=== PATIENT | male | born 1960 | race Caucasian/White ===

== ENCOUNTER 2017-01-20 10:27 | Inpatient (IN) | payer OTHER ==
[2017-01-20] VITALS (11 sets, daily range): BP systolic 133–184; BP diastolic 81–115; PULSE 76–106; RESP 16–20; TEMP 97.8–98.8; O2SAT 95–98
[~2017-01-20] VITALS: Ht 185.4 cm; Wt 108.8 kg
[~2017-01-20 10:27] MED LIST: LISI-363 PO; PROT40TA PO; ZOFR4TAB3 PO
--- NOTE | 2017-01-20 10:44 | PD ---
HPI Chief Complaint: Abnormal Results Time Seen by Provider: 10:34 Travel History International Travel<30 days: No Contact w/Intl Traveler<30days: No Traveled to known affect area: No History of Present Illness HPI Diagnoses a 56-year-old male with history of hypertension, who [facility] and be evaluated for a low sodium. He states they told him his sodium PFSH Past Medical History Anxiety: Yes Depression: No Heart Rhythm Problems: No Cancer: No Cardiovascular Problems: Yes High Cholesterol: No Chemotherapy: No Chest Pain: No Congestive Heart Failure: No Diminished Hearing: No Genitourinary: Yes Hiatal Hernia: Yes Hypertension: Yes Implanted Vascular Access Dvce: No Musculoskeletal: No Neurologic: No Psychiatric: No Reproductive: No Respiratory: No Radiation Therapy: No Past Surgical History Abdominal Surgery: Yes (HERNIA REPAIR) Tonsillectomy: Yes Other Surgery: Yes (LUMP FOR LEFT ARM REMOVED) Social History Alcohol Use: Yes (2-3 A DAY) Tobacco Use: Yes (2 PPD) Substance Use: No Allergies-Medications (Allergen,Severity, Reaction): Coded Allergies: No Known Allergies (Unverified Adverse Reaction, Unknown, 01/20/17) Reported Meds & Prescriptions Reported Meds & Active Scripts Active Reported Meloxicam 15 Mg Tab 15 Mg PO DAILY Pantoprazole (Pantoprazole Sodium) 40 Mg Tab 40 Mg PO DAILY Potassium Chloride ER (Potassium Chloride) 8 Meq Tab 8 Meq PO BID Furosemide 20 Mg Tab 20 Mg PO DAILY Lisinopril 20 Mg Tab 20 Mg PO DAILY Review of Systems Except as stated in HPI: all other systems reviewed are Neg General / Constitutional: No: Fever HENT: No: Headaches, Lightheadedness, Neck Pain Cardiovascular: No: Chest Pain or Discomfort, Palpitations Respiratory: No: Cough, Shortness of Breath Gastrointestinal: No: Nausea, Vomiting, Abdominal Pain Genitourinary: No: Frequency, Dysuria Musculoskeletal: No: Weakness, Pain Neurologic: No: Weakness, Dizziness, Headache Physical Exam Narrative GENERAL: Well-nourished, well-developed patient. SKIN: Focused skin assessment warm/dry. HEAD: Normocephalic/atraumatic. EYES: No scleral icterus. No injection or drainage. NECK: Supple, trachea midline. No JVD or lymphadenopathy. CARDIOVASCULAR: Regular rate and rhythm without murmurs, gallops, or rubs. RESPIRATORY: Breath sounds equal bilaterally. No accessory muscle use. GASTROINTESTINAL: Abdomen soft, non-tender, nondistended. MUSCULOSKELETAL: No cyanosis, or edema. NEUROLOGICAL: Awake and alert. Cranial nerves II through XII intact. Motor grossly within normal limits. Five out of 5 muscle strength in all muscle groups. Normal speech. Data Data Last Documented VS Vital Signs Date Time Temp Pulse Resp B/P (MAP) Pulse Ox O2 Delivery O2 Flow Rate FiO2 01/20/17 11:38 86 18 159/97 (117) 96 Room Air Orders Orders Complete Blood Count With Diff (01/20/17 10:35) Comprehensive Metabolic Panel (01/20/17 10:35) Iv Access Insert/Monitor (01/20/17 10:35) Ecg Monitoring (01/20/17 10:35) Oximetry (01/20/17 10:35) Lisinopril (Prinivil) (01/20/17 10:45) Sodium Chlor 0.9% 1000 Ml Inj (Ns 1000 M (01/20/17 11:30) Admit To Inpatient (01/20/17 ) Vital Signs (Adult) ANISH.Q4H (01/20/17 11:42) Activity Oob With Assistance (01/20/17 11:42) Booster Operator / Telemetry ANISH.Q8H (01/20/17 11:42) Intake + Output 06,14,22 (01/20/17 11:42) Diet Heart Healthy (01/20/17 Lunch) Sodium Chloride 0.9% Flush (Ns Flush) (01/20/17 11:45) Sodium Chloride 0.9% Flush (Ns Flush) (01/20/17 21:00) Inpatient Certification (01/20/17 ) Labs Laboratory Tests Test 01/20/17 10:46 White Blood Count 9.4 TH/MM3 Red Blood Count 4.85 MIL/MM3 Hemoglobin 16.0 GM/DL Hematocrit 46.1 % Mean Corpuscular Volume 95.0 FL Mean Corpuscular Hemoglobin 33.0 PG Mean Corpuscular Hemoglobin Concent 34.7 % Red Cell Distribution Width 17.3 % Platelet Count 258 TH/MM3 Mean Platelet Volume 7.3 FL CBC Comment AUTO DIFF Differential Total Cells Counted 100 Neutrophils % (Manual) 71 % Band Neutrophils % 4 % Lymphocytes % 19 % Monocytes % 5 % Eosinophils % 1 % Neutrophils # (Manual) 7.1 TH/MM3 Differential Comment FINAL DIFF MANUAL Platelet Estimate NORMAL Platelet Morphology Comment NORMAL Red Cell Morphology Comment NORMAL Blood Urea Nitrogen 7 MG/DL Creatinine 0.70 MG/DL Random Glucose 101 MG/DL Total Protein 7.5 GM/DL Albumin 3.3 GM/DL Calcium Level 8.2 MG/DL Alkaline Phosphatase 123 U/L Aspartate Amino Transf (AST/SGOT) 63 U/L Alanine Aminotransferase (ALT/SGPT) 63 U/L Total Bilirubin 0.6 MG/DL Sodium Level 118 MEQ/L Potassium Level 4.3 MEQ/L Chloride Level 89 MEQ/L Carbon Dioxide Level 21.2 MEQ/L Anion Gap 8 MEQ/L Estimat Glomerular Filtration Rate 117 ML/MIN [facility] Medical Decision Making Medical Screen Exam Complete: Yes Emergency Medical Condition: Yes Differential Diagnosis Podiatry male versus lab error versus metabolic derangement Narrative Course 56-year-old male sent from the [facility] for abnormal labs. The patient was told he had a sodium of 118. Patient has no symptoms at this time. The patient does report that he was taking potassium and Lasix however has not taken in over last 2 days. He states he missed his lisinopril this morning. His blood pressure showed a systolic of 189 and a diastolic of 113. He's been given his lisinopril times one dose here in the emergency department. Sodium comes back at 118. He's been started on normal saline at 125 cc per hour. He'll be admitted to the admitting service. There is a call out to the resident's admitting service. Diagnosis Primary Impression: Hyponatremia Additional Impressions: Hypertension History of alcohol use Admitting Information Admitting Physician Requests: Admit Justin Steven MD Jan 20, 2017 10:44
[2017-01-20] MEDS ORDERED: LISINOPRIL 20 MG TAB PO ONE ×2 (10:45)
[2017-01-20] MEDS ORDERED: FURO20TA PO ×2 (10:45)
[2017-01-20] MEDS ORDERED: POTA8TAB PO ×2 (10:45)
[2017-01-20] MEDS ORDERED: MELO-1 PO ×2 (10:45)
[2017-01-20] MEDS ORDERED: PANT40TA3 PO ×2 (10:45)
[2017-01-20] MEDS ORDERED: LISI-515 PO ×2 (10:45)
[2017-01-20 11:10] LABS: HEMATOCRIT 46.1 % (39.0-51.0); MEAN CORPUSCULAR HGB CONC 34.7 % (32.0-36.0); MEAN PLATELET VOLUME 7.3 FL (7.0-11.0); PLATELET COUNT 258 TH/MM3 (150-450); RED BLOOD COUNT 4.85 MIL/MM3 (4.50-5.90); RED CELL DISTRIBUTION WIDTH 17.3 % (11.6-17.2); WHITE BLOOD COUNT 9.4 TH/MM3 (4.0-11.0)
[2017-01-20 11:23] LABS: ALBUMIN 3.3 GM/DL (3.4-5.0); ALKALINE PHOSPHATASE 123 U/L (45-117); ALT (GPT) 63 U/L (12-78); AST (GOT) 63 U/L (15-37); BICARBONATE 21.2 MEQ/L (21.0-32.0); BLOOD UREA NITROGEN 7 MG/DL (7-18); CALCIUM 8.2 MG/DL (8.5-10.1); CHLORIDE 89 MEQ/L (98-107); GLOMERULAR FILTRATION RATE 117 ML/MIN (>89); GLUCOSE,RANDOM 101 MG/DL (74-106); TOTAL BILIRUBIN ADULT 0.6 MG/DL (0.2-1.0); TOTAL PROTEIN 7.5 GM/DL (6.4-8.2)
[2017-01-20 11:27] LABS: BANDS 4 % (0-6); LYMPHOCYTES 19 % (9-44); MONOCYTES 5 % (0-8); NEUTROPHIL # MANUAL DIFF 7.1 TH/MM3 (1.8-7.7); POLYS (SEG NEUTROPHILS) 71 % (16-70); SODIUM (NA) 118 MEQ/L (136-145)
[2017-01-20] MEDS: SODIUM CHLOR 0.9% 1000 ML INJ 1,000 ML IV SCH ×4 (11:34→19:30)
[2017-01-20] MEDS ORDERED: SODIUM CHLORIDE 0.9% FLUSH 10 ML FLUSH IV FLUSH PRN ×2 (11:45)
--- NOTE | 2017-01-20 12:09 | HHI.HP ---
[facility] Service Family Medicine Primary Care Physician [facility] Admission Diagnosis Diagnoses: International Travel<30 Days: No Contact w/Intl Traveler<30days: No Known Affected Area: No History of Present Illness Mr. Jaimes is a 56yoWM with a PMH of HTN and chronic pain presenting with abnormal labs. Had labs done this morning and received several messages to go to the ER from his doctor at the [facility]. Has been feeling fine. No recent infections or illnesses. No sick contacts. Cough has been a little bit worse over the past couple of weeks. Productive of clear sputum. Worse at night. No fever/chills. No hx of seizures. No psychotropic meds. Last had labs 3 months ago that were good. (Stefani Dill MD R1) Review of Systems Constitutional: COMPLAINS OF: Weight gain (40 lbs in a yr), DENIES: Fever, Chills Eyes: DENIES: Blurred vision, Double Vision Ears, nose, mouth, throat: DENIES: Tinnitus, Hearing loss, Throat pain, Odynophagia Respiratory: COMPLAINS OF: Cough, Sputum production, Shortness of breath Cardiovascular: COMPLAINS OF: PND, Lower Extremity Edema, Orthopnea, DENIES: Chest pain Gastrointestinal: DENIES: Abdominal pain, Constipation, Diarrhea Musculoskeletal: COMPLAINS OF: Joint pain, Back pain, DENIES: Joint Swelling Hematologic/lymphatic: DENIES: Lymphadenopathy Neurologic: COMPLAINS OF: Paresthesias, DENIES: Localized weakness, Seizures Psychiatric: DENIES: Anxiety, Depression (Stefani Dill MD R1) Past Family Social History Past Medical History Chronic back pain- degenerative changes- being treated by pain management HTN COPD?- on inhalers Past Surgical History Hernia repair 2012 Tonsillectomy Reported Medications Spiriva qD Symbicort inhaler Reported Meds & Active Scripts Active Reported Meloxicam 15 Mg Tab 15 Mg PO DAILY Pantoprazole (Pantoprazole Sodium) 40 Mg Tab 40 Mg PO DAILY Potassium Chloride ER (Potassium Chloride) 8 Meq Tab 8 Meq PO BID Furosemide 20 Mg Tab 20 Mg PO DAILY Lisinopril 20 Mg Tab 20 Mg PO DAILY (Stefani Dill MD R1) Allergies: Coded Allergies: No Known Allergies (Unverified Adverse Reaction, Unknown, 01/20/17) Family History Mother- CAD- Open heart surg in hers 50s Father- CAD Children- healthy Siblings- healthy Social History , lives alone with dog Retired from [employer] for 25 yrs [employer] Tobacco- 2 ppds for 40yrs, willing to quit Alcohol- 6 pack of beer a day, for 35 yrs, no withdrawals sx, no seizures Illicit drugs- none (Stefani Dill MD R1) Physical Exam Vital Signs Vital Signs Date Time Temp Pulse Resp B/P (MAP) Pulse Ox O2 Delivery O2 Flow Rate FiO2 01/20/17 11:38 86 18 159/97 (117) 96 Room Air 01/20/17 10:47 101 18 174/115 (134) 96 Room Air 01/20/17 10:29 97 16 184/98 (126) 95 Physical Exam GENERAL: This is a well-nourished, well-developed obese male patient sitting in bed, in no apparent distress. SKIN: No rashes, ecchymoses or lesions. Cool and dry. HEAD: Atraumatic. Normocephalic EYES: Pupils equal round and reactive. Extraocular motions intact. No scleral icterus. No injection or drainage. ENT: Nose without bleeding, purulent drainage or septal hematoma. Throat without erythema, tonsillar hypertrophy or exudate. Uvula midline. Airway patent. NECK: Trachea midline. No JVD or lymphadenopathy. Supple, nontender, no meningeal signs. CARDIOVASCULAR: Regular rate and rhythm without murmurs, gallops, or rubs. RESPIRATORY: Clear to auscultation. Breath sounds equal bilaterally. No rales, or rhonchi. Decreased breath sounds bilaterally GASTROINTESTINAL: Abdomen soft obese , non-tender, nondistended. No hepato- splenomegaly, or palpable masses. No guarding. MUSCULOSKELETAL: Extremities without clubbing, cyanosis. 1+pitting edema to mid calf. No joint tenderness, effusion, or edema noted. No calf tenderness. NEUROLOGICAL: Awake and alert. Motor and sensory grossly within normal limits. Normal speech. Laboratory Laboratory Tests Test 01/20/17 10:46 White Blood Count 9.4 Red Blood Count 4.85 Hemoglobin 16.0 Hematocrit 46.1 Mean Corpuscular Volume 95.0 Mean Corpuscular Hemoglobin 33.0 Mean Corpuscular Hemoglobin Concent 34.7 Red Cell Distribution Width 17.3 Platelet Count 258 Mean Platelet Volume 7.3 CBC Comment AUTO DIFF Differential Total Cells Counted 100 Neutrophils % (Manual) 71 Band Neutrophils % 4 Lymphocytes % 19 Monocytes % 5 Eosinophils % 1 Neutrophils # (Manual) 7.1 Differential Comment FINAL DIFF MANUAL Platelet Estimate NORMAL Platelet Morphology Comment NORMAL Red Cell Morphology Comment NORMAL Blood Urea Nitrogen 7 Creatinine 0.70 Random Glucose 101 Total Protein 7.5 Albumin 3.3 Calcium Level 8.2 Alkaline Phosphatase 123 Aspartate Amino Transf (AST/SGOT) 63 Alanine Aminotransferase (ALT/SGPT) 63 Total Bilirubin 0.6 Sodium Level 118 Potassium Level 4.3 Chloride Level 89 Carbon Dioxide Level 21.2 Anion Gap 8 Estimat Glomerular Filtration Rate 117 (Stefani Dill MD R1) Result Diagram: 01/20/17 1046 01/20/17 1046 Imaging Last Impressions Chest X-Ray 01/20/17 1220 Signed Impressions: Service Date/Time: January 12:39 - CONCLUSION: Mild platelike atelectasis right lung base. Otherwise, the lungs are clear and stable compared to the prior study. Keegan Youngblood MD (Stefani Dill MD R1) Caprini VTE Risk Assessment Caprini VTE Risk Assessment: Mod/High Risk (score >= 2) Caprini Risk Assessment Model Point Value = 1 Point Value = 2 Point Value = 3 Point Value = 5 Age 41-60 Minor surgery BMI > 25 kg/m2 Swollen legs Varicose veins or History of unexplained or recurrent spontaneous Oral contraceptives or hormone replacement Sepsis (< 1 month) Serious lung disease, including pneumonia (< 1 month) Abnormal pulmonary function Acute myocardial infarction Congestive heart failure (< 1 month) History of inflammatory bowel disease Medical patient at bed rest Age 61-74 Arthroscopic surgery Major open surgery (> 45 min) Laparoscopic surgery (> 45 min) Malignancy Confined to bed (> 72 hours) Immobilizing plaster cast Central venous access Age >= 75 History of VTE Family history of VTE Factor V Leiden Prothrombin [id number] Lupus anticoagulant Anticardiolipin antibodies Elevated serum homocysteine Heparin-induced thrombocytopenia Other congenital or acquired thrombophilia Stroke (< 1 month) Elective arthroplasty Hip, pelvis, or leg fracture Acute spinal cord injury (< 1 month) Prophylaxis Regimen Total Risk Factor Score Risk Level Prophylaxis Regimen 0-1 Low Early ambulation 2 Moderate Order ONE of the following: *Sequential Compression Device (SCD) *Heparin 5000 units SQ BID 3-4 Higher Order ONE of the following medications: *Heparin 5000 units SQ TID *Enoxaparin/Lovenox 40 mg SQ daily (WT < 150 kg, CrCl > 30 mL/min) *Enoxaparin/Lovenox 30 mg SQ daily (WT < 150 kg, CrCl > 10-29 mL/min) *Enoxaparin/Lovenox 30 mg SQ BID (WT < 150 kg, CrCl > 30 mL/min) AND/OR *Sequential Compression Device (SCD) 5 or more Highest Order ONE of the following medications: *Heparin 5000 units SQ TID (Preferred with Epidurals) *Enoxaparin/Lovenox 40 mg SQ daily (WT < 150 kg, CrCl > 30 mL/min) *Enoxaparin/Lovenox 30 mg SQ daily (WT < 150 kg, CrCl > 10-29 mL/min) *Enoxaparin/Lovenox 30 mg SQ BID (WT < 150 kg, CrCl > 30 mL/min) AND *Sequential Compression Device (SCD) (Stefani Dill MD R1) Assessment and Plan Assessment and Plan Mr. Jaimes is a 56yoWM with a PMH of HTN presenting with asymptomatic hyponatremia to 118. He is being admitted to inpatient. Code Status Full Code Discussed Condition With Dr. Luz Elena Sandoval and Dr. Simran Mariscal (Stefani Dill MD R1) Attending Attestation Patient seen and examined. Case reviewed and discussed with the resident team. Agree with plan of care as discussed with me and documented in the resident note. (Simran Mariscal MD) Problem List: (1) Hyponatremia ICD Codes: E87.1 - Hypo-osmolality and hyponatremia Status: Acute Plan: Patient with severe hyponatremia down to 118. Asymptomatic. No weakness. No hx of seizures. On Lasix at home which may have contributed to his losing sodium. * Repeat sodium at 1300 * Check urine sodium (169) and urine osmolality (666)- may indicate SIADH * CXR- showed no pulmonary lesion * Started on IVF NS @ 125mls/hr * Will place on fluid restriction at 1500ml * Hold Lasix and potassium (2) Hypertension ICD Codes: I10 - Hypertension Status: Chronic Plan: Pt hypertensive upon admission to the ED. States that he did not take his home dose of Lisinopril * Given 1 dose of Lisinopril in ED * Continue at home Lisinopril 20mg po qD * Hold Lasix (3) History of alcohol use ICD Codes: Z87.898 - Personal history of other specified conditions Status: Chronic Plan: Pt admits to long history of alcohol use. 6 pack of beer a day. * CIWA protocol, escalate as needed (4) Tobacco abuse ICD Codes: Z72.0 - Tobacco abuse Status: Chronic Plan: 80 pack year history, pt interested in quitting * Nicotine patch * Advise about [place] Quitline for more information (5) FEN Status: Acute Plan: Fluids: Fluid restriction to 1500, IVF NS@125ml/hr Electrolytes: hyponatremia noted, monitor and replete as needed Nutrition: heart-healthy diet DVT Prophylaxis: Early ambulation. Lovenox 40mg subQ q24hr GI Prophylaxis: Protonix (Stefani Dill MD R1) Physician Certification 2 Midnight Certification Type: Admission for Inpatient Services Order for Inpatient Services The services are ordered in accordance with Medicare regulations or non- Medicare payer requirements, as applicable. In the case of services not specified as inpatient-only, they are appropriately provided as inpatient services in accordance with the 2-midnight benchmark. Estimated LOS (days): 2 days is the estimated time the patient will need to remain in the hospital, assuming treatment plan goals are met and no additional complications. Post-Hospital Plan: Home (Stefani Dill MD R1) Stefani Dill MD R1 Jan 20, 2017 12:09 Simran Mariscal MD Jan 21, 2017 14:16
[2017-01-20] MEDS ORDERED: cloNIDine HCL 0.1 MG TAB PO PRN ×2 (12:30)
[2017-01-20] MEDS ORDERED: ONDANSETRON HCL 4 MG/2 ML VIAL IVP PRN ×2 (12:30)
[2017-01-20] MEDS ORDERED: LORazepam 1 MG TAB PO PRN ×2 (12:30)
[2017-01-20] MEDS ORDERED: BISACODYL 10 MG SUPP RECTAL PRN ×2 (12:30)
[2017-01-20] MEDS ORDERED: MAGNESIUM HYDROXIDE SUSP 30 ML CUP PO PRN ×2 (12:30)
[2017-01-20] MEDS ORDERED: SENNOSIDES 8.6 MG TAB PO PRN ×2 (12:30)
[2017-01-20] MEDS ORDERED: FLUMAZENIL 0.5 MG/5 ML VIAL IV PUSH PRN ×2 (12:30)
[2017-01-20] MEDS ORDERED: LACTULOSE SYRUP 20 GM/30 ML CUP PO PRN ×2 (12:30)
[2017-01-20] MEDS ORDERED: LORazepam 2 MG TAB PO PRN ×2 (12:30)
[2017-01-20] MEDS ORDERED: ACETAMINOPHEN 325 MG TAB PO PRN ×2 (12:30)
[2017-01-20] MEDS ORDERED: LORazepam 2 MG/ML VIAL IV PUSH PRN ×8 (12:30)
[2017-01-20] MEDS ORDERED: NALOXONE HCL 0.4 MG/ML AMP IV PUSH PRN ×2 (12:30)
--- NOTE | 2017-01-20 12:32 | HHI.FPPN ---
Subjective Remarks Pt. seen, examined and discussed with Drs. Dill and Joey Sandoval. This is a 56 yo male [employer] who had bloodwork at the [facility] this a.m. and was called at home thereafter to report to the ED because of critical low sodium at 118. He is totally assymptomatic with the exception of his chronic low back pain. He takes lasix, potassium and lisinopril (held this a.m. ). [facility] also [facility] for his [facility]. Has been prescribed PT. Has had hernia and tonsillectomy surgeries. Smokes 80 pack year history, and drinks a six-pack of beer daily for 35 years. No history of seizures or withdrawal symptoms. No illicits. Lives with dog, roommate and a boarder. . Two children L&W, two brothers L&W. Mom with history of heart surgery, dad with stents and thyroidectomy. See H&P for this admission for additional historical details, including ROS for this admission. Objective Vitals Vital Signs Date Time Temp Pulse Resp B/P (MAP) Pulse Ox O2 Delivery O2 Flow Rate FiO2 01/20/17 11:38 86 18 159/97 (117) 96 Room Air 01/20/17 10:47 101 18 174/115 (134) 96 Room Air 01/20/17 10:29 97 16 184/98 (126) 95 Result Diagram: 01/20/17 1046 01/20/17 1046 Objective Remarks O. CONSTITUTIONAL/GEN: normally nourished, in NAD. EYES: conjunctiva normal, right upuil smaller than left, both are reactive, EOMI. ENT: Mouth and pharynx normal. Many missing teeth upper jaw. NECK: thyroid midline, carotids symmetrical. LUNGS: Decreased breath sounds, no wheezing, rales, rhonchi. CARDIOVASCULAR: RR without murmur or gallop. 1+ edema to mid-calf. GI/ABD: soft without masses, without organomegaly. Protuberant. : no CVA tenderness NEURO: No focal deficits. SKIN: color normal, no rashes noted. HEME/LYMPH: no bruising, petechia or significant adenopathy MUSC: back is normal in appearance. Extremities are normal in appearance. PSYCH/MENTAL STATUS: Alert and oriented x 3. A/P Assessment and Plan 56 yo male with significant hyponatremia at 118. Will admit, monitor sodium. Discharge Planning Case management. Attending Attestation Patient seen and examined. Case reviewed and discussed with the resident team. Agree with plan of care as discussed with me and documented in the resident note. Simran Mariscal MD Jan 20, 2017 12:32
[2017-01-20 13:06] LABS: BILIRUBIN, URINE NEG (NEG); BLOOD, URINE NEG (NEG); GLUCOSE,URINE 150 mg/dL (NEG); KETONE, URINE NEG (NEG); MUCUS URINE FEW /lpf (OCC); NITRITE,URINE NEG (NEG); URINE COLOR YELLOW (YELLW/STRAW); URINE LEUKOCYTE ESTERASE NEG (NEG)
--- NOTE | 2017-01-20 13:27 | RADRPT ---
EXAM DATE/TIME: 01/20/2017 12:39 [facility] COMPARISON: CHEST SINGLE AP, July 05, 2013, 11:04. INDICATIONS : Short of breath with chest pressure, low sodium. MEDICAL HISTORY : Chronic obstructive pulmonary disease. SURGICAL HISTORY : None. ENCOUNTER: Initial ACUITY: 1 day PAIN SCORE: 0/10 LOCATION: Chest FINDINGS: A single view of the chest demonstrates the lungs to be symmetrically aerated without evidence of mas s, infiltrate or effusion. Mild platelike atelectasis in the right lung base. The cardiomediastinal c ontours are unremarkable. Osseous structures are intact. Otherwise, no other significant changes com pared to the prior study. CONCLUSION: Mild platelike atelectasis right lung base. Otherwise, the lungs are clear and stable compared to the prior study. Keegan Youngblood MD on January 20, 2017 at 13:25 Board Certified Radiologist. This report was verified electronically.
[2017-01-20] MEDS: ENOXAPARIN SODIUM 40 MG/0.4 ML SYRINGE SQ SCH ×2 (16:29)
[2017-01-20] MEDS: THIAMINE HCL 100 MG TAB PO SCH ×2 (16:29)
[2017-01-20] MEDS: NICOTINE 21 MG/24 HR PATCH T-DERMAL SCH ×2 (16:29)
[2017-01-20] MEDS: FOLIC ACID 1 MG TAB PO SCH ×2 (16:29)
[2017-01-20] MEDS: MULTIVITAMIN TAB PO SCH ×2 (16:29)
[2017-01-20 19:50] LABS: SODIUM,RANDOM URINE 169 MEQ/L
[2017-01-20 19:52] LABS: OSMOLALITY,URINE 666 MOSM/KG (300-1300)
[2017-01-20] MEDS: REMOVE OLD PATCH T-DERMAL SCH ×2 (21:00)
[2017-01-20] MEDS: SODIUM CHLORIDE 0.9% FLUSH 10 ML FLUSH IV FLUSH SCH ×2 (21:32)
[2017-01-20] MEDS: DOCUSATE SODIUM 50 MG/SENNA 8.6 MG TAB PO SCH ×2 (21:34)
[2017-01-20 22:17] LABS: BICARBONATE 21.4 MEQ/L (21.0-32.0); CREATININE 0.8 MG/DL (0.60-1.30)
[2017-01-20] MEDS: POTASSIUM CHLORIDE 8 MEQ CONTROLLED RELEASE TAB PO SCH ×2 (22:23)
[2017-01-20] MEDS ORDERED: SODIUM CHLORIDE 1 GRAM TAB PO ONE ×2 (23:45)
[2017-01-20] MEDS ORDERED: FUROSEMIDE 20 MG/2 ML VIAL IV PUSH ONE ×2 (23:45)
[2017-01-20] MEDS ORDERED: POTASSIUM CHLORIDE 10 MEQ CONTROLLED RELEASE TAB PO ONE ×2 (23:45)
[2017-01-21] VITALS (9 sets, daily range): BP systolic 139–163; BP diastolic 83–105; PULSE 74–92; RESP 18; TEMP 97.3–98.2; O2SAT 97–99
[2017-01-21] MEDS ORDERED: SYMB80AE INH ×2 (00:12)
[2017-01-21] MEDS ORDERED: SPIRCAP INH ×2 (00:12)
[2017-01-21 04:04] LABS: BICARBONATE 24.4 MEQ/L (21.0-32.0); CALCIUM 7.9 MG/DL (8.5-10.1); CREATININE 0.7 MG/DL (0.60-1.30)
[2017-01-21 08:18] LABS: AUTOMATED NEUTROPHIL # 4.3 TH/MM3 (1.8-7.7); BASOPHIL # 0.1 TH/MM3 (0-0.2); BASOPHIL % 0.9 % (0.0-2.0); EOSINOPHIL # 0.1 TH/MM3 (0-0.4); EOSINOPHIL % 2.2 % (0.0-4.0); HEMATOCRIT 42.3 % (39.0-51.0); LYMPH % 21.5 % (9.0-44.0); LYMPHOCYTE # 1.4 TH/MM3 (1.0-4.8); MEAN CELL VOLUME 95.9 FL (80.0-100.0); MEAN CORPUSCULAR HEMOGLOBIN 34.1 PG (27.0-34.0); MEAN CORPUSCULAR HGB CONC 35.5 % (32.0-36.0); MEAN PLATELET VOLUME 7.5 FL (7.0-11.0); MONO % 10.2 % (0.0-8.0); MONOCYTE # 0.7 TH/MM3 (0-0.9); NEUT % 65.2 % (16.0-70.0); PLATELET COUNT 226 TH/MM3 (150-450); RED BLOOD COUNT 4.41 MIL/MM3 (4.50-5.90); RED CELL DISTRIBUTION WIDTH 17.2 % (11.6-17.2); WHITE BLOOD COUNT 6.7 TH/MM3 (4.0-11.0)
[2017-01-21 08:42] LABS: ALT (GPT) 53 U/L (12-78); AST (GOT) 51 U/L (15-37); BICARBONATE 22.5 MEQ/L (21.0-32.0); BLOOD UREA NITROGEN 6 MG/DL (7-18); CALCIUM 8.1 MG/DL (8.5-10.1); CHLORIDE 86 MEQ/L (98-107); CREATININE 0.68 MG/DL (0.60-1.30); GLOMERULAR FILTRATION RATE 121 ML/MIN (>89); GLUCOSE,RANDOM 102 MG/DL (74-106)
[2017-01-21 08:44] LABS: SODIUM (NA) 117 MEQ/L (136-145)
[2017-01-21] MEDS: THIAMINE HCL 100 MG TAB PO SCH ×2 (08:45)
[2017-01-21] MEDS: PANTOPRAZOLE SOD 40 MG DELAYED RELEASE TAB PO SCH ×2 (08:45)
[2017-01-21] MEDS: FOLIC ACID 1 MG TAB PO SCH ×2 (08:45)
[2017-01-21] MEDS: MULTIVITAMIN TAB PO SCH ×2 (08:45)
[2017-01-21] MEDS: DOCUSATE SODIUM 50 MG/SENNA 8.6 MG TAB PO SCH ×4 (08:45→21:00)
[2017-01-21] MEDS: LISINOPRIL 20 MG TAB PO SCH ×2 (08:45)
[2017-01-21] MEDS: POTASSIUM CHLORIDE 8 MEQ CONTROLLED RELEASE TAB PO SCH ×4 (08:45→23:32)
[2017-01-21] MEDS: NICOTINE 21 MG/24 HR PATCH T-DERMAL SCH ×2 (08:46)
[2017-01-21 08:50] LABS: ALKALINE PHOSPHATASE 104 U/L (45-117); TOTAL BILIRUBIN ADULT 0.6 MG/DL (0.2-1.0); TOTAL PROTEIN 6.9 GM/DL (6.4-8.2)
[2017-01-21] MEDS: SODIUM CHLORIDE 0.9% FLUSH 10 ML FLUSH IV FLUSH SCH ×4 (08:54→21:00)
--- NOTE | 2017-01-21 09:22 | EKG ---
Date Performed: 01/20/2017 Time Performed: 12:36:09 PTAGE: 56 years EKG: Sinus rhythm NORMAL ECG Compared to prior tracing no significant change PREVIOUS TRACING : 04/25/2013 11.39 DOCTOR: Prudencio Seay Interpretating Date/Time 01/21/2017 09:19:33
[2017-01-21] MEDS ORDERED: SODIUM CHLORIDE 1 GRAM TAB PO ONE ×2 (11:00)
[2017-01-21] MEDS: SODIUM CHLOR 0.9% 1000 ML INJ 1,000 ML IV SCH ×2 (12:51)
[2017-01-21] MEDS ORDERED: BACL10TA PO ×2 (13:40)
[2017-01-21] MEDS ORDERED: METH500T3 PO ×2 (13:40)
[2017-01-21] MEDS ORDERED: GABA300C5 PO ×2 (13:40)
[2017-01-21] MEDS: ENOXAPARIN SODIUM 40 MG/0.4 ML SYRINGE SQ SCH ×2 (14:00)
--- NOTE | 2017-01-21 14:11 | HHI.FPPN ---
Subjective Remarks Patient is feeling well. Says that he builds fluid in his lungs when he lays flat. Denies confusion, denies headaches, denies seizures. He does have a persistent cough that is not much worse than his baseline. He also admits to drinking 4-6 beers a day for the past several years, however does not feel like he is going through any withdrawals. He admits to drinking a cup of coffee this morning but not much else besides this. He is requesting to go home today. (Gregorio Blackwell MD, R3) Objective Vitals Vital Signs Date Time Temp Pulse Resp B/P (MAP) Pulse Ox O2 Delivery O2 Flow Rate FiO2 01/21/17 12:03 98.0 87 18 140/87 (104) 97 01/21/17 08:03 97.7 74 18 154/98 (116) 97 01/21/17 08:00 90 01/21/17 08:00 Room Air 01/21/17 04:37 97.3 86 18 163/105 (124) 97 01/21/17 04:00 Room Air 01/21/17 00:00 Room Air 01/20/17 23:40 98.6 76 18 167/95 (119) 95 01/20/17 20:45 98.8 95 20 133/96 (108) 96 01/20/17 20:00 Room Air 01/20/17 20:00 106 01/20/17 18:02 85 01/20/17 16:23 98.0 85 19 162/87 (112) 98 01/20/17 15:59 87 01/20/17 14:49 I/O 01/20/17 01/20/17 01/20/17 01/21/17 01/21/17 01/21/17 07:00 15:00 23:00 07:00 15:00 23:00 Intake Total 720 ml Output Total 1875 ml Balance -1155 ml Intake Oral 720 ml Output Urine Total 1875 ml # Voids 2 # Bowel Movements 1 (Gergorio Blackwell MD, R3) Result Diagram: 01/21/17 0702 01/21/17 0702 Imaging Last 72 hours Impressions Chest X-Ray 01/20/17 1220 Signed Impressions: Service Date/Time: January 12:39 - CONCLUSION: Mild platelike atelectasis right lung base. Otherwise, the lungs are clear and stable compared to the prior study. Keegan Youngblood MD Objective Remarks O. CONSTITUTIONAL/GEN: normally nourished, in NAD. EYES: conjunctiva normal, right upuil smaller than left, both are reactive, EOMI. ENT: Mouth and pharynx normal. Many missing teeth upper jaw. NECK: thyroid midline, carotids symmetrical. LUNGS: Faint crackles at the bases. CARDIOVASCULAR: RR without murmur or gallop. 1+ edema to mid-calf. GI/ABD: soft without masses, without organomegaly. Protuberant. : no CVA tenderness NEURO: No focal deficits. SKIN: color normal, no rashes noted. HEME/LYMPH: no bruising, petechia or significant adenopathy MUSC: back is normal in appearance. Extremities are normal in appearance. PSYCH/MENTAL STATUS: Alert and oriented x 3. (Gregorio Blackwell MD, R3) A/P Assessment and Plan Mr. Jaimes is a 56yoWM with a PMH of HTN presenting with asymptomatic hyponatremia to 118. He is being admitted to inpatient. Discharge Planning Case management. (Gregorio Blackwell MD, R3) Attending Attestation Patient seen and examined. Case reviewed and discussed with the resident team. Agree with plan of care as discussed with me and documented in the resident note. (Simran Mariscal MD) Problem List: (1) Hyponatremia ICD Codes: E87.1 - Hypo-osmolality and hyponatremia Status: Acute Plan: Patient with severe hyponatremia down to 118. Asymptomatic. No weakness. No hx of seizures. On Lasix at home which may have contributed to his losing sodium. * Repeat sodium at 1300 * Check urine sodium (169) and urine osmolality (666)- may indicate SIADH, possibly from underlying * CXR- showed no pulmonary lesion * Hold IVF * Will place on fluid restriction at 800 ml and give Sodium Chloride 1 g tablets BID. * Hold Lasix and potassium * Advised to stop drinking EtOH (2) Hypertension ICD Codes: I10 - Hypertension Status: Chronic Plan: Pt hypertensive upon admission to the ED. States that he did not take his home dose of Lisinopril * Given 1 dose of Lisinopril in ED * Continue at home Lisinopril 20mg po qD * Hold Lasix (3) History of alcohol use ICD Codes: Z87.898 - Personal history of other specified conditions Status: Chronic Plan: Pt admits to long history of alcohol use. 6 pack of beer a day. * CIWA protocol, escalate as needed (4) Tobacco abuse ICD Codes: Z72.0 - Tobacco abuse Status: Chronic Plan: 80 pack year history, pt interested in quitting * Nicotine patch * Advise about [place] Quitline for more information (5) FEN Status: Acute Plan: Fluids: Fluid restriction to 800, IVF NS@125ml/hr Electrolytes: hyponatremia noted, monitor and replete as needed Nutrition: heart-healthy diet DVT Prophylaxis: Early ambulation. Lovenox 40mg subQ q24hr GI Prophylaxis: Protonix SDW Dr. Simran Mariscal and Dr. Stefani Dill. (Gregorio Blackwell MD, R3) Gregorio Blackwell MD, R3 Jan 21, 2017 14:11 Simran Mariscal MD Jan 21, 2017 14:46
[2017-01-21] MEDS: SODIUM CHLORIDE 1 GRAM TAB PO SCH ×4 (15:09→23:31)
[2017-01-21] MEDS: RESP: ALBUTEROL 2.5 MG/IPRATROPIUM 0.5 MG NEB (SCH) NEB ×4 (16:48→21:08)
[2017-01-21 18:35] LABS: BICARBONATE 23.5 MEQ/L (21.0-32.0); CALCIUM 7.8 MG/DL (8.5-10.1); CREATININE 0.74 MG/DL (0.60-1.30)
[2017-01-21] MEDS: REMOVE OLD PATCH T-DERMAL SCH ×2 (21:00)
[2017-01-22] MEDS: RESP: ALBUTEROL 2.5 MG/IPRATROPIUM 0.5 MG NEB (SCH) NEB ×8 (00:30→11:08)
[2017-01-22 00:32] VITALS: O2SAT 98
[2017-01-22 04:13] VITALS: BP 160/90; PULSE 90; RESP 18; TEMP 97.2; O2SAT 97
[2017-01-22] MEDS: SODIUM CHLOR 0.9% 1000 ML INJ 1,000 ML IV SCH ×4 (05:12→06:31)
[2017-01-22 07:56] LABS: AUTOMATED NEUTROPHIL # 5.4 TH/MM3 (1.8-7.7); BASOPHIL # 0.1 TH/MM3 (0-0.2); BASOPHIL % 1.2 % (0.0-2.0); EOSINOPHIL # 0.1 TH/MM3 (0-0.4); EOSINOPHIL % 1.4 % (0.0-4.0); HEMATOCRIT 43.2 % (39.0-51.0); HEMOGLOBIN 14.8 GM/DL (13.0-17.0); LYMPHOCYTE # 1.4 TH/MM3 (1.0-4.8); MEAN CELL VOLUME 97.9 FL (80.0-100.0); MEAN CORPUSCULAR HEMOGLOBIN 33.6 PG (27.0-34.0); MEAN CORPUSCULAR HGB CONC 34.3 % (32.0-36.0); MEAN PLATELET VOLUME 7.6 FL (7.0-11.0); MONO % 7.8 % (0.0-8.0); MONOCYTE # 0.6 TH/MM3 (0-0.9); NEUT % 71.6 % (16.0-70.0); PLATELET COUNT 221 TH/MM3 (150-450); RED BLOOD COUNT 4.41 MIL/MM3 (4.50-5.90); RED CELL DISTRIBUTION WIDTH 17.2 % (11.6-17.2); WHITE BLOOD COUNT 7.6 TH/MM3 (4.0-11.0)
[2017-01-22 08:00] VITALS: BP 151/94; PULSE 84; RESP 18; TEMP 97.7; O2SAT 96
[2017-01-22 08:05] VITALS: PULSE 76
[2017-01-22 08:26] LABS: ALBUMIN 2.9 GM/DL (3.4-5.0); ALKALINE PHOSPHATASE 99 U/L (45-117); ALT (GPT) 58 U/L (12-78); AST (GOT) 56 U/L (15-37); BICARBONATE 22.7 MEQ/L (21.0-32.0); BLOOD UREA NITROGEN 8 MG/DL (7-18); CALCIUM 8.1 MG/DL (8.5-10.1); CHLORIDE 93 MEQ/L (98-107); CREATININE 0.61 MG/DL (0.60-1.30); GLOMERULAR FILTRATION RATE 137 ML/MIN (>89); GLUCOSE,RANDOM 95 MG/DL (74-106); TOTAL BILIRUBIN ADULT 0.4 MG/DL (0.2-1.0); TOTAL PROTEIN 6.8 GM/DL (6.4-8.2)
[2017-01-22 08:33] LABS: SODIUM (NA) 123 MEQ/L (136-145)
[2017-01-22] MEDS: SODIUM CHLORIDE 0.9% FLUSH 10 ML FLUSH IV FLUSH SCH ×2 (09:00)
[2017-01-22] MEDS: DOCUSATE SODIUM 50 MG/SENNA 8.6 MG TAB PO SCH ×2 (09:00)
[2017-01-22] MEDS: PANTOPRAZOLE SOD 40 MG DELAYED RELEASE TAB PO SCH ×2 (09:48)
[2017-01-22] MEDS: LISINOPRIL 20 MG TAB PO SCH ×2 (09:48)
[2017-01-22] MEDS: NICOTINE 21 MG/24 HR PATCH T-DERMAL SCH ×2 (09:48)
[2017-01-22] MEDS: THIAMINE HCL 100 MG TAB PO SCH ×2 (09:48)
[2017-01-22] MEDS: FOLIC ACID 1 MG TAB PO SCH ×2 (09:48)
[2017-01-22] MEDS: MULTIVITAMIN TAB PO SCH ×2 (09:48)
[2017-01-22] MEDS: SODIUM CHLORIDE 1 GRAM TAB PO SCH ×2 (09:49)
[2017-01-22] MEDS: POTASSIUM CHLORIDE 8 MEQ CONTROLLED RELEASE TAB PO SCH ×2 (09:49)
--- NOTE | 2017-01-22 10:42 | HHI.FPPN ---
Subjective Remarks Patient was seen and examined this morning. No overnight events reported. He feels well, and has "always" felt well. Sodium levels slowing improving. Eating well, fluid restricted but getting 100cc/hr NS. (Luz Elena Sandoval MD R2) Objective Vitals Vital Signs Date Time Temp Pulse Resp B/P (MAP) Pulse Ox O2 Delivery O2 Flow Rate FiO2 01/22/17 08:00 97.7 84 18 151/94 (113) 96 01/22/17 04:13 97.2 90 18 160/90 (113) 97 01/22/17 00:32 98 01/21/17 23:40 98.2 77 18 162/99 (120) 98 01/21/17 21:17 97.7 84 18 146/83 (104) 99 01/21/17 21:09 97 21 01/21/17 20:40 92 01/21/17 19:20 Room Air 01/21/17 16:03 97.7 86 18 139/93 (108) 97 01/21/17 12:03 98.0 87 18 140/87 (104) 97 I/O 01/21/17 01/21/17 01/21/17 01/22/17 01/22/17 01/22/17 07:00 15:00 23:00 07:00 15:00 23:00 Intake Total 720 ml 520 ml 1480 ml Output Total 1875 ml 1500 ml 700 ml Balance -1155 ml -980 ml 780 ml Intake Oral 720 ml 520 ml 480 ml IV Total 1000 ml Output Urine Total 1875 ml 1500 ml 700 ml # Voids 1 1 # Bowel Movements 1 1 1 (Luz Elena Sandoval MD R2) Result Diagram: 01/22/1762701/22/17627 Objective Remarks GENERAL: This is a well-nourished, well-developed obese male patient walking about the room. SKIN: No rashes, ecchymoses or lesions. Cool and dry. HEAD: Atraumatic. Normocephalic. EYES: Pupils equal round and reactive. Extraocular motions intact. No scleral icterus. No injection or drainage. ENT: Nose without bleeding, purulent drainage or septal hematoma. Throat without erythema, tonsillar hypertrophy or exudate. Uvula midline. Airway patent. NECK: Trachea midline. No JVD or lymphadenopathy. Supple, nontender, no meningeal signs. CARDIOVASCULAR: Regular rate and rhythm without murmurs, gallops, or rubs. RESPIRATORY: Clear to auscultation. Breath sounds equal bilaterally. No rales, or rhonchi. GASTROINTESTINAL: Abdomen soft obese , non-tender, nondistended. No hepato- splenomegaly, or palpable masses. No guarding. MUSCULOSKELETAL: Extremities without clubbing, cyanosis. No edema. No joint tenderness, effusion, or edema noted. No calf tenderness. NEUROLOGICAL: Awake and alert. Motor and sensory grossly within normal limits. Normal speech. Medications and IVs Inpatient Medications Acetaminophen (Tylenol) 650 mg Q4H PRN PO TEMP > 100.4; Start 01/20/17 at 12:30 Albuterol/ Ipratropium (Duoneb Neb) 1 ampule Q4HR NEB NEB Last administered on 01/22/17 07:53; Start 01/21/17 at 16:00 Bisacodyl (Dulcolax Supp) 10 mg DAILY PRN RECTAL SEVERE CONSITIPATION; Start 01/20/17 at 12:30 Clonidine (Catapres) 0.1 mg Q6H PRN PO SBP> OR = 180, DBP> OR = 100 Last administered on 01/21/17 04:52; Start 01/20/17 at 12:30 Enoxaparin Sodium (Lovenox Inj) 40 mg Q24H SQ Last administered on 01/20/17 16 :29; Start 01/20/17 at 14:00 Flumazenil (Romazicon Inj) 0.2 mg Q1M PRN IV PUSH SEE LABEL COMMENTS; Start at 12:30 Folic Acid (Folate) 1 mg DAILY PO Last administered on 01/22/17 09:48; Start 01/20/17 at 13:15 Furosemide (Lasix Inj) 20 mg ONCE ONCE IV PUSH Last administered on 01/20/17 23:58; Start 01/20/17 at 23:45; Stop 01/20/17 at 23:46; Status DC Lactulose (Lactulose Liq) 30 ml DAILY PRN PO SEVERE CONSITIPATION; Start at 12:30 Lisinopril (Prinivil) 20 mg DAILY PO Last administered on 01/22/17 09:48; Start 01/21/17 at 09:00 Lorazepam (Ativan Inj) 2 mg Q15M PRN IV PUSH CIWA > 20; Start 01/20/17 at 12:30 Lorazepam (Ativan) 2 mg Q2H PRN PO CIWA 11-14; Start 01/20/17 at 12:30 Magnesium Hydroxide (Milk Of Magnesia Liq) 30 ml Q12H PRN PO Mild constipation ; Start 01/20/17 at 12:30 Miscellaneous Information 1 HS T-DERMAL Last administered on 01/21/17 21:00; Start 01/20/17 at 21:00 Multivitamins (Theragran) 1 tab DAILY PO Last administered on 01/22/17 09:48; Start 01/20/17 at 13:15 Naloxone HCl (Narcan Inj) 0.4 mg UNSCH PRN IV PUSH SEE LABEL COMMENTS; Start 01/20/17 at 12:30 Nicotine (Habitrol 21 Mg Patch.24 Hr) 1 patch DAILY T-DERMAL Last administered on 01/22/17 09:48; Start 01/20/17 at 14:00 Ondansetron HCl (Zofran Inj) 4 mg Q6H PRN IVP NAUSEA OR VOMITING; Start at 12:30 Pantoprazole Sodium (Protonix) 40 mg DAILY PO Last administered on 01/22/17 09 :48; Start 01/21/17 at 09:00 Potassium Chloride (KCl) 30 meq ONCE ONCE PO Last administered on 01/20/17 23 :58; Start 01/20/17 at 23:45; Stop 01/20/17 at 23:46; Status DC Senna/Docusate Sodium (Pauline-Colace) 1 tab BID PO Last administered on 21:34; Start 01/20/17 at 21:00 Sennosides (Senokot) 17.2 mg Q12H PRN PO Moderate constipation; Start 01/20/17 at 12:30 Sodium Chloride (NS Flush) 2 ml BID IV FLUSH Last administered on 01/21/17 21: 00; Start 01/20/17 at 21:00 Sodium Chloride (Sodium Chloride) 1 gm BID PO Last administered on 01/22/17 09 :49; Start 01/21/17 at 15:00 Thiamine HCl (Vitamin B1) 100 mg DAILY PO Last administered on 01/22/17t 09:48 ; Start 01/20/17 at 13:15 (Luz Elena Sandoval MD R2) Urinary Catheter: No (Luz Elena Sandoval MD R2) Vascular Central Line Catheter: No (Luz Elena Sandoval MD R2) A/P Assessment and Plan Mr. Jaimes is a 56yoWM with a PMH of HTN presenting with asymptomatic hyponatremia to 118. He is being admitted for management. Discharge Planning Discharge home today 01/22/17. Patient will follow up with his PCP on Tuesday and have labwork on 01/23 or 01/24 to follow up sodium levels. (Luz Elena Sandoval MD R2) Attending Attestation Patient seen and examined. Case reviewed and discussed with the resident team. Agree with plan of care as discussed with me and documented in the resident note. (Simran Mariscal MD) Problem List: (1) Hyponatremia ICD Codes: E87.1 - Hypo-osmolality and hyponatremia Status: Acute Plan: Patient with severe hyponatremia down to 118. Asymptomatic. No weakness. No hx of seizures. On Lasix at home which may have contributed to his losing sodium. Trending up to 123 on 01/22 (~48hr). He wants to go home and will continue following BMP as outpatient. Will place on fluid restriction at 1500 ml/day at home, give Sodium Chloride 1 g tablets BID. He was counseled on symptoms of hyponatremia and told to return to hospital if any occur. [facility] * Repeat sodium at 1300 * Urine sodium (169) and urine osmolality (666)- may indicate SIADH, possibly from underlying * CXR- showed no pulmonary lesion * Hold Lasix and potassium * Advised to stop drinking EtOH (2) Hypertension ICD Codes: I10 - Hypertension Status: Chronic Plan: Pt hypertensive upon admission to the ED. States that he did not take his home dose of Lisinopril * Given 1 dose of Lisinopril in ED * Continue at home Lisinopril 20mg po qD * Hold Lasix (3) History of alcohol use ICD Codes: Z87.898 - Personal history of other specified conditions Status: Chronic Plan: Pt admits to long history of alcohol use. 6 pack of beer a day. * CIWA protocol initiated but not requiring Ativan (4) Tobacco abuse ICD Codes: Z72.0 - Tobacco abuse Status: Chronic Plan: 80 pack year history, pt interested in quitting * Nicotine patch * Advise about [place] Quitline for more information (5) FEN Status: Acute Plan: Fluids: Fluid restriction to 800cc/day, IVF NS@100ml/hr Electrolytes: hyponatremia noted on admission, resolved Nutrition: heart-healthy diet DVT Prophylaxis: Early ambulation. Lovenox 40mg subQ q24hr GI Prophylaxis: Protonix SDW Dr. Simran Mariscal (Luz Elena Sandoval MD R2) Luz Elena Sandoval MD R2 Jan 22, 2017 10:42 Simran Mariscal MD Jan 22, 2017 12:26
--- NOTE | 2017-01-22 10:43 | HHI.DCPOC ---
Discharge Care Plan Diagnosis: (1) Hyponatremia Goals to Promote Your Health * To prevent worsening of your condition and complications * To maintain your health at the optimal level Directions to Meet Your Goals Take your medications as prescribed Follow your dietary instruction Follow activity as directed Keep your appointments as scheduled Take your immunizations and boosters as scheduled If your symptoms worsen call your PCP, if no PCP go to Urgent Care Center or Emergency Room Smoking is Dangerous to Your Health. Avoid second hand smoke Call the 24-hour hour crisis hotline for domestic abuse at Luz Elena Sandoval MD R2 Jan 22, 2017 10:43
--- NOTE | 2017-01-22 10:43 | HHI.DCPOC ---
Discharge Care Plan Diagnosis: (1) Hyponatremia Goals to Promote Your Health * To prevent worsening of your condition and complications * To maintain your health at the optimal level Directions to Meet Your Goals Take your medications as prescribed Follow your dietary instruction Follow activity as directed Keep your appointments as scheduled Take your immunizations and boosters as scheduled If your symptoms worsen call your PCP, if no PCP go to Urgent Care Center or Emergency Room Smoking is Dangerous to Your Health. Avoid second hand smoke Call the 24-hour hour crisis hotline for domestic abuse at Luz Elena Sandoval MD R2 Jan 22, 2017 10:43
--- NOTE | 2017-01-22 10:43 | HHI.DCPOC ---
Discharge Care Plan Diagnosis: (1) Hyponatremia Goals to Promote Your Health * To prevent worsening of your condition and complications * To maintain your health at the optimal level Directions to Meet Your Goals Take your medications as prescribed Follow your dietary instruction Follow activity as directed Keep your appointments as scheduled Take your immunizations and boosters as scheduled If your symptoms worsen call your PCP, if no PCP go to Urgent Care Center or Emergency Room Smoking is Dangerous to Your Health. Avoid second hand smoke Call the 24-hour hour crisis hotline for domestic abuse at Luz Elena Sandoval MD R2 Jan 22, 2017 10:43
[2017-01-22] MEDS ORDERED: SODI1TAB PO ×2 (10:51)
[2017-01-22] MEDS: ENOXAPARIN SODIUM 40 MG/0.4 ML SYRINGE SQ SCH ×2 (12:38)
--- NOTE | 2017-01-23 11:38 | HHI.DS ---
Discharge Summary Admission Date Jan 20, 2017 at 12:01 Discharge Date: Jan 22, 2017 Admitting Diagnosis (1) Hyponatremia Plan: Patient with severe hyponatremia down to 118. Asymptomatic. No weakness. No hx of seizures. On Lasix at home which may have contributed to his losing sodium. Trending up to 123 on 01/22 (~48hr). He wants to go home and will continue following BMP as outpatient. Will place on fluid restriction at 1500 ml/day at home, give Sodium Chloride 1 g tablets BID. He was counseled on symptoms of hyponatremia and told to return to hospital if any occur. [facility] will otherwise [facility] * Repeat sodium at 1300 * Urine sodium (169) and urine osmolality (666)- may indicate SIADH, possibly from underlying * CXR- showed no pulmonary lesion * Hold Lasix and potassium * Advised to stop drinking EtOH ICD Codes: E87.1 - Hypo-osmolality and hyponatremia Status: Acute (2) Hypertension Plan: Pt hypertensive upon admission to the ED. States that he did not take his home dose of Lisinopril * Given 1 dose of Lisinopril in ED * Continue at home Lisinopril 20mg po qD * Hold Lasix ICD Codes: I10 - Hypertension Status: Chronic (3) History of alcohol use Plan: Pt admits to long history of alcohol use. 6 pack of beer a day. * CIWA protocol initiated but not requiring Ativan ICD Codes: Z87.898 - Personal history of other specified conditions Status: Chronic (4) Tobacco abuse Plan: 80 pack year history, pt interested in quitting * Nicotine patch * Advise about [place] Quitline for more information ICD Codes: Z72.0 - Tobacco abuse Status: Chronic (5) FEN Plan: Fluids: Fluid restriction to 800cc/day, IVF NS@100ml/hr Electrolytes: hyponatremia noted on admission, resolved Nutrition: heart-healthy diet DVT Prophylaxis: Early ambulation. Lovenox 40mg subQ q24hr GI Prophylaxis: Protonix SDW Dr. Simran Mariscal Status: Acute Brief History Mr. Jaimes is a 56yoWM with a PMH of HTN and chronic pain presenting with abnormal labs. Had labs done this morning and received several messages to go to the ER from [facility] doctor [facility] the [facility]. Has been feeling fine. No recent infections or illnesses. No sick contacts. Cough has been a little bit worse over the past couple of weeks. Productive of clear sputum. Worse at night. No fever/chills. No hx of seizures. No psychotropic meds. Last had labs 3 months ago that were good. CBC/BMP: 01/22/17 0628 01/22/17 0628 Significant Findings Laboratory Tests Test 01/20/17 12:30 01/20/17 18:43 01/20/17 20:00 01/20/17 22:00 Urine Glucose (UA) 150 mg/dL (NEG) Urine Mucus FEW /lpf (OCC) Random Glucose 115 MG/DL (74-106) Calcium Level 8.0 MG/DL (8.5-10.1) Sodium Level 118 MEQ/L (136-145) Chloride Level 88 MEQ/L (98-107) Test 01/20/17 22:45 01/21/17 03:20 01/21/17 07:02 01/21/17 17:49 Sodium Level 118 MEQ/L (136-145) 119 MEQ/L (136-145) 117 MEQ/L (136-145) 122 MEQ/L (136-145) Blood Urea Nitrogen 6 MG/DL (7-18) 6 MG/DL (7-18) Calcium Level 7.9 MG/DL (8.5-10.1) 8.1 MG/DL (8.5-10.1) 7.8 MG/DL (8.5-10.1) Chloride Level 88 MEQ/L (98-107) 86 MEQ/L (98-107) 91 MEQ/L (98-107) Red Blood Count 4.41 MIL/MM3 (4.50-5.90) Mean Corpuscular Hemoglobin 34.1 PG (27.0-34.0) Monocytes (%) (Auto) 10.2 % (0.0-8.0) Albumin 3.0 GM/DL (3.4-5.0) Aspartate Amino Transf (AST/SGOT) 51 U/L (15-37) Random Glucose 111 MG/DL (74-106) Test 01/22/17 06:28 Red Blood Count 4.41 MIL/MM3 (4.50-5.90) Neutrophils (%) (Auto) 71.6 % (16.0-70.0) Albumin 2.9 GM/DL (3.4-5.0) Calcium Level 8.1 MG/DL (8.5-10.1) Aspartate Amino Transf (AST/SGOT) 56 U/L (15-37) Sodium Level 123 MEQ/L (136-145) Chloride Level 93 MEQ/L (98-107) Imaging Last Impressions Chest X-Ray 01/20/17 1220 Signed Impressions: Service Date/Time: January 12:39 - CONCLUSION: Mild platelike atelectasis right lung base. Otherwise, the lungs are clear and stable compared to the prior study. Keegan Youngblood MD PE at Discharge GENERAL: This is a well-nourished, well-developed obese male patient walking about the room. SKIN: No rashes, ecchymoses or lesions. Cool and dry. HEAD: Atraumatic. Normocephalic. EYES: Pupils equal round and reactive. Extraocular motions intact. No scleral icterus. No injection or drainage. ENT: Nose without bleeding, purulent drainage or septal hematoma. Throat without erythema, tonsillar hypertrophy or exudate. Uvula midline. Airway patent. NECK: Trachea midline. No JVD or lymphadenopathy. Supple, nontender, no meningeal signs. CARDIOVASCULAR: Regular rate and rhythm without murmurs, gallops, or rubs. RESPIRATORY: Clear to auscultation. Breath sounds equal bilaterally. No rales, or rhonchi. GASTROINTESTINAL: Abdomen soft obese , non-tender, nondistended. No hepato- splenomegaly, or palpable masses. No guarding. MUSCULOSKELETAL: Extremities without clubbing, cyanosis. No edema. No joint tenderness, effusion, or edema noted. No calf tenderness. NEUROLOGICAL: Awake and alert. Motor and sensory grossly within normal limits. Normal speech. Hospital Course Mr. Jaimes is a 56yoWM with a PMH of HTN presenting with asymptomatic hyponatremia to 118. He is admitted for management of likely chronic hyponatremia, suspected related to SIADH versus beer potomania. He remained asymptomatic throughout the hospital stay. Management of his hyponatremia is noted above. Patient was eager to go home on date of discharge 01/22/17. Patient will follow up with his PCP on Tuesday and have labwork on 01/23 or 01/24 to follow up sodium levels. Patient was discharged in stable condition with recommendations to avoid alcohol and to continue fluid restriction and salt tabs at home. He expressed understanding and agreement with plan of care. Pt Condition on Discharge: Stable Discharge Disposition: Discharge Home Discharge Instructions DIET: Follow Instructions for: Heart Healthy Diet Additional Diet Instructions: Fluid restriction to 1.5 liters (which is about 50 oz) daily Activities you can perform: Regular-No Restrictions Follow up Referrals: PCP Follow-up - 2-3 Days New Orders: BASIC METABOLIC PROF - 01/23/17 New Medications: Sodium Chloride (Sodium Chloride) 1 Gram Tab 1 GM PO BID, #30 TAB Continued Medications: Baclofen (Baclofen) 10 Mg Tab 10 MG PO BID for Muscle Spasm, TAB 0 Refills Budesonide-Formoterol Inh (Symbicort Inh) 80-4.5 Mcg/Act Aero 2 PUFF INH Q12HR for Asthma Management, #1 INHALER 0 Refills Furosemide (Furosemide) 20 Mg Tab 20 MG PO DAILY, #30 TAB 0 Refills Gabapentin (Gabapentin) 300 Mg Cap 300 MG PO TID, #90 CAP 0 Refills Methocarbamol (Methocarbamol) 500 Mg Tab 500 MG PO TID for Muscle Spasm, #90 TAB 0 Refills Pantoprazole (Pantoprazole) 40 Mg Tab 40 MG PO DAILY for Reflux, #30 TAB 0 Refills Tiotropium Inh (Spiriva Handihaler) 18 Mcg Cap 18 MCG INH DAILY for COPD, #30 CAP 0 Refills 1 capsule = 18 mcg Discontinued Medications: Lisinopril (Lisinopril) 20 Mg Tab 20 MG PO DAILY, #30 TAB 0 Refills Meloxicam (Meloxicam) 15 Mg Tab 15 MG PO DAILY for Arthritis Pain, #30 TAB 0 Refills Potassium Chloride ER (Potassium Chloride ER) 8 Meq Tab 8 MEQ PO BID for Electrolyte Replacement, #60 TAB 0 Refills Luz Elena Sandoval MD R2 Jan 23, 2017 11:38
== END 2017-01-22 12:49 | disposition home or self-care (01) | DRG 641 ==
LOC: NEPC 10:27 → NEDA 12:01 → N04A 14:30
PROVIDERS: ADMIT Family Medicine; ATTEND Family Medicine
DX: E87.1 Hypo-osmolality and hyponatremia (principal); I10 Essential (primary) hypertension; J98.11 Atelectasis; J44.9 Chronic obstructive pulmonary disease, unspecified; F17.210 Nicotine dependence, cigarettes, uncomplicated; F41.9 Anxiety disorder, unspecified
CPT/HCPCS: 71010; 80048; 80053; 80307; 81001; 82088; 82533; 83880; 83935; 84295; 84300; 84443; 85007; 85025; 85027; 93005; 94150; 94640; 94664; 94667; J1650; J1940; J7030

== ENCOUNTER 2017-02-08 15:50 | Emergency (ER) | payer OTHER ==
[2017-02-08] VITALS (7 sets, daily range): BP systolic 163–217; BP diastolic 91–110; PULSE 75–80; RESP 16–20; TEMP 99.3; O2SAT 97–98
[~2017-02-08] VITALS: Ht 182.9 cm; Wt 110.0 kg
[~2017-02-08 15:50] MED LIST changes: +BACL10TA PO; +FURO20TA PO; +GABA300C5 PO; -LISI-363 PO; +METH500T3 PO; +PANT40TA3 PO; -PROT40TA PO; +SODI1TAB PO; +SPIRCAP INH; +SYMB80AE INH; -ZOFR4TAB3 PO
[2017-02-08] MEDS ORDERED: IOHEXOL 350 MG/ML 10 ML VIAL (for RAD DIAG) IVCONTRAST ONE ×2 (15:51→19:50)
[2017-02-08] MEDS ORDERED: OMEP20TA93 PO (16:10)
[2017-02-08] MEDS ORDERED: LISI40TA PO (16:10)
[2017-02-08] MEDS ORDERED: SODIUM CHLOR 0.9% 1000 ML INJ 1,000 ML IV ONE (16:38)
[2017-02-08] MEDS ORDERED: KETOROLAC TROMETHAMINE 30 MG/ML (IVP) VIAL IV PUSH ONE (16:45)
[2017-02-08] MEDS ORDERED: ONDANSETRON HCL 4 MG/2 ML VIAL IV PUSH ONE (16:45)
[2017-02-08] MEDS ORDERED: SODIUM CHLORIDE 0.9% FLUSH 10 ML FLUSH IVF PRN (16:45)
--- NOTE | 2017-02-08 16:55 | PD ---
HPI Chief Complaint: GI Complaint Time Seen by Provider: 16:28 Travel History International Travel<30 days: No Contact w/Intl Traveler<30days: No Traveled to known affect area: No History of Present Illness HPI 56 year old male with PMH of HTN, chronic back pain, hyponatremia presents to the emergency department via EMS for evaluation of nausea/vomiting since Tuesday with inability to take his sodium chloride tablets. Patient is concerned he may be hyponatremic again. Patient states his sodium at last recheck 1-2 weeks ago was 126. Patient reports generalized weakness from vomiting. He reports numerous episodes of vomiting. He states he has been sleeping in his bathtub. He states he has had history of vomiting in the past with similar symptoms. He denies any fevers or chills. He does state that he has a migraine headache. He denies any chest pain or shortness of breath. No abdominal pain. No diarrhea or constipation. Severity is moderate. No exacerbating or alleviating factors. PFSH Past Medical History Arthritis: Yes Anxiety: Yes Depression: No Heart Rhythm Problems: No Cancer: No Cardiovascular Problems: Yes High Cholesterol: No Chemotherapy: No Chest Pain: No Congestive Heart Failure: No Diminished Hearing: No GERD: Yes Genitourinary: Yes Hiatal Hernia: Yes Hypertension: Yes Implanted Vascular Access Dvce: No Musculoskeletal: No Neurologic: No Psychiatric: No Reproductive: No Respiratory: Yes Radiation Therapy: No Past Surgical History Abdominal Surgery: Yes (HERNIA REPAIR) Tonsillectomy: Yes Other Surgery: Yes (LUMP FOR LEFT ARM REMOVED) Social History Alcohol Use: Yes (2-3 A DAY) Tobacco Use: Yes (2 PPD) Substance Use: No Allergies-Medications (Allergen,Severity, Reaction): Coded Allergies: No Known Allergies (Unverified Adverse Reaction, Unknown, 02/08/17) Reported Meds & Prescriptions Reported Meds & Active Scripts Active Sodium Chloride 1 Gram Tab 1 Gm PO BID Reported Meloxicam 7.5 Mg Tab 7.5 Mg PO DAILY Lisinopril 40 Mg Tab 40 Mg PO DAILY Omeprazole 20 Mg Tab 20 Mg PO DAILY Gabapentin 300 Mg Cap 300 Mg PO TID Methocarbamol 500 Mg Tab 500 Mg PO TID Spiriva Handihaler (Tiotropium Inh) 18 Mcg Cap 18 Mcg INH DAILY 1 capsule = 18 mcg Symbicort Inh (Budesonide/Formoterol Fumarate) 80-4.5 Mcg/Act Aero 2 Puff INH Q12HR Review of Systems Except as stated in HPI: all other systems reviewed are Neg Physical Exam Narrative GENERAL: Well-nourished, well-developed male patient, afebrile SKIN: Focused skin assessment warm/dry. HEAD: Normocephalic. Atraumatic. EYES: No scleral icterus. No injection or drainage. NECK: Supple, trachea midline. No JVD or lymphadenopathy. CARDIOVASCULAR: Regular rate and rhythm without murmurs, gallops, or rubs. RESPIRATORY: Breath sounds equal bilaterally. No accessory muscle use. Lungs sounds are clear to auscultation. GASTROINTESTINAL: Abdomen soft, non-tender, nondistended. MUSCULOSKELETAL: No cyanosis, or edema. BACK: Nontender without obvious deformity. No CVA tenderness. Data Data Last Documented VS Vital Signs Date Time Temp Pulse Resp B/P (MAP) Pulse Ox O2 Delivery O2 Flow Rate FiO2 02/08/17 21:22 75 16 187/110 (135) 98 Room Air 02/08/17 16:07 99.3 Orders Orders Complete Blood Count With Diff (02/08/17 16:38) Comprehensive Metabolic Panel (02/08/17 16:38) Urinalysis - C+S If Indicated (02/08/17 16:38) Lipase (02/08/17 16:38) Iv Access Insert/Monitor (02/08/17 16:38) Ecg Monitoring (02/08/17 16:38) Oximetry (02/08/17 16:38) Ondansetron Inj (Zofran Inj) (02/08/17 16:45) Sodium Chlor 0.9% 1000 Ml Inj (Ns 1000 M (02/08/17 16:38) Sodium Chloride 0.9% Flush (Ns Flush) (02/08/17 16:45) Ketorolac Inj (Toradol Inj) (02/08/17 16:45) Ct Abd/Pel W Iv Contrast(Rout) (02/08/17 ) Hydralazine Inj (Apresoline Inj) (02/08/17 20:45) Labs Laboratory Tests Test 02/08/17 17:05 02/08/17 17:45 White Blood Count 9.9 TH/MM3 Red Blood Count 4.85 MIL/MM3 Hemoglobin 16.5 GM/DL Hematocrit 47.6 % Mean Corpuscular Volume 98.1 FL Mean Corpuscular Hemoglobin 33.9 PG Mean Corpuscular Hemoglobin Concent 34.6 % Red Cell Distribution Width 17.3 % Platelet Count 179 TH/MM3 Mean Platelet Volume 9.3 FL Neutrophils (%) (Auto) 77.0 % Lymphocytes (%) (Auto) 11.4 % Monocytes (%) (Auto) 11.2 % Eosinophils (%) (Auto) 0.0 % Basophils (%) (Auto) 0.4 % Neutrophils # (Auto) 7.6 TH/MM3 Lymphocytes # (Auto) 1.1 TH/MM3 Monocytes # (Auto) 1.1 TH/MM3 Eosinophils # (Auto) 0.0 TH/MM3 Basophils # (Auto) 0.0 TH/MM3 CBC Comment DIFF FINAL Differential Comment Blood Urea Nitrogen 24 MG/DL Creatinine 0.76 MG/DL Random Glucose 94 MG/DL Total Protein 7.6 GM/DL Albumin 2.9 GM/DL Calcium Level 8.0 MG/DL Alkaline Phosphatase 168 U/L Aspartate Amino Transf (AST/SGOT) 159 U/L Alanine Aminotransferase (ALT/SGPT) 131 U/L Total Bilirubin 0.6 MG/DL Sodium Level 139 MEQ/L Potassium Level 3.5 MEQ/L Chloride Level 108 MEQ/L Carbon Dioxide Level 22.2 MEQ/L Anion Gap 9 MEQ/L Estimat Glomerular Filtration Rate 106 ML/MIN Lipase 670 U/L Urine Color YELLOW Urine Turbidity CLEAR Urine pH 6.0 Urine Specific [place] 1.036 Urine Protein 30 mg/dL Urine Glucose (UA) 150 mg/dL Urine Ketones TRACE mg/dL Urine Occult Blood NEG Urine Nitrite NEG Urine Bilirubin SMALL Urine Urobilinogen 4.0 MG/DL Urine Leukocyte Esterase NEG Urine RBC 5 /hpf Urine WBC 2 /hpf Urine Squamous Epithelial Cells <1 /hpf Urine Mucus MANY /lpf Microscopic Urinalysis Comment CULT NOT INDICATED MDM Medical Decision Making Medical Screen Exam Complete: Yes Emergency Medical Condition: Yes Medical Record Reviewed: Yes Interpretation(s) CT abdomen/pelvis - CONCLUSION: 1. Low density 2.6 cm mass near the right inguinal canal is of uncertain significance. This could represent a focal fluid collection or, if the patient has had prior inguinal hernia surgery, a plug. Differential Diagnosis Electrolyte abnormality versus dehydration versus gastroenteritis Narrative Course 56-year-old male presents to the emergency department for evaluation of vomiting since Tuesday with history of hyponatremia. CBC, CMP, UA, lipase are ordered and pending. Patient is given Zofran 4 mg IV, Toradol 30 mg IV, normal saline 1 L IV bolus. CBC shows no acute abnormality. CMP shows elevated liver enzymes with AST 159, ALT 131, alkaline phosphatase 168. Lipase is 670. UA is negative for infection. Patient does report being heavy alcohol drinker, although he is cutting down. I discussed the case with my attending physician, Dr. Almeida, who recommends CT abdomen/pelvis, if normal, can follow up outpatient. CT of the abdomen/pelvis shows Low density 2.6 cm mass near the right inguinal canal is of uncertain significance. This could represent a focal fluid collection or, if the patient has had prior inguinal hernia surgery, a plug. Upon my reexamination, patient states he is feeling much better. He has had no vomiting since being here. I instructed follow his primary care physician for evaluation of elevated liver enzymes. He does state he has inguinal hernia surgery approximately 2 years ago. He has no tenderness or abnormality to this area upon exam. Patient will be discharged prescription for Zofran. He verbalizes agreement and understanding. The patient was discharged in stable condition with instructions, including return instructions and follow up instructions. Diagnosis Primary Impression: Nausea and vomiting Qualified Codes: R11.2 - Nausea with vomiting, unspecified Referrals: Primary Care Physician call for appointment Patient Instructions: Acute Nausea and Vomiting (ED), General Instructions Additional Instructions: Take Zofran as instructed as needed for nausea/vomiting. Follow-up with your primary care physician. Return to the emergency department for any acute worsening of symptoms. Med/Other Pt SpecificInfo: Prescription(s) given Scripts Ondansetron Odt (Ondansetron Odt) 4 Mg Tab 4 MG SL Q6HR Y for Nausea/Vomiting, #16 TAB 0 Refills Prov: Mulu Callaway 02/08/17 Disposition: 01 DISCHARGE HOME Condition: Stable Mulu Callaway Feb 08, 2017 16:55
[2017-02-08] MEDS ORDERED: MELO7.5T27 PO (17:30)
[2017-02-08 18:07] LABS: AUTOMATED NEUTROPHIL # 7.6 TH/MM3 (1.8-7.7); BASOPHIL % 0.4 % (0.0-2.0); HEMATOCRIT 47.6 % (39.0-51.0); HEMO FLAGS DIFF FINAL; LYMPH % 11.4 % (9.0-44.0); LYMPHOCYTE # 1.1 TH/MM3 (1.0-4.8); MEAN CELL VOLUME 98.1 FL (80.0-100.0); MEAN CORPUSCULAR HEMOGLOBIN 33.9 PG (27.0-34.0); MEAN CORPUSCULAR HGB CONC 34.6 % (32.0-36.0); MONO % 11.2 % (0.0-8.0); PLATELET COUNT 179 TH/MM3 (150-450); RED BLOOD COUNT 4.85 MIL/MM3 (4.50-5.90); RED CELL DISTRIBUTION WIDTH 17.3 % (11.6-17.2); WHITE BLOOD COUNT 9.9 TH/MM3 (4.0-11.0)
[2017-02-08 18:08] LABS: BLOOD, URINE NEG (NEG); COMMENT (UR) CULT NOT INDICATED; CULTURE IF INDICATED CULT NOT INDICATED; GLUCOSE,URINE 150 mg/dL (NEG); KETONE, URINE TRACE mg/dL (NEG); MUCUS URINE MANY /lpf (OCC); NITRITE,URINE NEG (NEG); SQUAMOUS EPITHELIAL CELL URINE <1 /hpf (0-5); URINE COLOR YELLOW (YELLW/STRAW)
[2017-02-08 18:33] LABS: ALT (GPT) 131 U/L (12-78); ANION GAP 9 MEQ/L (5-15); AST (GOT) 159 U/L (15-37); BICARBONATE 22.2 MEQ/L (21.0-32.0); BLOOD UREA NITROGEN 24 MG/DL (7-18); CHLORIDE 108 MEQ/L (98-107); GLOMERULAR FILTRATION RATE 106 ML/MIN (>89); POTASSIUM 3.5 MEQ/L (3.5-5.1); SODIUM (NA) 139 MEQ/L (136-145)
[2017-02-08 18:35] LABS: ALKALINE PHOSPHATASE 168 U/L (45-117); TOTAL BILIRUBIN ADULT 0.6 MG/DL (0.2-1.0)
[2017-02-08] MEDS ORDERED: hydrALAZINE HCL 20 MG/ML VIAL IV PUSH ONE (20:45)
--- NOTE | 2017-02-08 21:01 | RADRPT ---
EXAM DATE/TIME: 02/08/2017 19:50 [facility] COMPARISON: No previous studies available for comparison. INDICATIONS : Nausea and vomiting for 3 days. IV CONTRAST: 50.cc Omnipaque 350 (iohexol) IV ORAL CONTRAST: No oral contrast ingested. RADIATION DOSE: 15.01 CTDIvol (mGy) MEDICAL HISTORY : Cardiovascular disease. Hypertension. Hernia, hiatal. SURGICAL HISTORY : None. ENCOUNTER: Initial ACUITY: 3 days PAIN SCALE: 0/10 LOCATION: Abdomen. TECHNIQUE: Volumetric scanning of the abdomen and pelvis was performed. Using automated exposure control and ad justment of the mA and/or kV according to patient size, radiation dose was kept as low as reasonably achievable to obtain optimal diagnostic quality images. DICOM format image data is available electro nically for review and comparison. FINDINGS: LOWER LUNGS: The visualized lower lungs are clear. LIVER: Homogeneous density without lesion. There is no dilation of the biliary tree. Contracted gallbladde r. No calcified gallstones. SPLEEN: Normal size without lesion. PANCREAS: Within normal limits. KIDNEYS: Normal in size and shape. There is no mass, stone or hydronephrosis. ADRENAL GLANDS: Within normal limits. VASCULAR: There is no aortic aneurysm. BOWEL/MESENTERY: The stomach, small bowel, and colon demonstrate no acute abnormality. There is no free intraperitone al air or fluid. ABDOMINAL WALL: No dilated loops of small or large bowel. A few scattered diverticula in the sigmoid and left colon. No evidence of free fluid. RETROPERITONEUM: There is no lymphadenopathy. BLADDER: No wall thickening or mass. REPRODUCTIVE: Within normal limits. INGUINAL: There is a mildly irregular margin 2.6 cm low-density mass near the right inguinal region with mean C T density of -3 Hounsfield units. This is of uncertain significance. No induration of the adjacent fat. MUSCULOSKELETAL: Within normal limits for patient age. CONCLUSION: 1. Low density 2.6 cm mass near the right inguinal canal is of uncertain significance. This could re present a focal fluid collection or, if the patient has had prior inguinal hernia surgery, a plug. Ryan Booth MD on February 08, 2017 at 20:49 Board Certified Radiologist. This report was verified electronically.
[2017-02-08] MEDS ORDERED: ONDA4TAB7 SL (21:33)
== END 2017-02-08 21:52 | disposition home or self-care (01) ==
LOC: NEPE 15:50
DX: R11.2 Nausea with vomiting, unspecified (principal); R53.1 Weakness; R51 Headache; I10 Essential (primary) hypertension; F17.200 Nicotine dependence, unspecified, uncomplicated; Z87.39 Personal history of other diseases of the musculoskeletal system and connective tissue; Z86.39 Personal history of other endocrine, nutritional and metabolic disease; Z86.59 Personal history of other mental and behavioral disorders; Z86.79 Personal history of other diseases of the circulatory system; Z87.19 Personal history of other diseases of the digestive system; Z87.448 Personal history of other diseases of urinary system; R74.8 Abnormal levels of other serum enzymes
CPT/HCPCS: 74177; 80053; 81001; 83690; 85025; 96361; 96374; 96375; 99285; J0360; J1885; J2405; J7030; Q9967

== ENCOUNTER 2017-02-25 07:21 | Inpatient (IN) | payer OTHER ==
[2017-02-25] VITALS (8 sets, daily range): BP systolic 148–174; BP diastolic 90–100; PULSE 80–98; RESP 18–20; TEMP 96.3–97.7; O2SAT 93–96
[~2017-02-25] VITALS: Ht 185.4 cm; Wt 120.2 kg
[~2017-02-25 07:21] MED LIST changes: -BACL10TA PO; -FURO20TA PO; +LISI40TA PO; +MELO7.5T27 PO; +OMEP20TA93 PO; +ONDA4TAB7 SL; -PANT40TA3 PO
--- NOTE | 2017-02-25 07:58 | PD ---
HPI Chief Complaint: Edema Time Seen by Provider: 07:35 Travel History International Travel<30 days: No Contact w/Intl Traveler<30days: No Traveled to known affect area: No History of Present Illness HPI 56 old male presents emergency department multiple complaints. He states starting the beginning in January he presented to the emergency department with low sodium after he had low sodium on routine labs. He was drinking alcohol daily at the time. He was on Lasix at home which may have contributed as well as daily alcohol use. They held his Lasix and put him on sodium tablets. He had some nausea vomiting diarrhea for which he was in the ED and the sodium had improved. He is now back with some constipation and blood in the stool, ankle edema, as well as abdominal pain, more right sided. He states he has not been drinking alcohol. He saw his [place] doctor who is planning on seeing him again for 6 months. History Past Medical History Narrative Medical COPD Hypertension History daily alcohol use Tobacco use Social History Alcohol Use: Yes (2-3 A DAY) Tobacco Use: Yes (2 cigarettes) Allergies-Medications (Allergen,Severity, Reaction): Coded Allergies: No Known Allergies (Unverified Adverse Reaction, Unknown, 02/08/17) Reported Meds & Prescriptions Reported Meds & Active Scripts Active Ondansetron Odt 4 Mg Tab 4 Mg SL Q6HR PRN Sodium Chloride 1 Gram Tab 1 Gm PO BID Reported Meloxicam 7.5 Mg Tab 7.5 Mg PO DAILY Lisinopril 40 Mg Tab 40 Mg PO DAILY Omeprazole 20 Mg Tab 20 Mg PO DAILY Gabapentin 300 Mg Cap 300 Mg PO TID Methocarbamol 500 Mg Tab 500 Mg PO TID Spiriva Handihaler (Tiotropium Inh) 18 Mcg Cap 18 Mcg INH DAILY 1 capsule = 18 mcg Symbicort Inh (Budesonide/Formoterol Fumarate) 80-4.5 Mcg/Act Aero 2 Puff INH Q12HR Review of Systems Except as stated in HPI: all other systems reviewed are Neg Physical Exam Narrative GENERAL: 56-year-old man, no acute distress. SKIN: Focused skin assessment warm/dry. HEAD: Atraumatic. Normocephalic. EYES: Pupils equal and round. Get sclera, possibly minimally icteric. ENT: No nasal bleeding or discharge. Mucous membranes pink and moist. NECK: Trachea midline. No JVD. CARDIOVASCULAR: Regular rate and rhythm. No murmur appreciated. RESPIRATORY: No accessory muscle use. Clear to auscultation. Breath sounds equal bilaterally. GASTROINTESTINAL: Abdomen is protuberant but not obviously distended. There is right sided tenderness to palpation with some voluntary guarding. No obvious ascites. MUSCULOSKELETAL: No obvious deformities. Pitting edema both lower extremities in the ankles and the distal legs. NEUROLOGICAL: Awake and alert. No obvious cranial nerve deficits. Motor grossly within normal limits. Normal speech. PSYCHIATRIC: Appropriate mood and affect; insight and judgment normal. Data Data Last Documented VS Vital Signs Date Time Temp Pulse Resp B/P (MAP) Pulse Ox O2 Delivery O2 Flow Rate FiO2 02/25/17 07:59 20 99 Room Air 02/25/17 07:22 97.7 96 159/96 (117) Orders Orders Complete Blood Count With Diff (02/25/17 07:48) Comprehensive Metabolic Panel (02/25/17 07:48) Prothrombin Time / Inr (Pt) (02/25/17 07:48) Act Partial Throm Time (Ptt) (02/25/17 07:48) B-Type Natriuretic Peptide (02/25/17 07:48) Iv Access Insert/Monitor (02/25/17 07:48) Us Abdomen Gallbladder (02/25/17 ) Chest, Single Ap (02/25/17 ) Admit Order (Ed Use Only) (02/25/17 ) Labs Laboratory Tests Test 02/25/17 07:55 White Blood Count 13.1 TH/MM3 Red Blood Count 4.32 MIL/MM3 Hemoglobin 14.3 GM/DL Hematocrit 41.2 % Mean Corpuscular Volume 95.5 FL Mean Corpuscular Hemoglobin 33.1 PG Mean Corpuscular Hemoglobin Concent 34.7 % Red Cell Distribution Width 17.4 % Platelet Count 80 TH/MM3 Mean Platelet Volume 10.8 FL Neutrophils (%) (Auto) 82.2 % Lymphocytes (%) (Auto) 11.8 % Monocytes (%) (Auto) 5.3 % Eosinophils (%) (Auto) 0.3 % Basophils (%) (Auto) 0.4 % Neutrophils # (Auto) 10.7 TH/MM3 Lymphocytes # (Auto) 1.5 TH/MM3 Monocytes # (Auto) 0.7 TH/MM3 Eosinophils # (Auto) 0.0 TH/MM3 Basophils # (Auto) 0.1 TH/MM3 CBC Comment AUTO DIFF Differential Total Cells Counted 100 Neutrophils % (Manual) 81 % Band Neutrophils % 12 % Lymphocytes % 2 % Monocytes % 5 % Neutrophils # (Manual) 12.2 TH/MM3 Nucleated Red Blood Cells 2 /100 WBC Differential Comment FINAL DIFF MANUAL Platelet Estimate LOW Platelet Morphology Comment NORMAL Red Cell Morphology Comment NORMAL Prothrombin Time 14.7 SEC Prothromb Time International Ratio 1.5 RATIO Activated Partial Thromboplast Time 32.0 SEC Blood Urea Nitrogen 19 MG/DL Creatinine 0.64 MG/DL Random Glucose 107 MG/DL Total Protein 6.3 GM/DL Albumin 2.0 GM/DL Calcium Level 8.0 MG/DL Alkaline Phosphatase 367 U/L Aspartate Amino Transf (AST/SGOT) 217 U/L Alanine Aminotransferase (ALT/SGPT) 149 U/L Total Bilirubin 6.6 MG/DL Sodium Level 139 MEQ/L Potassium Level 4.5 MEQ/L Chloride Level 108 MEQ/L Carbon Dioxide Level 23.4 MEQ/L Anion Gap 8 MEQ/L Estimat Glomerular Filtration Rate 130 ML/MIN [facility] Medical Decision Making Medical Screen Exam Complete: Yes Emergency Medical Condition: Yes Interpretation(s) LABS: CBC remarkable for mild leukocytosis, a little bit of bandemia CMP remarkable for elevated liver enzymes, elevated total bili, elevated alkaline phosphatase, low protein, elevated BUN Coags remarkable for INR 1.5 Gallbladder ultrasound shows hepatomegaly with diffusely heterogenous extra texture, had a fecal flow and main portal vein and trace ascites consistent with portal hypertension, gallbladder is contracted wall thickening. Wall thickening commonly seen in liver disease. [place] for reports positive sonographic Lee sign. Differential Diagnosis Edema, liver disease, lymphedema, hypoproteinemia, heart failure, other Narrative Course Medical decision making INITIAL: 56-year-old man presents to the emergency department complaining of right sided abdominal pain, some constipation, red blood intermixed with the stool suggestive of very distal bleeding, likely hemorrhoidal, as well as lower extremity edema. Recently taken off his Lasix because of hyponatremia associated with daily alcohol use. We'll check labs, we'll check a right upper quadrant ultrasound, likely reinitiate his diuretic, continue to encourage alcohol avoidance. Diagnosis Primary Impression: Abdominal pain Admitting Information Admitting Physician Requests: Admit Roel Sauer MD Feb 25, 2017 07:58
[2017-02-25 08:07] LABS: AUTOMATED NEUTROPHIL # 10.7 TH/MM3 (1.8-7.7); BASOPHIL # 0.1 TH/MM3 (0-0.2); BASOPHIL % 0.4 % (0.0-2.0); EOSINOPHIL % 0.3 % (0.0-4.0); HEMATOCRIT 41.2 % (39.0-51.0); LYMPH % 11.8 % (9.0-44.0); LYMPHOCYTE # 1.5 TH/MM3 (1.0-4.8); MEAN CELL VOLUME 95.5 FL (80.0-100.0); MEAN CORPUSCULAR HEMOGLOBIN 33.1 PG (27.0-34.0); MEAN CORPUSCULAR HGB CONC 34.7 % (32.0-36.0); MONO % 5.3 % (0.0-8.0); NEUT % 82.2 % (16.0-70.0); PLATELET COUNT 80 TH/MM3 (150-450); RED BLOOD COUNT 4.32 MIL/MM3 (4.50-5.90); RED CELL DISTRIBUTION WIDTH 17.4 % (11.6-17.2); WHITE BLOOD COUNT 13.1 TH/MM3 (4.0-11.0)
[2017-02-25 08:14] LABS: INTERNATIONAL NORMALIZED RATIO 1.5 RATIO; PROTHROMBIN TIME - PATIENT 14.7 SEC (9.8-11.6)
[2017-02-25 08:23] LABS: ALT (GPT) 149 U/L (12-78)
[2017-02-25 08:26] LABS: ALKALINE PHOSPHATASE 367 U/L (45-117); TOTAL BILIRUBIN ADULT 6.6 MG/DL (0.2-1.0)
[2017-02-25 08:27] LABS: ANION GAP 8 MEQ/L (5-15); BICARBONATE 23.4 MEQ/L (21.0-32.0); BLOOD UREA NITROGEN 19 MG/DL (7-18); CHLORIDE 108 MEQ/L (98-107); GLOMERULAR FILTRATION RATE 130 ML/MIN (>89); SODIUM (NA) 139 MEQ/L (136-145)
[2017-02-25 08:28] LABS: AST (GOT) 217 U/L (15-37); POTASSIUM 4.5 MEQ/L (3.5-5.1)
[2017-02-25 09:02] LABS: HEMO FLAGS AUTO DIFF
[2017-02-25 09:05] LABS: BANDS 12 % (0-6); CORRECTED NUCLEATED RBC 2 /100 WBC (0-0); NEUTROPHIL # MANUAL DIFF 12.2 TH/MM3 (1.8-7.7); POLYS (SEG NEUTROPHILS) 81 % (16-70); WBC DIFF SAMPLE 100
[2017-02-25 09:06] LABS: PLATELET ESTIMATE SMEAR LOW (NORMAL); PLATELET MORPHOLOGY NORMAL (NORMAL); SCAN/DIFF FINAL DIFF MANUAL
--- NOTE | 2017-02-25 09:18 | RADRPT ---
EXAM DATE/TIME: 02/25/2017 08:06 [facility] COMPARISON: No previous studies available for comparison. INDICATIONS : Right upper quadrant pain. MEDICAL HISTORY : Cardiovascular disease. Hypertension. Hernia, hiatal. SURGICAL HISTORY : Tonsillectomy. Hiatal hernia repair. ENCOUNTER: Subsequent ACUITY: 1 month PAIN SCORE: 7/10 LOCATION: Right upper quadrant MEASUREMENTS: LIVER: 22.8 cm length COMMON DUCT: 3 mm RIGHT KIDNEY: 14.8 x 7.0 x 6.4 cm FINDINGS: LIVER: Liver is enlarged and demonstrates diffusely heterogeneous increased echogenicity. No significant int rahepatic ductal dilatation. There is hepatofugal flow in the main portal vein. Trace ascites. COMMON DUCT: Normal in caliber. GALLBLADDER: Gallbladder is contracted with mild gallbladder wall thickening. No definite gallstones or particle c ystic fluid. [employer] reports a positive sonographic Lee sign. PANCREAS: Largely obscured but otherwise unremarkable. RIGHT KIDNEY: No evidence of hydronephrosis, stone, or mass. CONCLUSION: 1. Hepatomegaly with diffusely heterogeneous echotexture. There is hepatofugal flow in the main micheal l vein with trace ascites consistent with portal hypertension. 2. Gallbladder is contracted with gallbladder wall thickening. Gallbladder wall thickening is commonl y seen in patients with liver disease. [employer] reports a positive sonographic Lee's sign. Cons ider HIDA scan for evaluation of cystic duct patency if there is significant continued clinical montse rn regarding cholecystitis. Edouard Villatoro MD on February 25, 2017 at 9:13 Board Certified Radiologist. This report was verified electronically.
[2017-02-25] MEDS ORDERED: LORazepam 2 MG TAB PO PRN (09:45)
[2017-02-25] MEDS ORDERED: SODIUM CHLORIDE 0.9% FLUSH 10 ML FLUSH IV FLUSH PRN (09:45)
[2017-02-25] MEDS ORDERED: FLUMAZENIL 0.5 MG/5 ML VIAL IV PUSH PRN (09:45)
[2017-02-25] MEDS ORDERED: LORazepam 2 MG/ML VIAL IV PUSH PRN ×3 (09:45)
[2017-02-25] MEDS ORDERED: LORazepam 1 MG TAB PO PRN (09:45)
--- NOTE | 2017-02-25 09:51 | HHI.HP ---
[facility] Service Family Medicine Primary Care Physician [facility] Admission Diagnosis liver disease, rule out cholecystitis Diagnoses: International Travel<30 Days: No Contact w/Intl Traveler<30days: No Known Affected Area: No History of Present Illness Mr. Jaimes is a 56 y/o M with a history of COPD, hypertension, and alcohol/ tobacco abuse presenting to the ED with multiple complaints. Patient states that he has been feeling constipated over the last 3 days taking multiple stool softeners and laxatives. He has had bowel movements which are very hard in nature that started to have "red blood streaks." He has continued to have bloody stools over the last 48 hours and reports that a couple of the bowel movements have been completely liquid in nature with blood in them, completely filling the toilet bowl. Patient does state he has hemorrhoids which are treated with a topical cream. He denies any history of colonoscopy. He also complains of 3 days of ankle swelling that has made it difficult for him to walk. At his previous hospitalization he was taken off Lasix due to hyponatremia , but did not have a new onset edema until 3 days ago. Patient states he has not been diagnosed with CHF and [facility] He complains of right upper quadrant pain radiating to his right shoulder and to his periumbilical area. He states that the pain is worse when lying on his right side and alleviated by sitting up with a heating pad. He states that he is never had this pain before and rates it a 10/10 in nature. He currently has no other complaints. He states that his last meal was around 2000 last night with his last fluid intake at around 0700 which was water. Regarding his alcohol history, the patient states he has not had a alcoholic beverage since being discharged from the hospital in early January. He denies any withdrawal symptoms since that admission. He continues to smoke roughly 1-1/2 packs per day , but does state he would like to quit. (Marco Antonio Navarro MD R2) Review of Systems Constitutional: COMPLAINS OF: Dizziness, DENIES: Fever Eyes: COMPLAINS OF: Blurred vision, DENIES: Double Vision Ears, nose, mouth, throat: DENIES: Running Nose Respiratory: DENIES: Cough, Shortness of breath Cardiovascular: DENIES: Chest pain, Syncope Gastrointestinal: COMPLAINS OF: Abdominal pain, Black stools, Bloody stools, Diarrhea, Nausea, DENIES: Vomiting Genitourinary: DENIES: Hematuria, Dysuria Musculoskeletal: COMPLAINS OF: Joint pain, Back pain Integumentary: DENIES: Rash Hematologic/lymphatic: DENIES: Lymphadenopathy Neurologic: COMPLAINS OF: Headache Psychiatric: DENIES: Mood changes (Marco Antonio Navarro MD R2) Past Family Social History Past Medical History Chronic back pain- degenerative changes- being treated by pain management HTN COPD GERD Past Surgical History Hernia repair x2 Tonsillectomy (Marco Antonio Navarro MD R2) Allergies: Coded Allergies: No Known Allergies (Unverified Allergy, Unknown, 02/25/17) Family History Mother- CAD- Open heart surg in hers 50s Father- CAD - x2 stents, thyroidectomy, Parkinson Children- healthy Siblings- healthy Social History , lives alone with dog Retired from [employer] for 25 yrs [employer] Tobacco- 2 ppds for 40yrs, down to 1.5 ppd currently Alcohol- 3-6 pack of beer a day, for 35 yrs, no withdrawals sx, no seizures Illicit drugs - none (Marco Antonio Navarro MD R2) Physical Exam Vital Signs Vital Signs Date Time Temp Pulse Resp B/P (MAP) Pulse Ox O2 Delivery O2 Flow Rate FiO2 02/25/17 07:59 20 99 Room Air 02/25/17 07:22 97.7 96 20 159/96 (117) 96 Room Air Physical Exam GENERAL: Disheveled male laying in bed in no acute distress. SKIN: Warm and diaphoretic. No rash or trauma. HEENT: Atraumatic, normocephalic with EOMI. PERRLA. No scleral icterus. Oropharynx clear without erythema or exudate. MMM. No rhinorrhea. No LAD, JVD, or thyroid abnormality appreciated. CARDIOVASCULAR: Regular rate and rhythm without murmurs, gallops, or rubs. 2+ pulses in all 4 extremities. RESPIRATORY: Clear to auscultation bilaterally. No CRW. No increased work of breathing. GASTROINTESTINAL: Abdomen protuberant with positive bowel sounds in all 4 quadrants. Patient with exquisite tenderness to the right upper quadrant. Mild tenderness in other 3 abdominal quadrants. Positive Lee sign. Endorses rebound tenderness. No tenderness at McBurney's point. MUSCULOSKELETAL: Bilateral lower extremity edema with greater edema on his left lower extremity. Edema on right lower extremity up to mid palafox including his ankle. Edema on the left lower extremity up to the knee. Edema is 2+ and pitting. Ambulating well. NEUROLOGICAL: Afocal. AAO 3. No tremor at baseline. Normal speech and judgment. Laboratory Laboratory Tests Test 02/25/17 07:55 White Blood Count 13.1 Red Blood Count 4.32 Hemoglobin 14.3 Hematocrit 41.2 Mean Corpuscular Volume 95.5 Mean Corpuscular Hemoglobin 33.1 Mean Corpuscular Hemoglobin Concent 34.7 Red Cell Distribution Width 17.4 Platelet Count 80 Mean Platelet Volume 10.8 Neutrophils (%) (Auto) 82.2 Lymphocytes (%) (Auto) 11.8 Monocytes (%) (Auto) 5.3 Eosinophils (%) (Auto) 0.3 Basophils (%) (Auto) 0.4 Neutrophils # (Auto) 10.7 Lymphocytes # (Auto) 1.5 Monocytes # (Auto) 0.7 Eosinophils # (Auto) 0.0 Basophils # (Auto) 0.1 CBC Comment AUTO DIFF Differential Total Cells Counted 100 Neutrophils % (Manual) 81 Band Neutrophils % 12 Lymphocytes % 2 Monocytes % 5 Neutrophils # (Manual) 12.2 Nucleated Red Blood Cells 2 Differential Comment FINAL DIFF MANUAL Platelet Estimate LOW Platelet Morphology Comment NORMAL Red Cell Morphology Comment NORMAL Prothrombin Time 14.7 Prothromb Time International Ratio 1.5 Activated Partial Thromboplast Time 32.0 Blood Urea Nitrogen 19 Creatinine 0.64 Random Glucose 107 Total Protein 6.3 Albumin 2.0 Calcium Level 8.0 Alkaline Phosphatase 367 Aspartate Amino Transf (AST/SGOT) 217 Alanine Aminotransferase (ALT/SGPT) 149 Total Bilirubin 6.6 Sodium Level 139 Potassium Level 4.5 Chloride Level 108 Carbon Dioxide Level 23.4 Anion Gap 8 Estimat Glomerular Filtration Rate 130 (Marco Antonio Navarro MD R2) Result Diagram: 02/25/17 0755 02/25/17 0755 Imaging Last 72 hours Impressions Gall Bladder Ultrasound 02/25/17 0000 Signed Impressions: Service Date/Time: Saturday, February 25, 2017 08:06 - CONCLUSION: 1. Hepatomegaly with diffusely heterogeneous echotexture. There is hepatofugal flow in the main portal vein with trace ascites consistent with portal hypertension. 2. Gallbladder is contracted with gallbladder wall thickening. Gallbladder wall thickening is commonly seen in patients with liver disease. [employer] reports a positive sonographic Lee's sign. Consider HIDA scan for evaluation of cystic duct patency if there is significant continued clinical concern regarding cholecystitis. Edouard Villatoro MD (Marco Antonio Navarro MD R2) Caprini VTE Risk Assessment Caprini VTE Risk Assessment: Mod/High Risk (score >= 2) Caprini Risk Assessment Model Point Value = 1 Point Value = 2 Point Value = 3 Point Value = 5 Age 41-60 Minor surgery BMI > 25 kg/m2 Swollen legs Varicose veins or History of unexplained or recurrent spontaneous Oral contraceptives or hormone replacement Sepsis (< 1 month) Serious lung disease, including pneumonia (< 1 month) Abnormal pulmonary function Acute myocardial infarction Congestive heart failure (< 1 month) History of inflammatory bowel disease Medical patient at bed rest Age 61-74 Arthroscopic surgery Major open surgery (> 45 min) Laparoscopic surgery (> 45 min) Malignancy Confined to bed (> 72 hours) Immobilizing plaster cast Central venous access Age >= 75 History of VTE Family history of VTE Factor V Leiden Prothrombin [id number] Lupus anticoagulant Anticardiolipin antibodies Elevated serum homocysteine Heparin-induced thrombocytopenia Other congenital or acquired thrombophilia Stroke (< 1 month) Elective arthroplasty Hip, pelvis, or leg fracture Acute spinal cord injury (< 1 month) Prophylaxis Regimen Total Risk Factor Score Risk Level Prophylaxis Regimen 0-1 Low Early ambulation 2 Moderate Order ONE of the following: *Sequential Compression Device (SCD) *Heparin 5000 units SQ BID 3-4 Higher Order ONE of the following medications: *Heparin 5000 units SQ TID *Enoxaparin/Lovenox 40 mg SQ daily (WT < 150 kg, CrCl > 30 mL/min) *Enoxaparin/Lovenox 30 mg SQ daily (WT < 150 kg, CrCl > 10-29 mL/min) *Enoxaparin/Lovenox 30 mg SQ BID (WT < 150 kg, CrCl > 30 mL/min) AND/OR *Sequential Compression Device (SCD) 5 or more Highest Order ONE of the following medications: *Heparin 5000 units SQ TID (Preferred with Epidurals) *Enoxaparin/Lovenox 40 mg SQ daily (WT < 150 kg, CrCl > 30 mL/min) *Enoxaparin/Lovenox 30 mg SQ daily (WT < 150 kg, CrCl > 10-29 mL/min) *Enoxaparin/Lovenox 30 mg SQ BID (WT < 150 kg, CrCl > 30 mL/min) AND *Sequential Compression Device (SCD) (Marco Antonio Navarro MD R2) Assessment and Plan Assessment and Plan Mr. Jaimes is a 56 y/o F presenting to the ED with blood per rectum, RUQ pain concerning for cholecystitis, and transaminitis who will be admitted for medical care. Code Status Full Code Discussed Condition With Dr. Osborne, ER Physician Dr. Purnima Mcneill (Marco Antonio Navarro MD R2) Attending Attestation Patient seen and examined. Case reviewed and discussed with the resident team. Agree with plan of care as discussed with me and documented in the resident note. concern for such high lipase. he is hemodynamically stable however. it is unusual to be hungry and thirsty and he does not seem as sick as would be expected (Veda Felton MD) Problem List: (1) Lower GI bleed ICD Codes: K92.2 - Gastrointestinal hemorrhage, unspecified Status: Acute Plan: Patient with 3 days of constipation, hard stools with bloody streaks, and other liquid based bloody stools. Patient without prior colonoscopy. Negative Family history. No prior episodes. Hemorrhoids likely related to increased portal hypertension due to suspected alcoholic liver disease. Images/Studies/Orders: -CBC: H/H 14/41, repeat at 1900 -CMP: Chloride 108, otherwise electrolytes WNL -FOBT positive per ED staff with external hemorrhoids on exam -Coags: T4 10 0.7, INR 1.5, PTT 32 -Type and screen -Consult GI, appreciate recommendations Medications: -NS at 100 ml/hr -Protonix 40 mg IV daily (2) RUQ abdominal pain ICD Codes: R10.11 - Right upper quadrant pain Status: Acute Plan: Patient with new onset right upper quadrant abdominal pain with positive Lee sign concerning for possible cholecystitis. Patient also with LFT elevation and history consistent with possible alcoholic liver disease. Patient currently meets severe sepsis criteria with tachycardia and leukocytosis. Suspected source is likely related to his biliary system concerning for cholangitis with a lactic acid of 2 and platelets of 80. Imaging/shoulder/studies: -Gallbladder ultrasound: Hepatomegaly with diffusely heterogeneous echotexture. There is hepatofugal flow in the main portal vein with trace ascites consistent with portal hypertension. Gallbladder is contracted with gallbladder wall thickening. [employer] reports a positive sonographic Lee sign. Consider HIDA scan. -Lower abdominal ultrasound: Pending -CBC: WBC 13.1 with 82.2% neutrophils -CMP: Calcium 8, bilirubin 6.6, AST 217, ALT 149, alkaline phosphatase 367 -Lipase: Pending -Lactic acid: Pending -Hepatitis panel: Pending -Troponin: Pending Medications: -Please see above -Medical team to consider adding antibiotic coverage pending lower abdominal ultrasound. Plan to cover for SBP after paracentesis with ceftriaxone if indicated. Also consider covering for cholecystitis with cefazolin if indicated pending further workup. -Oxycodone and morphine as needed for pain (3) Transaminitis ICD Codes: R74.0 - Nonspecific elevation of levels of transaminase and lactic acid dehydrogenase [LDH] Status: Acute Plan: Patient with right upper quadrant pain with increasing liver function tests. -Please see as above (4) Lower extremity edema ICD Codes: R60.0 - Localized edema Status: Acute Plan: Patient with new-onset lower extremities edema without clinical signs of DVT. Patient endorses no history of CHF and reports a "[facility]" [facility]. -Chest x-ray: No acute cardiopulmonary disease -BNP: Pending (5) Tobacco abuse ICD Codes: Z72.0 - Tobacco use Status: Chronic Plan: Patient with current 1.5 packs per day smoking history -Nicotine patch to be changed nightly (6) Alcohol abuse ICD Codes: F10.10 - Alcohol abuse, uncomplicated Status: Chronic Plan: Patient with history of alcohol abuse using up to 6 beers per day. Patient states he has not had an alcoholic beverage since being discharged on prior hospitalization, 01/22/17. No prior history of alcohol withdrawal or DTs. -CIWA protocol in place (7) GERD (gastroesophageal reflux disease) ICD Codes: K21.9 - Gastro-esophageal reflux disease without esophagitis Status: Chronic Plan: Patient with history of GERD -Protonix as above (8) HTN (hypertension) ICD Codes: I10 - Essential (primary) hypertension Status: Chronic Plan: Patient with a central hypertension -Continue with lisinopril 40 mg daily -Clonidine 0.1 mg every 6 hours when necessary for BP greater than 180/110 (9) Chronic lower back pain ICD Codes: M54.5 - Low back pain; G89.29 - Other chronic pain Status: Chronic Plan: Patient with chronic lower back pain -Continue home meloxicam and gabapentin -Hold methocarbamol (10) COPD (chronic obstructive pulmonary disease) ICD Codes: J44.9 - Chronic obstructive pulmonary disease, unspecified Status: Chronic Plan: Patient with COPD without current exacerbation symptoms -Continue Spiriva and Symbicort inhalers -DuoNeb every 6 hours when necessary for shortness of breath (11) Nutrition, metabolism, and development symptoms ICD Codes: R63.8 - Other symptoms and signs concerning food and fluid intake Status: Acute Plan: Fluids: Diet: Nothing by mouth for possible surgical procedure Electrolytes: Chloride 108, continue to monitor Reflexes: DuoNeb when necessary for shortness of breath, clonidine when necessary for BP greater than 180/110, Zofran when necessary for nausea or vomiting, hydroxyzine when necessary for insomnia, constipation protocol in place (12) Surgical contraindication to deep vein thrombosis (DVT) prophylaxis ICD Codes: Z53.09 - Procedure and treatment not carried out because of other contraindication Status: Acute Plan: -Pharmacological DVT prophylaxis held due to possible surgical intervention -SCDs (Marco Antonio Navarro MD R2) Problem Qualifiers (1) GERD (gastroesophageal reflux disease): Qualified Codes: K21.9 - Gastro-esophageal reflux disease without esophagitis (2) HTN (hypertension): Qualified Codes: I10 - Essential (primary) hypertension (3) Chronic lower back pain: Qualified Codes: M54.5 - Low back pain; G89.29 - Other chronic pain (4) COPD (chronic obstructive pulmonary disease): Qualified Codes: J44.9 - Chronic obstructive pulmonary disease, unspecified Marco Antonio Navarro MD R2 Feb 25, 2017 09:51 Veda Felton MD Feb 26, 2017 17:11
--- NOTE | 2017-02-25 10:53 | RADRPT ---
EXAM DATE/TIME: 02/25/2017 10:30 [facility] COMPARISON: CHEST SINGLE AP, January 20, 2017, 12:39. INDICATIONS : Shortness of breath, swelling lower legs. MEDICAL HISTORY : Cardiovascular disease. Hypertension. Hernia, hiatal. SURGICAL HISTORY : Tonsillectomy. Hiatal hernia repair. ENCOUNTER: Initial ACUITY: 3 days PAIN SCORE: 0/10 LOCATION: Bilateral chest FINDINGS: Portable AP view of the chest demonstrates a normal-sized cardiac silhouette. No effusion, consolidat ion, or pneumothorax is visualized. The bones and soft tissues demonstrate no acute abnormality. Ther e is mild atelectasis at the lung bases. EKG lines overlie the patient. CONCLUSION: No acute cardiopulmonary abnormality is identified. Jf Guerrero MD on February 25, 2017 at 10:50 Board Certified Radiologist. This report was verified electronically.
[2017-02-25] MEDS ORDERED: NALOXONE HCL 0.4 MG/ML AMP IV PUSH PRN (11:30)
[2017-02-25] MEDS ORDERED: SENNOSIDES 8.6 MG TAB PO PRN (11:30)
[2017-02-25] MEDS ORDERED: BISACODYL 10 MG SUPP RECTAL PRN (11:30)
[2017-02-25] MEDS ORDERED: LACTULOSE SYRUP 20 GM/30 ML CUP PO PRN (11:30)
[2017-02-25] MEDS ORDERED: MAGNESIUM HYDROXIDE SUSP 30 ML CUP PO PRN (11:30)
[2017-02-25] MEDS ORDERED: IBUPROFEN 400 MG TAB PO PRN (11:30)
[2017-02-25] MEDS ORDERED: ONDANSETRON HCL 4 MG/2 ML VIAL IVP PRN (11:30)
[2017-02-25] MEDS ORDERED: MORPHINE SULFATE 4 MG/ML INJ IV PUSH PRN ×2 (11:30)
[2017-02-25] MEDS ORDERED: DOCUSATE SODIUM 50 MG/SENNA 8.6 MG TAB PO SCH (12:00)
[2017-02-25] MEDS: SODIUM CHLOR 0.9% 1000 ML INJ 1,000 ML IV SCH ×3 (12:20→21:02)
[2017-02-25] MEDS: NICOTINE 14 MG/24 HR PATCH T-DERMAL SCH (12:21)
[2017-02-25] MEDS: SODIUM CHLORIDE 0.9% FLUSH 10 ML FLUSH IV FLUSH SCH ×2 (12:21→21:00)
[2017-02-25] MEDS: GABAPENTIN 300 MG CAP PO SCH ×2 (12:21→18:27)
--- NOTE | 2017-02-25 12:28 | RADRPT ---
EXAM DATE/TIME: 02/25/2017 12:03 [facility] COMPARISON: No previous studies available for comparison. INDICATIONS : Ascites. MEDICAL HISTORY : Hypertension. Hernia, hiatal. Arthritis. GERD. Melena. Tobacco use. Back pain. Anxiety. SURGICAL HISTORY : Tonsillectomy. Hernia repair. Left arm lump removal. ENCOUNTER: Initial ACUITY: 1 day PAIN SCORE: 2/10 LOCATION: Abdomen. AREA EVALUATED: Abdominal quadrants. FINDINGS: Imaging of the abdomen and pelvis was performed to evaluate for ascites for possible paracentesis. No abdominal ascites. CONCLUSION: No ascites seen. Nils Iglesias MD on February 25, 2017 at 12:26 Board Certified Radiologist. This report was verified electronically.
[2017-02-25] MEDS ORDERED: cloNIDine HCL 0.1 MG TAB PO PRN (12:30)
[2017-02-25] MEDS ORDERED: RESP: ALBUTEROL 2.5 MG/IPRATROPIUM 0.5 MG NEB (PRN) NEB (12:30)
--- NOTE | 2017-02-25 13:14 | PD.CONS ---
HPI History of Present Illness This is a 56 year old M who presented to the emergency department today with multiple complaints including abdominal pain, constipation, and leg swelling. Pt is a poor historian and difficult to obtain information from. He reports right sided abdominal pain since approx the beginning january, worse with palpation, can not sleep on his right side at night due to pain. Reports mid epigastric pain, TTP with mild acid reflux. Also complaining of no BM since last , however, pt is reporting he has been noticing red streaks of blood in his stool and red stool intermittent for the past week suggesting he has been having BMs. Has been taking laxatives, suppositories, and stool softeners to help him have a BM. Denies diarrhea at this time but reports was having diarrhea in the beginning of January when he was admitted to the hospital for hyponatremia. Pt reports approximately ten pound weight loss over the past month. Denies ever having EGD or colonoscopy. His PCP is the [facility]. Pt reports quitting drinking after his admission in the beginning january, prior to that he was drinking approx 4-5 beers a day and occasionally liquor. Currently smokes half a pack a day. Denies taking blood thinners. Family history significant for colon cancer, paternal grandfather. Pt denies any new medications, taking OTC herbals or supplements, use of Tylenol, illicit drug use , or frequent NSAID use. (Briseyda Davis) PFSH Past Medical History HTN COPD ETOH abuse Tobacco use Past Surgical History Tonsillectomy Hernia repair x 2 (Briseyda Davis) Coded Allergies: No Known Allergies (Unverified Allergy, Unknown, 02/25/17) Family History Father- cardiac stents and thyroidectomy Mother- cardiac disease- pt is unsure of specifics Paternal grandfather- colon cancer Social History ETOH- quit in the beginning january, previously drinking 4-5 beers a day with occasional liquor Smoker- current, half a pack a day Denies illicit drug use (Briseyda Davis) Review of Systems Constitutional: COMPLAINS OF: Weight loss Cardiovascular: COMPLAINS OF: Lower Extremity Edema Gastrointestinal: COMPLAINS OF: Abdominal pain, Bloody stools, Constipation, Swelling of Abdomen, DENIES: Black stools, Diarrhea, Nausea, Vomiting (Briseyda Davis) GI Exam Vitals I&O Vital Signs Date Time Temp Pulse Resp B/P (MAP) Pulse Ox O2 Delivery O2 Flow Rate FiO2 02/25/17 11:00 96.3 80 18 165/100 (121) 94 02/25/17 10:51 80 16 148/90 (109) 96 02/25/17 07:59 20 99 Room Air 02/25/17 07:22 97.7 96 20 159/96 (117) 96 Room Air Imaging Last Impressions Gall Bladder Ultrasound 02/25/17 0000 Signed Impressions: Service Date/Time: Saturday, February 25, 2017 08:06 - CONCLUSION: 1. Hepatomegaly with diffusely heterogeneous echotexture. There is hepatofugal flow in the main portal vein with trace ascites consistent with portal hypertension. 2. Gallbladder is contracted with gallbladder wall thickening. Gallbladder wall thickening is commonly seen in patients with liver disease. Apron Cleaner reports a positive sonographic Lee's sign. Consider HIDA scan for evaluation of cystic duct patency if there is significant continued clinical concern regarding cholecystitis. Edouard Villatoro MD Chest X-Ray 02/25/17 0000 Signed Impressions: Service Date/Time: Saturday, February 25, 2017 10:30 - CONCLUSION: No acute cardiopulmonary abnormality is identified. Jf Guerrero MD Abdomen Ultrasound 02/25/17 0000 Signed Impressions: Service Date/Time: Saturday, February 25, 2017 12:03 - CONCLUSION: No ascites seen. Nils Iglesias MD Laboratory Test 02/25/17 07:55 02/25/17 12:31 White Blood Count 13.1 TH/MM3 Red Blood Count 4.32 MIL/MM3 Hemoglobin 14.3 GM/DL Hematocrit 41.2 % Mean Corpuscular Volume 95.5 FL Mean Corpuscular Hemoglobin 33.1 PG Mean Corpuscular Hemoglobin Concent 34.7 % Red Cell Distribution Width 17.4 % Platelet Count 80 TH/MM3 Mean Platelet Volume 10.8 FL Neutrophils (%) (Auto) 82.2 % Lymphocytes (%) (Auto) 11.8 % Monocytes (%) (Auto) 5.3 % Eosinophils (%) (Auto) 0.3 % Basophils (%) (Auto) 0.4 % Neutrophils # (Auto) 10.7 TH/MM3 Lymphocytes # (Auto) 1.5 TH/MM3 Monocytes # (Auto) 0.7 TH/MM3 Eosinophils # (Auto) 0.0 TH/MM3 Basophils # (Auto) 0.1 TH/MM3 CBC Comment AUTO DIFF Differential Total Cells Counted 100 Neutrophils % (Manual) 81 % Band Neutrophils % 12 % Lymphocytes % 2 % Monocytes % 5 % Neutrophils # (Manual) 12.2 TH/MM3 Nucleated Red Blood Cells 2 /100 WBC Differential Comment FINAL DIFF MANUAL Platelet Estimate LOW Platelet Morphology Comment NORMAL Red Cell Morphology Comment NORMAL Prothrombin Time 14.7 SEC Prothromb Time International Ratio 1.5 RATIO Activated Partial Thromboplast Time 32.0 SEC Blood Urea Nitrogen 19 MG/DL Creatinine 0.64 MG/DL Random Glucose 107 MG/DL Total Protein 6.3 GM/DL Albumin 2.0 GM/DL Calcium Level 8.0 MG/DL Alkaline Phosphatase 367 U/L Aspartate Amino Transf (AST/SGOT) 217 U/L Alanine Aminotransferase (ALT/SGPT) 149 U/L Total Bilirubin 6.6 MG/DL Sodium Level 139 MEQ/L Potassium Level 4.5 MEQ/L Chloride Level 108 MEQ/L Carbon Dioxide Level 23.4 MEQ/L Anion Gap 8 MEQ/L Estimat Glomerular Filtration Rate 130 ML/MIN Physical Examination HEENT: Normocephalic; atraumatic; (+) jaundice. CHEST: CTA CARDIAC: RRR ABDOMEN: Firm, distended, epigastric area TTP, RUQ TTP; bowel sounds active x 4. EXTREMITIES: Pitting lower extremity edema SKIN: (+) jaundice. TELECOMMUNICATIONS SUPPORT: No focal deficits; alert and oriented times three. (Briseyda Davis) Assessment and Plan Plan Assessment Elevated LFTs- Most likely secondary to ETOH- AST-217 ALT-149 Alk phos-367 T bili 6.6 PT-14.7 Albumin 2.0- Gallbladder US (02/25/17) --> Hepatomegaly with diffusely heterogeneous echotexture. There is hepatofugal flow in the main portal vein with trace ascites consistent with portal hypertension. Gallbladder is contracted with gallbladder wall thickening. Gallbladder wall thickening is commonly seen in patients with liver disease. Apron Cleaner reports a positive sonographic Lee's sign. Consider HIDA scan for evaluation of cystic duct patency if there is significant continued clinical concern regarding cholecystitis. Abdominal US has been done but result is pending. GS has been consulted. DF-14. Will order liver FORREST to rule out other causes of elevated LFTs. Elevated lipase- Possibly secondary to ETOH abuse. Will order MRCP to rule out obstruction Constipation- History as per HPI. Will change Lactulose from PRN to BID. Add MiraLAX. BRB in stool- Reports constipation since last , has been taking multiple stool softeners, enemas, and suppositories. Reports noticing red blood streaks in stool, intermittent. Denies taking blood thinners. No history of GIB. H/H stable 14.3/41.2. Denies ever having EGD or colonoscopy. Family history significant for colon cancer, paternal grandfather. Will plan for EGD/ colonoscopy on Tuesday. PPI. Monitor H/H. BLE edema with albumin 2.0- Will add albumin q 12 hrs. Plan - Start Albumin - Liver work up - MRCP - PPI - Miralax - Lactulose BID - Colon/EGD on Tuesday - Obtain consents - GoLYTELY prep on Tuesday - Clear liquids Tuesday - NPO after MN Tuesday night - Monitor H/H - Transfuse as needed - Notify GI of active bleeding - Supportive care - Further recommendations based on results of above Pt has been seen and examined by myself and Dr. Read and this note is written on his behalf (Briseyda Davis) Physician Comments Seen and examined with OPERATIONS MGR, liver forrest initiated. Egd/colonoscopy next week. (Jacques Read MD) Briseyda Davis Feb 25, 2017 13:14 Jacques Read MD Feb 25, 2017 17:13
[2017-02-25] MEDS ORDERED: PEG (High)/E-LYTE SOLN 4000 ML BTL PO ONE (13:15)
[2017-02-25] MEDS ORDERED: NITROGLYCERIN 0.4 MG SL 25 TABS/BTL SL PRN (13:30)
[2017-02-25] MEDS ORDERED: ASPIRIN 325 MG TAB PO SCH (13:30)
[2017-02-25 14:08] LABS: BACTERIA, URINE RARE /hpf; BLOOD, URINE NEG (NEG); COMMENT (UR) CULT NOT INDICATED; CULTURE IF INDICATED CULT NOT INDICATED; GLUCOSE,URINE 1000 mg/dL (NEG); KETONE, URINE TRACE mg/dL (NEG); MUCUS URINE MANY /lpf (OCC); NITRITE,URINE NEG (NEG); PH, URINE 6.5 (5.0-8.5); SQUAMOUS EPITHELIAL CELL URINE <1 /hpf (0-5); URINE COLOR ORANGE (YELLW/STRAW)
--- NOTE | 2017-02-25 14:48 | PD.CONS ---
cc: Will Horne MD [facility] Service General Surgery Consult Requested By Dr. Navarro Reason for Consult RUQ tenderness; gallbladder wall thickening Primary Care Physician [facility] History of Present Illness This is a 56 year old male with a past medical history of hypertension, COPD, GERD and chronic back pain. He had had several hospitalizations over the past 6 weeks for nausea, hyponatremia and fluid overload. He had been started on Lasix and sodium chloride tablets. He reports to the ED today with right upper quadrant pain and bright red blood per rectum this morning. He has generalized abdomen pain. He does not report any dietary intolerance but does report that he has had a decreased appetite for the past several weeks. An ultrasound of the gallbladder was complete which shows portal hypertension and gallbladder wall thickening. The patient has elevated liver enzymes including a total bilirubin of 6.6. A Gastroenterology consultation has been requested for evaluation of lower GI bleed and elevated liver enzymes. A General Surgery consultation has been requested for evaluation of right upper quadrant pain and gallbladder wall thickening on ultrasound. Review of Systems Constitutional: COMPLAINS OF: Change in appetite, DENIES: Chills Endocrine: DENIES: Polydipsia, Polyuria, Polyphagia Eyes: DENIES: Diplopia Ears, nose, mouth, throat: DENIES: Hearing loss Respiratory: DENIES: Apneas Cardiovascular: DENIES: Chest pain Gastrointestinal: COMPLAINS OF: Abdominal pain, Bloody stools, Nausea, DENIES: Vomiting Genitourinary: DENIES: Urgency Musculoskeletal: DENIES: Joint pain Integumentary: DENIES: Abnormal pigmentation Hematologic/lymphatic: DENIES: Bruising Immunologic/allergic: DENIES: Eczema Neurologic: DENIES: Abnormal gait, Headache Psychiatric: DENIES: Confusion, Mood changes Past Family Social History Past Medical History Hypertension COPD GERD Chronic back pain Past Surgical History Umbilical hernia Open right inguinal hernia repair with mesh Tonsillectomy (as a child) Reported Medications Spiriva Lisinopril Gabapentin Sodium chloride Symbicort Omeprazole Methocarbamol Allergies: Coded Allergies: No Known Allergies (Unverified Allergy, Unknown, 02/25/17) Active Ordered Medications Current Medications Medications (Trade) Dose Ordered Sig/Jailyn Route Start Time Stop Time Status Last Admin Sodium Chloride 1,000 ml @ 150 mls/hr Q6H40M IV 02/25/17 10:00 02/25/17 12:20 (NS Flush) 2 ml UNSCH PRN IV FLUSH 02/25/17 09:45 (NS Flush) 2 ml BID IV FLUSH 02/25/17 10:00 02/25/17 12:21 (Romazicon Inj) 0.2 mg Q1M PRN IV PUSH 02/25/17 09:45 (Ativan) 1 mg Q4H PRN PO 02/25/17 09:45 (Ativan Inj) 1 mg Q4H PRN IV PUSH 02/25/17 09:45 (Ativan) 2 mg Q2H PRN PO 02/25/17 09:45 (Ativan Inj) 2 mg Q2H PRN IV PUSH 02/25/17 09:45 (Ativan Inj) 2 mg Q1H PRN IV PUSH 02/25/17 09:45 (Ativan Inj) 2 mg Q15M PRN IV PUSH 02/25/17 09:45 (Symbicort 80-4.5 Mcg Inh) 2 puff Q12HR INH 02/25/17 21:00 (Neurontin) 300 mg TID PO 02/25/17 13:00 Future hold 02/25/17 12:21 (Mobic) 7.5 mg DAILY PO 02/26/17 09:00 (Sodium Chloride) 1 gm BID PO 02/25/17 21:00 (Spiriva Inh) 18 mcg DAILY INH 02/26/17 09:00 (Prinivil) 40 mg DAILY PO 02/26/17 09:00 (Habitrol 14 Mg Patch.24 Hr) 1 patch DAILY T-DERMAL 02/25/17 12:00 02/25/17 12:21 Miscellaneous Information 1 HS T-DERMAL 02/25/17 21:00 (Zofran Inj) 4 mg Q6H PRN IVP 02/25/17 11:30 (Roxicodone) 10 mg Q4H PRN PO 02/25/17 11:30 02/25/17 12:22 (Morphine Inj) 1 mg Q3H PRN IV PUSH 02/25/17 11:30 (Morphine Inj) 2 mg Q3H PRN IV PUSH 02/25/17 11:30 (Morphine Inj) 4 mg Q3H PRN IV PUSH 02/25/17 11:30 (Roxicodone) 5 mg Q4H PRN PO 02/25/17 11:30 (Narcan Inj) 0.4 mg UNSCH PRN IV PUSH 02/25/17 11:30 (Pauline-Colace) 1 tab BID PO 02/25/17 12:00 Future Hold 02/25/17 12:21 (Milk Of Magnesia Liq) 30 ml Q12H PRN PO 02/25/17 11:30 (Senokot) 17.2 mg Q12H PRN PO 02/25/17 11:30 (Dulcolax Supp) 10 mg DAILY PRN RECTAL 02/25/17 11:30 (Motrin) 400 mg Q6H PRN PO 02/25/17 11:30 (Duoneb Neb) 1 ampule Q6HR NEB PRN NEB 02/25/17 12:30 (Catapres) 0.1 mg Q6H PRN PO 02/25/17 12:30 (Vistaril) 50 mg HS PRN PO 02/25/17 12:30 (Lactulose Liq) 30 ml BID PO 02/25/17 13:30 (Miralax) 17 gm DAILY PO 02/26/17 09:00 (Protonix Inj) 40 mg DAILY IV PUSH 02/25/17 13:15 Albumin Human 100 ml @ 60 mls/hr Q12H IV 02/25/17 14:00 (Aspirin) 325 mg NOW PO 02/25/17 13:30 02/26/17 13:29 (Nitrostat Sl) 0.4 mg Q5M PRN SL 02/25/17 13:30 (Colyte Liq) 4,000 ml ONCE ONCE PO 02/27/17 16:00 02/27/17 16:01 Piperacillin Sod/ Tazobactam Sod 50 ml @ 100 mls/hr Q6H IV 02/25/17 15:00 Family History Paternal grandfather with colon cancer Mother with cardiac history Social History Positive tobacco use----1.5 packs per day Positive EtOH use--- 3-4 beers daily during the week; also with several mixed drinks on the weekends Denies illicit drug use Lives at home alone. Denies hepatitis exposure Physical Exam Vital Signs Vital Signs Date Time Temp Pulse Resp B/P (MAP) Pulse Ox O2 Delivery O2 Flow Rate FiO2 02/25/17 11:00 96.3 80 18 165/100 (121) 94 02/25/17 10:51 80 16 148/90 (109) 96 02/25/17 07:59 20 99 Room Air 02/25/17 07:22 97.7 96 20 159/96 (117) 96 Room Air Physical Exam GENERAL: 56 year old male resting in bed in no acute distress. SKIN: Warm and dry. HEAD: Atraumatic. Normocephalic. EYES: Pupils equal and round. Jaundice sclera. No injection or drainage. ENT: No nasal bleeding or discharge. Mucous membranes pink and moist. NECK: Trachea midline. CARDIOVASCULAR: Regular rate and rhythm. RESPIRATORY: No accessory muscle use. Clear to auscultation. Breath sounds equal bilaterally. GASTROINTESTINAL: Abdomen obese; distended; RUQ pain with light palpation. Small well healed incision superior to umbilicus. No obvious hernias noted. MUSCULOSKELETAL: Bilateral upper extremities without edema; bilateral lower extremities with +1 pitting edema. NEUROLOGICAL: Awake and alert. No obvious cranial nerve deficits. Motor grossly within normal limits. Five out of 5 muscle strength in the arms and legs. Normal speech. PSYCHIATRIC: Appropriate mood and affect; insight and judgment normal. Laboratory Laboratory Tests Test 02/25/17 07:55 02/25/17 12:31 02/25/17 13:50 White Blood Count 13.1 Red Blood Count 4.32 Hemoglobin 14.3 Hematocrit 41.2 Mean Corpuscular Volume 95.5 Mean Corpuscular Hemoglobin 33.1 Mean Corpuscular Hemoglobin Concent 34.7 Red Cell Distribution Width 17.4 Platelet Count 80 Mean Platelet Volume 10.8 Neutrophils (%) (Auto) 82.2 Lymphocytes (%) (Auto) 11.8 Monocytes (%) (Auto) 5.3 Eosinophils (%) (Auto) 0.3 Basophils (%) (Auto) 0.4 Neutrophils # (Auto) 10.7 Lymphocytes # (Auto) 1.5 Monocytes # (Auto) 0.7 Eosinophils # (Auto) 0.0 Basophils # (Auto) 0.1 CBC Comment AUTO DIFF Differential Total Cells Counted 100 Neutrophils % (Manual) 81 Band Neutrophils % 12 Lymphocytes % 2 Monocytes % 5 Neutrophils # (Manual) 12.2 Nucleated Red Blood Cells 2 Differential Comment FINAL DIFF MANUAL Platelet Estimate LOW Platelet Morphology Comment NORMAL Red Cell Morphology Comment NORMAL Prothrombin Time 14.7 Prothromb Time International Ratio 1.5 Activated Partial Thromboplast Time 32.0 Blood Urea Nitrogen 19 Creatinine 0.64 Random Glucose 107 Total Protein 6.3 Albumin 2.0 Calcium Level 8.0 Alkaline Phosphatase 367 Aspartate Amino Transf (AST/SGOT) 217 Alanine Aminotransferase (ALT/SGPT) 149 Total Bilirubin 6.6 Sodium Level 139 Potassium Level 4.5 Chloride Level 108 Carbon Dioxide Level 23.4 Anion Gap 8 Estimat Glomerular Filtration Rate 130 Lactic Acid Level 2.0 Troponin I 0.07 Lipase 1488 Urine Color ORANGE Urine Turbidity CLEAR Urine pH 6.5 Urine Specific [place] 1.033 Urine Protein 30 Urine Glucose (UA) 1000 Urine Ketones TRACE Urine Occult Blood NEG Urine Nitrite NEG Urine Bilirubin MOD Urine Urobilinogen 4.0 Urine Leukocyte Esterase NEG Urine RBC 1 Urine WBC 6 Urine Squamous Epithelial Cells <1 Urine Bacteria RARE Urine Mucus MANY Microscopic Urinalysis Comment CULT NOT INDICATED Result Diagram: 02/25/17 0755 02/25/17 0755 Imaging Last 48 hours Impressions Gall Bladder Ultrasound 02/25/17 0000 Signed Impressions: Service Date/Time: Saturday, February 25, 2017 08:06 - CONCLUSION: 1. Hepatomegaly with diffusely heterogeneous echotexture. There is hepatofugal flow in the main portal vein with trace ascites consistent with portal hypertension. 2. Gallbladder is contracted with gallbladder wall thickening. Gallbladder wall thickening is commonly seen in patients with liver disease. Shaper And Presser reports a positive sonographic Lee's sign. Consider HIDA scan for evaluation of cystic duct patency if there is significant continued clinical concern regarding cholecystitis. Edouard Villatoro MD Chest X-Ray 02/25/17 Signed Impressions: Service Date/Time: Saturday, February 25, 2017 10:30 - CONCLUSION: No acute cardiopulmonary abnormality is identified. Jf Guerrero MD Abdomen Ultrasound 02/25/17 Signed Impressions: Service Date/Time: Saturday, February 25, 2017 12:03 - CONCLUSION: No ascites seen. Nils Iglesias MD Assessment and Plan Assessment and Plan 56 year old male with RUQ abdominal pain; elevated liver enzymes; lower GI bleed -Recommend consultation with GI for evaluation of elevated liver enzymes and LGIB -Diet as tolerated -Reviewed labs--- likely ETOH related -Pain control -CT abd/pelvis today -Ammonia level -Due to the complexity of this patient and his liver dysfunction will defer management to Medicine and GI at this time -Not a surgical candidate at this time -We will see the patient as needed over the weekend and check back Tuesday -Thank you for this consult Attending Note - Dr. Horne Abdomen soft, mildly tender epigastrium The exam, history, and the medical decision-making described in the above note were completed with the assistance of the mid-level provider. I reviewed and agree with the findings presented. I attest that I had a [id number] encounter with the patient on the same day, and personally performed and documented my assessment and findings in the medical record. Discussed Condition With Dr. Ozzie GaldamezTavo Jaimes Nina Kuo Feb 25, 2017 14:48 Will Horne MD Feb 28, 2017 09:12
[2017-02-25] MEDS: ALBUMIN 25% INJ 100 ML IV SCH (15:10)
[2017-02-25] MEDS: PANTOPRAZOLE SODIUM 40 MG VIAL IV PUSH SCH (15:10)
[2017-02-25] MEDS: LACTULOSE SYRUP 20 GM/30 ML CUP PO SCH ×2 (15:10→21:00)
[2017-02-25] MEDS: PIPERACIL-TAZO 3.375 GM PREMIX 50 ML IV SCH ×2 (15:11→21:00)
[2017-02-25] MEDS ORDERED: DIATRIZOATE MEGLUM/DIATRIZOATE SOD 9 ML CUP PO ONE (15:15)
--- NOTE | 2017-02-25 17:52 | MB ---
cc: DELFINO CARRERO M.D. DATE OF CONSULTATION: 02/25/2017. REASON FOR CONSULTATION: Gallbladder problem. HISTORY OF PRESENT ILLNESS: The patient is a 56-year-old male with history of multiple medical problems including COPD, hypertension and alcohol and tobacco abuse who presented to the emergency department with multiple complaints. He reports having bloody stools 48 hours prior to admission and epigastric pain. The patient underwent imaging which demonstrated a slightly thickened gallbladder wall and a "positive sonographic Lee sign". The patient had elevated liver function tests with a bilirubin of 6.6, AST 217, ALT 149 and alkaline phosphatase of 367. The patient's PT is 14.7, INR is 1.5. Platelets are 80,000. The patient has liver with findings consistent with portal hypertension. PAST MEDICAL HISTORY: Please see my nurse practitioner's past medical history. PHYSICAL EXAMINATION: GENERAL: Physical exam reveals a male in no acute distress. VITAL SIGNS: Blood pressure 165/100, pulse 80, respirations 18, temperature 96.3, 94% saturation on room air. HEAD, EYES, EARS, NOSE, THROAT: Sclerae are slightly icteric. The patient has poor dentition. CHEST: His chest is clear to auscultation. CARDIAC: Cardiac exam reveals regular rate and rhythm without murmurs. ABDOMEN: Abdomen is soft, protuberant and tender in the epigastrium extending over to the right upper quadrant. The pain also extended down the abdomen to the umbilicus. EXTREMITIES: Pulses are present. The patient has a pedal edema bilaterally. NEUROLOGICAL EXAMINATION: Exam is nonfocal. LABORATORY STUDIES: Laboratory values demonstrate: WBCs of 13.1 with platelets of 80,000. Lipase is 1488. Liver function tests are as indicated above. Hepatitis A, B and C are all negative from today. ASSESSMENT Alcoholic pancreatitis with hypertension, COPD and lower GI bleeding. PLAN: The patient is scheduled to have a colonoscopy on Tuesday and will undergo bowel prep over the weekend. Agree with clear liquid diet or a limited diet and bowel rest. Will have the patient undergo repeat amylase and lipase in the morning. He likely needs to have continued evaluation for the liver function. I would not recommend a HIDA scan at this point with his elevated liver function tests as it will likely be inconclusive or falsely positive. The patient does not need any surgical intervention over the weekend; we will check again on the Tuesday after colonoscopy has been performed to check his performance status. He will likely not require any surgical intervention. His management would be optimally via the medical group. Thank you for this interesting consult. MD CHRISTINA Jose/JCShravan /3:22 PM /5:43 PM THELMA
[2017-02-25] MEDS ORDERED: IOHEXOL 350 MG/ML 10 ML VIAL (for RAD DIAG) IVCONTRAST ONE (19:55)
[2017-02-25] MEDS: REMOVE OLD PATCH T-DERMAL SCH (21:00)
[2017-02-25] MEDS: BUDESONIDE-FORMOTEROL 80/4.5 MCG INHALER INH SCH (21:00)
[2017-02-25] MEDS: SODIUM CHLORIDE 1 GRAM TAB PO SCH (21:00)
[2017-02-25 21:51] LABS: TRANSFERRIN IRON PROFILE 118 MG/DL (200-360)
[2017-02-25 21:54] LABS: FERRITIN 1098 NG/ML (26-388)
[2017-02-25 23:13] LABS: HEMATOCRIT 37.2 % (39.0-51.0)
[2017-02-25 23:17] LABS: REVIEW FLAG FINAL
--- NOTE | 2017-02-25 23:22 | RADRPT ---
EXAM DATE/TIME: 02/25/2017 19:53 [facility] COMPARISON: CT ABDOMEN & PELVIS W CONTRAST, February 08, 2017, 19:50. INDICATIONS : Patient complains of abdominal and constipation. IV CONTRAST: 97 cc Omnipaque 350 (iohexol) IV ORAL CONTRAST: Prescribed oral contrast ingested. RADIATION DOSE: 16.49 CTDIvol (mGy) MEDICAL HISTORY : Cardiovascular disease. Hypertension. Congestive heart failure. SURGICAL HISTORY : hernia repair ENCOUNTER: Initial ACUITY: 3 days PAIN SCALE: 5/10 LOCATION: Right lower quadrant TECHNIQUE: Volumetric scanning of the abdomen and pelvis was performed. Using automated exposure control and ad justment of the mA and/or kV according to patient size, radiation dose was kept as low as reasonably achievable to obtain optimal diagnostic quality images. DICOM format image data is available electro nically for review and comparison. FINDINGS: LOWER LUNGS: Scattered atelectasis is noted within the lung bases. LIVER: The liver is enlarged. Homogeneous density without lesion. There is no dilation of the biliary tree. No calcified gallstones. Some ascites is noted along the edge of the liver and surrounding the gall bladder which is collapsed. SPLEEN: Normal size without lesion. PANCREAS: Within normal limits. KIDNEYS: Normal in size and shape. There is no mass, stone or hydronephrosis. There is a 15 mm renal cyst. ADRENAL GLANDS: Within normal limits. VASCULAR: There is no aortic aneurysm. BOWEL/MESENTERY: Uncomplicated colonic diverticulosis is noted. ABDOMINAL WALL: Within normal limits. RETROPERITONEUM: There is no lymphadenopathy. BLADDER: No wall thickening or mass. REPRODUCTIVE: Within normal limits. INGUINAL: There is no lymphadenopathy or hernia. MUSCULOSKELETAL: Within normal limits for patient age. CONCLUSION: 1. Hepatomegaly. 2. Minimal ascites. 3. Scattered uncomplicated colonic diverticulosis. 4. Stable 15 mm right renal cyst. Casey Lopez MD on February 25, 2017 at 23:15 Board Certified Radiologist. This report was verified electronically.
[2017-02-25 23:40] LABS: CREATINE KINASE 359 U/L (39-308); HDL CHOLESTEROL 15.2 MG/DL (40.0-60.0)
[2017-02-25 23:52] LABS: CKMB 2.5 NG/ML (0.5-3.6)
[2017-02-26] VITALS (8 sets, daily range): BP systolic 156–171; BP diastolic 86–94; PULSE 74–100; RESP 18–20; TEMP 95.8–97.9; O2SAT 93–97
[2017-02-26 00:07] LABS: LDH SERUM 953 U/L (87-241); LDL CHOLESTEROL 107 MG/DL (0-99)
[2017-02-26 00:08] LABS: ALCOHOL LESS THAN 3 MG/DL (0-5); AMYLASE 305 U/L (25-115)
[2017-02-26] MEDS: PIPERACIL-TAZO 3.375 GM PREMIX 50 ML IV SCH ×4 (01:44→22:08)
[2017-02-26] MEDS: ALBUMIN 25% INJ 100 ML IV SCH ×2 (01:44→14:47)
[2017-02-26 03:32] LABS: AUTOMATED NEUTROPHIL # 8.9 TH/MM3 (1.8-7.7); BASOPHIL % 0.4 % (0.0-2.0); EOSINOPHIL % 0.1 % (0.0-4.0); HEMATOCRIT 35.9 % (39.0-51.0); LYMPH % 11.5 % (9.0-44.0); LYMPHOCYTE # 1.3 TH/MM3 (1.0-4.8); MEAN CELL VOLUME 95.5 FL (80.0-100.0); MEAN CORPUSCULAR HEMOGLOBIN 33.6 PG (27.0-34.0); MEAN CORPUSCULAR HGB CONC 35.2 % (32.0-36.0); MONO % 6.8 % (0.0-8.0); NEUT % 81.2 % (16.0-70.0); PLATELET COUNT 63 TH/MM3 (150-450); RED BLOOD COUNT 3.76 MIL/MM3 (4.50-5.90); RED CELL DISTRIBUTION WIDTH 17.2 % (11.6-17.2)
[2017-02-26 03:49] LABS: HEMO FLAGS AUTO DIFF
[2017-02-26 03:53] LABS: ALKALINE PHOSPHATASE 292 U/L (45-117); ALT (GPT) 118 U/L (12-78); ANION GAP 8 MEQ/L (5-15); AST (GOT) 175 U/L (15-37); BLOOD UREA NITROGEN 17 MG/DL (7-18); CHLORIDE 109 MEQ/L (98-107); GLOMERULAR FILTRATION RATE 158 ML/MIN (>89); SODIUM (NA) 143 MEQ/L (136-145); TOTAL BILIRUBIN ADULT 6.5 MG/DL (0.2-1.0)
[2017-02-26 03:54] LABS: POTASSIUM 3.2 MEQ/L (3.5-5.1)
[2017-02-26 04:05] LABS: CKMB 2.3 NG/ML (0.5-3.6)
[2017-02-26 04:32] LABS: BANDS 4 % (0-6); CORRECTED NUCLEATED RBC 2 /100 WBC (0-0); METAMYELOCYTES 2 % (0-1); NEUTROPHIL # MANUAL DIFF 10.2 TH/MM3 (1.8-7.7); POLYS (SEG NEUTROPHILS) 87 % (16-70); WBC DIFF SAMPLE 100
[2017-02-26 04:33] LABS: SCAN/DIFF FINAL DIFF MANUAL
[2017-02-26 04:34] LABS: PLATELET ESTIMATE SMEAR LOW (NORMAL); PLATELET MORPHOLOGY NORMAL (NORMAL)
[2017-02-26] MEDS: SODIUM CHLOR 0.9% 1000 ML INJ 1,000 ML IV SCH ×2 (05:51→14:48)
[2017-02-26] MEDS: NICOTINE 14 MG/24 HR PATCH T-DERMAL SCH (08:52)
[2017-02-26] MEDS: TIOTROPIUM BROMIDE 18 MCG INH INH SCH (08:52)
[2017-02-26] MEDS: BUDESONIDE-FORMOTEROL 80/4.5 MCG INHALER INH SCH ×2 (08:52→21:00)
[2017-02-26] MEDS: GABAPENTIN 300 MG CAP PO SCH ×3 (08:53→18:05)
[2017-02-26] MEDS: SODIUM CHLORIDE 1 GRAM TAB PO SCH ×2 (08:53→21:00)
[2017-02-26] MEDS: MELOXICAM 7.5 MG TAB PO SCH (08:53)
[2017-02-26] MEDS: LISINOPRIL 20 MG TAB PO SCH (08:54)
[2017-02-26] MEDS: LACTULOSE SYRUP 20 GM/30 ML CUP PO SCH ×2 (08:54→21:00)
[2017-02-26] MEDS: SODIUM CHLORIDE 0.9% FLUSH 10 ML FLUSH IV FLUSH SCH ×2 (08:54→22:08)
[2017-02-26] MEDS: PANTOPRAZOLE SODIUM 40 MG VIAL IV PUSH SCH (08:54)
[2017-02-26] MEDS ORDERED: PANTOPRAZOLE SOD 20 MG DELAYED RELEASE TAB PO SCH ×2 (09:00)
[2017-02-26] MEDS ORDERED: POLYETHYLENE GLYCOL 17 GM PKG PO SCH (09:00)
[2017-02-26 09:15] LABS: HEMATOCRIT 38.8 % (39.0-51.0)
[2017-02-26 09:17] LABS: REVIEW FLAG FINAL
--- NOTE | 2017-02-26 11:38 | RADRPT ---
EXAM DATE/TIME: 02/26/2017 10:40 [facility] COMPARISON: CT ABDOMEN & PELVIS W CONTRAST, February 25, 2017, 19:53. INDICATIONS : Abdominal pain. MEDICAL HISTORY : None. SURGICAL HISTORY : Hernia repair x 2. ENCOUNTER: Initial ACUITY: 1 day PAIN SCORE: 0/10 LOCATION: upper quadrant TECHNIQUE: Multiplanar, multisequence magnetic resonance imaging of the abdomen was performed. High-resolution 3D dataset was utilized to reconstruct maximum-intensity projection (MIP) images. FINDINGS: INTRAHEPATIC BILE DUCTS: Within normal limits. No significant anatomical variant is present. EXTRAHEPATIC BILE DUCTS: The common bile duct measures No stone or filling defect is identified. GALLBLADDER: Gallbladder is contracted with mild gallbladder wall thickening similar to prior ultrasound exam. No stone. LIVER: Cirrhotic in appearance with numerous focal T2 signal abnormalities most predominantly in the left lo be liver. There is a dominant focal lesion in segment 4 which measures up to 2.8 cm. There is trace p erihepatic ascites. PANCREAS: The main pancreatic duct is normal in size. There is no significant anatomical variant. Signal inte nsity is within normal limits. No mass is visualized on this non-contrast exam. OTHER: The remaining visualized structures demonstrate no acute abnormality on this non-contrast exam. CONCLUSION: 1. No ductal dilatation or evidence for choledocholithiasis or focal biliary ductal abnormality. 2. Cirrhotic liver with numerous focal lesions predominately in the left lobe of the liver with a dom inant segment 4 lesion measuring up to 2.8 cm. Recommend formal liver mass MRI examination for better evaluation. 3. Trace ascites. Edouard Villatoro MD on February 26, 2017 at 11:27 Board Certified Radiologist. This report was verified electronically.
--- NOTE | 2017-02-26 13:20 | EKG ---
Date Performed: 02/25/2017 Time Performed: 21:10:02 PTAGE: 56 years EKG: Sinus rhythm NORMAL ECG PREVIOUS TRACING : 01/20/2017 12.36 Compared to prior tracing no significant change DOCTOR: Woo Pavon Interpretating Date/Time 02/26/2017 13:18:58
[2017-02-26] MEDS ORDERED: GADODIAMIDE PF 287 MG/ML 20 ML VIAL (for RAD MRI) IVCONTRAST ONE (14:07)
--- NOTE | 2017-02-26 14:10 | HHI.GIFU ---
Subjective Remarks Pt OOB to chair. Having BRBPR with bm x 2 episodes today. (Suzie Ramos) Objective Vitals I&O Vital Signs Date Time Temp Pulse Resp B/P (MAP) Pulse Ox O2 Delivery O2 Flow Rate FiO2 02/26/17 12:00 95.8 85 20 157/94 (115) 93 02/26/17 08:00 95.9 79 20 171/86 (114) 95 02/26/17 03:19 96.7 82 18 156/88 (110) 94 02/25/17 23:05 96.7 91 18 156/93 (114) 94 02/25/17 23:03 84 02/25/17 20:19 96.7 89 18 174/97 (122) 93 02/25/17 17:50 94 02/25/17 16:00 96.8 98 18 154/99 (117) 94 I/O 02/25/17 02/25/17 02/25/17 02/26/17 02/26/17 02/26/17 07:00 15:00 23:00 07:00 15:00 23:00 Intake Total 240 ml 770 ml 200 ml Output Total 300 ml Balance -60 ml 770 ml 200 ml Intake Oral 240 ml 720 ml 0 ml IV Total 50 ml 200 ml Output Urine Total 300 ml # Voids 2 3 # Bowel Movements 1 0 1 Laboratory Laboratory Tests Test 02/25/17 22:47 02/26/17 03:06 02/26/17 08:54 02/26/17 12:25 Hemoglobin 13.1 12.6 13.5 Hematocrit 37.2 35.9 38.8 Ammonia 88 Lactate Dehydrogenase 953 Total Creatine Kinase 359 362 Creatine Kinase MB 2.5 2.3 Creatine Kinase MB % 0.7 0.6 Troponin I 0.06 0.06 0.06 Triglycerides Level 125 Cholesterol Level 147 LDL Cholesterol 107 HDL Cholesterol 15.2 Cholesterol/HDL Ratio 9.67 Amylase Level 305 Ethyl Alcohol Level LESS THAN 3 White Blood Count 11.0 Red Blood Count 3.76 Mean Corpuscular Volume 95.5 Mean Corpuscular Hemoglobin 33.6 Mean Corpuscular Hemoglobin Concent 35.2 Red Cell Distribution Width 17.2 Platelet Count 63 Mean Platelet Volume 9.4 Neutrophils (%) (Auto) 81.2 Lymphocytes (%) (Auto) 11.5 Monocytes (%) (Auto) 6.8 Eosinophils (%) (Auto) 0.1 Basophils (%) (Auto) 0.4 Neutrophils # (Auto) 8.9 Lymphocytes # (Auto) 1.3 Monocytes # (Auto) 0.7 Eosinophils # (Auto) 0.0 Basophils # (Auto) 0.0 CBC Comment AUTO DIFF Differential Total Cells Counted 100 Neutrophils % (Manual) 87 Band Neutrophils % 4 Lymphocytes % 3 Monocytes % 4 Neutrophils # (Manual) 10.2 Metamyelocytes 2 Nucleated Red Blood Cells 2 Differential Comment FINAL DIFF MANUAL Platelet Estimate LOW Platelet Morphology Comment NORMAL Red Cell Morphology Comment NORMAL Blood Urea Nitrogen 17 Creatinine 0.54 Random Glucose 101 Total Protein 5.7 Albumin 2.3 Calcium Level 7.9 Alkaline Phosphatase 292 Aspartate Amino Transf (AST/SGOT) 175 Alanine Aminotransferase (ALT/SGPT) 118 Total Bilirubin 6.5 Sodium Level 143 Potassium Level 3.2 Chloride Level 109 Carbon Dioxide Level 26.0 Anion Gap 8 Estimat Glomerular Filtration Rate 158 Tumor Marker Alpha Fetoprotein 2.8 Carcinoembryonic Antigen 5781.4 Date/Time Source Procedure Growth Status 02/25/17 22:55 Blood Peripheral Aerobic Blood Culture - Preliminary NO GROWTH IN 1 DAY Resulted 02/25/17 22:55 Blood Peripheral Anaerobic Blood Culture - Preliminary NO GROWTH IN 1 DAY Resulted Imaging Last Impressions Cholangiopancreatography MRI 02/26/17 0000 Signed Impressions: Service Date/Time: Sunday, February 26, 2017 10:40 - CONCLUSION: 1. No ductal dilatation or evidence for choledocholithiasis or focal biliary ductal abnormality. 2. Cirrhotic liver with numerous focal lesions predominately in the left lobe of the liver with a dominant segment 4 lesion measuring up to 2.8 cm. Recommend formal liver mass MRI examination for better evaluation. 3. Trace ascites. Edouard Villatoro MD Gall Bladder Ultrasound 02/25/17 0000 Signed Impressions: Service Date/Time: Saturday, February 25, 2017 08:06 - CONCLUSION: 1. Hepatomegaly with diffusely heterogeneous echotexture. There is hepatofugal flow in the main portal vein with trace ascites consistent with portal hypertension. 2. Gallbladder is contracted with gallbladder wall thickening. Gallbladder wall thickening is commonly seen in patients with liver disease. Fryer Operator reports a positive sonographic Lee's sign. Consider HIDA scan for evaluation of cystic duct patency if there is significant continued clinical concern regarding cholecystitis. Edouard Villatoro MD Chest X-Ray 02/25/17 0000 Signed Impressions: Service Date/Time: Saturday, February 25, 2017 10:30 - CONCLUSION: No acute cardiopulmonary abnormality is identified. Jf Guerrero MD Abdomen/Pelvis CT 02/25/17 0000 Signed Impressions: Service Date/Time: Saturday, February 25, 2017 19:53 - CONCLUSION: 1. Hepatomegaly. 2. Minimal ascites. 3. Scattered uncomplicated colonic diverticulosis. 4. Stable 15 mm right renal cyst. Casey Lopez MD Abdomen Ultrasound 02/25/17 0000 Signed Impressions: Service Date/Time: Saturday, February 25, 2017 12:03 - CONCLUSION: No ascites seen. Nils Iglesias MD Physical Exam HEENT: PERRL; normocephalic; atraumatic; +mild icterus CHEST: CTA CARDIAC: RRR ABDOMEN: semifirm, distended, RUQ TTP; no hepatosplenomegaly; bowel sounds are present in all four quadrants. EXTREMITIES: No clubbing, cyanosis, + BLE edema. SKIN: Normal; no rash; + jaundice. VENEER SAMPLE MAKER: No focal deficits; alert and oriented times three. (Suzie Ramos [facility]) Assessment and Plan Plan Assessment Elevated LFTs- ?ETOH, cirrhosis, ?malignancy. elevated CEA, and MRCP shows liver lesions, cirrhosis, no evidence choledocholithiasis. DF-14. US showed signs cholecystitis, per GS no surgical intervention currently. AFP WNL. [id number] pending MRI liver pending Elevated lipase- MRCP as above Constipation- History as per HPI. Will change Lactulose from PRN to BID. + miralax and now having loose stool with some incontinence BRB in stool- Reports constipation since last , has been taking multiple stool softeners, enemas, and suppositories. Reports noticing red blood streaks in stool, intermittent. Denies taking blood thinners. No history of GIB. H/H stable Denies ever having EGD or colonoscopy. Family history significant for colon cancer, paternal grandfather. EGD/ colonoscopy on Tuesday. PPI. BLE edema with albumin 2.0 Plan - await rest of Liver work up - await MRI liver - PPI - d/c Miralax - Lactulose BID - Colon/EGD on Tuesday - Obtain consents - GoLYTELY prep on Tuesday - Clear liquids Tuesday - NPO after MN Tuesday night - Monitor H/H - Transfuse as needed - Notify GI of active bleeding - Supportive care - Further recommendations based on results of above Pt has been seen and examined by myself and Dr. Moser and this note is written on his behalf (Suzie Ramos) Plan Patient was seen and examined, agree with above-noted, we will wait for liver MRI to evaluate the possible masses, patient also will get: EGD for anemia (Asuncion Moser MD) Suzie Ramos Feb 26, 2017 14:10 Asuncion Moser MD Feb 26, 2017 17:15
--- NOTE | 2017-02-26 14:33 | RADRPT ---
EXAM DATE/TIME: 02/26/2017 13:52 [facility] COMPARISON: MRCP W/O CONTRAST, February 26, 2017, 10:40. CT ABDOMEN & PELVIS W CONTRAST, February 25, 2017, 19:5 3. INDICATIONS : Mass. CONTRAST: 20 cc Omniscan (gadodiamide) IV MEDICAL HISTORY : Cirrhosis. SURGICAL HISTORY : Hernia repair. ENCOUNTER: Initial ACUITY: 1 day PAIN SCORE: 0/10 LOCATION: Abdomen. TECHNIQUE: Multiplanar, multisequence magnetic resonance imaging of the abdomen was performed without and with i ntravenous contrast. FINDINGS: LIVER: The liver is diffusely enlarged measuring 26.4 cm in length. On the postcontrast images there is a ve ry coarse nodular pattern throughout the entire liver. The pattern suggests hepatocellular disease wi th regenerating nodules. There is a small amount of ascites adjacent to the liver. The portal system is patent. The gallbladder is contracted. BILIARY: There is no intra- or extra-hepatic biliary ductal dilatation. Gallbladder contains no stones. SPLEEN: Within normal limits. PANCREAS: Within normal limits. ADRENALS: Within normal limits. KIDNEYS: Normal size and signal intensity. There is no hydronephrosis or mass. OTHER: Aorta is nonaneurysmal. There is no lymphadenopathy. CONCLUSION: 1. There is hepatomegaly with liver measuring 26.4 cm in length. 2. There is a very coarse reticular nodular pattern throughout the entire liver on the postcontrast i mages characteristic of hepatocellular disease such as cirrhosis. The coarse pattern suggesting regen erating nodules related to cirrhosis. If clinically indicated, recommend liver biopsy for correlation . 3. The rest of the MRI of the upper abdomen is unremarkable. Keegan Youngblood MD on February 26, 2017 at 14:24 Board Certified Radiologist. This report was verified electronically.
--- NOTE | 2017-02-26 17:10 | HHI.HP ---
[facility] Service Family Medicine Primary Care Physician [place] Admission Diagnosis liver disease, rule out cholecystitis Diagnoses: (1) Lower GI bleed Diagnosis: Principal (2) RUQ abdominal pain Diagnosis: Principal (3) Transaminitis Diagnosis: Principal (4) Lower extremity edema Diagnosis: Principal (5) Tobacco abuse Diagnosis: Principal (6) Alcohol abuse Diagnosis: Principal (7) GERD (gastroesophageal reflux disease) Diagnosis: Principal (8) HTN (hypertension) Diagnosis: Principal (9) Chronic lower back pain Diagnosis: Principal (10) COPD (chronic obstructive pulmonary disease) Diagnosis: Principal (11) Nutrition, metabolism, and development symptoms Diagnosis: Principal (12) Surgical contraindication to deep vein thrombosis (DVT) prophylaxis Diagnosis: Principal International Travel<30 Days: No Contact w/Intl Traveler<30days: No Known Affected Area: No History of Present Illness Mr. Jaimes is a 56 y/o M with a history of COPD, hypertension, and alcohol/ tobacco abuse presenting to the ED with multiple complaints. Patient states that he has been feeling constipated over the last 3 days taking multiple stool softeners and laxatives. He has had bowel movements which are very hard in nature that started to have "red blood streaks." He has continued to have bloody stools over the last 48 hours and reports that a couple of the bowel movements have been completely liquid in nature with blood in them, completely filling the toilet bowl. Patient does state he has hemorrhoids which are treated with a topical cream. He denies any history of colonoscopy. He also complains of 3 days of ankle swelling that has made it difficult for him to walk. At his previous hospitalization he was taken off Lasix due to hyponatremia , but did not have a new onset edema until 3 days ago. Patient states he has not been diagnosed with CHF and [facility] He complains of right upper quadrant pain radiating to his right shoulder and to his periumbilical area. He states that the pain is worse when lying on his right side and alleviated by sitting up with a heating pad. He states that he is never had this pain before and rates it a 10/10 in nature. He currently has no other complaints. Regarding his alcohol history, the patient states he has not had a alcoholic beverage since being discharged from the hospital in early January. He denies any withdrawal symptoms since that admission. He continues to smoke roughly 1-1/2 packs per day, but does state he would like to quit. He was up walking in the room this am and was getting ready to go to his MRCP. He complained of multiple bouts of blood in his stools both bright red and "darker". He was not symptomatically orthostatic today. His lipase was very elevated but he was hungry and thirsty. His MRCP was concerning for multiple liver findings. He is expected to have scoping on Tuesday so hopefully the cause of the bleeding will be found. Review of Systems Other Constitutional: COMPLAINS OF: Dizziness, DENIES: Fever Eyes: COMPLAINS OF: Blurred vision, DENIES: Double Vision Ears, nose, mouth, throat: DENIES: Running Nose Respiratory: DENIES: Cough, Shortness of breath Cardiovascular: DENIES: Chest pain, Syncope Gastrointestinal: COMPLAINS OF: Abdominal pain, Black stools, Bloody stools, Diarrhea, Nausea, DENIES: Vomiting Genitourinary: DENIES: Hematuria, Dysuria Musculoskeletal: COMPLAINS OF: Joint pain, Back pain Integumentary: DENIES: Rash Hematologic/lymphatic: DENIES: Lymphadenopathy Neurologic: COMPLAINS OF: Headache Psychiatric: DENIES: Mood changes Past Family Social History Past Medical History Chronic back pain- degenerative changes- being treated by pain management HTN COPD GERD Past Surgical History Hernia repair x2 Tonsillectomy Allergies: Coded Allergies: No Known Allergies (Unverified Allergy, Unknown, 02/25/17) Family History Mother- CAD- Open heart surg in hers 50s Father- CAD - x2 stents, thyroidectomy, Parkinson Children- healthy Siblings- healthy Social History , lives alone with dog Retired from [employer] for 25 yrs [employer] Tobacco- 2 ppds for 40yrs, down to 1.5 ppd currently Alcohol- 3-6 pack of beer a day, for 35 yrs, no withdrawals sx, no seizures Illicit drugs - none Physical Exam Vital Signs Vital Signs Date Time Temp Pulse Resp B/P (MAP) Pulse Ox O2 Delivery O2 Flow Rate FiO2 02/26/17 16:00 96.6 83 18 158/92 (114) 94 02/26/17 15:37 93 21 02/26/17 12:00 95.8 85 20 157/94 (115) 93 02/26/17 08:00 95.9 79 20 171/86 (114) 95 02/26/17 03:19 96.7 82 18 156/88 (110) 94 02/25/17 23:05 96.7 91 18 156/93 (114) 94 02/25/17 23:03 84 02/25/17 20:19 96.7 89 18 174/97 (122) 93 02/25/17 17:50 94 Physical Exam GENERAL: Disheveled male walking in room before getting on his stretcher in no acute distress. SKIN: Warm and diaphoretic. No rash or trauma. HEENT: Atraumatic, normocephalic with EOMI. PERRLA. No scleral icterus. Oropharynx clear without erythema or exudate. MMM. No rhinorrhea. No LAD, JVD, or thyroid abnormality appreciated. CARDIOVASCULAR: Regular rate and rhythm without murmurs, gallops, or rubs. 2+ pulses in all 4 extremities. RESPIRATORY: Clear to auscultation bilaterally. No CRW. No increased work of breathing. GASTROINTESTINAL: Abdomen protuberant with positive bowel sounds in all 4 quadrants. Patient with exquisite tenderness to the right upper quadrant. Mild tenderness in other 3 abdominal quadrants. Positive Lee sign. Endorses rebound tenderness. No tenderness at McBurney's point. MUSCULOSKELETAL: Bilateral lower extremity edema with greater edema on his left lower extremity. Edema on right lower extremity up to mid palafox including his ankle. Edema on the left lower extremity up to the knee. Edema is 2+ and pitting. Ambulating well. NEUROLOGICAL: Afocal. AAO 3. No tremor at baseline. Normal speech and judgment. Laboratory Laboratory Tests Test 02/25/17 22:47 02/26/17 03:06 02/26/17 08:54 02/26/17 12:25 Hemoglobin 13.1 12.6 13.5 Hematocrit 37.2 35.9 38.8 Ammonia 88 Lactate Dehydrogenase 953 Total Creatine Kinase 359 362 Creatine Kinase MB 2.5 2.3 Creatine Kinase MB % 0.7 0.6 Troponin I 0.06 0.06 0.06 Triglycerides Level 125 Cholesterol Level 147 LDL Cholesterol 107 HDL Cholesterol 15.2 Cholesterol/HDL Ratio 9.67 Amylase Level 305 Ethyl Alcohol Level LESS THAN 3 White Blood Count 11.0 Red Blood Count 3.76 Mean Corpuscular Volume 95.5 Mean Corpuscular Hemoglobin 33.6 Mean Corpuscular Hemoglobin Concent 35.2 Red Cell Distribution Width 17.2 Platelet Count 63 Mean Platelet Volume 9.4 Neutrophils (%) (Auto) 81.2 Lymphocytes (%) (Auto) 11.5 Monocytes (%) (Auto) 6.8 Eosinophils (%) (Auto) 0.1 Basophils (%) (Auto) 0.4 Neutrophils # (Auto) 8.9 Lymphocytes # (Auto) 1.3 Monocytes # (Auto) 0.7 Eosinophils # (Auto) 0.0 Basophils # (Auto) 0.0 CBC Comment AUTO DIFF Differential Total Cells Counted 100 Neutrophils % (Manual) 87 Band Neutrophils % 4 Lymphocytes % 3 Monocytes % 4 Neutrophils # (Manual) 10.2 Metamyelocytes 2 Nucleated Red Blood Cells 2 Differential Comment FINAL DIFF MANUAL Platelet Estimate LOW Platelet Morphology Comment NORMAL Red Cell Morphology Comment NORMAL Blood Urea Nitrogen 17 Creatinine 0.54 Random Glucose 101 Total Protein 5.7 Albumin 2.3 Calcium Level 7.9 Alkaline Phosphatase 292 Aspartate Amino Transf (AST/SGOT) 175 Alanine Aminotransferase (ALT/SGPT) 118 Total Bilirubin 6.5 Sodium Level 143 Potassium Level 3.2 Chloride Level 109 Carbon Dioxide Level 26.0 Anion Gap 8 Estimat Glomerular Filtration Rate 158 Tumor Marker Alpha Fetoprotein 2.8 Carcinoembryonic Antigen 5781.4 CA 125 Antigen 42.9 Prostate Specific Antigen 0.55 Date/Time Source Procedure Growth Status 02/25/17 22:55 Blood Peripheral Aerobic Blood Culture - Preliminary NO GROWTH IN 1 DAY Resulted 02/25/17 22:55 Blood Peripheral Anaerobic Blood Culture - Preliminary NO GROWTH IN 1 DAY Resulted Result Diagram: 02/26/17 0854 02/26/17 0306 Imaging Last 72 hours Impressions Gall Bladder Ultrasound 02/25/17 0000 Signed Impressions: Service Date/Time: Saturday, February 25, 2017 08:06 - CONCLUSION: 1. Hepatomegaly with diffusely heterogeneous echotexture. There is hepatofugal flow in the main portal vein with trace ascites consistent with portal hypertension. 2. Gallbladder is contracted with gallbladder wall thickening. Gallbladder wall thickening is commonly seen in patients with liver disease. [employer] Supervisor reports a positive sonographic Lee's sign. Consider HIDA scan for evaluation of cystic duct patency if there is significant continued clinical concern regarding cholecystitis. MD Stephen Cook VTE Risk Assessment Stephen VTE Risk Assessment: Mod/High Risk (score >= 2) Caprini Risk Assessment Model Point Value = 1 Point Value = 2 Point Value = 3 Point Value = 5 Age 41-60 Minor surgery BMI > 25 kg/m2 Swollen legs Varicose veins or History of unexplained or recurrent spontaneous Oral contraceptives or hormone replacement Sepsis (< 1 month) Serious lung disease, including pneumonia (< 1 month) Abnormal pulmonary function Acute myocardial infarction Congestive heart failure (< 1 month) History of inflammatory bowel disease Medical patient at bed rest Age 61-74 Arthroscopic surgery Major open surgery (> 45 min) Laparoscopic surgery (> 45 min) Malignancy Confined to bed (> 72 hours) Immobilizing plaster cast Central venous access Age >= 75 History of VTE Family history of VTE Factor V Leiden Prothrombin [id number] Lupus anticoagulant Anticardiolipin antibodies Elevated serum homocysteine Heparin-induced thrombocytopenia Other congenital or acquired thrombophilia Stroke (< 1 month) Elective arthroplasty Hip, pelvis, or leg fracture Acute spinal cord injury (< 1 month) Prophylaxis Regimen Total Risk Factor Score Risk Level Prophylaxis Regimen 0-1 Low Early ambulation 2 Moderate Order ONE of the following: *Sequential Compression Device (SCD) *Heparin 5000 units SQ BID 3-4 Higher Order ONE of the following medications: *Heparin 5000 units SQ TID *Enoxaparin/Lovenox 40 mg SQ daily (WT < 150 kg, CrCl > 30 mL/min) *Enoxaparin/Lovenox 30 mg SQ daily (WT < 150 kg, CrCl > 10-29 mL/min) *Enoxaparin/Lovenox 30 mg SQ BID (WT < 150 kg, CrCl > 30 mL/min) AND/OR *Sequential Compression Device (SCD) 5 or more Highest Order ONE of the following medications: *Heparin 5000 units SQ TID (Preferred with Epidurals) *Enoxaparin/Lovenox 40 mg SQ daily (WT < 150 kg, CrCl > 30 mL/min) *Enoxaparin/Lovenox 30 mg SQ daily (WT < 150 kg, CrCl > 10-29 mL/min) *Enoxaparin/Lovenox 30 mg SQ BID (WT < 150 kg, CrCl > 30 mL/min) AND *Sequential Compression Device (SCD) Assessment and Plan Assessment and Plan Mr. Jaimes is a 56 y/o F presenting to the ED with blood per rectum, RUQ pain concerning for cholecystitis, and transaminitis who will be admitted for medical care. Problem List: (1) Lower GI bleed ICD Codes: K92.2 - Gastrointestinal hemorrhage, unspecified Status: Acute Plan: Patient with 3 days of constipation, hard stools with bloody streaks, and other liquid based bloody stools. Patient without prior colonoscopy. Negative Family history. No prior episodes. Hemorrhoids likely related to increased portal hypertension due to suspected alcoholic liver disease. He could have a colon lesion or other reasons for the bleeding as well Images/Studies/Orders: -CBC: H/H 14/41, repeat at 1900 -CMP: Chloride 108, otherwise electrolytes WNL -FOBT positive per ED staff with external hemorrhoids on exam -Coags: T4 10 0.7, INR 1.5, PTT 32 -Type and screen -Consult GI, appreciate recommendations Medications: -NS at 100 ml/hr -Protonix 40 mg IV daily (2) RUQ abdominal pain ICD Codes: R10.11 - Right upper quadrant pain Status: Acute Plan: Patient with new onset right upper quadrant abdominal pain with positive Lee sign concerning for possible cholecystitis. Patient also with LFT elevation and history consistent with possible alcoholic liver disease. Patient currently meets severe sepsis criteria with tachycardia and leukocytosis. Suspected source is likely related to his biliary system concerning for cholangitis with a lactic acid of 2 and platelets of 80. Imaging/shoulder/studies: -Gallbladder ultrasound: Hepatomegaly with diffusely heterogeneous echotexture. There is hepatofugal flow in the main portal vein with trace ascites consistent with portal hypertension. Gallbladder is contracted with gallbladder wall thickening. [employer] Supervisor reports a positive sonographic Lee sign. Consider HIDA scan. -Lower abdominal ultrasound: Pending -CBC: WBC 13.1 with 82.2% neutrophils -CMP: Calcium 8, bilirubin 6.6, AST 217, ALT 149, alkaline phosphatase 367 -Lipase: Pending -Lactic acid: Pending -Hepatitis panel: Pending -Troponin: Pending Medications: -Please see above -Medical team to consider adding antibiotic coverage pending lower abdominal ultrasound. Plan to cover for SBP after paracentesis with ceftriaxone if indicated but he has little ascites. Also consider covering for cholecystitis with cefazolin if indicated pending further workup. -Oxycodone and morphine as needed for pain consulted surgery and this is not needed now (3) Transaminitis ICD Codes: R74.0 - Nonspecific elevation of levels of transaminase and lactic acid dehydrogenase [LDH] Status: Acute Plan: Patient with right upper quadrant pain with increasing liver function tests. concern for stone with pancreatitis but there was no stone seen fortunately -Please see as above (4) Lower extremity edema ICD Codes: R60.0 - Localized edema Status: Acute Plan: Patient with new-onset lower extremities edema without clinical signs of DVT. Patient endorses no history of CHF and reports a "[facility]" [facility]. -Chest x-ray: No acute cardiopulmonary disease -BNP: Pending (5) Tobacco abuse ICD Codes: Z72.0 - Tobacco use Status: Chronic Plan: Patient with current 1.5 packs per day smoking history -Nicotine patch to be changed nightly (6) Alcohol abuse ICD Codes: F10.10 - Alcohol abuse, uncomplicated Status: Chronic Plan: Patient with history of alcohol abuse using up to 6 beers per day. Patient states he has not had an alcoholic beverage since being discharged on prior hospitalization, 01/22/17. No prior history of alcohol withdrawal or DTs. -[facility] protocol in place (7) GERD (gastroesophageal reflux disease) ICD Codes: K21.9 - Gastro-esophageal reflux disease without esophagitis Status: Chronic Plan: Patient with history of GERD -Protonix as above (8) HTN (hypertension) ICD Codes: I10 - Essential (primary) hypertension Status: Chronic Plan: Patient with a central hypertension -Continue with lisinopril 40 mg daily -Clonidine 0.1 mg every 6 hours when necessary for BP greater than 180/110 (9) Chronic lower back pain ICD Codes: M54.5 - Low back pain; G89.29 - Other chronic pain Status: Chronic Plan: Patient with chronic lower back pain -Continue home meloxicam and gabapentin -Hold methocarbamol (10) COPD (chronic obstructive pulmonary disease) ICD Codes: J44.9 - Chronic obstructive pulmonary disease, unspecified Status: Chronic Plan: Patient with COPD without current exacerbation symptoms -Continue Spiriva and Symbicort inhalers -DuoNeb every 6 hours when necessary for shortness of breath (11) Nutrition, metabolism, and development symptoms ICD Codes: R63.8 - Other symptoms and signs concerning food and fluid intake Status: Acute Plan: Fluids: Diet: Nothing by mouth for possible surgical procedure Electrolytes: Chloride 108, continue to monitor Reflexes: DuoNeb when necessary for shortness of breath, clonidine when necessary for BP greater than 180/110, Zofran when necessary for nausea or vomiting, hydroxyzine when necessary for insomnia, constipation protocol in place (12) Surgical contraindication to deep vein thrombosis (DVT) prophylaxis ICD Codes: Z53.09 - Procedure and treatment not carried out because of other contraindication Status: Acute Plan: -Pharmacological DVT prophylaxis held due to possible surgical intervention plus he has active bleed -SCDs Problem Qualifiers (1) GERD (gastroesophageal reflux disease): Qualified Codes: K21.9 - Gastro-esophageal reflux disease without esophagitis (2) HTN (hypertension): Qualified Codes: I10 - Essential (primary) hypertension (3) Chronic lower back pain: Qualified Codes: M54.5 - Low back pain; G89.29 - Other chronic pain (4) COPD (chronic obstructive pulmonary disease): Qualified Codes: J44.9 - Chronic obstructive pulmonary disease, unspecified Veda Felton MD Feb 26, 2017 17:10
[2017-02-26] MEDS: REMOVE OLD PATCH T-DERMAL SCH (21:00)
[2017-02-27] VITALS (7 sets, daily range): BP systolic 152–175; BP diastolic 86–97; PULSE 73–92; RESP 18–20; TEMP 96.4–98; O2SAT 91–96
[2017-02-27] MEDS: ALBUMIN 25% INJ 100 ML IV SCH ×2 (01:19→13:30)
[2017-02-27] MEDS: SODIUM CHLOR 0.9% 1000 ML INJ 1,000 ML IV SCH ×5 (01:25→22:45)
[2017-02-27] MEDS: PIPERACIL-TAZO 3.375 GM PREMIX 50 ML IV SCH ×4 (02:40→22:45)
[2017-02-27 05:07] LABS: AUTOMATED NEUTROPHIL # 7.9 TH/MM3 (1.8-7.7); BASOPHIL # 0.1 TH/MM3 (0-0.2); BASOPHIL % 0.6 % (0.0-2.0); EOSINOPHIL % 0.3 % (0.0-4.0); HEMATOCRIT 34.2 % (39.0-51.0); LYMPHOCYTE # 1.1 TH/MM3 (1.0-4.8); MEAN CELL VOLUME 95.1 FL (80.0-100.0); MEAN CORPUSCULAR HEMOGLOBIN 34.1 PG (27.0-34.0); MEAN CORPUSCULAR HGB CONC 35.8 % (32.0-36.0); MONO % 6.8 % (0.0-8.0); NEUT % 81.3 % (16.0-70.0); PLATELET COUNT 55 TH/MM3 (150-450); RED CELL DISTRIBUTION WIDTH 17.8 % (11.6-17.2); WHITE BLOOD COUNT 9.7 TH/MM3 (4.0-11.0)
[2017-02-27 05:20] LABS: HEMO FLAGS AUTO DIFF
[2017-02-27 05:45] LABS: ALKALINE PHOSPHATASE 265 U/L (45-117); ALT (GPT) 115 U/L (12-78); ANION GAP 10 MEQ/L (5-15); AST (GOT) 165 U/L (15-37); BICARBONATE 23.4 MEQ/L (21.0-32.0); BLOOD UREA NITROGEN 15 MG/DL (7-18); CHLORIDE 110 MEQ/L (98-107); GLOMERULAR FILTRATION RATE 135 ML/MIN (>89); SODIUM (NA) 143 MEQ/L (136-145); TOTAL BILIRUBIN ADULT 6.5 MG/DL (0.2-1.0)
[2017-02-27 05:48] LABS: POTASSIUM 2.5 MEQ/L (3.5-5.1)
[2017-02-27] MEDS ORDERED: POTASSIUM CHLORIDE 20 MEQ CONTROLLED RELEASE TAB PO ONE (06:00)
[2017-02-27 07:16] LABS: PLATELET ESTIMATE SMEAR LOW (NORMAL); PLATELET MORPHOLOGY NORMAL (NORMAL); SCAN/DIFF AUTO DIFF CONFIRMED
[2017-02-27] MEDS: TIOTROPIUM BROMIDE 18 MCG INH INH SCH (09:00)
[2017-02-27] MEDS: BUDESONIDE-FORMOTEROL 80/4.5 MCG INHALER INH SCH ×2 (09:00→21:00)
[2017-02-27] MEDS: SODIUM CHLORIDE 0.9% FLUSH 10 ML FLUSH IV FLUSH SCH ×2 (09:00→22:48)
[2017-02-27] MEDS: LACTULOSE SYRUP 20 GM/30 ML CUP PO SCH ×2 (10:01→22:48)
[2017-02-27] MEDS: SODIUM CHLORIDE 1 GRAM TAB PO SCH ×2 (10:01→21:00)
[2017-02-27] MEDS: LISINOPRIL 20 MG TAB PO SCH (10:01)
[2017-02-27] MEDS: MELOXICAM 7.5 MG TAB PO SCH (10:01)
[2017-02-27] MEDS: GABAPENTIN 300 MG CAP PO SCH ×3 (10:01→16:57)
[2017-02-27] MEDS: PANTOPRAZOLE SODIUM 40 MG VIAL IV PUSH SCH (10:02)
[2017-02-27] MEDS: NICOTINE 14 MG/24 HR PATCH T-DERMAL SCH (10:03)
--- NOTE | 2017-02-27 11:21 | HHI.FPPN ---
Subjective Remarks Patient seen and examined this morning. No acute events overnight per nursing staff. Patient states he continues to have bright red blood per rectum with each bowel movement. He denies any blurred vision, dizziness, headaches, or chest pain. We briefly discussed his imaging and laboratory reports this far. We discussed the possibility of liver/colon cancers as well as cirrhosis and the possible need of biopsy. All questions were answered and he verbalized understanding. He currently has no other complaints and denies any fevers, chills, shortness of breath, chest pain, abdominal pain, or calf tenderness. (Marco Antonio Navarro MD R2) Objective Vitals Vital Signs Date Time Temp Pulse Resp B/P (MAP) Pulse Ox O2 Delivery O2 Flow Rate FiO2 02/27/17 10:10 Room Air 02/27/17 08:00 96.4 73 18 160/91 (114) 91 02/27/17 04:00 98.0 77 20 152/86 (108) 93 02/27/17 04:00 77 02/27/17 00:00 98.0 92 18 156/94 (114) 96 02/26/17 23:00 100 02/26/17 21:51 95 02/26/17 20:00 97.9 94 18 158/92 (114) 97 02/26/17 19:43 Room Air 02/26/17 16:00 96.6 83 18 158/92 (114) 94 02/26/17 15:37 93 21 02/26/17 12:00 95.8 85 20 157/94 (115) 93 I/O 02/26/17 02/26/17 02/26/17 02/27/17 02/27/17 02/27/17 07:00 15:00 23:00 07:00 15:00 23:00 Intake Total 200 ml 480 ml 1033 ml Output Total 2050 ml Balance 200 ml 480 ml -1017 ml Intake Oral 0 ml 480 ml IV Total 200 ml 1033 ml Output Urine Total 2050 ml # Voids 3 1 2 # Bowel Movements 1 1 0 (Marco Antonio Navarro MD R2) Result Diagram: 02/27/17 0450 02/27/17 0450 Objective Remarks GENERAL: Disheveled male laying in bed in no acute distress. SKIN: Warm and diaphoretic. No rash or trauma. HEENT: Atraumatic, normocephalic with EOMI. MMM. No rhinorrhea. No LAD or JVD appreciated. CARDIOVASCULAR: Regular rate and rhythm without murmurs, gallops, or rubs. 2+ pulses in all 4 extremities. RESPIRATORY: Clear to auscultation bilaterally. No CRW. No increased work of breathing. GASTROINTESTINAL: Abdomen protuberant with positive bowel sounds in all 4 quadrants. Patient with continued right upper quadrant tenderness and mild tenderness in the upper left quadrant. No masses appreciated. MUSCULOSKELETAL: Bilateral lower extremity edema with greater edema on his left lower extremity. Edema on right lower extremity up to mid palafox including his ankle. Edema on the left lower extremity up to the knee. Edema is 2+ and pitting. Mildly improved from prior exams. Ambulating well. NEUROLOGICAL: Afocal. AAO 3. No tremor at baseline. Normal speech and judgment. (Marco Antonio Navarro MD R2) A/P Assessment and Plan Mr. Jaimes is a 56 y/o F presenting to the ED with blood per rectum, RUQ pain concerning for cholecystitis, and transaminitis who will be admitted for medical care. (Marco Antonio Navarro MD R2) Attending Attestation Patient seen and examined. Case reviewed and discussed with the resident team. Agree with plan of care as discussed with me and documented in the resident note. concern about cancer. possibly colon. will likely need liver biopsy if unable to find other source (Veda Felton MD) Problem List: (1) Lower GI bleed ICD Codes: K92.2 - Gastrointestinal hemorrhage, unspecified Status: Acute Plan: Patient with 3 days of constipation, hard stools with bloody streaks, and other liquid based bloody stools. Patient without prior colonoscopy. Negative Family history. No prior episodes. Hemorrhoids likely related to increased portal hypertension due to suspected alcoholic liver disease. He could have a colon lesion or other reasons for the bleeding as well Images/Studies/Orders: -FOBT positive per ED staff with external hemorrhoids on exam -Coags: T4 10 0.7, INR 1.5, PTT 32 -Type and screen -Consult GI, appreciate recommendations -EGD/colonoscopy planned for 02/27, orders placed per GI Medications: -NS at 100 ml/hr -Protonix 40 mg IV daily -Lactulose twice a day (2) RUQ abdominal pain ICD Codes: R10.11 - Right upper quadrant pain Status: Acute Plan: Patient with new onset right upper quadrant abdominal pain with positive Lee sign concerning for possible cholecystitis. Patient also with LFT elevation and history consistent with possible alcoholic liver disease. Patient currently meets severe sepsis criteria with tachycardia and leukocytosis. Suspected source is likely related to his biliary system concerning for cholangitis with a lactic acid of 2 and platelets of 80. Imaging/shoulder/studies: -Gallbladder ultrasound: Hepatomegaly with diffusely heterogeneous echotexture. There is hepatofugal flow in the main portal vein with trace ascites consistent with portal hypertension. Gallbladder is contracted with gallbladder wall thickening. Armament Mechanic reports a positive sonographic Lee sign. Consider HIDA scan. -Lower abdominal ultrasound: No ascites appreciated -Abdominal CT: Hepatomegaly, minimal ascites, uncomplicated colonic diverticulosis, stable 15 mm right renal cyst -Abdominal MRI: Hepatomegaly with liver measuring 26.4 cm in length. Very coarse reticular nodular pattern throughout the entire liver on the postcontrast images characteristic of hepatocellular disease such as cirrhosis. Coarse pattern suggesting regenerating nodules related to cirrhosis. If clinically indicated recommend liver biopsy for correlation. Rest of the MRI of the abdominal MRI is unremarkable. -MRCP: No ductal dilatation or evidence of choledocholithiasis or focal biliary ductal abnormality. Cirrhotic liver with numerous focal lesions predominantly in the left lobe of the liver with a dominant segment. 4 lesions measuring up to 2.8 cm. Recommended formal liver mass MRI evaluation. Trace ascites. -Lipase: 1488 -Lactic acid: 2 -Hepatitis panel: Negative -Troponin: Stable as 0.06 -AFP 2.8 -CEA 5781.4 -CA-19-9 587.5 -CA-125 42.9 -PSA 0.5 -Alpha 1 antitrypsin: Pending -Ceruloplasmin: Pending -GI consulted, pressure recommendations -Gen. surgery consulted, to reevaluate patient on 02/28, no surgical indication at this time Medications: -Please see above -Zosyn Q6H (02/25- ) -Oxycodone and morphine as needed for pain (3) Transaminitis ICD Codes: R74.0 - Nonspecific elevation of levels of transaminase and lactic acid dehydrogenase [LDH] Status: Acute Plan: Patient with right upper quadrant pain with increasing liver function tests. -Please see as above (4) Lower extremity edema ICD Codes: R60.0 - Localized edema Status: Resolved Plan: Patient with new-onset lower extremities edema without clinical signs of DVT. Patient endorses no history of CHF and reports a "[facility]" [facility] -Chest x-ray: No acute cardiopulmonary disease (5) Tobacco abuse ICD Codes: Z72.0 - Tobacco use Status: Chronic Plan: Patient with current 1.5 packs per day smoking history -Nicotine patch to be changed nightly (6) Alcohol abuse ICD Codes: F10.10 - Alcohol abuse, uncomplicated Status: Chronic Plan: Patient with history of alcohol abuse using up to 6 beers per day. Patient states he has not had an alcoholic beverage since being discharged on prior hospitalization, 01/22/17. No prior history of alcohol withdrawal or DTs. -CIWA protocol in place (7) GERD (gastroesophageal reflux disease) ICD Codes: K21.9 - Gastro-esophageal reflux disease without esophagitis Status: Chronic Plan: Patient with history of GERD -Protonix as above -Please see plan as above (8) HTN (hypertension) ICD Codes: I10 - Essential (primary) hypertension Status: Chronic Plan: Patient with a central hypertension -Continue with lisinopril 40 mg daily -Clonidine 0.1 mg every 6 hours when necessary for BP greater than 180/110 (9) Chronic lower back pain ICD Codes: M54.5 - Low back pain; G89.29 - Other chronic pain Status: Chronic Plan: Patient with chronic lower back pain -Continue home meloxicam and gabapentin -Hold methocarbamol (10) COPD (chronic obstructive pulmonary disease) ICD Codes: J44.9 - Chronic obstructive pulmonary disease, unspecified Status: Chronic Plan: Patient with COPD without current exacerbation symptoms -Continue Spiriva and Symbicort inhalers -DuoNeb every 6 hours when necessary for shortness of breath (11) Nutrition, metabolism, and development symptoms ICD Codes: R63.8 - Other symptoms and signs concerning food and fluid intake Status: Acute Plan: Fluids: Diet: Nothing by mouth for possible surgical procedure Electrolytes: Hypokalemia, repeat at 1900, continue to monitor Reflexes: DuoNeb when necessary for shortness of breath, clonidine when necessary for BP greater than 180/110, Zofran when necessary for nausea or vomiting, hydroxyzine when necessary for insomnia, constipation protocol in place (12) Surgical contraindication to deep vein thrombosis (DVT) prophylaxis ICD Codes: Z53.09 - Procedure and treatment not carried out because of other contraindication Status: Acute Plan: -Pharmacological DVT prophylaxis held due to possible surgical intervention plus he has active bleed -SCDs (Marco Antonio Navarro MD R2) Problem Qualifiers (1) GERD (gastroesophageal reflux disease): Qualified Codes: K21.9 - Gastro-esophageal reflux disease without esophagitis (2) HTN (hypertension): Qualified Codes: I10 - Essential (primary) hypertension (3) Chronic lower back pain: Qualified Codes: M54.5 - Low back pain; G89.29 - Other chronic pain (4) COPD (chronic obstructive pulmonary disease): Qualified Codes: J44.9 - Chronic obstructive pulmonary disease, unspecified Marco Antonio Navarro MD R2 Feb 27, 2017 11:21 Veda Felton MD Mar 02, 2017 11:35
[2017-02-27] MEDS ORDERED: POTASSIUM CHLORIDE 10 MEQ CONTROLLED RELEASE TAB PO ONE ×3 (12:00→22:15)
--- NOTE | 2017-02-27 14:09 | HHI.GIFU ---
Subjective Remarks Patient in no apparent distress. Continues to have rectal bleeding with BM. (Marcia Chaudhari) Objective Vitals I&O Vital Signs Date Time Temp Pulse Resp B/P (MAP) Pulse Ox O2 Delivery O2 Flow Rate FiO2 02/27/17 12:00 96.7 85 18 159/91 (113) 93 02/27/17 10:10 Room Air 02/27/17 08:00 96.4 73 18 160/91 (114) 91 02/27/17 04:00 98.0 77 20 152/86 (108) 93 02/27/17 04:00 77 02/27/17 00:00 98.0 92 18 156/94 (114) 96 02/26/17 23:00 100 02/26/17 21:51 95 02/26/17 20:00 97.9 94 18 158/92 (114) 97 02/26/17 19:43 Room Air 02/26/17 16:00 96.6 83 18 158/92 (114) 94 02/26/17 15:37 93 21 I/O 02/26/17 02/26/17 02/26/17 02/27/17 02/27/17 02/27/17 07:00 15:00 23:00 07:00 15:00 23:00 Intake Total 200 ml 480 ml 1033 ml Output Total 2050 ml Balance 200 ml 480 ml -1017 ml Intake Oral 0 ml 480 ml IV Total 200 ml 1033 ml Output Urine Total 2050 ml # Voids 3 1 2 # Bowel Movements 1 1 0 Laboratory Laboratory Tests Test 02/27/17 04:50 White Blood Count 9.7 Red Blood Count 3.60 Hemoglobin 12.3 Hematocrit 34.2 Mean Corpuscular Volume 95.1 Mean Corpuscular Hemoglobin 34.1 Mean Corpuscular Hemoglobin Concent 35.8 Red Cell Distribution Width 17.8 Platelet Count 55 Mean Platelet Volume 9.6 Neutrophils (%) (Auto) 81.3 Lymphocytes (%) (Auto) 11.0 Monocytes (%) (Auto) 6.8 Eosinophils (%) (Auto) 0.3 Basophils (%) (Auto) 0.6 Neutrophils # (Auto) 7.9 Lymphocytes # (Auto) 1.1 Monocytes # (Auto) 0.7 Eosinophils # (Auto) 0.0 Basophils # (Auto) 0.1 CBC Comment AUTO DIFF Differential Comment AUTO DIFF CONFIRMED Platelet Estimate LOW Platelet Morphology Comment NORMAL Blood Urea Nitrogen 15 Creatinine 0.62 Random Glucose 150 Total Protein 5.6 Albumin 2.4 Calcium Level 7.9 Alkaline Phosphatase 265 Aspartate Amino Transf (AST/SGOT) 165 Alanine Aminotransferase (ALT/SGPT) 115 Total Bilirubin 6.5 Sodium Level 143 Potassium Level 2.5 Chloride Level 110 Carbon Dioxide Level 23.4 Anion Gap 10 Estimat Glomerular Filtration Rate 135 Magnesium Level 2.0 CA 19-9 Antigen 587.5 Date/Time Source Procedure Growth Status 02/25/17 22:55 Blood Peripheral Aerobic Blood Culture - Preliminary NO GROWTH IN 2 DAYS Resulted 02/25/17 22:55 Blood Peripheral Anaerobic Blood Culture - Preliminary NO GROWTH IN 2 DAYS Resulted Imaging Last Impressions Cholangiopancreatography MRI 02/26/17 0000 Signed Impressions: Service Date/Time: Sunday, February 26, 2017 10:40 - CONCLUSION: 1. No ductal dilatation or evidence for choledocholithiasis or focal biliary ductal abnormality. 2. Cirrhotic liver with numerous focal lesions predominately in the left lobe of the liver with a dominant segment 4 lesion measuring up to 2.8 cm. Recommend formal liver mass MRI examination for better evaluation. 3. Trace ascites. Edouard Villatoro MD Abdomen MRI 02/26/17 0000 Signed Impressions: Service Date/Time: Sunday, February 26, 2017 13:52 - CONCLUSION: 1. There is hepatomegaly with liver measuring 26.4 cm in length. 2. There is a very coarse reticular nodular pattern throughout the entire liver on the postcontrast images characteristic of hepatocellular disease such as cirrhosis. The coarse pattern suggesting regenerating nodules related to cirrhosis. If clinically indicated, recommend liver biopsy for correlation. 3. The rest of the MRI of the upper abdomen is unremarkable. Keegan Youngblood MD Gall Bladder Ultrasound 02/25/17 0000 Signed Impressions: Service Date/Time: Saturday, February 25, 2017 08:06 - CONCLUSION: 1. Hepatomegaly with diffusely heterogeneous echotexture. There is hepatofugal flow in the main portal vein with trace ascites consistent with portal hypertension. 2. Gallbladder is contracted with gallbladder wall thickening. Gallbladder wall thickening is commonly seen in patients with liver disease. [employer]igee Developer reports a positive sonographic Lee's sign. Consider HIDA scan for evaluation of cystic duct patency if there is significant continued clinical concern regarding cholecystitis. Edouard Villatoro MD Chest X-Ray 02/25/17 0000 Signed Impressions: Service Date/Time: Saturday, February 25, 2017 10:30 - CONCLUSION: No acute cardiopulmonary abnormality is identified. Jf Guerrero MD Abdomen/Pelvis CT 02/25/17 0000 Signed Impressions: Service Date/Time: Saturday, February 25, 2017 19:53 - CONCLUSION: 1. Hepatomegaly. 2. Minimal ascites. 3. Scattered uncomplicated colonic diverticulosis. 4. Stable 15 mm right renal cyst. Casey Lopez MD Abdomen Ultrasound 02/25/17 0000 Signed Impressions: Service Date/Time: Saturday, February 25, 2017 12:03 - CONCLUSION: No ascites seen. Nils Iglesias MD Physical Exam HEENT: Normocephalic; atraumatic; +mild icterus CHEST: CTA CARDIAC: RRR ABDOMEN: Distended. Mild diffuse TTP, with increased TTP at RUQ; no hepatosplenomegaly; bowel sounds are present in all four quadrants. EXTREMITIES: No clubbing, cyanosis, + BLE edema. SKIN: Normal; no rash; + jaundice. BAGGAGE CHECKER: No focal deficits; alert and oriented times three. (Marcia Chaudhari) Assessment and Plan Plan ASSESSMENT: - Elevated LFTs, patient with history of alcohol abuse (6 beers a day), denies any alcohol use since hospital discharge on 01/22/17. DF-14. Hepatitis panel negative. AFP 2.8, CEA 5781.4, CA-19-9 587.5, CA-125 42.9. Alpha 1 antitrypsin and Ceruloplasmin pending. JOCELYNE, AMA, ASMA pending. Abdomen/Pelvis CT (02/25/17)--1. Hepatomegaly. 2. Minimal ascites. 3. Scattered uncomplicated colonic diverticulosis. 4. Stable 15 mm right renal cyst. MRCP (02/26/17)--1. No ductal dilatation or evidence for choledocholithiasis or focal biliary ductal abnormality. 2. Cirrhotic liver with numerous focal lesions predominately in the left lobe of the liver with a dominant segment 4 lesion measuring up to 2.8 cm. Recommend formal liver mass MRI examination for better evaluation. 3. Trace ascites. Abdomen MRI (02/26/17)--1. There is hepatomegaly with liver measuring 26.4 cm in length. 2. There is a very coarse reticular nodular pattern throughout the entire liver on the postcontrast images characteristic of hepatocellular disease such as cirrhosis. The coarse pattern suggesting regenerating nodules related to cirrhosis. If clinically indicated, recommend liver biopsy for correlation. 3. The rest of the MRI of the upper abdomen is unremarkable. - RUQ abdominal pain, GB US (02/25/17)-- 1. Hepatomegaly with diffusely heterogeneous echotexture. There is hepatofugal flow in the main portal vein with trace ascites consistent with portal hypertension. 2. Gallbladder is contracted with gallbladder wall thickening. Gallbladder wall thickening is commonly seen in patients with liver disease. [employer]igee Developer reports a positive sonographic Lee's sign. Consider HIDA scan for evaluation of cystic duct patency if there is significant continued clinical concern regarding cholecystitis. Per GS no surgical indication at this time. Lipase 1488. MRCP as above - Lower GIB- Reports constipation since last , has been taking multiple stool softeners, enemas, and suppositories. Reports noticing red blood streaks in stool, intermittent. Denies taking blood thinners. No history of GIB. H/H stable Denies ever having EGD or colonoscopy. Family history significant for colon cancer, paternal grandfather. EGD/colonoscopy on Tuesday. PPI. PLAN: - Colonoscopy/EGD on Tuesday - Clear liquid diet today - NPO after MN tonight - Bowel prep today - Await Alpha 1 antitrypsin and Ceruloplasmin results - Await JOCELYNE, AMA, ASMA results - Continue PPI - Lactulose BID - Monitor H/H - Transfuse as needed - Notify GI of active bleeding - Supportive care - Further recommendations based on results of above Patient seen and examined by Dr. Moser and myself and this note is written on his behalf. (Marcia Chaudhari) Plan Patient was seen and examined, agree with above-noted, still elevated liver function test, liver workup in progress, also severe elevation of tumor markers including CEA and CA 19-9 also CA 125, this is consistent with malignancy, we will try to repeat colonoscopy tomorrow with clear prep I already placed NG tube for the patient to be prepped, we may need to do biopsy of the liver if the colonoscopy negative with such high numbers to rule out metastases (Asuncion Moser MD) Marcia Chaudhari Feb 27, 2017 14:09 Asuncion Moser MD Feb 27, 2017 14:31
[2017-02-27] MEDS ORDERED: PEG (High)/E-LYTE SOLN 4000 ML BTL PO ONE (16:00)
[2017-02-27 19:48] LABS: POTASSIUM 3.1 MEQ/L (3.5-5.1)
[2017-02-27] MEDS ORDERED: METOPROLOL TARTRATE 25 MG TAB PO PRN (20:00)
[2017-02-27] MEDS ORDERED: POVIDONE IODINE 5% (ANTISEPSIS KIT) 4 APPLICATIONS EACH NARE PRN (20:00)
[2017-02-27] MEDS ORDERED: CHLORHEXIDINE GLUCONATE 2 % 1 PACK (2 CLOTHS) TOPICAL PRN (20:00)
[2017-02-27] MEDS ORDERED: SODIUM CHLORID 0.9% 500 ML IV PRN (20:00)
[2017-02-27] MEDS ORDERED: LACTATED RINGER'S 1000 ML IV PRN (20:00)
[2017-02-28] VITALS (9 sets, daily range): BP systolic 156–179; BP diastolic 97–101; PULSE 79–107; RESP 18–20; TEMP 96–96.7; O2SAT 91–94
[2017-02-28] MEDS: ALBUMIN 25% INJ 100 ML IV SCH ×2 (02:52→14:00)
[2017-02-28] MEDS: PIPERACIL-TAZO 3.375 GM PREMIX 50 ML IV SCH ×4 (02:53→20:32)
[2017-02-28] MEDS: SODIUM CHLOR 0.9% 1000 ML INJ 1,000 ML IV SCH ×4 (05:50→20:35)
[2017-02-28 06:46] LABS: HEMATOCRIT 35.7 % (39.0-51.0); MEAN CELL VOLUME 94.7 FL (80.0-100.0); MEAN CORPUSCULAR HEMOGLOBIN 33.4 PG (27.0-34.0); MEAN CORPUSCULAR HGB CONC 35.3 % (32.0-36.0); PLATELET COUNT 57 TH/MM3 (150-450); RED BLOOD COUNT 3.77 MIL/MM3 (4.50-5.90); RED CELL DISTRIBUTION WIDTH 17.8 % (11.6-17.2)
[2017-02-28 06:49] LABS: REVIEW FLAG FINAL
[2017-02-28 07:20] LABS: BICARBONATE 27.8 MEQ/L (21.0-32.0)
[2017-02-28] MEDS: LISINOPRIL 20 MG TAB PO SCH (08:33)
[2017-02-28] MEDS: GABAPENTIN 300 MG CAP PO SCH ×3 (08:33→17:15)
[2017-02-28] MEDS: SODIUM CHLORIDE 1 GRAM TAB PO SCH ×2 (08:33→20:33)
[2017-02-28] MEDS: MELOXICAM 7.5 MG TAB PO SCH (08:34)
[2017-02-28] MEDS: NICOTINE 14 MG/24 HR PATCH T-DERMAL SCH (08:34)
[2017-02-28] MEDS: BUDESONIDE-FORMOTEROL 80/4.5 MCG INHALER INH SCH ×2 (08:36→20:33)
[2017-02-28] MEDS: PANTOPRAZOLE SODIUM 40 MG VIAL IV PUSH SCH (08:36)
[2017-02-28] MEDS: LACTULOSE SYRUP 20 GM/30 ML CUP PO SCH ×2 (08:36→20:35)
[2017-02-28] MEDS: SODIUM CHLORIDE 0.9% FLUSH 10 ML FLUSH IV FLUSH SCH ×2 (08:36→20:34)
[2017-02-28] MEDS: TIOTROPIUM BROMIDE 18 MCG INH INH SCH (08:36)
--- NOTE | 2017-02-28 09:14 | HHI.FPPN ---
Subjective Remarks Patient was seen and evaluated this morning. He slept well. His last food intake was at 9 PM. He completed the bowel prep by 11 PM. Patient continues to complain of epigastric and right upper as well as lower quadrant abdominal pain. He also continues with bloody bowel movements. Patient will have EGD and colonoscopy this morning. Patient denies chest pain, heart palpitations, shortness of breath, nausea/vomiting, diarrhea and constipation. All questions were answered. (Patrizia Mcneill MD R1) Objective Vitals Vital Signs Date Time Temp Pulse Resp B/P (MAP) Pulse Ox O2 Delivery O2 Flow Rate FiO2 02/28/17 06:41 81 02/28/17 03:00 96.7 82 18 156/97 (116) 93 02/27/17 23:53 18 02/27/17 23:10 96.7 87 18 175/97 (123) 93 02/27/17 20:52 96.7 89 18 174/96 (122) 96 02/27/17 16:00 96.5 85 18 159/91 (113) 93 02/27/17 12:00 96.7 85 18 159/91 (113) 93 02/27/17 10:10 Room Air I/O 02/27/17 02/27/17 02/27/17 02/28/17 02/28/17 02/28/17 07:00 15:00 23:00 07:00 15:00 23:00 Intake Total 1033 ml 460 ml 1150 ml 0 ml Output Total 2050 ml 650 ml Balance -1017 ml 460 ml 1150 ml -650 ml Intake Oral 460 ml 1100 ml 0 ml IV Total 1033 ml 50 ml Output Urine Total 2050 ml 650 ml # Voids 6 5 # Bowel Movements 0 0 4 (Patrizia Mcneill MD R1) Result Diagram: 02/28/17 0539 02/28/17 0539 Imaging Last Impressions Cholangiopancreatography MRI 02/26/17 0000 Signed Impressions: Service Date/Time: Sunday, February 26, 2017 10:40 - CONCLUSION: 1. No ductal dilatation or evidence for choledocholithiasis or focal biliary ductal abnormality. 2. Cirrhotic liver with numerous focal lesions predominately in the left lobe of the liver with a dominant segment 4 lesion measuring up to 2.8 cm. Recommend formal liver mass MRI examination for better evaluation. 3. Trace ascites. Edouard Villatoro MD Abdomen MRI 02/26/17 0000 Signed Impressions: Service Date/Time: Sunday, February 26, 2017 13:52 - CONCLUSION: 1. There is hepatomegaly with liver measuring 26.4 cm in length. 2. There is a very coarse reticular nodular pattern throughout the entire liver on the postcontrast images characteristic of hepatocellular disease such as cirrhosis. The coarse pattern suggesting regenerating nodules related to cirrhosis. If clinically indicated, recommend liver biopsy for correlation. 3. The rest of the MRI of the upper abdomen is unremarkable. Keegan Youngblood MD Gall Bladder Ultrasound 02/25/17 0000 Signed Impressions: Service Date/Time: Saturday, February 25, 2017 08:06 - CONCLUSION: 1. Hepatomegaly with diffusely heterogeneous echotexture. There is hepatofugal flow in the main portal vein with trace ascites consistent with portal hypertension. 2. Gallbladder is contracted with gallbladder wall thickening. Gallbladder wall thickening is commonly seen in patients with liver disease. Twist Tester reports a positive sonographic Lee's sign. Consider HIDA scan for evaluation of cystic duct patency if there is significant continued clinical concern regarding cholecystitis. Edouard Villatoro MD Chest X-Ray 02/25/17 0000 Signed Impressions: Service Date/Time: Saturday, February 25, 2017 10:30 - CONCLUSION: No acute cardiopulmonary abnormality is identified. Jf Guerrero MD Abdomen/Pelvis CT 02/25/17 0000 Signed Impressions: Service Date/Time: Saturday, February 25, 2017 19:53 - CONCLUSION: 1. Hepatomegaly. 2. Minimal ascites. 3. Scattered uncomplicated colonic diverticulosis. 4. Stable 15 mm right renal cyst. Casey Lopez MD Abdomen Ultrasound 02/25/17 0000 Signed Impressions: Service Date/Time: Saturday, February 25, 2017 12:03 - CONCLUSION: No ascites seen. Nils Iglesias MD Objective Remarks GENERAL: Disheveled male sitting up in bed. He is in no acute/respiratory distress. SKIN: Warm and dry. No rashes noted. HEENT: Atraumatic, normocephalic with extraocular motion intact. Moist mucous membranes. No rhinorrhea. No lymphadenopathy or JVD appreciated. CARDIOVASCULAR: Regular rate and rhythm without murmurs, gallops, or rubs. RESPIRATORY: Diffuse wheezes heard throughout all lung russell. No increased work of breathing. No use of accessory muscles. GASTROINTESTINAL: Abdomen tense, protuberant with positive bowel sounds. Tenderness upon palpation in epigastric, right upper and lower quadrants. No masses appreciated. MUSCULOSKELETAL: Bilateral lower extremity edema. Edema in right lower extremity up to mid palafox including ankle. Edema in the left lower extremity up to the knee. Edema is 2+ and pitting. Ambulating well. NEUROLOGICAL: Alert and oriented 3. No tremor at baseline. Normal speech and judgment. Procedures EGD and colonoscopy on 02/28. Medications and IVs Current Medications Medications (Trade) Dose Ordered Sig/Jailyn Route Start Time Stop Time Status Last Admin Sodium Chloride 1,000 ml @ 150 mls/hr Q6H40M IV 02/25/17 10:00 02/28/17 08:37 (NS Flush) 2 ml UNSCH PRN IV FLUSH 02/25/17 09:45 (NS Flush) 2 ml BID IV FLUSH 02/25/17 10:00 02/28/17 08:36 (Romazicon Inj) 0.2 mg Q1M PRN IV PUSH 02/25/17 09:45 (Ativan) 1 mg Q4H PRN PO 02/25/17 09:45 (Ativan Inj) 1 mg Q4H PRN IV PUSH 02/25/17 09:45 (Ativan) 2 mg Q2H PRN PO 02/25/17 09:45 (Ativan Inj) 2 mg Q2H PRN IV PUSH 02/25/17 09:45 (Ativan Inj) 2 mg Q1H PRN IV PUSH 02/25/17 09:45 (Ativan Inj) 2 mg Q15M PRN IV PUSH 02/25/17 09:45 (Symbicort 80-4.5 Mcg Inh) 2 puff Q12HR INH 02/25/17 21:00 02/27/17 09:00 (Neurontin) 300 mg TID PO 02/25/17 13:00 Future hold 02/28/17 08:33 (Mobic) 7.5 mg DAILY PO 02/26/17 09:00 02/28/17 08:34 (Sodium Chloride) 1 gm BID PO 02/25/17 21:00 02/28/17 08:33 (Spiriva Inh) 18 mcg DAILY INH 02/26/17 09:00 02/28/17 08:36 (Prinivil) 40 mg DAILY PO 02/26/17 09:00 02/28/17 08:33 (Habitrol 14 Mg Patch.24 Hr) 1 patch DAILY T-DERMAL 02/25/17 12:00 02/28/17 08:34 Miscellaneous Information 1 HS T-DERMAL 02/25/17 21:00 (Zofran Inj) 4 mg Q6H PRN IVP 02/25/17 11:30 (Roxicodone) 10 mg Q4H PRN PO 02/25/17 11:30 02/28/17 08:33 (Morphine Inj) 1 mg Q3H PRN IV PUSH 02/25/17 11:30 (Morphine Inj) 2 mg Q3H PRN IV PUSH 02/25/17 11:30 (Morphine Inj) 4 mg Q3H PRN IV PUSH 02/25/17 11:30 (Roxicodone) 5 mg Q4H PRN PO 02/25/17 11:30 (Narcan Inj) 0.4 mg UNSCH PRN IV PUSH 02/25/17 11:30 (Pauline-Colace) 1 tab BID PO 02/25/17 12:00 Future Hold 02/25/17 12:21 (Milk Of Magnesia Liq) 30 ml Q12H PRN PO 02/25/17 11:30 (Senokot) 17.2 mg Q12H PRN PO 02/25/17 11:30 (Dulcolax Supp) 10 mg DAILY PRN RECTAL 02/25/17 11:30 (Motrin) 400 mg Q6H PRN PO 02/25/17 11:30 (Duoneb Neb) 1 ampule Q6HR NEB PRN NEB 02/25/17 12:30 (Catapres) 0.1 mg Q6H PRN PO 02/25/17 12:30 02/27/17 22:53 (Vistaril) 50 mg HS PRN PO 02/25/17 12:30 (Lactulose Liq) 30 ml BID PO 02/25/17 13:30 02/27/17 22:48 (Protonix Inj) 40 mg DAILY IV PUSH 02/25/17 13:15 02/28/17 08:36 Albumin Human 100 ml @ 60 mls/hr Q12H IV 02/25/17 14:00 02/28/17 02:52 (Nitrostat Sl) 0.4 mg Q5M PRN SL 02/25/17 13:30 Piperacillin Sod/ Tazobactam Sod 50 ml @ 100 mls/hr Q6H IV 02/25/17 15:00 02/28/17 08:34 Lactated Ringer's 1,000 ml @ 30 mls/hr Q24H PRN IV 02/27/17 20:00 03/02/17 19:59 Sodium Chloride 500 ml @ 30 mls/hr [id number] PRN IV 02/27/17 20:00 03/02/17 19:59 (Lopressor) 25 mg PATIENT REGISTRATION REPRESENTATIVE PRN PO 02/27/17 20:00 03/02/17 19:59 (Betadine 5% Antisepsis Kit) 1 applic PATIENT REGISTRATION REPRESENTATIVE PRN EACH NARE 02/27/17 20:00 03/02/17 19:59 (Chlorhexidine 2% Cloth) 3 pack PATIENT REGISTRATION REPRESENTATIVE PRN TOPICAL 02/27/17 20:00 03/02/17 19:59 (Patrizia Mcneill MD R1) Urinary Catheter: No (Patrizia Mcneill MD R1) Vascular Central Line Catheter: No (Patrizia Mcneill MD R1) A/P Assessment and Plan Mr. Jaimes is a 56-year-old male presenting to the ED with blood per rectum, epigastric, RUQ and RLQ pain as well as transaminitis. (Patrizia Mcneill MD R1) Attending Attestation Patient seen and examined. Case reviewed and discussed with the resident team. Agree with plan of care as discussed with me and documented in the resident note. greatly appreciate the assistance of GI in clarifying his diagnosis (Veda Felton MD) Problem List: (1) Lower GI bleed ICD Codes: K92.2 - Gastrointestinal hemorrhage, unspecified Status: Acute Plan: Patient with three days of constipation, hard stools with bloody streaks , and other liquid based bloody stools. Negative family history. No prior episodes. Differential diagnosis: * Hemorrhoids versus diverticulitis versus colon cancer Images/Studies/Orders: * FOBT positive per ED staff with external hemorrhoids on exam. * On admission, coagulation studies: PT 14.7, INR 1.5, APTT 32.0 * On admission: Hgb 14.3 and Hct 41.2 * CBC on 02/28: Hgb 12.6 and Hct 35.7 * Blood type: O+ * Consult GI, appreciate recommendations: * EGD/colonoscopy planned for 02/28, orders placed per GI. Medications: * NS 1,000 ml at 150 ml/hr. * Protonix 40 mg daily IV. * Lactulose 30mL BID PO. (2) Abdominal pain ICD Codes: R10.9 - Unspecified abdominal pain Status: Acute Plan: Patient with new onset epigastric, right upper and lower quadrant abdominal pain with positive Lee sign. Patient also with LFT elevation and history consistent with possible alcoholic liver disease. On admission, patient met severe sepsis criteria with tachycardia and leukocytosis. Suspected source is likely related to his biliary system concerning for cholangitis with a lactic acid of 2.0 and platelets of 80. Differential diagnosis: * Pancreatitis versus cholecystitis versus cholangitis versus appendicitis versus malignancy Imaging/Labs/Orders: * Gallbladder ultrasound: Hepatomegaly with diffusely heterogeneous echotexture. There is hepatofugal flow in the main portal vein with trace ascites consistent with portal hypertension. Gallbladder is contracted with gallbladder wall thickening. Gallbladder wall thickening is commonly seen in patients with liver disease. Twist Tester reports positive sonographic Lee sign. Consider HIDA scan for evaluation of cystic duct patency if there is significant continued clinical concern regarding cholecystitis. * Lower abdominal ultrasound: No ascites seen. * Abdominal/Pelvis CT: Hepatomegaly. Minimal ascites. Scattered uncomplicated colonic diverticulosis. Stable 15 mm right renal cyst. * Abdomen MRI: There is hepatomegaly with liver measuring 26.4 cm in length. There is a very coarse reticular nodular pattern throughout the entire liver on the postcontrast images characteristic of hepatocellular disease such as cirrhosis. This coarse pattern suggesting regenerating nodules related to cirrhosis. If clinically indicated, recommend liver biopsy for correlation. The rest of the MRI of the upper abdomen is unremarkable. * MRCP: No ductal dilatation or evidence of choledocholithiasis or focal biliary ductal abnormality. Cirrhotic liver with numerous focal lesions predominantly in the left lobe of the liver with a dominant segment 4 lesions measuring up to 2.8 cm. Recommended formal liver mass MRI examination for better evaluation. Trace ascites. * Troponin: 0.07 -> 0.06 -> 0.06 -> 0.06 * BNP: 75 * Lipase: 1488 * Lactic acid: 2.0 * Ammonia: 88 * LDH: 953 * Total CrK: 359 * Hepatitis panel: Negative * AFP 2.8 * CEA 5781.4 * CA-19-9 587.5 * CA-125 42.9 * PSA 0.55 * Alpha 1 antitrypsin: Pending * Ceruloplasmin: Pending * AST: 217 -> 175 -> 165 (02/27) * ALT: 149 -> 118 -> 115 (02/27) * Alk Phos: 367 -> 292 -> 265 (02/27) * GI consulted, MRCP on 02/26 and EGD/colonoscopy on 02/28. * Awaiting procedure results. * Gen. surgery consulted, no surgical indication at this time. * Diet: Fluids as tolerated. NPO after midnight last night for procedures today. Medications: * Zosyn 3.375mg q6hr IV (02/25- ). * Oxycodone 5mg q4hr PO PRN Pain 1-5. * Oxycodone 10mg q4hr PO PRN Pain 6-10. * Morphine 4mg q3hr IV PRN Breakthrough Pain. (3) Transaminitis ICD Codes: R74.0 - Nonspecific elevation of levels of transaminase and lactic acid dehydrogenase [LDH] Status: Acute Plan: Patient with right upper quadrant pain with increasing liver enzymes. * See Plan for Abdominal pain (4) Thrombocytopenia ICD Codes: D69.6 - Thrombocytopenia, unspecified Status: Acute Plan: Platelet count on 02/28: 57. Differential diagnosis: * Liver disease Lab/Orders: * Monitor CBC. * Monitor bleeding. (5) Lower extremity edema ICD Codes: R60.0 - Localized edema Status: Resolved Plan: Patient with new-onset lower extremities edema without clinical signs of DVT. Patient endorses no history of CHF and reports a "[facility]" [facility]. Differential diagnosis: * CHF versus liver failure versus malignancy Labs/Imaging: * BNP: 75 * Chest x-ray: No acute cardiopulmonary disease. (6) Tobacco abuse ICD Codes: Z72.0 - Tobacco use Status: Chronic Plan: Patient with current 1.5 packs per day smoking history Medications: * Nicotine patch 14mg to be changed nightly. (7) Alcohol abuse ICD Codes: F10.10 - Alcohol abuse, uncomplicated Status: Chronic Plan: Patient with history of alcohol abuse, drinking up to 6 beers per day. Patient states he has not had an alcoholic beverage since being discharged after prior hospitalization, 01/22/17. No prior history of alcohol withdrawal or DTs. Labs/Orders: * Ethyl alcohol: Less than 3 * Tox screen negative. * [facility] protocol in place (8) GERD (gastroesophageal reflux disease) ICD Codes: K21.9 - Gastro-esophageal reflux disease without esophagitis Status: Chronic Plan: Patient with history of GERD Medication: * Protonix 40 mg daily IV. (9) HTN (hypertension) ICD Codes: I10 - Essential (primary) hypertension Status: Chronic Plan: Patient with a essential hypertension. Medications: * Continue home lisinopril 40 mg PO daily. * Clonidine 0.1 mg q6hr PO PRN BP greater than 180/110. (10) Chronic lower back pain ICD Codes: M54.5 - Low back pain; G89.29 - Other chronic pain Status: Chronic Plan: Patient with chronic lower back pain. Medications: * Continue home meloxicam 7.5mg PO daily and gabapentin 300mg PO TID. * Hold methocarbamol. (11) COPD (chronic obstructive pulmonary disease) ICD Codes: J44.9 - Chronic obstructive pulmonary disease, unspecified Status: Chronic Plan: Patient with COPD without current exacerbation symptoms. Medications: * Continue home Spiriva and Symbicort inhalers. * DuoNeb q6hr PRN Shortness of breath. (12) Nutrition, metabolism, and development symptoms ICD Codes: R63.8 - Other symptoms and signs concerning food and fluid intake Status: Acute Plan: Fluids: * NS 1,000 ml at 150 ml/hr. Diet: * NPO after midnight in anticipation of EGD/colonoscopy today. Electrolytes: * Hypokalemia, replete as necessary. (13) Surgical contraindication to deep vein thrombosis (DVT) prophylaxis ICD Codes: Z53.09 - Procedure and treatment not carried out because of other contraindication Status: Acute Plan: Pharmacological DVT prophylaxis held due to possible surgical intervention plus he has active bleed. Orders: * SCDs - not in place. Patient ambulating well. (Patrizia Mcneill MD R1) Problem Qualifiers (1) GERD (gastroesophageal reflux disease): Qualified Codes: K21.9 - Gastro-esophageal reflux disease without esophagitis (2) HTN (hypertension): Qualified Codes: I10 - Essential (primary) hypertension (3) Chronic lower back pain: Qualified Codes: M54.5 - Low back pain; G89.29 - Other chronic pain (4) COPD (chronic obstructive pulmonary disease): Qualified Codes: J44.9 - Chronic obstructive pulmonary disease, unspecified Patrizia Mcneill MD R1 Feb 28, 2017 09:14 Veda Felton MD Mar 02, 2017 11:36
[2017-02-28] MEDS ORDERED: PROPOFOL 200 MG/20 ML AMP IV ONE (12:00)
[2017-02-28] MEDS ORDERED: LIDOCAINE HCL 1% PF 5 ML SYRINGE OTHER ONE (12:00)
--- NOTE | 2017-02-28 13:27 | PD.PROCEDR ---
GI Procedure REFERRING PHYSICIAN Dr. Felton PROCEDURE PERFORMED EGD with biopsy followed by colonoscopy with snare polypectomy and biopsy INDICATION FOR PROCEDURE Elevated tumor markers, lower GI bleed, abdominal pain, elevated liver function tests PROCEDURE: The procedure, risks and benefits were discussed with Mr. Jaimes and informed consent was obtained. Anesthesia sedated him with Diprivan. He was placed in the left lateral decubitus position. EGD: The Pentax videoscope was introduced through the oropharynx and advanced to the second portion of the duodenum under direct visualization. Retroflexion was performed in the stomach. FINDINGS: Esophagus there was punctate whitish exudate in the proximal esophagus with a small friable erythemic patch of unclear significance this was biopsied the distal esophagus appeared to be unremarkable Stomach the gastric mucosa appeared to be diffusely erythemic no ulcerations or erosions no blood or bleeding antral biopsies were taken further evaluation The duodenum this was unremarkable and within normal limits Colonoscopy: The Pentax videoscope was introduced through the rectum and advanced to cecum IV ileocecal valve and appendiceal orifice were identified. Retroflexion was performed in the rectum. Colonic prep was good FINDINGS: Colonic withdrawal time greater than 6 minutes as the scope slowly withdrawn colonic mucosa was carefully inspected the patient was noted to have several polyps there were sessile and flat mostly 3 were in the mid transverse colon there were excised using cold snare technique 3 were in the descending colon a 2 were excised using cold snare technique there was another smaller polyp in the sigmoid that was excised using biopsy forceps and another sessile flat polyp in the sigmoid that was excised using cold snare technique all samples were sent for evaluation the patient was also noted to have mild diverticulosis of the sigmoid region otherwise colonic examination was unremarkable so as retroflexion in rectal examination ESTIMATED BLOOD LOSS: Minimal SPECIMENS REMOVED: Esophageal, gastric, and colonic samples COMPLICATIONS: None IMPRESSION: Esophagitis noted rule out Syeda Rosales gastritis Colon polyps Diverticulosis PLAN: Await biopsies Monitor labs Repeat CEA EGD and Colonoscopy in 1 year Nik Oliveros MD Feb 28, 2017 13:27
--- NOTE | 2017-02-28 14:06 | HHI.PR ---
cc: Will Horne MD Subjective Subjective Notes "I'm hungry!" Just back from EGD/Colonoscopy Objective Vitals/I&O Vital Signs Date Time Temp Pulse Resp B/P (MAP) Pulse Ox O2 Delivery O2 Flow Rate FiO2 02/28/17 13:24 97.0 88 20 145/80 (101) 93 02/27/17 10:10 Room Air 02/26/17 15:37 21 Labs Laboratory Tests Test 02/27/17 18:50 02/28/17 05:39 Potassium Level 3.1 3.0 Magnesium Level 2.0 2.0 White Blood Count 10.0 Red Blood Count 3.77 Hemoglobin 12.6 Hematocrit 35.7 Mean Corpuscular Volume 94.7 Mean Corpuscular Hemoglobin 33.4 Mean Corpuscular Hemoglobin Concent 35.3 Red Cell Distribution Width 17.8 Platelet Count 57 Mean Platelet Volume 9.4 Blood Urea Nitrogen 10 Creatinine 0.74 Random Glucose 104 Calcium Level 8.2 Sodium Level 146 Chloride Level 110 Carbon Dioxide Level 27.8 Anion Gap 8 Estimat Glomerular Filtration Rate 110 Amylase Level 231 Lipase 1198 Date/Time Source Procedure Growth Status 02/25/17 22:55 Blood Peripheral Aerobic Blood Culture - Preliminary NO GROWTH IN 3 DAYS Resulted 02/25/17 22:55 Blood Peripheral Anaerobic Blood Culture - Preliminary NO GROWTH IN 3 DAYS Resulted Radiology Last 48 hours Impressions Gall Bladder Ultrasound 02/25/17 0000 Signed Impressions: Service Date/Time: Saturday, February 25, 2017 08:06 - CONCLUSION: 1. Hepatomegaly with diffusely heterogeneous echotexture. There is hepatofugal flow in the main portal vein with trace ascites consistent with portal hypertension. 2. Gallbladder is contracted with gallbladder wall thickening. Gallbladder wall thickening is commonly seen in patients with liver disease. Deburrer Machine reports a positive sonographic Lee's sign. Consider HIDA scan for evaluation of cystic duct patency if there is significant continued clinical concern regarding cholecystitis. Edouard Villatoro MD Chest X-Ray 02/25/17 0000 Signed Impressions: Service Date/Time: Saturday, February 25, 2017 10:30 - CONCLUSION: No acute cardiopulmonary abnormality is identified. Jf Guerrero MD Abdomen Ultrasound 02/25/17 0000 Signed Impressions: Service Date/Time: Saturday, February 25, 2017 12:03 - CONCLUSION: No ascites seen. Nils Iglesias MD Cardiovascular: Regular Lungs: Clear Abdomen: Other (RUQ and epigastric tenderness with palpation ) Extremities: No edema Narrative Exam Continues to have jaundice sclera and skin A/P Assessment and Plan 56 year old male with RUQ abdominal pain; elevated liver enzymes; lower GI bleed -S/p EGD/Colonoscopy---will follow biopsies -Diet as tolerated -Tumor markers are elevated -Liver enzymes continue to be elevated -May benefit at some point from liver biopsy -No acute surgical intervention at this time Attending Note - Dr. Horne Abdomen soft and nontender The exam, history, and the medical decision-making described in the above note were completed with the assistance of the mid-level provider. I reviewed and agree with the findings presented. I attest that I had a [id number] encounter with the patient on the same day, and personally performed and documented my assessment and findings in the medical record. Nina Kuo Feb 28, 2017 14:06 Will Horne MD Mar 02, 2017 15:38
--- NOTE | 2017-02-28 19:00 | EKG ---
Date Performed: 02/27/2017 Time Performed: 14:29:24 PTAGE: 56 years EKG: Sinus rhythm NORMAL ECG PREVIOUS TRACING : 02/25/2017 21.10 Compared to prior tracing no significant change DOCTOR: Prudencio Seay Interpretating Date/Time 02/28/2017 18:57:49
[2017-02-28] MEDS: REMOVE OLD PATCH T-DERMAL SCH (20:35)
[2017-02-28 21:06] LABS: HEMATOCRIT 32.6 % (39.0-51.0)
[2017-02-28 21:07] LABS: REVIEW FLAG FINAL
[2017-03-01] VITALS (20 sets, daily range): BP systolic 143–182; BP diastolic 74–98; PULSE 78–120; RESP 18–28; TEMP 95.6–98.3; O2SAT 92–95
[2017-03-01] MEDS: ALBUMIN 25% INJ 100 ML IV SCH ×2 (02:00→14:22)
[2017-03-01] MEDS: PIPERACIL-TAZO 3.375 GM PREMIX 50 ML IV SCH ×4 (03:00→22:19)
[2017-03-01] MEDS: SODIUM CHLOR 0.9% 1000 ML INJ 1,000 ML IV SCH ×3 (05:07→12:36)
[2017-03-01 08:33] LABS: HEMATOCRIT 31.8 % (39.0-51.0); MEAN CELL VOLUME 95.1 FL (80.0-100.0); MEAN CORPUSCULAR HEMOGLOBIN 33.3 PG (27.0-34.0); PLATELET COUNT 49 TH/MM3 (150-450); RED BLOOD COUNT 3.34 MIL/MM3 (4.50-5.90); RED CELL DISTRIBUTION WIDTH 18.1 % (11.6-17.2); WHITE BLOOD COUNT 8.9 TH/MM3 (4.0-11.0)
[2017-03-01 08:35] LABS: REVIEW FLAG FINAL
[2017-03-01] MEDS: BUDESONIDE-FORMOTEROL 80/4.5 MCG INHALER INH SCH ×2 (09:00→21:00)
[2017-03-01] MEDS: LACTULOSE SYRUP 20 GM/30 ML CUP PO SCH ×2 (09:00→22:19)
[2017-03-01 09:05] LABS: BICARBONATE 25.3 MEQ/L (21.0-32.0)
[2017-03-01 09:11] LABS: POTASSIUM 2.8 MEQ/L (3.5-5.1)
[2017-03-01] MEDS: GABAPENTIN 300 MG CAP PO SCH ×3 (09:15→17:43)
[2017-03-01] MEDS: MELOXICAM 7.5 MG TAB PO SCH (09:15)
[2017-03-01] MEDS: SODIUM CHLORIDE 1 GRAM TAB PO SCH ×2 (09:16→21:00)
[2017-03-01] MEDS: NICOTINE 14 MG/24 HR PATCH T-DERMAL SCH (09:16)
[2017-03-01] MEDS: LISINOPRIL 20 MG TAB PO SCH (09:16)
[2017-03-01] MEDS: PANTOPRAZOLE SODIUM 40 MG VIAL IV PUSH SCH (09:16)
[2017-03-01] MEDS: TIOTROPIUM BROMIDE 18 MCG INH INH SCH (09:17)
[2017-03-01] MEDS: SODIUM CHLORIDE 0.9% FLUSH 10 ML FLUSH IV FLUSH SCH ×2 (09:17→21:00)
--- NOTE | 2017-03-01 09:40 | HHI.FPPN ---
Subjective Remarks Patient was seen and evaluated this morning. He reports diarrhea with bleeding per rectum overnight and this morning. He denies lightheadedness/dizziness. Patient continues to experience diffuse abdominal pain but has good appetite. He also experiences lower extremity edema. He denies pain in his legs but describes a generalized discomfort. Patient denies chest pain, heart palpitations, shortness of breath, nausea/vomiting and constipation. All questions were answered. (Patrizia Mcneill MD R1) Objective Vitals Vital Signs Date Time Temp Pulse Resp B/P (MAP) Pulse Ox O2 Delivery O2 Flow Rate FiO2 03/01/17 09:30 Nasal Cannula 2.00 03/01/17 08:00 97.2 92 22 166/97 (120) 92 03/01/17 07:28 Room Air 03/01/17 06:00 80 143/74 (97) 03/01/17 04:30 86 160/87 (111) 03/01/17 04:04 78 03/01/17 03:11 96.2 86 18 159/89 (112) 92 03/01/17 00:01 90 02/28/17 23:08 96.7 92 18 174/99 (124) 94 02/28/17 20:32 98 02/28/17 19:07 96.7 107 18 170/101 (124) 92 02/28/17 16:13 88 02/28/17 16:00 96.7 99 20 179/99 (125) 91 02/28/17 14:30 97 02/28/17 13:24 97.0 88 20 145/80 (101) 93 I/O 02/28/17 02/28/17 02/28/17 03/01/17 03/01/17 03/01/17 07:00 15:00 23:00 07:00 15:00 23:00 Intake Total 0 ml 1659 ml 530 ml 1780 ml Output Total 650 ml 75 ml 400 ml Balance -650 ml 1659 ml 455 ml 1380 ml Intake Oral 0 ml 400 ml 480 ml 480 ml IV Total 459 ml 50 ml 1300 ml Other 800 ml Output Urine Total 650 ml Stool Total 75 ml 400 ml # Voids 3 2 3 # Bowel Movements 4 1 1 3 (Patrizia Mcneill MD R1) Result Diagram: 03/01/1770403/01/17 07 Imaging Last Impressions Cholangiopancreatography MRI 02/26/17 0000 Signed Impressions: Service Date/Time: Sunday, February 26, 2017 10:40 - CONCLUSION: 1. No ductal dilatation or evidence for choledocholithiasis or focal biliary ductal abnormality. 2. Cirrhotic liver with numerous focal lesions predominately in the left lobe of the liver with a dominant segment 4 lesion measuring up to 2.8 cm. Recommend formal liver mass MRI examination for better evaluation. 3. Trace ascites. Edouard Villatoro MD Abdomen MRI 02/26/17 0000 Signed Impressions: Service Date/Time: Sunday, February 26, 2017 13:52 - CONCLUSION: 1. There is hepatomegaly with liver measuring 26.4 cm in length. 2. There is a very coarse reticular nodular pattern throughout the entire liver on the postcontrast images characteristic of hepatocellular disease such as cirrhosis. The coarse pattern suggesting regenerating nodules related to cirrhosis. If clinically indicated, recommend liver biopsy for correlation. 3. The rest of the MRI of the upper abdomen is unremarkable. Keegan Youngblood MD Gall Bladder Ultrasound 02/25/17 0000 Signed Impressions: Service Date/Time: Saturday, February 25, 2017 08:06 - CONCLUSION: 1. Hepatomegaly with diffusely heterogeneous echotexture. There is hepatofugal flow in the main portal vein with trace ascites consistent with portal hypertension. 2. Gallbladder is contracted with gallbladder wall thickening. Gallbladder wall thickening is commonly seen in patients with liver disease. Overedger reports a positive sonographic Lee's sign. Consider HIDA scan for evaluation of cystic duct patency if there is significant continued clinical concern regarding cholecystitis. Edouard Villatoro MD Chest X-Ray 02/25/17 0000 Signed Impressions: Service Date/Time: Saturday, February 25, 2017 10:30 - CONCLUSION: No acute cardiopulmonary abnormality is identified. Jf Guerrero MD Abdomen/Pelvis CT 02/25/17 0000 Signed Impressions: Service Date/Time: Saturday, February 25, 2017 19:53 - CONCLUSION: 1. Hepatomegaly. 2. Minimal ascites. 3. Scattered uncomplicated colonic diverticulosis. 4. Stable 15 mm right renal cyst. Casey Lopez MD Abdomen Ultrasound 02/25/17 0000 Signed Impressions: Service Date/Time: Saturday, February 25, 2017 12:03 - CONCLUSION: No ascites seen. Nils Iglesias MD Objective Remarks GENERAL: Disheveled male sitting up in bed. He is in no acute/respiratory distress. SKIN: Warm and dry. No rashes noted. HEENT: Atraumatic, normocephalic with extraocular motion intact. Moist mucous membranes. No rhinorrhea. No lymphadenopathy or JVD appreciated. CARDIOVASCULAR: Regular rate and rhythm without murmurs, gallops, or rubs. RESPIRATORY: Diffuse wheezes heard throughout all lung russell. No increased work of breathing. No use of accessory muscles. GASTROINTESTINAL: Abdomen tense, protuberant with positive bowel sounds. Tenderness upon palpation in all four quadrants. No masses appreciated. MUSCULOSKELETAL: Bilateral lower extremity edema; 2+ and pitting, extending up to knee. Ambulating well. NEUROLOGICAL: Alert and oriented 3. No tremor at baseline. Normal speech and judgment. Procedures MRCP on 02/25. EGD and colonoscopy on 02/28. Medications and IVs Current Medications Medications (Trade) Dose Ordered Sig/Jailyn Route Start Time Stop Time Status Last Admin Sodium Chloride 1,000 ml @ 150 mls/hr Q6H40M IV 02/25/17 10:00 03/01/17 05:07 (NS Flush) 2 ml UNSCH PRN IV FLUSH 02/25/17 09:45 02/28/17 14:00 (NS Flush) 2 ml BID IV FLUSH 02/25/17 10:00 03/01/17 09:17 (Romazicon Inj) 0.2 mg Q1M PRN IV PUSH 02/25/17 09:45 (Ativan) 1 mg Q4H PRN PO 02/25/17 09:45 (Ativan Inj) 1 mg Q4H PRN IV PUSH 02/25/17 09:45 (Ativan) 2 mg Q2H PRN PO 02/25/17 09:45 (Ativan Inj) 2 mg Q2H PRN IV PUSH 02/25/17 09:45 (Ativan Inj) 2 mg Q1H PRN IV PUSH 02/25/17 09:45 (Ativan Inj) 2 mg Q15M PRN IV PUSH 02/25/17 09:45 (Symbicort 80-4.5 Mcg Inh) 2 puff Q12HR INH 02/25/17 21:00 03/01/17 09:00 (Neurontin) 300 mg TID PO 02/25/17 13:00 Future hold 03/01/17 09:15 (Mobic) 7.5 mg DAILY PO 02/26/17 09:00 03/01/17 09:15 (Sodium Chloride) 1 gm BID PO 02/25/17 21:00 03/01/17 09:16 (Spiriva Inh) 18 mcg DAILY INH 02/26/17 09:00 03/01/17 09:17 (Prinivil) 40 mg DAILY PO 02/26/17 09:00 03/01/17 09:16 (Habitrol 14 Mg Patch.24 Hr) 1 patch DAILY T-DERMAL 02/25/17 12:00 03/01/17 09:16 Miscellaneous Information 1 HS T-DERMAL 02/25/17 21:00 02/28/17 20:35 (Zofran Inj) 4 mg Q6H PRN IVP 02/25/17 11:30 (Roxicodone) 10 mg Q4H PRN PO 02/25/17 11:30 02/28/17 08:33 (Morphine Inj) 1 mg Q3H PRN IV PUSH 02/25/17 11:30 (Morphine Inj) 2 mg Q3H PRN IV PUSH 02/25/17 11:30 (Morphine Inj) 4 mg Q3H PRN IV PUSH 02/25/17 11:30 (Roxicodone) 5 mg Q4H PRN PO 02/25/17 11:30 03/01/17 09:15 (Narcan Inj) 0.4 mg UNSCH PRN IV PUSH 02/25/17 11:30 (Pauline-Colace) 1 tab BID PO 02/25/17 12:00 Future Hold 02/25/17 12:21 (Milk Of Magnesia Liq) 30 ml Q12H PRN PO 02/25/17 11:30 (Senokot) 17.2 mg Q12H PRN PO 02/25/17 11:30 (Dulcolax Supp) 10 mg DAILY PRN RECTAL 02/25/17 11:30 (Motrin) 400 mg Q6H PRN PO 02/25/17 11:30 (Duoneb Neb) 1 ampule Q6HR NEB PRN NEB 02/25/17 12:30 (Catapres) 0.1 mg Q6H PRN PO 02/25/17 12:30 02/27/17 22:53 (Vistaril) 50 mg HS PRN PO 02/25/17 12:30 (Lactulose Liq) 30 ml BID PO 02/25/17 13:30 02/27/17 22:48 (Protonix Inj) 40 mg DAILY IV PUSH 02/25/17 13:15 03/01/17 09:16 Albumin Human 100 ml @ 60 mls/hr Q12H IV 02/25/17 14:00 03/01/17 02:00 (Nitrostat Sl) 0.4 mg Q5M PRN SL 02/25/17 13:30 Piperacillin Sod/ Tazobactam Sod 50 ml @ 100 mls/hr Q6H IV 02/25/17 15:00 03/01/17 09:16 Lactated Ringer's 1,000 ml @ 30 mls/hr Q24H PRN IV 02/27/17 20:00 03/02/17 19:59 Sodium Chloride 500 ml @ 30 mls/hr [id number] PRN IV 02/27/17 20:00 03/02/17 19:59 (Lopressor) 25 mg [employer] PRN PO 02/27/17 20:00 03/02/17 19:59 (Betadine 5% Antisepsis Kit) 1 applic [employer] PRN EACH NARE 02/27/17 20:00 03/02/17 19:59 (Chlorhexidine 2% Cloth) 3 pack [employer] PRN TOPICAL 02/27/17 20:00 03/02/17 19:59 (Patrizia Mcneill MD R1) Urinary Catheter: No (Patrizia Mcneill MD R1) Vascular Central Line Catheter: No (Patrizia Mcneill MD R1) A/P Assessment and Plan Mr. Jaimes is a 56-year-old male presenting to the ED with blood per rectum, epigastric, RUQ and RLQ pain as well as transaminitis. Discharge Planning Awaiting recommendations from GI and surgery. (Patrizia Mcneill MD R1) Attending Attestation Patient seen and examined. Case reviewed and discussed with the resident team. Agree with plan of care as discussed with me and documented in the resident note. (Olayinka Lange MD) Problem List: (1) Lower GI bleed ICD Codes: K92.2 - Gastrointestinal hemorrhage, unspecified Status: Acute Plan: Patient with three days of constipation, hard stools with bloody streaks , and other liquid based bloody stools. Negative family history. No prior episodes. Differential diagnosis: * Hemorrhoids versus diverticulitis versus colon cancer Studies/Labs/Orders: * FOBT positive per ED staff with external hemorrhoids on exam. * On admission, coagulation studies: PT 14.7, INR 1.5, APTT 32.0 * On admission: Hgb 14.3 and Hct 41.2 * CBC on 03/01: Hgb 11.1 and Hct 31.8 * Blood type: O+ * Consult GI, EGD/colonoscopy on 02/28: * Impression: Esophagitis noted rule out Syeda, pangastritis, colon polyps, diverticulosis. * Plan: Await biopsies, monitor labs, repeat CEA, EGD and colonoscopy in one year. Medications: * NS 1,000 ml at 150 ml/hr. * Protonix 40 mg daily IV. (2) Abdominal pain ICD Codes: R10.9 - Unspecified abdominal pain Status: Acute Plan: Patient with new onset epigastric, right upper and lower quadrant abdominal pain with positive Lee sign. Patient also with LFT elevation and history consistent with possible alcoholic liver disease. On admission, patient met severe sepsis criteria with tachycardia and leukocytosis. Suspected source is likely related to his biliary system concerning for cholangitis with a lactic acid of 2.0 and platelets of 80. Differential diagnosis: * Pancreatitis versus cholecystitis versus cholangitis versus appendicitis versus malignancy Imaging/Labs/Orders: * Gallbladder ultrasound: Hepatomegaly with diffusely heterogeneous echotexture. There is hepatofugal flow in the main portal vein with trace ascites consistent with portal hypertension. Gallbladder is contracted with gallbladder wall thickening. Gallbladder wall thickening is commonly seen in patients with liver disease. Overedger reports positive sonographic Lee sign. Consider HIDA scan for evaluation of cystic duct patency if there is significant continued clinical concern regarding cholecystitis. * Lower abdominal ultrasound: No ascites seen. * Abdominal/Pelvis CT: Hepatomegaly. Minimal ascites. Scattered uncomplicated colonic diverticulosis. Stable 15 mm right renal cyst. * Abdomen MRI: There is hepatomegaly with liver measuring 26.4 cm in length. There is a very coarse reticular nodular pattern throughout the entire liver on the postcontrast images characteristic of hepatocellular disease such as cirrhosis. This coarse pattern suggesting regenerating nodules related to cirrhosis. If clinically indicated, recommend liver biopsy for correlation. The rest of the MRI of the upper abdomen is unremarkable. * MRCP: No ductal dilatation or evidence of choledocholithiasis or focal biliary ductal abnormality. Cirrhotic liver with numerous focal lesions predominantly in the left lobe of the liver with a dominant segment 4 lesions measuring up to 2.8 cm. Recommended formal liver mass MRI examination for better evaluation. Trace ascites. * Troponin: 0.07 -> 0.06 -> 0.06 -> 0.06 * BNP: 75 * Lipase: 1488 -> 1198 * Lactic acid: 2.0 * Ammonia: 88 * LDH: 953 * Total CrK: 359 * Hepatitis panel: Negative * AFP 2.8 * CEA 5781.4 * CA-19-9 587.5 * CA-125 42.9 * PSA 0.55 * Alpha 1 antitrypsin: Pending * Ceruloplasmin: Pending * AST: 217 -> 175 -> 165 (02/27) * ALT: 149 -> 118 -> 115 (02/27) * Alk Phos: 367 -> 292 -> 265 (02/27) * GI consulted, MRCP on 02/26 and EGD/colonoscopy on 02/28. * Gen. surgery consulted, no surgical indication at this time. * Diet: Heart healthy. Medications: * Zosyn 3.375mg q6hr IV (02/25- ). * Oxycodone 5mg q4hr PO PRN Pain 1-5. * Oxycodone 10mg q4hr PO PRN Pain 6-10. * Morphine 4mg q3hr IV PRN Breakthrough Pain. (3) Transaminitis ICD Codes: R74.0 - Nonspecific elevation of levels of transaminase and lactic acid dehydrogenase [LDH] Status: Acute Plan: Patient with right upper quadrant pain with increasing liver enzymes. * See Plan for Abdominal pain (4) Thrombocytopenia ICD Codes: D69.6 - Thrombocytopenia, unspecified Status: Acute Plan: Platelet count on 02/28: 49. Differential diagnosis: * Liver disease Lab/Orders: * Monitor CBC. * Monitor bleeding. (5) Lower extremity edema ICD Codes: R60.0 - Localized edema Status: Resolved Plan: Patient with new-onset lower extremities edema without clinical signs of DVT. Patient endorses no history of CHF and reports a "[facility]" [facility]. Differential diagnosis: * CHF versus liver failure versus malignancy Labs/Imaging: * BNP: 75 * Chest x-ray: No acute cardiopulmonary disease. (6) Tobacco abuse ICD Codes: Z72.0 - Tobacco use Status: Chronic Plan: Patient with current 1.5 packs per day smoking history Medications: * Nicotine patch 14mg to be changed nightly. (7) Alcohol abuse ICD Codes: F10.10 - Alcohol abuse, uncomplicated Status: Chronic Plan: Patient with history of alcohol abuse, drinking up to 6 beers per day. Patient states he has not had an alcoholic beverage since being discharged after prior hospitalization, 01/22/17. No prior history of alcohol withdrawal or DTs. Labs/Orders: * Ethyl alcohol: Less than 3. * Tox screen negative. * CIWA protocol in place. (8) GERD (gastroesophageal reflux disease) ICD Codes: K21.9 - Gastro-esophageal reflux disease without esophagitis Status: Chronic Plan: Patient with history of GERD Medication: * Protonix 40 mg daily IV. (9) HTN (hypertension) ICD Codes: I10 - Essential (primary) hypertension Status: Chronic Plan: Patient with a essential hypertension. Medications: * Continue home lisinopril 40 mg PO daily. * Clonidine 0.1 mg q6hr PO PRN BP greater than 180/110. (10) Chronic lower back pain ICD Codes: M54.5 - Low back pain; G89.29 - Other chronic pain Status: Chronic Plan: Patient with chronic lower back pain. Medications: * Continue home meloxicam 7.5mg PO daily and gabapentin 300mg PO TID. * Hold methocarbamol. (11) COPD (chronic obstructive pulmonary disease) ICD Codes: J44.9 - Chronic obstructive pulmonary disease, unspecified Status: Chronic Plan: Patient with COPD without current exacerbation symptoms. Medications: * Continue home Spiriva and Symbicort inhalers. * DuoNeb q6hr PRN Shortness of breath. (12) Nutrition, metabolism, and development symptoms ICD Codes: R63.8 - Other symptoms and signs concerning food and fluid intake Status: Acute Plan: Fluids: * NS 1,000 ml at 150 ml/hr. Diet: * Heart healthy diet as tolerated. Electrolytes: * Hypokalemia, replete as necessary. * KCl 40meq ordered for 10:00 and 14:00. Repeat K and Mg at 20:00. (13) Surgical contraindication to deep vein thrombosis (DVT) prophylaxis ICD Codes: Z53.09 - Procedure and treatment not carried out because of other contraindication Status: Acute Plan: Pharmacological DVT prophylaxis held due to possible surgical intervention plus he has active bleed. Orders: * SCDs - not in place. Patient ambulating well. (Patrizia Mcneill MD R1) Problem Qualifiers (1) GERD (gastroesophageal reflux disease): Qualified Codes: K21.9 - Gastro-esophageal reflux disease without esophagitis (2) HTN (hypertension): Qualified Codes: I10 - Essential (primary) hypertension (3) Chronic lower back pain: Qualified Codes: M54.5 - Low back pain; G89.29 - Other chronic pain (4) COPD (chronic obstructive pulmonary disease): Qualified Codes: J44.9 - Chronic obstructive pulmonary disease, unspecified Patrizia Mcneill MD R1 Mar 01, 2017 09:40 Olayinka Lange MD Mar 02, 2017 17:45
[2017-03-01] MEDS ORDERED: POTASSIUM CHLORIDE 20 MEQ CONTROLLED RELEASE TAB PO ONE ×2 (10:45→15:00)
--- NOTE | 2017-03-01 12:28 | HHI.PR ---
cc: Will Horne MD Subjective Subjective Notes "I need to use the bathroom" Per Iza RN ---patient has had two bloody liquid stools today Objective Vitals/I&O Vital Signs Date Time Temp Pulse Resp B/P (MAP) Pulse Ox O2 Delivery O2 Flow Rate FiO2 03/01/17 11:13 92 03/01/17 09:30 Nasal Cannula 2.00 03/01/17 08:00 97.2 22 166/97 (120) 92 02/26/17 15:37 21 Labs Laboratory Tests Test 02/28/17 14:17 02/28/17 20:32 03/01/17 07:05 Carcinoembryonic Antigen 5801.5 Hemoglobin 11.5 11.1 Hematocrit 32.6 31.8 White Blood Count 8.9 Red Blood Count 3.34 Mean Corpuscular Volume 95.1 Mean Corpuscular Hemoglobin 33.3 Mean Corpuscular Hemoglobin Concent 35.0 Red Cell Distribution Width 18.1 Platelet Count 49 Mean Platelet Volume 9.2 Blood Urea Nitrogen 10 Creatinine 0.60 Random Glucose 120 Calcium Level 8.2 Sodium Level 146 Potassium Level 2.8 Chloride Level 112 Carbon Dioxide Level 25.3 Anion Gap 9 Estimat Glomerular Filtration Rate 140 Date/Time Source Procedure Growth Status 02/25/17 22:55 Blood Peripheral Aerobic Blood Culture - Preliminary NO GROWTH IN 4 DAYS Resulted 02/25/17 22:55 Blood Peripheral Anaerobic Blood Culture - Preliminary NO GROWTH IN 4 DAYS Resulted Radiology Last 48 hours Impressions Gall Bladder Ultrasound 02/25/17 0000 Signed Impressions: Service Date/Time: Saturday, February 25, 2017 08:06 - CONCLUSION: 1. Hepatomegaly with diffusely heterogeneous echotexture. There is hepatofugal flow in the main portal vein with trace ascites consistent with portal hypertension. 2. Gallbladder is contracted with gallbladder wall thickening. Gallbladder wall thickening is commonly seen in patients with liver disease. Java Lead Developer reports a positive sonographic Lee's sign. Consider HIDA scan for evaluation of cystic duct patency if there is significant continued clinical concern regarding cholecystitis. Edouard Villatoro MD Chest X-Ray 02/25/17 0000 Signed Impressions: Service Date/Time: Saturday, February 25, 2017 10:30 - CONCLUSION: No acute cardiopulmonary abnormality is identified. Jf Guerrero MD Abdomen Ultrasound 02/25/17 0000 Signed Impressions: Service Date/Time: Saturday, February 25, 2017 12:03 - CONCLUSION: No ascites seen. Nils Iglesias MD Cardiovascular: Regular Lungs: Clear Abdomen: Other (distended; minimally tender ) Extremities: Other (BLE edema ) Narrative Exam Continues to have jaundice sclera and skin A/P Assessment and Plan 56 year old male with RUQ abdominal pain; elevated liver enzymes; lower GI bleed -S/p EGD/Colonoscopy---will follow biopsies -Patient would likely benefit from dx lap possible biopsies -Will attempt to get patient on the OR schedule for if stable -Will need platelet transfusion prior to operation -Clear liquids -Tumor markers continue to be elevated -Liver enzymes continue to be elevated -Notified RENU Pal about bloody stools -Spoke with Dr. Navarro with Family Medicine about plan ---agree that we should medically stabilize him first prior to any surgical intervention Attending Note - Dr. Horne Discussed with medical attending; GI service needs to have input for rectal bleeding after multiple biopsies. May perform laparoscopy to aid in diagnosis; likely may have metastatic disease The exam, history, and the medical decision-making described in the above note were completed with the assistance of the mid-level provider. I reviewed and agree with the findings presented. I attest that I had a [id number] encounter with the patient on the same day, and personally performed and documented my assessment and findings in the medical record. Nina Kuo Mar 01, 2017 12:28 Will Horne MD Mar 02, 2017 15:42
--- NOTE | 2017-03-01 14:02 | HHI.GIFU ---
Subjective Remarks Pt resting in bed, has been having loose blood stools. No bleeding independent of BM. Not completely coherent. (Suzie Ramos) Objective Vitals I&O Vital Signs Date Time Temp Pulse Resp B/P (MAP) Pulse Ox O2 Delivery O2 Flow Rate FiO2 03/01/17 12:00 97.4 93 20 167/96 (119) 92 03/01/17 11:13 92 03/01/17 09:30 Nasal Cannula 2.00 03/01/17 08:00 97.2 92 22 166/97 (120) 92 03/01/17 07:28 Room Air 03/01/17 06:00 80 143/74 (97) 03/01/17 04:30 86 160/87 (111) 03/01/17 04:04 78 03/01/17 03:11 96.2 86 18 159/89 (112) 92 03/01/17 00:01 90 02/28/17 23:08 96.7 92 18 174/99 (124) 94 02/28/17 20:32 98 02/28/17 19:07 96.7 107 18 170/101 (124) 92 02/28/17 16:13 88 02/28/17 16:00 96.7 99 20 179/99 (125) 91 02/28/17 14:30 97 I/O 02/28/17 02/28/17 02/28/17 03/01/17 03/01/17 03/01/17 07:00 15:00 23:00 07:00 15:00 23:00 Intake Total 0 ml 1659 ml 530 ml 1780 ml Output Total 650 ml 75 ml 400 ml Balance -650 ml 1659 ml 455 ml 1380 ml Intake Oral 0 ml 400 ml 480 ml 480 ml IV Total 459 ml 50 ml 1300 ml Other 800 ml Output Urine Total 650 ml Stool Total 75 ml 400 ml # Voids 3 2 3 # Bowel Movements 4 1 1 3 Laboratory Laboratory Tests Test 02/28/17 14:17 02/28/17 20:32 03/01/17 07:05 Carcinoembryonic Antigen 5801.5 Hemoglobin 11.5 11.1 Hematocrit 32.6 31.8 White Blood Count 8.9 Red Blood Count 3.34 Mean Corpuscular Volume 95.1 Mean Corpuscular Hemoglobin 33.3 Mean Corpuscular Hemoglobin Concent 35.0 Red Cell Distribution Width 18.1 Platelet Count 49 Mean Platelet Volume 9.2 Blood Urea Nitrogen 10 Creatinine 0.60 Random Glucose 120 Calcium Level 8.2 Sodium Level 146 Potassium Level 2.8 Chloride Level 112 Carbon Dioxide Level 25.3 Anion Gap 9 Estimat Glomerular Filtration Rate 140 Date/Time Source Procedure Growth Status 02/25/17 22:55 Blood Peripheral Aerobic Blood Culture - Preliminary NO GROWTH IN 4 DAYS Resulted 02/25/17 22:55 Blood Peripheral Anaerobic Blood Culture - Preliminary NO GROWTH IN 4 DAYS Resulted Physical Exam HEENT: Normocephalic; atraumatic; +mild icterus CHEST: CTA CARDIAC: RRR ABDOMEN: Distended, semifirm, diffuse TTP; no hepatosplenomegaly; bowel sounds are present in all four quadrants. EXTREMITIES: No clubbing, cyanosis, + BLE edema. SKIN: Normal; no rash; + jaundice. TRANSFER AND PUMPHOUSE OPERATOR CHIEF: lethargic (Suzie Ramos) Assessment and Plan Plan ASSESSMENT: - Elevated LFTs, patient with history of alcohol abuse (6 beers a day), denies any alcohol use since hospital discharge on 01/22/17. DF-14. Hepatitis panel negative. AFP 2.8, CEA 5781.4, CA-19-9 587.5, CA-125 42.9. Abdomen/Pelvis CT (02/25/17)--1. Hepatomegaly. 2. Minimal ascites. 3. Scattered uncomplicated colonic diverticulosis. 4. Stable 15 mm right renal cyst. MRCP (02/26/17)--1. No ductal dilatation or evidence for choledocholithiasis or focal biliary ductal abnormality. 2. Cirrhotic liver with numerous focal lesions predominately in the left lobe of the liver with a dominant segment 4 lesion measuring up to 2.8 cm. Recommend formal liver mass MRI examination for better evaluation. 3. Trace ascites. Abdomen MRI (02/26/17)--1. There is hepatomegaly with liver measuring 26.4 cm in length. 2. There is a very coarse reticular nodular pattern throughout the entire liver on the postcontrast images characteristic of hepatocellular disease such as cirrhosis. The coarse pattern suggesting regenerating nodules related to cirrhosis. If clinically indicated, recommend liver biopsy for correlation. 3. The rest of the MRI of the upper abdomen is unremarkable. repeat CEA 5801. He is quite lethargic today, will rck NH. lactulose not being given? - RUQ abdominal pain, GB US (02/25/17)-- 1. Hepatomegaly with diffusely heterogeneous echotexture. There is hepatofugal flow in the main portal vein with trace ascites consistent with portal hypertension. 2. Gallbladder is contracted with gallbladder wall thickening. Gallbladder wall thickening is commonly seen in patients with liver disease. Cell Attendant Helper reports a positive sonographic Lee's sign. Consider HIDA scan for evaluation of cystic duct patency if there is significant continued clinical concern regarding cholecystitis. GS considering diag lap. - Lower GIB- s/pt EGD and colonoscopy found pangastritis, esophagitis, colon polyps, diverticulosis. Now with bloody loose stool. HH stable thus far. PLT 49. FFP, platelets - thrombocytopenia PLAN: - FFP X 3 - 1 X PLT - rck CBC 6h - if continues to bleed will consider repeat colonoscopy - rck NH - Continue PPI - continue Lactulose BID - Monitor H/H - Transfuse as needed - Supportive care - Further recommendations based on results of above This pt seen by myself and Dr Oliveros and this note is written on his behalf (Suzie Ramos) Physician Comments Patient seen and examined Agree with above Continue with current supportive care Monitor labs Patient has had a couple of dark maroonish-colored stool last one about 3 or 4 hours ago Patient is noted to have some wheezing and prolonged expiratory phase probably related to COPD We will give a small dose of Lasix 20 mg IV as patient is getting a lot of fluids and he got fresh frozen plasma and platelet transfusion Case was discussed with the nurse who has discussed the shortness of breath with the attending physician The patient will remain on a clear liquid diet as we may need to repeat colonoscopy but for now we will continue to monitor overnight and hopefully his coagulation profile would have corrected and the bleeding would've stopped (Nik Oliveros MD) Suzie Ramos Mar 01, 2017 14:02 Nik Oliveros MD Mar 01, 2017 23:48
--- NOTE | 2017-03-01 17:31 | RADRPT ---
EXAM DATE/TIME: 03/01/2017 17:12 [facility] COMPARISON: CHEST SINGLE AP, February 25, 2017, 10:30. INDICATIONS : Short of breath. MEDICAL HISTORY : Cardiovascular disease. Hypertension. Congestive heart failure. SURGICAL HISTORY : Hernia repair. ENCOUNTER: Subsequent ACUITY: 4 - 6 days PAIN SCORE: 0/10 LOCATION: Bilateral chest FINDINGS: A single view of the chest demonstrates the lungs to be hypoaerated without evidence of mass, infiltr ate or effusion. The cardiomediastinal contours are unremarkable. Osseous structures are intact. CONCLUSION: No acute disease. Seun Hawkins MD on March 01, 2017 at 17:29 Board Certified Radiologist. This report was verified electronically.
--- NOTE | 2017-03-01 17:36 | RADRPT ---
EXAM DATE/TIME: 03/01/2017 17:06 [facility] COMPARISON: US ABDOMEN - LOWER LIMITED, February 25, 2017, 12:03. INDICATIONS : Ascites. MEDICAL HISTORY : Chronic obstructive pulmonary disease. Hypertension. Gastroesophageal reflux disease. Hepatomegaly. E JALYN abuse. Migraines. Numbness. Hiatal hernia. Arthritis. Anxiety. SURGICAL HISTORY : Tonsillectomy. Hernia repair. Lump on arm removed. ENCOUNTER: Initial ACUITY: 1 day PAIN SCORE: 4/10 LOCATION: Abdomen. AREA EVALUATED: Abdominal quadrants. FINDINGS: Imaging of the abdomen and pelvis was performed to evaluate for ascites for possible paracentesis. CONCLUSION: Trace ascites noted. Seun Hawkins MD on March 01, 2017 at 17:34 Board Certified Radiologist. This report was verified electronically.
--- NOTE | 2017-03-01 19:43 | HHI.PR ---
Addendum to Inpatient Note Addendum Reason: Additional Documentation Additional Information S: Medical team paged at approximately 1645 for status change and patient. Nursing staff reports patient has become tachycardic and tachypnea, with "feeling of doom." Nursing staff requesting transfer patient due to increased acuity at this time. Nursing also reports most recent BM of approximately 200cc of bloody diarrhea without clots. O: Vitals: 95.6, 102 bpm, respiratory rate 24, 162/93, 92% on 2 L GENERAL: Disheveled male lying in bed in no acute distress. SKIN: Warm and dry. No rashes noted. HEENT: Atraumatic, normocephalic with extraocular motion intact. Moist mucous membranes. No rhinorrhea. No lymphadenopathy or JVD appreciated. CARDIOVASCULAR: Regular rate and rhythm without murmurs, gallops, or rubs. RESPIRATORY: Expiratory wheezes heard throughout all lung russell. No increased work of breathing. No use of accessory muscles. GASTROINTESTINAL: Abdomen tense, protuberant with positive bowel sounds. Tenderness upon palpation in all four quadrants, focally in the RUQ. No masses appreciated. MUSCULOSKELETAL: Bilateral lower extremity edema; 2+ and pitting with increasing erythema, extending up to knee. Ambulating well. NEUROLOGICAL: Alert and oriented 3. No tremor at baseline. Normal speech and judgment. A/P: Mr. Jaimes is a 56 y/o M admitted for ABD pain and lower GI bleed found to have pancreatitis, thrombocytopenia, transaminitis, and elevated tumor biomarkers. 1. Sepsis -Patient currently meets sepsis criteria with temperature of 95.6 and tachycardia to 102 with possible sources of infection including cholangitis, possible pneumonia, or possible bowel perforation -Stat CBC, CMP, ammonia, and sepsis protocol ordered -Stat chest x-ray to evaluate for possible free air versus pneumonia order -Stat abdominal ultrasound ordered to evaluate for fluid (ascitic versus hemorrhage) -Patient previously typed and screened -Wells criteria score 4, patient not anticoagulated due to lower GI bleed -Stat pulmonary CTA ordered -Patient to be transferred to [facility] for further monitoring, call/order placed -GI to be notified with acute H/H drop, plan to transfuse <7 DW overnight custom protection officer team Marco Antonio Navarro MD R2 Mar 01, 2017 19:43
[2017-03-01] MEDS: REMOVE OLD PATCH T-DERMAL SCH (21:00)
[2017-03-01] MEDS ORDERED: IOHEXOL 350 MG/ML 10 ML VIAL (for RAD DIAG) IVCONTRAST ONE (21:32)
[2017-03-01 21:46] LABS: ALT (GPT) 93 U/L (12-78); ANION GAP 9 MEQ/L (5-15); AST (GOT) 162 U/L (15-37); BICARBONATE 25.9 MEQ/L (21.0-32.0); CHLORIDE 111 MEQ/L (98-107); GLOMERULAR FILTRATION RATE 121 ML/MIN (>89); SODIUM (NA) 146 MEQ/L (136-145)
[2017-03-01 21:47] LABS: ALKALINE PHOSPHATASE 225 U/L (45-117); BLOOD UREA NITROGEN 11 MG/DL (7-18); TOTAL BILIRUBIN ADULT 8.9 MG/DL (0.2-1.0)
[2017-03-01 21:50] LABS: POTASSIUM 2.8 MEQ/L (3.5-5.1)
--- NOTE | 2017-03-01 21:55 | RADRPT ---
EXAM DATE/TIME: 03/01/2017 21:13 [facility] COMPARISON: No previous studies available for comparison. INDICATIONS : Shortness of breath. IV CONTRAST: 75 cc Omnipaque 350 (iohexol) IV RADIATION DOSE: 19.58 CTDIvol (mGy) MEDICAL HISTORY : Hypertension. Chronic obstructive pulmonary disease. SURGICAL HISTORY : None. ENCOUNTER: Initial ACUITY: 1 day PAIN SCALE: 4/10 LOCATION: Bilateral chest TECHNIQUE: Volumetric scanning of the chest was performed using a pulmonary embolism protocol MIP images were re constructed. Using automated exposure control and adjustment of the mA and/or kV according to patien t size, radiation dose was kept as low as reasonably achievable to obtain optimal diagnostic quality images. DICOM format image data is available electronically for review and comparison. Follow-up recommendations for detected pulmonary nodules are based at a minimum on nodule size and pa tient risk factors according to Fleischner Society Guidelines. FINDINGS: No filling defects in pulmonary arteries to suggest pulmonary embolic disease. There are small bilate ral pleural effusions. No pneumothorax. There is patchy airspace disease in both lungs which is predominantly groundglass and severe in upper lobes. There is extensive hilar and mediastinal adenopathy. Largest lymph node measures up to 3.2 cm and the left hilum. These are larger than typically seen with reactive lymph nodes in the concern of malignancy. Upper abdomen reveals mild ascites. CONCLUSION: 1. Negative for pulmonary embolism. 2. Hilar and mediastinal adenopathy measuring up to 3.2 cm and the left hilum. Finding is concerning for underlying malignancy. 3. Multifocal airspace disease in both lungs space predominantly in the upper lobes. Primary differen tial diagnosis is multifocal pneumonia. Small bilateral pleural effusions Prashant Castro MD on March 01, 2017 at 21:49 Board Certified Radiologist. This report was verified electronically.
[2017-03-01] MEDS ORDERED: MAGNESIUM SULFATE INJ 4 GM in SODIUM CHLORIDE 0.9% INJ 92 ML IV PRN (22:00)
[2017-03-01] MEDS ORDERED: POTASSIUM PHOSPHATE INJ 30 MMOL in SODIUM CHLOR 0.9% 250 ML INJ 250 ML IV PRN (22:00)
[2017-03-01] MEDS ORDERED: MAGNESIUM SULFATE INJ 2 GM in SODIUM CHLORIDE 0.9% INJ 96 ML IV PRN (22:00)
[2017-03-01] MEDS ORDERED: POTASSIUM PHOSPHATE MONOBASIC 500 MG TAB PO/TUBE PRN (22:00)
[2017-03-01] MEDS ORDERED: POTASSIUM CHLOR 40 MEQ PREMIX 100 ML IV PRN ×2 (22:00)
[2017-03-01] MEDS ORDERED: SODIUM PHOSPHATE INJ 30 MMOL in SODIUM CHLOR 0.9% 250 ML INJ 240 ML IV PRN (22:00)
[2017-03-01] MEDS ORDERED: MAGNESIUM OXIDE 400 MG TAB PO PRN (22:00)
[2017-03-01] MEDS ORDERED: POTASSIUM CHLOR 20 MEQ PREMIX 100 ML IV PRN (22:00)
[2017-03-01] MEDS ORDERED: POTASSIUM PHOSPHATE MONOBASIC 500 MG TAB PO PRN (22:00)
[2017-03-01] MEDS: POTASSIUM CHLORIDE 25 MEQ EFFERVESCENT TAB PO PRN (22:20)
[2017-03-01] MEDS: POTASSIUM CHLOR 20 MEQ PREMIX 100 ML IV PRN (22:20)
[2017-03-01 22:27] LABS: AUTOMATED NEUTROPHIL # 7.5 TH/MM3 (1.8-7.7); BASOPHIL % 0.2 % (0.0-2.0); EOSINOPHIL % 0.1 % (0.0-4.0); HEMATOCRIT 28.4 % (39.0-51.0); LYMPH % 11.3 % (9.0-44.0); LYMPHOCYTE # 1.1 TH/MM3 (1.0-4.8); MEAN CELL VOLUME 94.6 FL (80.0-100.0); MEAN CORPUSCULAR HGB CONC 34.9 % (32.0-36.0); MONO % 7.2 % (0.0-8.0); NEUT % 81.2 % (16.0-70.0); PLATELET COUNT 53 TH/MM3 (150-450); RED CELL DISTRIBUTION WIDTH 18.1 % (11.6-17.2); WHITE BLOOD COUNT 9.3 TH/MM3 (4.0-11.0)
[2017-03-01 22:32] LABS: HEMO FLAGS AUTO DIFF
[2017-03-01 23:04] LABS: MAGNESIUM 1.9 MG/DL (1.5-2.5)
[2017-03-01 23:16] LABS: POTASSIUM 2.8 MEQ/L (3.5-5.1)
[2017-03-01 23:34] LABS: BANDS 6 % (0-6); CORRECTED NUCLEATED RBC 8 /100 WBC (0-0); METAMYELOCYTES 5 % (0-1); MYELOCYTES 4 % (0-0); NEUTROPHIL # MANUAL DIFF 7.8 TH/MM3 (1.8-7.7); POLYS (SEG NEUTROPHILS) 68 % (16-70); PROMYELOCYTES 1 % (0-0); SCAN/DIFF FINAL DIFF MANUAL; WBC DIFF SAMPLE 100
[2017-03-01 23:40] LABS: PLATELET ESTIMATE SMEAR LOW (NORMAL); PLATELET MORPHOLOGY NORMAL (NORMAL)
[2017-03-01 23:41] LABS: ACANTHOCYTES OCC (NORMAL)
[2017-03-01] MEDS ORDERED: FUROSEMIDE 20 MG/2 ML VIAL IV PUSH ONE (23:45)
[2017-03-02] VITALS (12 sets, daily range): BP systolic 140–168; BP diastolic 82–99; PULSE 93–103; RESP 18–24; TEMP 97.4–98.7; O2SAT 90–97
[2017-03-02 00:07] LABS: LACTIC ACID GHOST NOT REPORTABLE
[2017-03-02 02:01] LABS: MEAN CORPUSCULAR HEMOGLOBIN 33.3 PG (27.0-34.0); MEAN CORPUSCULAR HGB CONC 35.5 % (32.0-36.0); PLATELET COUNT 50 TH/MM3 (150-450); RED BLOOD COUNT 2.98 MIL/MM3 (4.50-5.90); RED CELL DISTRIBUTION WIDTH 17.7 % (11.6-17.2); WHITE BLOOD COUNT 9.5 TH/MM3 (4.0-11.0)
[2017-03-02 02:03] LABS: HEMO FLAGS AUTO DIFF
[2017-03-02] MEDS: ALBUMIN 25% INJ 100 ML IV SCH ×2 (02:07→13:10)
[2017-03-02 02:09] LABS: INTERNATIONAL NORMALIZED RATIO 1.7 RATIO; PROTHROMBIN TIME - PATIENT 17.2 SEC (9.8-11.6)
[2017-03-02] MEDS: POTASSIUM CHLOR 20 MEQ PREMIX 100 ML IV PRN ×4 (02:09→23:21)
[2017-03-02 02:31] LABS: ALKALINE PHOSPHATASE 229 U/L (45-117); ALT (GPT) 95 U/L (12-78); ANION GAP 9 MEQ/L (5-15); AST (GOT) 171 U/L (15-37); BICARBONATE 27.2 MEQ/L (21.0-32.0); BLOOD UREA NITROGEN 8 MG/DL (7-18); CHLORIDE 111 MEQ/L (98-107); GLOMERULAR FILTRATION RATE 113 ML/MIN (>89); SODIUM (NA) 147 MEQ/L (136-145); TOTAL BILIRUBIN ADULT 9.5 MG/DL (0.2-1.0)
[2017-03-02 02:33] LABS: POTASSIUM 2.7 MEQ/L (3.5-5.1)
[2017-03-02] MEDS: PIPERACIL-TAZO 3.375 GM PREMIX 50 ML IV SCH ×4 (02:54→20:12)
[2017-03-02] MEDS: POTASSIUM CHLORIDE 25 MEQ EFFERVESCENT TAB PO PRN (03:38)
[2017-03-02] MEDS: SODIUM CHLOR 0.9% 1000 ML INJ 1,000 ML IV SCH ×3 (04:30→17:21)
[2017-03-02] MEDS ORDERED: POTASSIUM CHLORIDE 10 MEQ CONTROLLED RELEASE TAB PO ONE (05:45)
[2017-03-02 06:34] LABS: BANDS 13 % (0-6); CORRECTED NUCLEATED RBC 5 /100 WBC (0-0); METAMYELOCYTES 3 % (0-1); MYELOCYTES 4 % (0-0); NEUTROPHIL # MANUAL DIFF 8.7 TH/MM3 (1.8-7.7); PLATELET ESTIMATE SMEAR LOW (NORMAL); POLYS (SEG NEUTROPHILS) 71 % (16-70); PROMYELOCYTES 1 % (0-0); SCAN/DIFF FINAL DIFF MANUAL; WBC DIFF SAMPLE 100
[2017-03-02 06:35] LABS: PLATELET MORPHOLOGY NORMAL (NORMAL)
[2017-03-02 06:36] LABS: TARGET CELLS 1+ (NORMAL)
[2017-03-02 06:40] LABS: TOXIC VACUOLATION PRESENT (NONE SEEN)
[2017-03-02] MEDS ORDERED: Vancomycin Consult Pharmacy 1 EA OTHER SCH (08:30)
--- NOTE | 2017-03-02 08:47 | RADRPT ---
EXAM DATE/TIME: 03/02/2017 08:23 [facility] COMPARISON: CHEST SINGLE AP, March 01, 2017, 17:12. INDICATIONS : Short of breath. MEDICAL HISTORY : Hypertension. Chronic obstructive pulmonary disease. SURGICAL HISTORY : None. ENCOUNTER: Subsequent ACUITY: 3 days PAIN SCORE: 0/10 LOCATION: Bilateral chest FINDINGS: A single view of the chest demonstrates interstitial and patchy alveolar opacities bilaterally.. Oss eous structures are intact. CONCLUSION: 1. Interstitial and alveolar opacities, likely multi-lobar pneumonia. Nils Iglesias MD on March 02, 2017 at 8:43 Board Certified Radiologist. This report was verified electronically.
[2017-03-02] MEDS: TIOTROPIUM BROMIDE 18 MCG INH INH SCH (09:00)
[2017-03-02] MEDS: BUDESONIDE-FORMOTEROL 80/4.5 MCG INHALER INH SCH ×2 (09:00→20:29)
[2017-03-02] MEDS ORDERED: SPIRONOLACTONE 100 MG TAB PO SCH (09:00)
[2017-03-02] MEDS ORDERED: VANCOMYCIN INJ 1,000 MG in SODIUM CHLOR 0.9% 250 ML INJ 250 ML IV SCH (09:00)
[2017-03-02] MEDS: LACTULOSE SYRUP 20 GM/30 ML CUP PO SCH ×2 (09:00→20:29)
[2017-03-02] MEDS: MELOXICAM 7.5 MG TAB PO SCH (09:00)
[2017-03-02] MEDS: GABAPENTIN 300 MG CAP PO SCH ×3 (09:58→17:20)
[2017-03-02] MEDS: PANTOPRAZOLE SODIUM 40 MG VIAL IV PUSH SCH (09:59)
[2017-03-02] MEDS: LISINOPRIL 20 MG TAB PO SCH (10:03)
[2017-03-02] MEDS: VANCOMYCIN INJ 1,750 MG in SODIUM CHLORID 0.9% 500 ML INJ 500 ML IV SCH ×2 (10:03→21:08)
[2017-03-02] MEDS: NICOTINE 14 MG/24 HR PATCH T-DERMAL SCH (10:04)
[2017-03-02] MEDS: SODIUM CHLORIDE 0.9% FLUSH 10 ML FLUSH IV FLUSH SCH ×2 (10:11→20:29)
[2017-03-02 10:15] LABS: HEMATOCRIT 26.8 % (39.0-51.0); MEAN CORPUSCULAR HEMOGLOBIN 33.3 PG (27.0-34.0); MEAN CORPUSCULAR HGB CONC 35.5 % (32.0-36.0); PLATELET COUNT 47 TH/MM3 (150-450); RED BLOOD COUNT 2.85 MIL/MM3 (4.50-5.90); RED CELL DISTRIBUTION WIDTH 18.2 % (11.6-17.2); WHITE BLOOD COUNT 9.8 TH/MM3 (4.0-11.0)
[2017-03-02] MEDS: SODIUM CHLORIDE 1 GRAM TAB PO SCH ×2 (10:15→20:29)
[2017-03-02 10:17] LABS: REVIEW FLAG FINAL
[2017-03-02 10:43] LABS: ANION GAP 10 MEQ/L (5-15); AST (GOT) 182 U/L (15-37); BICARBONATE 26.1 MEQ/L (21.0-32.0); BLOOD UREA NITROGEN 10 MG/DL (7-18); CHLORIDE 111 MEQ/L (98-107); GLOMERULAR FILTRATION RATE 130 ML/MIN (>89); POTASSIUM 3.5 MEQ/L (3.5-5.1); SODIUM (NA) 147 MEQ/L (136-145)
[2017-03-02 10:47] LABS: ALKALINE PHOSPHATASE 211 U/L (45-117); ALT (GPT) 97 U/L (12-78); TOTAL BILIRUBIN ADULT 10.5 MG/DL (0.2-1.0)
[2017-03-02] MEDS ORDERED: FUROSEMIDE 20 MG/2 ML VIAL IV PUSH ONE (11:30)
--- NOTE | 2017-03-02 12:10 | HHI.GIFU ---
Subjective Remarks Pt resting in bed. Says he feels better than yesterday and that his rectal bleeding is improved but per nursing staff he had 5-6 episodes loose bloody stool last night and 3 today with the last one less than an hour ago. He was transferred to [facility] for respiratory distress. (Suzie Ramos) Objective Vitals I&O Vital Signs Date Time Temp Pulse Resp B/P (MAP) Pulse Ox O2 Delivery O2 Flow Rate FiO2 03/02/17 08:13 93 Nasal Cannula 4.00 03/02/17 04:00 97.8 100 23 158/91 (113) 93 03/02/17 00:00 93 Nasal Cannula 4.00 03/02/17 00:00 98.7 101 23 150/87 (108) 97 03/01/17 23:10 98.0 101 28 162/91 92 03/01/17 23:00 120 03/01/17 22:55 98.3 104 28 165/95 92 03/01/17 22:00 100 03/01/17 20:00 93 Nasal Cannula 3.00 03/01/17 20:00 100 03/01/17 20:00 98.3 100 27 165/86 (112) 94 03/01/17 19:35 98.2 92 20 152/89 95 03/01/17 19:30 98.2 92 20 152/89 92 03/01/17 18:30 93 Nasal Cannula 3.00 03/01/17 18:30 98.3 114 24 162/95 (117) 93 03/01/17 18:30 114 03/01/17 16:25 95.6 102 20 162/93 92 03/01/17 16:10 97.2 92 20 182/98 92 03/01/17 15:56 97.8 108 20 182/98 92 03/01/17 12:00 97.4 93 20 167/96 (119) 92 I/O 03/01/17 03/01/17 03/01/17 03/02/17 03/02/17 03/02/17 07:00 15:00 23:00 07:00 15:00 23:00 Intake Total 1780 ml 500 ml 1528 ml 692 ml Output Total 400 ml 400 ml 550 ml Balance 1380 ml 100 ml 978 ml 692 ml Intake Oral 480 ml 500 ml 480 ml 400 ml IV Total 1300 ml FFP 770 ml 292 ml Platelets 192 ml Blood Product IV Normal Saline Flush 86 ml Output Urine Total 400 ml Stool Total 400 ml 400 ml 150 ml # Voids 3 2 5 # Bowel Movements 3 4 Laboratory Laboratory Tests Test 03/01/17 21:10 03/01/17 22:00 03/01/17 22:09 03/02/17 01:45 White Blood Count 9.3 9.5 Red Blood Count 3.00 2.98 Hemoglobin 9.9 9.9 Hematocrit 28.4 28.0 Mean Corpuscular Volume 94.6 94.0 Mean Corpuscular Hemoglobin 33.0 33.3 Mean Corpuscular Hemoglobin Concent 34.9 35.5 Red Cell Distribution Width 18.1 17.7 Platelet Count 53 50 Mean Platelet Volume 9.2 8.9 Neutrophils (%) (Auto) 81.2 Lymphocytes (%) (Auto) 11.3 Monocytes (%) (Auto) 7.2 Eosinophils (%) (Auto) 0.1 Basophils (%) (Auto) 0.2 Neutrophils # (Auto) 7.5 Lymphocytes # (Auto) 1.1 Monocytes # (Auto) 0.7 Eosinophils # (Auto) 0.0 Basophils # (Auto) 0.0 CBC Comment AUTO DIFF AUTO DIFF Differential Total Cells Counted 100 100 Neutrophils % (Manual) 68 71 Band Neutrophils % 6 13 Lymphocytes % 12 5 Monocytes % 4 3 Neutrophils # (Manual) 7.8 8.7 Metamyelocytes 5 3 Myelocytes 4 4 Promyelocytes 1 1 Nucleated Red Blood Cells 8 5 Differential Comment FINAL DIFF MANUAL FINAL DIFF MANUAL Platelet Estimate LOW LOW Platelet Morphology Comment NORMAL NORMAL Acanthocytes OCC Blood Urea Nitrogen 11 8 Creatinine 0.68 0.72 Random Glucose 129 124 Total Protein 5.8 5.6 Albumin 2.9 2.9 Calcium Level 8.3 8.5 Alkaline Phosphatase 225 229 Aspartate Amino Transf (AST/SGOT) 162 171 Alanine Aminotransferase (ALT/SGPT) 93 95 Total Bilirubin 8.9 9.5 Direct Bilirubin 6.4 Sodium Level 146 147 Potassium Level 2.8 2.8 2.7 Chloride Level 111 111 Carbon Dioxide Level 25.9 27.2 Anion Gap 9 9 Estimat Glomerular Filtration Rate 121 113 Ammonia 104 Lactic Acid Level 3.3 4.0 Magnesium Level 1.9 Toxic Vacuolation PRESENT Target Cells 1+ Prothrombin Time 17.2 Prothromb Time International Ratio 1.7 Test 12/13/17 09:47 White Blood Count 9.8 Red Blood Count 2.85 Hemoglobin 9.5 Hematocrit 26.8 Mean Corpuscular Volume 94.0 Mean Corpuscular Hemoglobin 33.3 Mean Corpuscular Hemoglobin Concent 35.5 Red Cell Distribution Width 18.2 Platelet Count 47 Mean Platelet Volume 8.8 Blood Urea Nitrogen 10 Creatinine 0.64 Random Glucose 112 Total Protein 5.8 Albumin 3.0 Calcium Level 8.5 Alkaline Phosphatase 211 Aspartate Amino Transf (AST/SGOT) 182 Alanine Aminotransferase (ALT/SGPT) 97 Total Bilirubin 10.5 Sodium Level 147 Potassium Level 3.5 Chloride Level 111 Carbon Dioxide Level 26.1 Anion Gap 10 Estimat Glomerular Filtration Rate 130 Lactic Acid Level 2.9 Date/Time Source Procedure Growth Status 02/25/17 22:55 Blood Peripheral Aerobic Blood Culture - Final NO GROWTH IN 5 DAYS Complete 02/25/17 22:55 Blood Peripheral Anaerobic Blood Culture - Final NO GROWTH IN 5 DAYS Complete Imaging Last Impressions Chest X-Ray 03/02/17 0000 Signed Impressions: Service Date/Time: Thursday, March 02, 2017 08:23 - CONCLUSION: 1. Interstitial and alveolar opacities, likely multi-lobar pneumonia. Nils Iglesias MD CT Angiography 03/01/17 0000 Signed Impressions: Service Date/Time: Wednesday, March 01, 2017 21:13 - CONCLUSION: 1. Negative for pulmonary embolism. 2. Hilar and mediastinal adenopathy measuring up to 3.2 cm and the left hilum. Finding is concerning for underlying malignancy. 3. Multifocal airspace disease in both lungs space predominantly in the upper lobes. Primary differential diagnosis is multifocal pneumonia. Small bilateral pleural effusions Prashant Castro MD Abdomen Ultrasound 03/01/17 0000 Signed Impressions: Service Date/Time: Wednesday, March 01, 2017 17:06 - CONCLUSION: Trace ascites noted. Seun Hawkins MD Cholangiopancreatography MRI 02/26/17 0000 Signed Impressions: Service Date/Time: Sunday, February 26, 2017 10:40 - CONCLUSION: 1. No ductal dilatation or evidence for choledocholithiasis or focal biliary ductal abnormality. 2. Cirrhotic liver with numerous focal lesions predominately in the left lobe of the liver with a dominant segment 4 lesion measuring up to 2.8 cm. Recommend formal liver mass MRI examination for better evaluation. 3. Trace ascites. Edouard Villatoro MD Abdomen MRI 02/26/17 0000 Signed Impressions: Service Date/Time: Sunday, February 26, 2017 13:52 - CONCLUSION: 1. There is hepatomegaly with liver measuring 26.4 cm in length. 2. There is a very coarse reticular nodular pattern throughout the entire liver on the postcontrast images characteristic of hepatocellular disease such as cirrhosis. The coarse pattern suggesting regenerating nodules related to cirrhosis. If clinically indicated, recommend liver biopsy for correlation. 3. The rest of the MRI of the upper abdomen is unremarkable. Keegan Youngblood MD Gall Bladder Ultrasound 02/25/17 0000 Signed Impressions: Service Date/Time: Saturday, February 25, 2017 08:06 - CONCLUSION: 1. Hepatomegaly with diffusely heterogeneous echotexture. There is hepatofugal flow in the main portal vein with trace ascites consistent with portal hypertension. 2. Gallbladder is contracted with gallbladder wall thickening. Gallbladder wall thickening is commonly seen in patients with liver disease. Infection Prevention Coordinator reports a positive sonographic Lee's sign. Consider HIDA scan for evaluation of cystic duct patency if there is significant continued clinical concern regarding cholecystitis. Edouard Villatoro MD Abdomen/Pelvis CT 02/25/17 0000 Signed Impressions: Service Date/Time: Saturday, February 25, 2017 19:53 - CONCLUSION: 1. Hepatomegaly. 2. Minimal ascites. 3. Scattered uncomplicated colonic diverticulosis. 4. Stable 15 mm right renal cyst. Casey Loepz MD Physical Exam HEENT: Normocephalic; atraumatic; +mild icterus CHEST: coarse, wheezes CARDIAC: RRR ABDOMEN: Distended, firm, diffuse TTP; no hepatosplenomegaly; bowel sounds are present in all four quadrants. EXTREMITIES: No clubbing, cyanosis, + BLE edema. SKIN: Normal; no rash; + jaundice. EDUCATION ANALYST: lethargic (Suzie Ramos) Assessment and Plan Plan ASSESSMENT: - Elevated LFTs, patient with history of alcohol abuse (6 beers a day), denies any alcohol use since hospital discharge on 01/22/17. DF-14. Hepatitis panel negative. AFP 2.8, CEA 5781.4, CA-19-9 587.5, CA-125 42.9. Abdomen/Pelvis CT (02/25/17)--1. Hepatomegaly. 2. Minimal ascites. 3. Scattered uncomplicated colonic diverticulosis. 4. Stable 15 mm right renal cyst. MRCP (02/26/17)--1. No ductal dilatation or evidence for choledocholithiasis or focal biliary ductal abnormality. 2. Cirrhotic liver with numerous focal lesions predominately in the left lobe of the liver with a dominant segment 4 lesion measuring up to 2.8 cm. Recommend formal liver mass MRI examination for better evaluation. 3. Trace ascites. Abdomen MRI (02/26/17)--1. There is hepatomegaly with liver measuring 26.4 cm in length. 2. There is a very coarse reticular nodular pattern throughout the entire liver on the postcontrast images characteristic of hepatocellular disease such as cirrhosis. The coarse pattern suggesting regenerating nodules related to cirrhosis. If clinically indicated, recommend liver biopsy for correlation. 3. The rest of the MRI of the upper abdomen is unremarkable. repeat CEA 5801. NH 104. - RUQ abdominal pain, GB US (02/25/17)-- 1. Hepatomegaly with diffusely heterogeneous echotexture. There is hepatofugal flow in the main portal vein with trace ascites consistent with portal hypertension. 2. Gallbladder is contracted with gallbladder wall thickening. Gallbladder wall thickening is commonly seen in patients with liver disease. Infection Prevention Coordinator reports a positive sonographic Lee's sign. Consider HIDA scan for evaluation of cystic duct patency if there is significant continued clinical concern regarding cholecystitis. GS considering diag lap. abd with growing distention but per US only trace ascites. - Lower GIB- s/pt EGD and colonoscopy found pangastritis, esophagitis, colon polyps, diverticulosis. has been having bloody loose stools. HH - thrombocytopenia- not much change after 1x PLT yesterday - coagulopathy - worsening despite 3x FFP yesterday PLAN: - FFP X 4 - rck coag after FFP transfused - stat bleed scan if active bleed - Continue PPI - continue Lactulose - Monitor H/H - Transfuse as needed - Supportive care This pt seen by myself and Dr Oliveros and this note is written on his behalf (Suzie Ramos) Physician Comments Patient seen and examined Agree with above Continue with current supportive care Monitor labs Hemodynamically stable and blood counts appear to be stable Patient is noted to be more coagulopathic We will give vitamin K And we will continue to correct his coagulopathy May need hematology consult to further evaluate the cause of colitis opposite the May need to pursue a bleeding scan depending on his course (Nik Oliveros MD) Suzie Ramos Mar 02, 2017 12:10 Nik Oilveros MD Mar 02, 2017 20:44
--- NOTE | 2017-03-02 15:38 | EKG ---
Date Performed: 03/01/2017 Time Performed: 20:16:19 PTAGE: 56 years EKG: Sinus rhythm NORMAL ECG PREVIOUS TRACING : 02/27/2017 14.29 DOCTOR: Roel Luque Interpretating Date/Time 03/02/2017 15:37:56
--- NOTE | 2017-03-02 15:52 | HHI.FPPN ---
Subjective Remarks Patient was seen and evaluated this morning. He reports having difficulty breathing when taking deep breaths. He has noticed increased abdominal distention while lower extremity edema is unchanged from yesterday. He complains of some right lower extremity pain. He reports increased urination but decreased bloody bowel movements; he has had three bloody bowel movements this morning. He continues to complain of right upper and lower quadrant pain. Patient denies chest pain, heart palpitations and nausea/vomiting. All questions were answered. (Patrizia Mcneill MD R1) Objective Vitals Vital Signs Date Time Temp Pulse Resp B/P (MAP) Pulse Ox O2 Delivery O2 Flow Rate FiO2 03/02/17 12:00 98.7 94 18 152/86 (108) 93 03/02/17 08:13 93 Nasal Cannula 4.00 03/02/17 08:00 98.2 93 23 144/82 (102) 93 03/02/17 07:15 92 Nasal Cannula 4.00 03/02/17 07:00 93 03/02/17 04:00 97.8 100 23 158/91 (113) 93 03/02/17 00:00 93 Nasal Cannula 4.00 03/02/17 00:00 98.7 101 23 150/87 (108) 97 03/01/17 23:10 98.0 101 28 162/91 92 03/01/17 23:00 120 03/01/17 22:55 98.3 104 28 165/95 92 03/01/17 22:00 100 03/01/17 20:00 93 Nasal Cannula 3.00 03/01/17 20:00 100 03/01/17 20:00 98.3 100 27 165/86 (112) 94 03/01/17 19:35 98.2 92 20 152/89 95 03/01/17 19:30 98.2 92 20 152/89 92 03/01/17 18:30 93 Nasal Cannula 3.00 03/01/17 18:30 98.3 114 24 162/95 (117) 93 03/01/17 18:30 114 03/01/17 16:25 95.6 102 20 162/93 92 03/01/17 16:10 97.2 92 20 182/98 92 03/01/17 15:56 97.8 108 20 182/98 92 I/O 12/1203/01/17 03/01/17 03/02/17 03/02/17 03/02/17 07:00 15:00 23:00 07:00 15:00 23:00 Intake Total 1780 ml 500 ml 1528 ml 692 ml Output Total 400 ml 400 ml 550 ml Balance 1380 ml 100 ml 978 ml 692 ml Intake Oral 480 ml 500 ml 480 ml 400 ml IV Total 1300 ml FFP 770 ml 292 ml Platelets 192 ml Blood Product IV Normal Saline Flush 86 ml Output Urine Total 400 ml Stool Total 400 ml 400 ml 150 ml # Voids 3 2 5 # Bowel Movements 3 4 (Patrizia Mcneill MD R1) Result Diagram: 03/02/17 0947 03/02/17 0947 Imaging Last Impressions Chest X-Ray 03/02/17 0000 Signed Impressions: Service Date/Time: Thursday, March 02, 2017 08:23 - CONCLUSION: 1. Interstitial and alveolar opacities, likely multi-lobar pneumonia. Nils Iglesias MD CT Angiography 03/01/17 0000 Signed Impressions: Service Date/Time: Wednesday, March 01, 2017 21:13 - CONCLUSION: 1. Negative for pulmonary embolism. 2. Hilar and mediastinal adenopathy measuring up to 3.2 cm and the left hilum. Finding is concerning for underlying malignancy. 3. Multifocal airspace disease in both lungs space predominantly in the upper lobes. Primary differential diagnosis is multifocal pneumonia. Small bilateral pleural effusions Prashant Castro MD Abdomen Ultrasound 03/01/17 0000 Signed Impressions: Service Date/Time: Wednesday, March 01, 2017 17:06 - CONCLUSION: Trace ascites noted. Seun Hawkins MD Cholangiopancreatography MRI 02/26/17 0000 Signed Impressions: Service Date/Time: Sunday, February 26, 2017 10:40 - CONCLUSION: 1. No ductal dilatation or evidence for choledocholithiasis or focal biliary ductal abnormality. 2. Cirrhotic liver with numerous focal lesions predominately in the left lobe of the liver with a dominant segment 4 lesion measuring up to 2.8 cm. Recommend formal liver mass MRI examination for better evaluation. 3. Trace ascites. Edouard Villatoro MD Abdomen MRI 02/26/17 0000 Signed Impressions: Service Date/Time: Sunday, February 26, 2017 13:52 - CONCLUSION: 1. There is hepatomegaly with liver measuring 26.4 cm in length. 2. There is a very coarse reticular nodular pattern throughout the entire liver on the postcontrast images characteristic of hepatocellular disease such as cirrhosis. The coarse pattern suggesting regenerating nodules related to cirrhosis. If clinically indicated, recommend liver biopsy for correlation. 3. The rest of the MRI of the upper abdomen is unremarkable. Keegan Youngblood MD Gall Bladder Ultrasound 02/25/17 0000 Signed Impressions: Service Date/Time: Saturday, February 25, 2017 08:06 - CONCLUSION: 1. Hepatomegaly with diffusely heterogeneous echotexture. There is hepatofugal flow in the main portal vein with trace ascites consistent with portal hypertension. 2. Gallbladder is contracted with gallbladder wall thickening. Gallbladder wall thickening is commonly seen in patients with liver disease. Kier Tender reports a positive sonographic Lee's sign. Consider HIDA scan for evaluation of cystic duct patency if there is significant continued clinical concern regarding cholecystitis. Edouard Villatoro MD Abdomen/Pelvis CT 02/25/17 0000 Signed Impressions: Service Date/Time: Saturday, February 25, 2017 19:53 - CONCLUSION: 1. Hepatomegaly. 2. Minimal ascites. 3. Scattered uncomplicated colonic diverticulosis. 4. Stable 15 mm right renal cyst. Casey Lopez MD Objective Remarks GENERAL: Disheveled male lying in bed. He is in no acute/respiratory distress. On 4 L of oxygen via nasal cannula. SKIN: Warm and dry. No rashes noted. HEENT: Atraumatic, normocephalic with extraocular motion intact. Moist mucous membranes. No rhinorrhea. No lymphadenopathy or JVD appreciated. CARDIOVASCULAR: Regular rate and rhythm without murmurs, gallops, or rubs. RESPIRATORY: Diffuse wheezes heard throughout all lung russell. Increased work of breathing. GASTROINTESTINAL: Abdomen tense, protuberant with positive bowel sounds. Tenderness upon palpation in all four quadrants. No masses appreciated. MUSCULOSKELETAL: Bilateral lower extremity edema; 2+ and pitting, extending up to knee. Ambulating well. NEUROLOGICAL: Alert and oriented 3. No tremor at baseline. Normal speech and judgment. Procedures MRCP on 02/25. EGD and colonoscopy on 02/28. Medications and IVs Current Medications Medications (Trade) Dose Ordered Sig/Jailyn Route Start Time Stop Time Status Last Admin Sodium Chloride 1,000 ml @ 150 mls/hr Q6H40M IV 02/25/17 10:00 03/01/17 10:00 (NS Flush) 2 ml UNSCH PRN IV FLUSH 02/25/17 09:45 02/28/17 14:00 (NS Flush) 2 ml BID IV FLUSH 02/25/17 10:00 03/02/17 10:11 (Romazicon Inj) 0.2 mg Q1M PRN IV PUSH 02/25/17 09:45 (Ativan) 1 mg Q4H PRN PO 02/25/17 09:45 (Ativan Inj) 1 mg Q4H PRN IV PUSH 02/25/17 09:45 (Ativan) 2 mg Q2H PRN PO 02/25/17 09:45 (Ativan Inj) 2 mg Q2H PRN IV PUSH 02/25/17 09:45 (Ativan Inj) 2 mg Q1H PRN IV PUSH 02/25/17 09:45 (Ativan Inj) 2 mg Q15M PRN IV PUSH 02/25/17 09:45 (Symbicort 80-4.5 Mcg Inh) 2 puff Q12HR INH 02/25/17 21:00 03/02/17 09:00 (Neurontin) 300 mg TID PO 02/25/17 13:00 Future hold 03/02/17 13:10 (Sodium Chloride) 1 gm BID PO 02/25/17 21:00 03/02/17 10:15 (Spiriva Inh) 18 mcg DAILY INH 02/26/17 09:00 03/01/17 09:17 (Prinivil) 40 mg DAILY PO 02/26/17 09:00 03/02/17 10:03 (Habitrol 14 Mg Patch.24 Hr) 1 patch DAILY T-DERMAL 02/25/17 12:00 03/02/17 10:04 Miscellaneous Information 1 HS T-DERMAL 02/25/17 21:00 03/01/17 21:00 (Zofran Inj) 4 mg Q6H PRN IVP 02/25/17 11:30 (Roxicodone) 10 mg Q4H PRN PO 02/25/17 11:30 02/28/17 08:33 (Morphine Inj) 1 mg Q3H PRN IV PUSH 02/25/17 11:30 (Morphine Inj) 2 mg Q3H PRN IV PUSH 02/25/17 11:30 (Morphine Inj) 4 mg Q3H PRN IV PUSH 02/25/17 11:30 (Roxicodone) 5 mg Q4H PRN PO 02/25/17 11:30 03/01/17 09:15 (Narcan Inj) 0.4 mg UNSCH PRN IV PUSH 02/25/17 11:30 (Pauline-Colace) 1 tab BID PO 02/25/17 12:00 Future Hold 02/25/17 12:21 (Milk Of Magnesia Liq) 30 ml Q12H PRN PO 02/25/17 11:30 (Senokot) 17.2 mg Q12H PRN PO 02/25/17 11:30 (Dulcolax Supp) 10 mg DAILY PRN RECTAL 02/25/17 11:30 (Motrin) 400 mg Q6H PRN PO 02/25/17 11:30 (Duoneb Neb) 1 ampule Q6HR NEB PRN NEB 02/25/17 12:30 (Catapres) 0.1 mg Q6H PRN PO 02/25/17 12:30 02/27/17 22:53 (Vistaril) 50 mg HS PRN PO 02/25/17 12:30 (Lactulose Liq) 30 ml BID PO 02/25/17 13:30 03/01/17 22:19 (Protonix Inj) 40 mg DAILY IV PUSH 02/25/17 13:15 03/02/17 09:59 Albumin Human 100 ml @ 60 mls/hr Q12H IV 02/25/17 14:00 03/02/17 13:10 (Nitrostat Sl) 0.4 mg Q5M PRN SL 02/25/17 13:30 Piperacillin Sod/ Tazobactam Sod 50 ml @ 100 mls/hr Q6H IV 02/25/17 15:00 03/02/17 10:11 Lactated Ringer's 1,000 ml @ 30 mls/hr Q24H PRN IV 02/27/17 20:00 03/02/17 19:59 Sodium Chloride 500 ml @ 30 mls/hr [id number] PRN IV 02/27/17 20:00 03/02/17 19:59 (Lopressor) 25 mg EPIC AMBULATORY ANALYST PRN PO 02/27/17 20:00 03/02/17 19:59 (Betadine 5% Antisepsis Kit) 1 applic EPIC AMBULATORY ANALYST PRN EACH NARE 02/27/17 20:00 03/02/17 19:59 (Chlorhexidine 2% Cloth) 3 pack EPIC AMBULATORY ANALYST PRN TOPICAL 02/27/17 20:00 03/02/17 19:59 Potassium Chloride 100 ml @ 50 mls/hr Q2H PRN IV 03/01/17 22:00 Potassium Chloride 100 ml @ 50 mls/hr Q2H PRN IV 03/01/17 22:00 03/02/17 05:46 (K-Lyte Cl Eff) 50 meq UNSCH PRN PO 03/01/17 22:00 03/02/17 03:38 Potassium Chloride 100 ml @ 25 mls/hr UNSCH PRN IV 03/01/17 22:00 Potassium Chloride 100 ml @ 50 mls/hr Q2H PRN IV 03/01/17 22:00 Magnesium Sulfate 4 gm/Sodium Chloride 100 ml @ 50 mls/hr UNSCH PRN IV 03/01/17 22:00 (Mag-Ox) 800 mg UNSCH PRN PO 03/01/17 22:00 Magnesium Sulfate 2 gm/Sodium Chloride 100 ml @ 50 mls/hr UNSCH PRN IV 03/01/17 22:00 (K-Phos) 2,000 mg Q4H PRN PO 03/01/17 22:00 Sodium Phosphate 30 mmol/Sodium Chloride 250 ml @ 42 mls/hr UNSCH PRN IV 03/01/17 22:00 (K-Phos) 2,000 mg UNSCH PRN PO/TUBE 03/01/17 22:00 Potassium Phosphate 30 mmol/ Sodium Chloride 260 ml @ 42 mls/hr UNSCH PRN IV 03/01/17 22:00 Pharmacy Profile Note 0 ml @ 0 mls/hr UNSCH OTHER 03/02/17 08:30 Vancomycin HCl 1750 mg/Sodium Chloride 517.5 ml @ 250 mls/hr Q12H IV 03/02/17 10:00 03/02/17 10:03 Miscellaneous Information SPECIFIC LAB TO BE DRAWN:VANCOMYCIN TROUGH DATE TO... ONCE ONCE .XX 03/04/17 09:45 03/04/17 09:46 (Lasix) 20 mg DAILY PO 03/03/17 09:00 (Aldactone) 50 mg BID@,18 PO 03/03/17 09:00 (Patrizia Mcneill MD R1) Urinary Catheter: No (Patrizia Mcneill MD R1) Vascular Central Line Catheter: No (Patrizia Mcneill MD R1) A/P Assessment and Plan Mr. Jaimes is a 56-year-old male presenting to the ED with blood per rectum, epigastric, RUQ and RLQ pain as well as transaminitis. Discharge Planning Awaiting recommendations from GI and surgery. (Patrizia Mcneill MD R1) Attending Attestation Patient seen and examined. Case reviewed and discussed with the resident team. Agree with plan of care as discussed with me and documented in the resident note. (Olayinka Lange MD) Problem List: (1) Lower GI bleed ICD Codes: K92.2 - Gastrointestinal hemorrhage, unspecified Status: Acute Plan: Patient with three days of constipation, hard stools with bloody streaks , and other liquid based bloody stools. Negative family history. No prior episodes. Differential diagnosis: * Hemorrhoids versus diverticulitis versus colon cancer Studies/Labs/Orders: * FOBT positive per ED staff with external hemorrhoids on exam. * On admission, coagulation studies: PT 14.7, INR 1.5, APTT 32.0 * On admission: Hgb 14.3 and Hct 41.2 * CBC on 03/02: Hgb 9.5 and Hct 26.8 * Blood type: O+ * Consult GI, EGD/colonoscopy on 02/28: * Impression: Esophagitis noted rule out Syeda, pangastritis, colon polyps, diverticulosis. * Plan: Await biopsies, monitor labs, repeat CEA, EGD and colonoscopy in one year. Medications: * NS 1,000 ml at 150 ml/hr. * Protonix 40 mg daily IV. (2) Abdominal pain ICD Codes: R10.9 - Unspecified abdominal pain Status: Acute Plan: Patient with new onset epigastric, right upper and lower quadrant abdominal pain with positive Lee sign. Patient also with LFT elevation and history consistent with possible alcoholic liver disease. On admission, patient met severe sepsis criteria with tachycardia and leukocytosis. Suspected source is likely related to his biliary system concerning for cholangitis with a lactic acid of 2.0 and platelets of 80. Differential diagnosis: * Pancreatitis versus cholecystitis versus cholangitis versus appendicitis versus malignancy Imaging/Labs/Orders: * Gallbladder ultrasound: Hepatomegaly with diffusely heterogeneous echotexture. There is hepatofugal flow in the main portal vein with trace ascites consistent with portal hypertension. Gallbladder is contracted with gallbladder wall thickening. Gallbladder wall thickening is commonly seen in patients with liver disease. Kier Tender reports positive sonographic Lee sign. Consider HIDA scan for evaluation of cystic duct patency if there is significant continued clinical concern regarding cholecystitis. * Lower abdominal ultrasound: No ascites seen. * Abdominal/Pelvis CT: Hepatomegaly. Minimal ascites. Scattered uncomplicated colonic diverticulosis. Stable 15 mm right renal cyst. * Abdomen MRI: There is hepatomegaly with liver measuring 26.4 cm in length. There is a very coarse reticular nodular pattern throughout the entire liver on the postcontrast images characteristic of hepatocellular disease such as cirrhosis. This coarse pattern suggesting regenerating nodules related to cirrhosis. If clinically indicated, recommend liver biopsy for correlation. The rest of the MRI of the upper abdomen is unremarkable. * MRCP: No ductal dilatation or evidence of choledocholithiasis or focal biliary ductal abnormality. Cirrhotic liver with numerous focal lesions predominantly in the left lobe of the liver with a dominant segment 4 lesions measuring up to 2.8 cm. Recommended formal liver mass MRI examination for better evaluation. Trace ascites. * Troponin: 0.07 -> 0.06 -> 0.06 -> 0.06 * BNP: 75 * Lipase: 1488 -> 1198 * Lactic acid: 2.0 * Ammonia: 88 - >104 (03/01) * LDH: 953 * Total CrK: 359 * Hepatitis panel: Negative * AFP 2.8 * CEA 5781.4 * CA-19-9 587.5 * CA-125 42.9 * PSA 0.55 * Alpha 1 antitrypsin: Pending * Ceruloplasmin: Pending * AST: 217 -> 175 -> 165 -> 162 -> 171 -> 182 (03/02) * ALT: 149 -> 118 -> 115 -> 93 -> 95 -> 97 (03/02) * Alk Phos: 367 -> 292 -> 265 -> 225 -> 229 -> 211 (03/02) * Total Bilirubin: 6.6 -> 6.5 -> 6.5 - > 8.9 -> 9.5 -> 10.5 (03/02) * GI consulted, MRCP on 02/26 and EGD/colonoscopy on 02/28. * Gen. surgery consulted, no surgical indication at this time. * Diet: NPO after midnight with PO meds. Medications: * Zosyn 3.375mg q6hr IV (02/25- ). * Vancomycin 1,750 mg q12hr IV (03/02 - ) * Oxycodone 5mg q4hr PO PRN Pain 1-5. * Oxycodone 10mg q4hr PO PRN Pain 6-10. * Morphine 4mg q3hr IV PRN Breakthrough Pain. (3) Transaminitis ICD Codes: R74.0 - Nonspecific elevation of levels of transaminase and lactic acid dehydrogenase [LDH] Status: Acute Plan: Patient with right upper quadrant pain with increasing liver enzymes. * See Plan for Abdominal pain (4) Thrombocytopenia ICD Codes: D69.6 - Thrombocytopenia, unspecified Status: Acute Plan: Platelet count on 02/28: 47. Differential diagnosis: * Liver disease Lab/Orders: * Monitor CBC. * Monitor bleeding. Orders: * Patient received 1 unit of Leuk-reduc pheresis platelets and 3 units of fresh frozen plasma yesterday. Platelet count not rising. * 4 additional units of fresh frozen plasma ordered for today. (5) Lower extremity edema ICD Codes: R60.0 - Localized edema Status: Resolved Plan: Patient with new-onset lower extremities edema without clinical signs of DVT. Patient endorses no history of CHF and reports a "[facility]" [facility]. Differential diagnosis: * CHF versus liver failure versus malignancy Labs/Imaging: * BNP: 75 * Chest x-ray: No acute cardiopulmonary disease. Medications: * Spironolactone 50 mg PO BID. * Lasix 20 mg IV ONCE. (6) Tobacco abuse ICD Codes: Z72.0 - Tobacco use Status: Chronic Plan: Patient with current 1.5 packs per day smoking history Medications: * Nicotine patch 14mg to be changed nightly. (7) Alcohol abuse ICD Codes: F10.10 - Alcohol abuse, uncomplicated Status: Chronic Plan: Patient with history of alcohol abuse, drinking up to 6 beers per day. Patient states he has not had an alcoholic beverage since being discharged after prior hospitalization, 01/22/17. No prior history of alcohol withdrawal or DTs. Labs/Orders: * Ethyl alcohol: Less than 3. * Tox screen negative. * CIVT protocol in place. (8) GERD (gastroesophageal reflux disease) ICD Codes: K21.9 - Gastro-esophageal reflux disease without esophagitis Status: Chronic Plan: Patient with history of GERD Medication: * Protonix 40 mg daily IV. (9) HTN (hypertension) ICD Codes: I10 - Essential (primary) hypertension Status: Chronic Plan: Patient with a essential hypertension. Medications: * Continue home lisinopril 40 mg PO daily. * Clonidine 0.1 mg q6hr PO PRN BP greater than 180/110. (10) Chronic lower back pain ICD Codes: M54.5 - Low back pain; G89.29 - Other chronic pain Status: Chronic Plan: Patient with chronic lower back pain. Medications: * Continue home meloxicam 7.5mg PO daily and gabapentin 300mg PO TID. * Hold methocarbamol. (11) COPD (chronic obstructive pulmonary disease) ICD Codes: J44.9 - Chronic obstructive pulmonary disease, unspecified Status: Chronic Plan: Patient with COPD without current exacerbation symptoms. Medications: * Continue home Spiriva and Symbicort inhalers. * DuoNeb q6hr PRN Shortness of breath. (12) Nutrition, metabolism, and development symptoms ICD Codes: R63.8 - Other symptoms and signs concerning food and fluid intake Status: Acute Plan: Fluids: * NS 1,000 ml at 150 ml/hr. Diet: * NPO after midnight. Electrolytes: * Monitor and replete as necessary. (13) Surgical contraindication to deep vein thrombosis (DVT) prophylaxis ICD Codes: Z53.09 - Procedure and treatment not carried out because of other contraindication Status: Acute Plan: Pharmacological DVT prophylaxis held due to possible surgical intervention plus he has active bleed. Orders: * SCDs - not in place. Patient ambulating well. (Patrizia Mcneill MD R1) Problem Qualifiers (1) GERD (gastroesophageal reflux disease): Qualified Codes: K21.9 - Gastro-esophageal reflux disease without esophagitis (2) HTN (hypertension): Qualified Codes: I10 - Essential (primary) hypertension (3) Chronic lower back pain: Qualified Codes: M54.5 - Low back pain; G89.29 - Other chronic pain (4) COPD (chronic obstructive pulmonary disease): Qualified Codes: J44.9 - Chronic obstructive pulmonary disease, unspecified Patrizia Mcneill MD R1 Mar 02, 2017 15:52 Olayinka Lange MD Mar 02, 2017 18:19
[2017-03-02 16:18] LABS: HEMATOCRIT 26.3 % (39.0-51.0)
[2017-03-02 16:21] LABS: REVIEW FLAG FINAL
--- NOTE | 2017-03-02 16:29 | HHI.PR ---
cc: Will Horne MD Subjective Subjective Notes Resting in bed Talking with Father on the phone Objective Vitals/I&O Vital Signs Date Time Temp Pulse Resp B/P (MAP) Pulse Ox O2 Delivery O2 Flow Rate FiO2 03/02/17 12:00 98.7 94 18 152/86 (108) 93 03/02/17 08:13 Nasal Cannula 4.00 02/26/17 15:37 21 Labs Laboratory Tests Test 03/01/17 21:10 03/01/17 22:00 03/01/17 22:09 03/02/17 01:45 White Blood Count 9.3 9.5 Red Blood Count 3.00 2.98 Hemoglobin 9.9 9.9 Hematocrit 28.4 28.0 Mean Corpuscular Volume 94.6 94.0 Mean Corpuscular Hemoglobin 33.0 33.3 Mean Corpuscular Hemoglobin Concent 34.9 35.5 Red Cell Distribution Width 18.1 17.7 Platelet Count 53 50 Mean Platelet Volume 9.2 8.9 Neutrophils (%) (Auto) 81.2 Lymphocytes (%) (Auto) 11.3 Monocytes (%) (Auto) 7.2 Eosinophils (%) (Auto) 0.1 Basophils (%) (Auto) 0.2 Neutrophils # (Auto) 7.5 Lymphocytes # (Auto) 1.1 Monocytes # (Auto) 0.7 Eosinophils # (Auto) 0.0 Basophils # (Auto) 0.0 CBC Comment AUTO DIFF AUTO DIFF Differential Total Cells Counted 100 100 Neutrophils % (Manual) 68 71 Band Neutrophils % 6 13 Lymphocytes % 12 5 Monocytes % 4 3 Neutrophils # (Manual) 7.8 8.7 Metamyelocytes 5 3 Myelocytes 4 4 Promyelocytes 1 1 Nucleated Red Blood Cells 8 5 Differential Comment FINAL DIFF MANUAL FINAL DIFF MANUAL Platelet Estimate LOW LOW Platelet Morphology Comment NORMAL NORMAL Acanthocytes OCC Blood Urea Nitrogen 11 8 Creatinine 0.68 0.72 Random Glucose 129 124 Total Protein 5.8 5.6 Albumin 2.9 2.9 Calcium Level 8.3 8.5 Alkaline Phosphatase 225 229 Aspartate Amino Transf (AST/SGOT) 162 171 Alanine Aminotransferase (ALT/SGPT) 93 95 Total Bilirubin 8.9 9.5 Direct Bilirubin 6.4 Sodium Level 146 147 Potassium Level 2.8 2.8 2.7 Chloride Level 111 111 Carbon Dioxide Level 25.9 27.2 Anion Gap 9 9 Estimat Glomerular Filtration Rate 121 113 Ammonia 104 Lactic Acid Level 3.3 4.0 Magnesium Level 1.9 Toxic Vacuolation PRESENT Target Cells 1+ Prothrombin Time 17.2 Prothromb Time International Ratio 1.7 Test 03/02/17 09:47 03/02/17 16:05 White Blood Count 9.8 Red Blood Count 2.85 Hemoglobin 9.5 9.3 Hematocrit 26.8 26.3 Mean Corpuscular Volume 94.0 Mean Corpuscular Hemoglobin 33.3 Mean Corpuscular Hemoglobin Concent 35.5 Red Cell Distribution Width 18.2 Platelet Count 47 Mean Platelet Volume 8.8 Blood Urea Nitrogen 10 Creatinine 0.64 Random Glucose 112 Total Protein 5.8 Albumin 3.0 Calcium Level 8.5 Alkaline Phosphatase 211 Aspartate Amino Transf (AST/SGOT) 182 Alanine Aminotransferase (ALT/SGPT) 97 Total Bilirubin 10.5 Sodium Level 147 Potassium Level 3.5 Chloride Level 111 Carbon Dioxide Level 26.1 Anion Gap 10 Estimat Glomerular Filtration Rate 130 Lactic Acid Level 2.9 Date/Time Source Procedure Growth Status 02/25/17 22:55 Blood Peripheral Aerobic Blood Culture - Final NO GROWTH IN 5 DAYS Complete 02/25/17 22:55 Blood Peripheral Anaerobic Blood Culture - Final NO GROWTH IN 5 DAYS Complete Radiology Last 48 hours Impressions Gall Bladder Ultrasound 02/25/17 0000 Signed Impressions: Service Date/Time: Saturday, February 25, 2017 08:06 - CONCLUSION: 1. Hepatomegaly with diffusely heterogeneous echotexture. There is hepatofugal flow in the main portal vein with trace ascites consistent with portal hypertension. 2. Gallbladder is contracted with gallbladder wall thickening. Gallbladder wall thickening is commonly seen in patients with liver disease. Metal Machine Operator reports a positive sonographic Lee's sign. Consider HIDA scan for evaluation of cystic duct patency if there is significant continued clinical concern regarding cholecystitis. Edouard Villatoro MD Chest X-Ray 02/25/17 0000 Signed Impressions: Service Date/Time: Saturday, February 25, 2017 10:30 - CONCLUSION: No acute cardiopulmonary abnormality is identified. Jf Guerrero MD Abdomen Ultrasound 02/25/17 0000 Signed Impressions: Service Date/Time: Saturday, February 25, 2017 12:03 - CONCLUSION: No ascites seen. Nils Iglesias MD Cardiovascular: Regular Lungs: Clear Abdomen: Other (distended; minimally tender ) Extremities: Other (2+ pitting edema in BLE ) Narrative Exam Continues to have jaundice sclera and skin A/P Assessment and Plan 56 year old male with RUQ abdominal pain; elevated liver enzymes; lower GI bleed -S/p EGD/Colonoscopy---will follow biopsies -Will plan for diagnostic laparoscopy with possible biopsy for tomorrow as long as stable overnight -Will need platelet transfusion prior to operation -Clear liquids; NPO after MN -Tumor markers continue to be elevated -Liver enzymes continue to be elevated Attending Note - Dr. Horne Unexplained elevated tumor markers Abdomen distended; bilateral pedal edema The exam, history, and the medical decision-making described in the above note were completed with the assistance of the mid-level provider. I reviewed and agree with the findings presented. I attest that I had a [id number] encounter with the patient on the same day, and personally performed and documented my assessment and findings in the medical record. Nina Kuo Mar 02, 2017 16:28 Will Horne MD Mar 05, 2017 02:33
--- NOTE | 2017-03-02 18:36 | PD.CONS ---
[facility] Service Critical Care Medicine Consult Requested By Primary Care Physician Sandra [facility] History of Present Illness 56-year-old male with history of COPD, hypertension, alcohol and tobacco abuse presents with multiple complaints including bloody stools 48 hours prior to admission and epigastric pain. The patient underwent imaging which demonstrated a slightly thickened gallbladder wall and a "positive sonographic Lee sign". Since admission he has received multiple blood product transfusions and now he is been developing shortness of breath with mild to moderate respiratory failure. Patient is going to operating room tomorrow morning for exploratory laparotomy and possible biopsy. Review of Systems Constitutional: DENIES: Diaphoretic episodes, Fatigue, Fever, Weight gain, Weight loss, Chills, Dizziness, Change in appetite, Night Sweats Endocrine: DENIES: Heat/cold intolerance, Polydipsia, Polyuria, Polyphagia Eyes: DENIES: Blurred vision, Diplopia, Eye inflammation, Eye pain, Vision loss , Photosensitivity, Double Vision Ears, nose, mouth, throat: DENIES: Tinnitus, Hearing loss, Vertigo, Nasal discharge, Oral lesions, Throat pain, Hoarseness, Ear Pain, Running Nose, Epistaxis, Sinus Pain, Toothache, Odynophagia Respiratory: COMPLAINS OF: Shortness of breath, DENIES: Apneas, Cough, Snoring , Wheezing, Hemoptysis, Sputum production Cardiovascular: DENIES: Chest pain, Palpitations, Syncope, Dyspnea on Exertion , PND, Lower Extremity Edema, Orthopnea, Claudication Gastrointestinal: COMPLAINS OF: Abdominal pain, Black stools, Bloody stools, Diarrhea, Nausea, Anorexia, DENIES: Constipation, Vomiting, Difficulty Swallowing Genitourinary: DENIES: Sexual dysfunction, Urinary frequency, Urinary incontinence, Urgency, Hematuria, Dysuria, Nocturia, Penile Discharge, Testicular Pain, Testicular Swelling Musculoskeletal: DENIES: Joint pain, Muscle aches, Stiffness, Joint Swelling, Back pain, Neck pain Integumentary: DENIES: Abnormal pigmentation, Nail changes, Pruritus, Rash Hematologic/lymphatic: DENIES: Bruising, Lymphadenopathy Immunologic/allergic: DENIES: Eczema, Urticaria Neurologic: DENIES: Abnormal gait, Headache, Localized weakness, Paresthesias, Seizures, Speech Problems, Tremor, Poor Balance Psychiatric: DENIES: Anxiety, Confusion, Mood changes, Depression, Hallucinations, Agitation, Suicidal Ideation, Homicidal Ideation, Delusions Past Family Social History Allergies: Coded Allergies: No Known Allergies (Unverified Allergy, Unknown, 02/25/17) Past Medical History Chronic back pain- degenerative changes- being treated by pain management HTN COPD GERD Past Surgical History Hernia repair x2 Tonsillectomy Reported Medications Reported Meds & Active Scripts Active Sodium Chloride 1 Gram Tab 1 Gm PO BID Reported Meloxicam 7.5 Mg Tab 7.5 Mg PO DAILY Lisinopril 40 Mg Tab 40 Mg PO DAILY Omeprazole 20 Mg Tab 20 Mg PO DAILY Gabapentin 300 Mg Cap 300 Mg PO TID Methocarbamol 500 Mg Tab 500 Mg PO TID Spiriva Handihaler (Tiotropium Inh) 18 Mcg Cap 18 Mcg INH DAILY 1 capsule = 18 mcg Symbicort Inh (Budesonide/Formoterol Fumarate) 80-4.5 Mcg/Act Aero 2 Puff INH Q12HR Active Ordered Medications Current Medications Medications (Trade) Dose Ordered Sig/Jailyn Route PRN Reason Start Time Stop Time Status Last Admin Dose Admin Sodium Chloride 1,000 ml @ 150 mls/hr Q6H40M IV 02/25/17 10:00 03/01/17 10:00 Sodium Chloride (NS Flush) 2 ml UNSCH PRN IV FLUSH FLUSH AFTER USING IV ACCESS 02/25/17 09:45 02/28/17 14:00 Sodium Chloride (NS Flush) 2 ml BID IV FLUSH 02/25/17 10:00 03/02/17 10:11 Flumazenil (Romazicon Inj) 0.2 mg Q1M PRN IV PUSH SEE LABEL COMMENTS 02/25/17 09:45 Lorazepam (Ativan) 1 mg Q4H PRN PO CIWA 8 - 10 02/25/17 09:45 Lorazepam (Ativan Inj) 1 mg Q4H PRN IV PUSH CIWA 8 - 10 02/25/17 09:45 Lorazepam (Ativan) 2 mg Q2H PRN PO CIWA 11-14 02/25/17 09:45 Lorazepam (Ativan Inj) 2 mg Q2H PRN IV PUSH CIWA 11-14 02/25/17 09:45 Lorazepam (Ativan Inj) 2 mg Q1H PRN IV PUSH CIWA 15-20 02/25/17 09:45 Lorazepam (Ativan Inj) 2 mg Q15M PRN IV PUSH CIWA > 20 02/25/17 09:45 Budesonide/ Formoterol Fumarate (Symbicort 80-4.5 Mcg Inh) 2 puff Q12HR INH 02/25/17 21:00 03/02/17 09:00 Gabapentin (Neurontin) 300 mg TID PO 02/25/17 13:00 Future hold 03/02/17 17:20 Sodium Chloride (Sodium Chloride) 1 gm BID PO 02/25/17 21:00 03/02/17 10:15 Tiotropium Rico (Spiriva Inh) 18 mcg DAILY INH 02/26/17 09:00 03/01/17 09:17 Lisinopril (Prinivil) 40 mg DAILY PO 02/26/17 09:00 03/02/17 10:03 Nicotine (Habitrol 14 Mg Patch.24 Hr) 1 patch DAILY T-DERMAL 02/25/17 12:00 03/02/17 10:04 Miscellaneous Information 1 HS T-DERMAL 02/25/17 21:00 03/01/17 21:00 Ondansetron HCl (Zofran Inj) 4 mg Q6H PRN IVP NAUSEA OR VOMITING 02/25/17 11:30 Oxycodone HCl (Roxicodone) 10 mg Q4H PRN PO PAIN SCALE 6 TO 10 02/25/17 11:30 02/28/17 08:33 Morphine Sulfate (Morphine Inj) 1 mg Q3H PRN IV PUSH Pain 1-5; if unable to take PO 02/25/17 11:30 Morphine Sulfate (Morphine Inj) 2 mg Q3H PRN IV PUSH Pain 6-10;if unable to take PO 02/25/17 11:30 Morphine Sulfate (Morphine Inj) 4 mg Q3H PRN IV PUSH BREAKTHROUGH PAIN 02/25/17 11:30 Oxycodone HCl (Roxicodone) 5 mg Q4H PRN PO PAIN SCALE 3 TO 5 02/25/17 11:30 03/01/17 09:15 Naloxone HCl (Narcan Inj) 0.4 mg UNSCH PRN IV PUSH SEE LABEL COMMENTS 02/25/17 11:30 Senna/Docusate Sodium (Pauline-Colace) 1 tab BID PO 02/25/17 12:00 Future Hold 02/25/17 12:21 Magnesium Hydroxide (Milk Of Magnesia Liq) 30 ml Q12H PRN PO Mild constipation 02/25/17 11:30 Sennosides (Senokot) 17.2 mg Q12H PRN PO Moderate constipation 02/25/17 11:30 Bisacodyl (Dulcolax Supp) 10 mg DAILY PRN RECTAL SEVERE CONSITIPATION 02/25/17 11:30 Ibuprofen (Motrin) 400 mg Q6H PRN PO TEMP>101F, PAIN 1-10, HEADACHE 02/25/17 11:30 Albuterol/ Ipratropium (Duoneb Neb) 1 ampule Q6HR NEB PRN NEB SOB/WHEEZING 02/25/17 12:30 Clonidine (Catapres) 0.1 mg Q6H PRN PO SBP>180, DBP>110 02/25/17 12:30 02/27/17 22:53 Hydroxyzine Pamoate (Vistaril) 50 mg HS PRN PO INSOMNIA 02/25/17 12:30 Lactulose (Lactulose Liq) 30 ml BID PO 02/25/17 13:30 03/01/17 22:19 Pantoprazole Sodium (Protonix Inj) 40 mg DAILY IV PUSH 02/25/17 13:15 03/02/17 09:59 Albumin Human 100 ml @ 60 mls/hr Q12H IV 02/25/17 14:00 03/02/17 13:10 Nitroglycerin (Nitrostat Sl) 0.4 mg Q5M PRN SL X 3 doses for chest pain 02/25/17 13:30 Piperacillin Sod/ Tazobactam Sod 50 ml @ 100 mls/hr Q6H IV 02/25/17 15:00 03/02/17 17:21 Lactated Ringer's 1,000 ml @ 30 mls/hr Q24H PRN IV SEE LABEL COMMENTS 02/27/17 20:00 03/02/17 19:59 Sodium Chloride 500 ml @ 30 mls/hr [id number] PRN IV SEE LABEL COMMENTS 02/27/17 20:00 03/02/17 19:59 Metoprolol Tartrate (Lopressor) 25 mg CONTOUR SANDER PRN PO SEE LABEL COMMENTS 02/27/17 20:00 03/02/17 19:59 03/02/17 17:21 Povidone Iodine (Betadine 5% Antisepsis Kit) 1 applic CONTOUR SANDER PRN EACH NARE SEE LABEL COMMENTS 02/27/17 20:00 03/02/17 19:59 Chlorhexidine Gluconate (Chlorhexidine 2% Cloth) 3 pack CONTOUR SANDER PRN TOPICAL SEE LABEL COMMENTS 02/27/17 20:00 03/02/17 19:59 Potassium Chloride 100 ml @ 50 mls/hr Q2H PRN IV For Potassium 2.8 - 3.2 mEq/L 03/01/17 22:00 Potassium Chloride 100 ml @ 50 mls/hr Q2H PRN IV For Potassium 2.8 - 3.2 mEq/L 03/01/17 22:00 03/02/17 05:46 Potassium Bicarb/ Potassium Chloride (K-Lyte Cl Eff) 50 meq UNSCH PRN PO For Potassium 3.3 - 3.5 mEq/L 03/01/17 22:00 03/02/17 03:38 Potassium Chloride 100 ml @ 25 mls/hr UNSCH PRN IV For Potassium 3.3 - 3.5 mEq/L 03/01/17 22:00 Potassium Chloride 100 ml @ 50 mls/hr Q2H PRN IV For Potassium 3.3 - 3.5 mEq/L 03/01/17 22:00 Magnesium Sulfate 4 gm/Sodium Chloride 100 ml @ 50 mls/hr UNSCH PRN IV For Magnesium 0.9 - 1.1 mg/dL 03/01/17 22:00 Magnesium Oxide (Mag-Ox) 800 mg UNSCH PRN PO For Magnesium 1.2 - 1.6 mg/dL 03/01/17 22:00 Magnesium Sulfate 2 gm/Sodium Chloride 100 ml @ 50 mls/hr UNSCH PRN IV For Magnesium 1.2 - 1.6 mg/dL 03/01/17 22:00 Potassium Phosphate (K-Phos) 2,000 mg Q4H PRN PO For Phosphorus < 2.5 mg/dL 03/01/17 22:00 Sodium Phosphate 30 mmol/Sodium Chloride 250 ml @ 42 mls/hr UNSCH PRN IV For Phosphorus < 2.5 mg/dL 03/01/17 22:00 Potassium Phosphate (K-Phos) 2,000 mg UNSCH PRN PO/TUBE SEE LABEL COMMENTS 03/01/17 22:00 Potassium Phosphate 30 mmol/ Sodium Chloride 260 ml @ 42 mls/hr UNSCH PRN IV SEE LABEL COMMENTS 03/01/17 22:00 Pharmacy Profile Note 0 ml @ 0 mls/hr UNSCH OTHER 03/02/17 08:30 Vancomycin HCl 1750 mg/Sodium Chloride 517.5 ml @ 250 mls/hr Q12H IV 03/02/17 10:00 03/02/17 10:03 Miscellaneous Information SPECIFIC LAB TO BE DRAWN:VANCOMYCIN TROUGH DATE TO... ONCE ONCE .XX 03/04/17 09:45 03/04/17 09:46 Furosemide (Lasix) 20 mg DAILY PO 03/03/17 09:00 Spironolactone (Aldactone) 50 mg BID@09,18 PO 03/03/17 09:00 Family History Mother- CAD- Open heart surg in hers 50s Father- CAD - x2 stents, thyroidectomy, Parkinson Children- healthy Siblings- healthy Social History , lives alone with dog Retired from [employer] for 25 yrs [employer] Tobacco- 2 ppds for 40yrs, down to 1.5 ppd currently Alcohol- 3-6 pack of beer a day, for 35 yrs, no withdrawals sx, no seizures Illicit drugs - none Physical Exam Vital Signs Vital Signs Date Time Temp Pulse Resp B/P (MAP) Pulse Ox O2 Delivery O2 Flow Rate FiO2 03/02/17 17:00 98.0 97 19 168/99 92 03/02/17 16:42 98.0 103 21 164/96 93 03/02/17 12:00 98.7 94 18 152/86 (108) 93 03/02/17 08:13 93 Nasal Cannula 4.00 03/02/17 08:00 98.2 93 23 144/82 (102) 93 03/02/17 07:15 92 Nasal Cannula 4.00 03/02/17 07:00 93 03/02/17 04:00 97.8 100 23 158/91 (113) 93 03/02/17 00:00 93 Nasal Cannula 4.00 03/02/17 00:00 98.7 101 23 150/87 (108) 97 03/01/17 23:10 98.0 101 28 162/91 92 03/01/17 23:00 120 03/01/17 22:55 98.3 104 28 165/95 92 03/01/17 22:00 100 03/01/17 20:00 93 Nasal Cannula 3.00 03/01/17 20:00 100 03/01/17 20:00 98.3 100 27 165/86 (112) 94 03/01/17 19:35 98.2 92 20 152/89 95 03/01/17 19:30 98.2 92 20 152/89 92 Physical Exam GENERAL: Disheveled male in moderate respiratory distress SKIN: Warm and diaphoretic. No rash or trauma. HEENT: Atraumatic, normocephalic with EOMI. PERRLA. No scleral icterus. Oropharynx clear without erythema or exudate. MMM. No rhinorrhea. No LAD, JVD, or thyroid abnormality appreciated. CARDIOVASCULAR: Regular rate and rhythm without murmurs, gallops, or rubs. 2+ pulses in all 4 extremities. RESPIRATORY: Clear to auscultation bilaterally. No CRW. No increased work of breathing. GASTROINTESTINAL: Abdomen protuberant with positive bowel sounds in all 4 quadrants. Patient with exquisite tenderness to the right upper quadrant. Mild tenderness in other 3 abdominal quadrants. Positive Lee sign. Endorses rebound tenderness. No tenderness at McBurney's point. MUSCULOSKELETAL: Bilateral lower extremity edema with greater edema on his left lower extremity. Edema on right lower extremity up to mid palafox including his ankle. Edema on the left lower extremity up to the knee. Edema is 2+ and pitting. Ambulating well. NEUROLOGICAL: Afocal. AAO 3. No tremor at baseline. Normal speech and judgment. Laboratory Laboratory Tests Test 03/01/17 21:10 03/01/17 22:00 03/01/17 22:09 03/02/17 01:45 White Blood Count 9.3 9.5 Red Blood Count 3.00 2.98 Hemoglobin 9.9 9.9 Hematocrit 28.4 28.0 Mean Corpuscular Volume 94.6 94.0 Mean Corpuscular Hemoglobin 33.0 33.3 Mean Corpuscular Hemoglobin Concent 34.9 35.5 Red Cell Distribution Width 18.1 17.7 Platelet Count 53 50 Mean Platelet Volume 9.2 8.9 Neutrophils (%) (Auto) 81.2 Lymphocytes (%) (Auto) 11.3 Monocytes (%) (Auto) 7.2 Eosinophils (%) (Auto) 0.1 Basophils (%) (Auto) 0.2 Neutrophils # (Auto) 7.5 Lymphocytes # (Auto) 1.1 Monocytes # (Auto) 0.7 Eosinophils # (Auto) 0.0 Basophils # (Auto) 0.0 CBC Comment AUTO DIFF AUTO DIFF Differential Total Cells Counted 100 100 Neutrophils % (Manual) 68 71 Band Neutrophils % 6 13 Lymphocytes % 12 5 Monocytes % 4 3 Neutrophils # (Manual) 7.8 8.7 Metamyelocytes 5 3 Myelocytes 4 4 Promyelocytes 1 1 Nucleated Red Blood Cells 8 5 Differential Comment FINAL DIFF MANUAL FINAL DIFF MANUAL Platelet Estimate LOW LOW Platelet Morphology Comment NORMAL NORMAL Acanthocytes OCC Blood Urea Nitrogen 11 8 Creatinine 0.68 0.72 Random Glucose 129 124 Total Protein 5.8 5.6 Albumin 2.9 2.9 Calcium Level 8.3 8.5 Alkaline Phosphatase 225 229 Aspartate Amino Transf (AST/SGOT) 162 171 Alanine Aminotransferase (ALT/SGPT) 93 95 Total Bilirubin 8.9 9.5 Direct Bilirubin 6.4 Sodium Level 146 147 Potassium Level 2.8 2.8 2.7 Chloride Level 111 111 Carbon Dioxide Level 25.9 27.2 Anion Gap 9 9 Estimat Glomerular Filtration Rate 121 113 Ammonia 104 Lactic Acid Level 3.3 4.0 Magnesium Level 1.9 Toxic Vacuolation PRESENT Target Cells 1+ Prothrombin Time 17.2 Prothromb Time International Ratio 1.7 Test 03/02/17 09:47 03/02/17 16:05 03/02/17 17:59 White Blood Count 9.8 Red Blood Count 2.85 Hemoglobin 9.5 9.3 Hematocrit 26.8 26.3 Mean Corpuscular Volume 94.0 Mean Corpuscular Hemoglobin 33.3 Mean Corpuscular Hemoglobin Concent 35.5 Red Cell Distribution Width 18.2 Platelet Count 47 Mean Platelet Volume 8.8 Blood Urea Nitrogen 10 Creatinine 0.64 Random Glucose 112 Total Protein 5.8 Albumin 3.0 Calcium Level 8.5 Alkaline Phosphatase 211 Aspartate Amino Transf (AST/SGOT) 182 Alanine Aminotransferase (ALT/SGPT) 97 Total Bilirubin 10.5 Sodium Level 147 Potassium Level 3.5 Chloride Level 111 Carbon Dioxide Level 26.1 Anion Gap 10 Estimat Glomerular Filtration Rate 130 Lactic Acid Level 2.9 Date/Time Source Procedure Growth Status 02/25/17 22:55 Blood Peripheral Aerobic Blood Culture - Final NO GROWTH IN 5 DAYS Complete 02/25/17 22:55 Blood Peripheral Anaerobic Blood Culture - Final NO GROWTH IN 5 DAYS Complete Result Diagram: 03/02/17 1605 03/02/17 0947 Imaging Last 24 hours Impressions Chest X-Ray 03/02/17 0000 Signed Impressions: Service Date/Time: Thursday, March 02, 2017 08:23 - CONCLUSION: 1. Interstitial and alveolar opacities, likely multi-lobar pneumonia. Nils Iglesias MD Septic Shock Reassessment Septic shock perfusion: reassessment completed Assessment and Plan Assessment and Plan Respiratory failure - COPD - Pneumonia - Broad-spectrum antibiotics vancomycin and Zosyn - Follow-up cultures - Infectious disease following - DuoNeb scheduled and when necessary - BiPAP as needed RUQ abdominal pain - elevated liver enzymes - lower GI bleed - S/p EGD/Colonoscopy---will follow biopsies - diagnostic laparoscopy with possible biopsy tomorrow Alcohol dependence - Monitor for withdrawal - CIWA protocol Thrombocytopenia - Underlying liver disease - Alcoholism - Transfuse platelets to keep count above 50 Anemia - Blood loss - Transfuse to keep hemoglobin above 7 Lower extremity edema - Hypoalbuminemia - Underlying Liver disease - Gentle diuresis DVT GI prophylaxis - Teds SCDs - Protonix IV twice a day - No pharmacological DVT prophylaxis due to GI bleed Critical Care: The total critical care time was 35 minutes. Time to perform other separately billable procedures was not included in the critical care time. Diego Rajput MD Mar 02, 2017 18:36
[2017-03-02 18:37] LABS: APTT (PATIENT) 44.9 SEC (24.3-30.1); PROTHROMBIN TIME - PATIENT 20.7 SEC (9.8-11.6)
[2017-03-02] MEDS ORDERED: PHYTONADIONE 10 MG/ML VIAL SQ ONE (20:45)
[2017-03-02] MEDS: REMOVE OLD PATCH T-DERMAL SCH (21:00)
[2017-03-02 22:15] LABS: BLOOD GAS BASE EXCESS 3.6 mmol/L (-2-2); BLOOD GAS CARBOXYHEMOGLOBIN 1.5 % (0-4); BLOOD GAS HCO3 27 mmol/L (22-26); BLOOD GAS METHEMOGLOBIN 0.5 % (0-2); BLOOD GAS O2 HGB SATURATION 92 % (90-100); BLOOD GAS OXYGEN CONTENT 11.6 Vol % (12.0-20.0); BLOOD GAS PCO2 37 mmHg (38-42); BLOOD GAS PO2 66 mmHg (61-120); BLOOD GAS TOTAL HGB 8.9 G/DL (12.0-16.0); CRITICAL VALUE NO; OXYGEN DEVICE BIPAP; TEMP CORR TO 98.6
[2017-03-02 22:16] LABS: DRAW SITE LT RADIAL; FIO2 40 %; NUMBER OF ARTERIAL PUNCTURES 1; STAT NO; ULNAR PULSE PRESENT
[2017-03-02 22:53] LABS: HEMATOCRIT 25.6 % (39.0-51.0)
[2017-03-02 22:59] LABS: REVIEW FLAG FINAL
[2017-03-03] VITALS (21 sets, daily range): BP systolic 125–159; BP diastolic 66–87; PULSE 17–109; RESP 16–28; TEMP 97.5–98; O2SAT 94–98
[2017-03-03] MEDS: SODIUM CHLOR 0.9% 1000 ML INJ 1,000 ML IV SCH (01:00)
[2017-03-03] MEDS: ALBUMIN 25% INJ 100 ML IV SCH ×2 (02:54→14:05)
[2017-03-03] MEDS: PIPERACIL-TAZO 3.375 GM PREMIX 50 ML IV SCH ×4 (02:54→20:55)
[2017-03-03] MEDS: POTASSIUM CHLOR 20 MEQ PREMIX 100 ML IV PRN ×3 (04:00→23:04)
[2017-03-03 04:38] LABS: INTERNATIONAL NORMALIZED RATIO 2.3 RATIO; PROTHROMBIN TIME - PATIENT 23.4 SEC (9.8-11.6)
[2017-03-03 04:39] LABS: BASOPHIL % 0.5 % (0.0-2.0); EOSINOPHIL % 0.2 % (0.0-4.0); HEMATOCRIT 23.6 % (39.0-51.0); LYMPH % 12.4 % (9.0-44.0); LYMPHOCYTE # 1.1 TH/MM3 (1.0-4.8); MEAN CORPUSCULAR HEMOGLOBIN 33.9 PG (27.0-34.0); MEAN CORPUSCULAR HGB CONC 35.7 % (32.0-36.0); MONO % 6.4 % (0.0-8.0); NEUT % 80.5 % (16.0-70.0); PLATELET COUNT 40 TH/MM3 (150-450); RED BLOOD COUNT 2.49 MIL/MM3 (4.50-5.90); RED CELL DISTRIBUTION WIDTH 18.3 % (11.6-17.2); WHITE BLOOD COUNT 8.6 TH/MM3 (4.0-11.0)
[2017-03-03 04:42] LABS: HEMO FLAGS AUTO DIFF
[2017-03-03 04:54] LABS: ANION GAP 10 MEQ/L (5-15); AST (GOT) 217 U/L (15-37); BICARBONATE 27.5 MEQ/L (21.0-32.0); BLOOD UREA NITROGEN 12 MG/DL (7-18); CHLORIDE 111 MEQ/L (98-107); GLOMERULAR FILTRATION RATE 112 ML/MIN (>89); POTASSIUM 3.1 MEQ/L (3.5-5.1); SODIUM (NA) 148 MEQ/L (136-145)
[2017-03-03 04:57] LABS: ALKALINE PHOSPHATASE 189 U/L (45-117); ALT (GPT) 109 U/L (12-78); TOTAL BILIRUBIN ADULT 10.7 MG/DL (0.2-1.0)
[2017-03-03 08:07] LABS: BANDS 7 % (0-6); CORRECTED NUCLEATED RBC 12 /100 WBC (0-0); METAMYELOCYTES 1 % (0-1); NEUTROPHIL # MANUAL DIFF 7.4 TH/MM3 (1.8-7.7); PLATELET ESTIMATE SMEAR LOW (NORMAL); POLYS (SEG NEUTROPHILS) 78 % (16-70); SCAN/DIFF FINAL DIFF MANUAL; WBC DIFF SAMPLE 100
[2017-03-03 08:08] LABS: PLATELET MORPHOLOGY NORMAL (NORMAL); TARGET CELLS 1+ (NORMAL)
[2017-03-03] MEDS ORDERED: FUROSEMIDE 20 MG/2 ML VIAL IV PUSH ONE (08:30)
--- NOTE | 2017-03-03 08:55 | RADRPT ---
EXAM DATE/TIME: 03/03/2017 08:36 [place] COMPARISON: CHEST SINGLE AP, March 02, 2017, 8:23. INDICATIONS : Difficulty breathing. Respiratory disease. MEDICAL HISTORY : Hypertension. Chronic obstructive pulmonary disease. SURGICAL HISTORY : None. ENCOUNTER: Subsequent ACUITY: 4 - 6 days PAIN SCORE: 0/10 LOCATION: Bilateral chest FINDINGS: A single view of the chest demonstrates the lungs to be symmetrically aerated with mixed interstitial and airspace process showing interval worsening concerning for advancing pneumonic infiltrates. No s ignificant associated effusions. Heart size is normal. Osseous structures are intact. CONCLUSION: Worsening bilateral infiltrates. Silvio Coburn MD on March 03, 2017 at 8:51 Board Certified Radiologist. This report was verified electronically.
[2017-03-03] MEDS ORDERED: FUROSEMIDE 20 MG TAB PO SCH (09:00)
[2017-03-03] MEDS: SODIUM CHLORIDE 1 GRAM TAB PO SCH ×2 (09:00→09:40)
[2017-03-03] MEDS: LACTULOSE SYRUP 20 GM/30 ML CUP PO SCH ×2 (09:00→20:55)
[2017-03-03] MEDS: POTASSIUM CHLOR 20 MEQ PREMIX 100 ML IV SCH ×2 (09:13→16:25)
--- NOTE | 2017-03-03 09:23 | HHI.CCPN ---
Subjective Remarks/Hospital Course 56-year-old male with history of COPD, hypertension, alcohol and tobacco abuse presents with multiple complaints including bloody stools 48 hours prior to admission and epigastric pain. The patient underwent imaging which demonstrated a slightly thickened gallbladder wall and a "positive sonographic Lee sign". Since admission he has received multiple blood product transfusions and now he is been developing shortness of breath with mild to moderate respiratory failure. Patient is possibly going to operating room tomorrow morning for exploratory laparotomy and possible biopsy. SUBJ: Remains short of breath, on BiPAP, chest x-ray shows worsening pulmonary edema. I have started Lasix 40 mg IV every 12 hours. Discontinue IV fluids. If not improving patient may need endotracheal intubation. Continues to have lower GI bleed. 1 unit of platelets and 2 units of FFP ordered (plt count [id number] , INR 2.3). Discussed with Dr. Oliveros. No cause identified for elevated CEA of 5800. MRI abdomen showed liver cirrhosis but no mass. Oncology consulted Objective Vital Signs Date Time Temp Pulse Resp B/P (MAP) Pulse Ox O2 Delivery O2 Flow Rate FiO2 03/03/17 08:39 96 55 03/03/17 06:00 94 03/03/17 04:00 97.7 16 159/86 (110) 03/02/17 22:30 Bi-Pap 03/02/17 21:00 6.00 Intake and Output 03/03/17 03/03/17 03/04/17 08:00 16:00 00:00 Intake Total 1812 ml Output Total 575 ml Balance 1237 ml Result Diagram: 03/03/17 0400 03/03/17 0400 Other Results Laboratory Tests Test 03/02/17 22:03 Blood Gas Puncture Site LT RADIAL Blood Gas Patient Temperature 98.6 Blood Gas HCO3 27 mmol/L (22-26) Blood Gas Base Excess 3.6 mmol/L (-2-2) Blood Gas Oxygen Saturation 92 % (90-100) Arterial Blood pH 7.48 (7.380-7.420) Arterial Blood Partial Pressure CO2 37 mmHg (38-42) Arterial Blood Partial Pressure O2 66 mmHg (61-120) Arterial Blood Oxygen Content 11.6 Vol % (12.0-20.0) Arterial Blood Carboxyhemoglobin 1.5 % (0-4) Arterial Blood Methemoglobin 0.5 % (0-2) Blood Gas Hemoglobin 8.9 G/DL (12.0-16.0) Oxygen Delivery Device BIPAP Blood Gas Ventilator Setting SEE COMMENT Blood Gas Inspired Oxygen 40 % Imaging Last 24 hours Impressions Chest X-Ray 03/02/17 0000 Signed Impressions: Service Date/Time: Thursday, March 02, 2017 08:23 - CONCLUSION: 1. Interstitial and alveolar opacities, likely multi-lobar pneumonia. Nils Iglesias MD Objective Remarks GENERAL: Disheveled male in moderate respiratory distress, on BIPAP SKIN: Warm and diaphoretic. No rash or trauma. HEENT: Atraumatic, normocephalic with severe scleral icterus. BiPAP mask limits ENT exam CARDIOVASCULAR: Regular rate and rhythm without murmurs, gallops, or rubs. 2+ pulses in all 4 extremities. RESPIRATORY: On BIPAP, bilateral course crackles bilateral wheezes heard GASTROINTESTINAL: Abdomen protuberant with positive bowel sounds in all 4 quadrants. Tenderness to the right upper quadrant. MUSCULOSKELETAL: Bilateral lower extremity edema 2+ and pitting. NEUROLOGICAL: AAO 3. No tremor at baseline. Normal speech. No focal deficits Urinary Catheter: Yes Assessment to: Continue A/P Assessment and Plan Respiratory failure COPD exacerbation Pulmonary edema Probable pneumonia - COPD-start IV Solu Medrol 60 mg every 12 hours, DuoNeb every 4 hours scheduled and when necessary - Start Symbicort and Spiriva - For Pneumonia Broad-spectrum antibiotics vancomycin and Zosyn - Follow-up cultures - Infectious disease following - Continue BiPAP - DC by mouth Lasix started IV Lasix 40 every 12 with IV albumin - Discontinue maintenance IV fluids - 2-D echo ordered RUQ abdominal pain Liver cirrhosis Elevated CEA, 5800 - elevated liver enzymes, coagulopathy most likely secondary to liver cirrhosis - Unknown etiology off elevated CEA, oncology consulted - Lower GI bleed- EGD/ colonoscopy/polpectomy 02/28: Esophagitis, Rosales gastritis , Colon polyps, Diverticulosis. Biopsy negative for malignancy - Transfuse 2 units of FFP, one pack units of platelets, give vitamin K 10 units times 1 repeat dose - Increase Protonix 40 mg IV every 12 - General surgery considering diagnostic laparoscopy Alcohol dependence - Monitor for withdrawal - [facility] protocol Thrombocytopenia/coagulopathy - Underlying liver disease/cirrhosis - Alcoholism - Transfuse platelets to keep count above 50, transfuse FFP vitamin K to keep INR less than 1.5 Anemia - Blood loss - Transfuse to keep hemoglobin above 7 Lower extremity edema - Hypoalbuminemia - Underlying Liver disease - IV lasix 40 mg q12 DVT GI prophylaxis - Teds SCDs - Protonix IV twice a day - No pharmacological DVT prophylaxis due to GI bleed Critical Care: The total critical care time was 45 minutes. Time to perform other separately billable procedures was not included in the critical care time. Patient is critically ill with worsening pulmonary edema, 2-D echo pending increase diuresis. On BiPAP may need endotracheal intubation if not consistently improving Valentino Rhoades MD Mar 03, 2017 09:23
[2017-03-03] MEDS: SODIUM CHLORIDE 0.9% FLUSH 10 ML FLUSH IV FLUSH SCH ×2 (09:38→20:54)
[2017-03-03] MEDS: FUROSEMIDE 40 MG/4 ML VIAL IV PUSH SCH ×2 (09:38→18:30)
[2017-03-03] MEDS: SPIRONOLACTONE 50 MG TAB PO SCH ×2 (09:39→18:30)
[2017-03-03] MEDS: BUDESONIDE-FORMOTEROL 80/4.5 MCG INHALER INH SCH ×2 (09:39→20:55)
[2017-03-03] MEDS: POTASSIUM CHLORIDE 20 MEQ CONTROLLED RELEASE TAB PO SCH ×2 (09:41→20:54)
[2017-03-03] MEDS: NICOTINE 14 MG/24 HR PATCH T-DERMAL SCH (09:41)
[2017-03-03] MEDS: GABAPENTIN 300 MG CAP PO SCH ×3 (09:41→18:30)
[2017-03-03] MEDS ORDERED: TIOTROPIUM BROMIDE 18 MCG INH INH SCH (09:45)
[2017-03-03] MEDS: BUDESONIDE-FORMOTEROL 160/4.5 MCG INHALER INH SCH ×2 (09:45→21:00)
--- NOTE | 2017-03-03 11:47 | HHI.GIFU ---
Subjective Remarks Pt resting in bed, now on bipap, in NAD. says he feels better and his bleeding is better. (Suzie Ramos) Objective Vitals I&O Vital Signs Date Time Temp Pulse Resp B/P (MAP) Pulse Ox O2 Delivery O2 Flow Rate FiO2 03/03/17 08:39 96 55 03/03/17 06:00 94 03/03/17 04:16 97 60 03/03/17 04:00 90 03/03/17 04:00 97.7 84 16 159/86 (110) 95 03/03/17 02:00 88 03/03/17 00:00 97.6 87 19 125/66 (85) 94 03/03/17 00:00 93 03/02/17 22:30 91 Bi-Pap 50 03/02/17 21:40 91 Bi-Pap 40 03/02/17 21:00 91 Simple Mask 6.00 03/02/17 20:57 93 Simple Mask 6.00 03/02/17 20:00 97.4 94 24 140/86 (104) 90 03/02/17 19:00 91 Nasal Cannula 4.00 03/02/17 17:00 98.0 97 19 168/99 92 03/02/17 16:42 98.0 103 21 164/96 93 03/02/17 16:00 98.0 93 23 164/96 (118) 93 03/02/17 15:00 98 03/02/17 12:00 98.7 94 18 152/86 (108) 93 I/O 03/02/17 03/02/17 03/02/17 03/03/17 03/03/17 03/03/17 07:00 15:00 23:00 07:00 15:00 23:00 Intake Total 692 ml 100 ml 1154 ml 2312 ml Output Total 1130 ml 575 ml Balance 692 ml 100 ml 24 ml 1737 ml Intake Oral 400 ml 480 ml 240 ml IV Total 100 ml 1850 ml FFP 292 ml 674 ml Platelets 222 ml Blood Product IV Normal Saline Flush 0 ml Output Urine Total 1130 ml 575 ml # Voids 5 4 1 # Bowel Movements 4 3 2 Laboratory Laboratory Tests Test 03/02/17 16:05 03/02/17 17:59 03/02/17 22:03 03/02/17 22:15 Hemoglobin 9.3 9.0 Hematocrit 26.3 25.6 Prothrombin Time 20.7 Prothromb Time International Ratio 2.0 Activated Partial Thromboplast Time 44.9 Blood Gas Puncture Site LT RADIAL Blood Gas Patient Temperature 98.6 Blood Gas HCO3 27 Blood Gas Base Excess 3.6 Blood Gas Oxygen Saturation 92 Arterial Blood pH 7.48 Arterial Blood Partial Pressure CO2 37 Arterial Blood Partial Pressure O2 66 Arterial Blood Oxygen Content 11.6 Arterial Blood Carboxyhemoglobin 1.5 Arterial Blood Methemoglobin 0.5 Blood Gas Hemoglobin 8.9 Oxygen Delivery Device BIPAP Blood Gas Ventilator Setting SEE COMMENT Blood Gas Inspired Oxygen 40 Potassium Level 3.0 Test 03/03/17 04:00 White Blood Count 8.6 Red Blood Count 2.49 Hemoglobin 8.4 Hematocrit 23.6 Mean Corpuscular Volume 95.0 Mean Corpuscular Hemoglobin 33.9 Mean Corpuscular Hemoglobin Concent 35.7 Red Cell Distribution Width 18.3 Platelet Count 40 Mean Platelet Volume 9.3 Neutrophils (%) (Auto) 80.5 Lymphocytes (%) (Auto) 12.4 Monocytes (%) (Auto) 6.4 Eosinophils (%) (Auto) 0.2 Basophils (%) (Auto) 0.5 Neutrophils # (Auto) 7.0 Lymphocytes # (Auto) 1.1 Monocytes # (Auto) 0.6 Eosinophils # (Auto) 0.0 Basophils # (Auto) 0.0 CBC Comment AUTO DIFF Differential Total Cells Counted 100 Neutrophils % (Manual) 78 Band Neutrophils % 7 Lymphocytes % 12 Monocytes % 2 Neutrophils # (Manual) 7.4 Metamyelocytes 1 Nucleated Red Blood Cells 12 Differential Comment FINAL DIFF MANUAL Platelet Estimate LOW Platelet Morphology Comment NORMAL Target Cells 1+ Prothrombin Time 23.4 Prothromb Time International Ratio 2.3 Blood Urea Nitrogen 12 Creatinine 0.73 Random Glucose 128 Total Protein 5.6 Albumin 3.1 Calcium Level 8.7 Alkaline Phosphatase 189 Aspartate Amino Transf (AST/SGOT) 217 Alanine Aminotransferase (ALT/SGPT) 109 Total Bilirubin 10.7 Sodium Level 148 Potassium Level 3.1 Chloride Level 111 Carbon Dioxide Level 27.5 Anion Gap 10 Estimat Glomerular Filtration Rate 112 Date/Time Source Procedure Growth Status 02/25/17 22:55 Blood Peripheral Aerobic Blood Culture - Final NO GROWTH IN 5 DAYS Complete 02/25/17 22:55 Blood Peripheral Anaerobic Blood Culture - Final NO GROWTH IN 5 DAYS Complete Imaging Last Impressions Chest X-Ray 03/03/17 0000 Signed Impressions: Service Date/Time: February 08:36 - CONCLUSION: Worsening bilateral infiltrates. Silvio Coburn MD CT Angiography 03/01/17 0000 Signed Impressions: Service Date/Time: Wednesday, March 01, 2017 21:13 - CONCLUSION: 1. Negative for pulmonary embolism. 2. Hilar and mediastinal adenopathy measuring up to 3.2 cm and the left hilum. Finding is concerning for underlying malignancy. 3. Multifocal airspace disease in both lungs space predominantly in the upper lobes. Primary differential diagnosis is multifocal pneumonia. Small bilateral pleural effusions Prashant Castro MD Abdomen Ultrasound 03/01/17 0000 Signed Impressions: Service Date/Time: Wednesday, March 01, 2017 17:06 - CONCLUSION: Trace ascites noted. Seun Hawkins MD Cholangiopancreatography MRI 02/26/17 0000 Signed Impressions: Service Date/Time: Sunday, February 26, 2017 10:40 - CONCLUSION: 1. No ductal dilatation or evidence for choledocholithiasis or focal biliary ductal abnormality. 2. Cirrhotic liver with numerous focal lesions predominately in the left lobe of the liver with a dominant segment 4 lesion measuring up to 2.8 cm. Recommend formal liver mass MRI examination for better evaluation. 3. Trace ascites. Edouard Villatoro MD Abdomen MRI 02/26/17 0000 Signed Impressions: Service Date/Time: Sunday, February 26, 2017 13:52 - CONCLUSION: 1. There is hepatomegaly with liver measuring 26.4 cm in length. 2. There is a very coarse reticular nodular pattern throughout the entire liver on the postcontrast images characteristic of hepatocellular disease such as cirrhosis. The coarse pattern suggesting regenerating nodules related to cirrhosis. If clinically indicated, recommend liver biopsy for correlation. 3. The rest of the MRI of the upper abdomen is unremarkable. Keegan Youngblood MD Gall Bladder Ultrasound 02/25/17 0000 Signed Impressions: Service Date/Time: Saturday, February 25, 2017 08:06 - CONCLUSION: 1. Hepatomegaly with diffusely heterogeneous echotexture. There is hepatofugal flow in the main portal vein with trace ascites consistent with portal hypertension. 2. Gallbladder is contracted with gallbladder wall thickening. Gallbladder wall thickening is commonly seen in patients with liver disease. Health Education Teacher reports a positive sonographic Lee's sign. Consider HIDA scan for evaluation of cystic duct patency if there is significant continued clinical concern regarding cholecystitis. Edouard Villatoro MD Abdomen/Pelvis CT 02/25/17 0000 Signed Impressions: Service Date/Time: Saturday, February 25, 2017 19:53 - CONCLUSION: 1. Hepatomegaly. 2. Minimal ascites. 3. Scattered uncomplicated colonic diverticulosis. 4. Stable 15 mm right renal cyst. Casey Lopez MD Physical Exam HEENT: Normocephalic; atraumatic; +icterus on bipap CHEST: coarse, wheezes CARDIAC: RRR ABDOMEN: Distended, firm, diffuse TTP; no hepatosplenomegaly; bowel sounds are present in all four quadrants. EXTREMITIES: No clubbing, cyanosis, + BLE edema. SKIN: Normal; no rash; + jaundice. VETERINARY VIROLOGIST: lethargic (Suzie Ramos) Assessment and Plan Plan ASSESSMENT: - Elevated LFTs, patient with history of alcohol abuse (6 beers a day), denies any alcohol use since hospital discharge on 01/22/17. DF-14. Hepatitis panel negative. AFP 2.8, CEA 5781.4, CA-19-9 587.5, CA-125 42.9. Abdomen/Pelvis CT (02/25/17)--1. Hepatomegaly. 2. Minimal ascites. 3. Scattered uncomplicated colonic diverticulosis. 4. Stable 15 mm right renal cyst. MRCP (02/26/17)--1. No ductal dilatation or evidence for choledocholithiasis or focal biliary ductal abnormality. 2. Cirrhotic liver with numerous focal lesions predominately in the left lobe of the liver with a dominant segment 4 lesion measuring up to 2.8 cm. Recommend formal liver mass MRI examination for better evaluation. 3. Trace ascites. Abdomen MRI (02/26/17)--1. There is hepatomegaly with liver measuring 26.4 cm in length. 2. There is a very coarse reticular nodular pattern throughout the entire liver on the postcontrast images characteristic of hepatocellular disease such as cirrhosis. The coarse pattern suggesting regenerating nodules related to cirrhosis. If clinically indicated, recommend liver biopsy for correlation. 3. The rest of the MRI of the upper abdomen is unremarkable. repeat CEA 5801. - RUQ abdominal pain, GB US (02/25/17)-- 1. Hepatomegaly with diffusely heterogeneous echotexture. There is hepatofugal flow in the main portal vein with trace ascites consistent with portal hypertension. 2. Gallbladder is contracted with gallbladder wall thickening. Gallbladder wall thickening is commonly seen in patients with liver disease. Health Education Teacher reports a positive sonographic Lee's sign. Consider HIDA scan for evaluation of cystic duct patency if there is significant continued clinical concern regarding cholecystitis. GS was considering diag lap, poss today if stable. - Lower GIB- s/pt EGD and colonoscopy found pangastritis, esophagitis, colon polyps, diverticulosis. has been having bloody loose stools. path antrum reactive gastropathy, path colon tubular adenoma and hyperplastic polyp. hem/onc has been consulted - thrombocytopenia- mult plt transfusions - coagulopathy - worsening. vitamin K PLAN: - await hem onc eval - stat bleed scan if active bleed - Continue PPI - continue Lactulose - Monitor H/H - Transfuse as needed - continue with supportive care This pt seen by myself and Dr Oliveros and this note is written on his behalf (Suzie Ramos) Physician Comments Patient seen and examined Agree with above Continue with current supportive care Monitor labs The elevated liver function tests most consistent with acute alcoholic hepatitis Imaging consistent with underlying cirrhosis Elevated lipase and amylase of unclear significance but possibly pancreatitis Elevated tumor markers of unclear significance and probably nonspecific especially after having performed so many tests and imaging studies and nothing has shown up The coagulopathy is most likely related to the cirrhosis but other causes need to be ruled out and we are waiting hematology evaluation Biopsies from the stomach and the colon are noted with no malignancies (Nik Oliveros MD) Suzie Ramos Mar 03, 2017 11:47 Nik Oliveros MD Mar 03, 2017 18:23
[2017-03-03] MEDS ORDERED: PHYTONADIONE INJ 10 MG in DEXTROSE 5% IN WATER INJ 50 ML IV ONE ×2 (12:00)
[2017-03-03] MEDS: RESP: ALBUTEROL 2.5 MG/IPRATROPIUM 0.5 MG NEB (SCH) NEB ×4 (12:26→23:40)
[2017-03-03] MEDS: methylPREDNISolone SOD SUCC 125 MG/2 ML VIAL IV PUSH SCH ×2 (13:23→20:54)
[2017-03-03] MEDS: VANCOMYCIN INJ 1,750 MG in SODIUM CHLORID 0.9% 500 ML INJ 500 ML IV SCH ×2 (13:24→23:04)
[2017-03-03] MEDS: TIOTROPIUM BROMIDE 18 MCG INH INH SCH (14:05)
[2017-03-03 15:00] LABS: AUTOMATED NEUTROPHIL # 6.8 TH/MM3 (1.8-7.7); BASOPHIL % 0.2 % (0.0-2.0); EOSINOPHIL % 0.3 % (0.0-4.0); HEMATOCRIT 22.6 % (39.0-51.0); LYMPH % 11.2 % (9.0-44.0); LYMPHOCYTE # 0.9 TH/MM3 (1.0-4.8); MEAN CORPUSCULAR HEMOGLOBIN 33.8 PG (27.0-34.0); MEAN CORPUSCULAR HGB CONC 35.2 % (32.0-36.0); MONO % 6.1 % (0.0-8.0); NEUT % 82.2 % (16.0-70.0); PLATELET COUNT 118 TH/MM3 (150-450); RED BLOOD COUNT 2.36 MIL/MM3 (4.50-5.90); RED CELL DISTRIBUTION WIDTH 20.2 % (11.6-17.2); WHITE BLOOD COUNT 8.2 TH/MM3 (4.0-11.0)
[2017-03-03 15:03] LABS: HEMO FLAGS AUTO DIFF
[2017-03-03 15:23] LABS: INTERNATIONAL NORMALIZED RATIO 1.7 RATIO; PROTHROMBIN TIME - PATIENT 17.1 SEC (9.8-11.6)
[2017-03-03 15:44] LABS: BANDS 3 % (0-6); CORRECTED NUCLEATED RBC 13 /100 WBC (0-0); METAMYELOCYTES 1 % (0-1); NEUTROPHIL # MANUAL DIFF 6.6 TH/MM3 (1.8-7.7); PLATELET ESTIMATE SMEAR LOW (NORMAL); PLATELET MORPHOLOGY NORMAL (NORMAL); POLYS (SEG NEUTROPHILS) 75 % (16-70); PROMYELOCYTES 1 % (0-0); WBC DIFF SAMPLE 100
[2017-03-03 15:45] LABS: SCAN/DIFF FINAL DIFF MANUAL
--- NOTE | 2017-03-03 16:14 | HHI.PR ---
cc: Will Horne MD Subjective Subjective Notes Resting in bed Overnight required CPAP ---CCM now following Objective Vitals/I&O Vital Signs Date Time Temp Pulse Resp B/P (MAP) Pulse Ox O2 Delivery O2 Flow Rate FiO2 03/03/17 14: 97.5 105 28 140/84 94 03/03/17 12:24 50 03/02/17 22:30 Bi-Pap 03/02/17 21:00 6.00 Labs Laboratory Tests Test 03/02/17 17:59 03/02/17 22:03 03/02/17 22:15 03/03/17 04:00 Prothrombin Time 20.7 23.4 Prothromb Time International Ratio 2.0 2.3 Activated Partial Thromboplast Time 44.9 Blood Gas Puncture Site LT RADIAL Blood Gas Patient Temperature 98.6 Blood Gas HCO3 27 Blood Gas Base Excess 3.6 Blood Gas Oxygen Saturation 92 Arterial Blood pH 7.48 Arterial Blood Partial Pressure CO2 37 Arterial Blood Partial Pressure O2 66 Arterial Blood Oxygen Content 11.6 Arterial Blood Carboxyhemoglobin 1.5 Arterial Blood Methemoglobin 0.5 Blood Gas Hemoglobin 8.9 Oxygen Delivery Device BIPAP Blood Gas Ventilator Setting SEE COMMENT Blood Gas Inspired Oxygen 40 Hemoglobin 9.0 8.4 Hematocrit 25.6 23.6 Potassium Level 3.0 3.1 White Blood Count 8.6 Red Blood Count 2.49 Mean Corpuscular Volume 95.0 Mean Corpuscular Hemoglobin 33.9 Mean Corpuscular Hemoglobin Concent 35.7 Red Cell Distribution Width 18.3 Platelet Count 40 Mean Platelet Volume 9.3 Neutrophils (%) (Auto) 80.5 Lymphocytes (%) (Auto) 12.4 Monocytes (%) (Auto) 6.4 Eosinophils (%) (Auto) 0.2 Basophils (%) (Auto) 0.5 Neutrophils # (Auto) 7.0 Lymphocytes # (Auto) 1.1 Monocytes # (Auto) 0.6 Eosinophils # (Auto) 0.0 Basophils # (Auto) 0.0 CBC Comment AUTO DIFF Differential Total Cells Counted 100 Neutrophils % (Manual) 78 Band Neutrophils % 7 Lymphocytes % 12 Monocytes % 2 Neutrophils # (Manual) 7.4 Metamyelocytes 1 Nucleated Red Blood Cells 12 Differential Comment FINAL DIFF MANUAL Platelet Estimate LOW Platelet Morphology Comment NORMAL Target Cells 1+ Blood Urea Nitrogen 12 Creatinine 0.73 Random Glucose 128 Total Protein 5.6 Albumin 3.1 Calcium Level 8.7 Alkaline Phosphatase 189 Aspartate Amino Transf (AST/SGOT) 217 Alanine Aminotransferase (ALT/SGPT) 109 Total Bilirubin 10.7 Sodium Level 148 Chloride Level 111 Carbon Dioxide Level 27.5 Anion Gap 10 Estimat Glomerular Filtration Rate 112 Test 03/03/17 14:05 White Blood Count 8.2 Red Blood Count 2.36 Hemoglobin 8.0 Hematocrit 22.6 Mean Corpuscular Volume 96.0 Mean Corpuscular Hemoglobin 33.8 Mean Corpuscular Hemoglobin Concent 35.2 Red Cell Distribution Width 20.2 Platelet Count 118 Mean Platelet Volume 11.0 Neutrophils (%) (Auto) 82.2 Lymphocytes (%) (Auto) 11.2 Monocytes (%) (Auto) 6.1 Eosinophils (%) (Auto) 0.3 Basophils (%) (Auto) 0.2 Neutrophils # (Auto) 6.8 Lymphocytes # (Auto) 0.9 Monocytes # (Auto) 0.5 Eosinophils # (Auto) 0.0 Basophils # (Auto) 0.0 CBC Comment AUTO DIFF Differential Total Cells Counted 100 Neutrophils % (Manual) 75 Band Neutrophils % 3 Lymphocytes % 13 Monocytes % 7 Neutrophils # (Manual) 6.6 Metamyelocytes 1 Promyelocytes 1 Nucleated Red Blood Cells 13 Differential Comment FINAL DIFF MANUAL Platelet Estimate LOW Platelet Morphology Comment NORMAL Prothrombin Time 17.1 Prothromb Time International Ratio 1.7 Date/Time Source Procedure Growth Status 02/25/17 22:55 Blood Peripheral Aerobic Blood Culture - Final NO GROWTH IN 5 DAYS Complete 02/25/17 22:55 Blood Peripheral Anaerobic Blood Culture - Final NO GROWTH IN 5 DAYS Complete Radiology Last 48 hours Impressions Gall Bladder Ultrasound 02/25/17 0000 Signed Impressions: Service Date/Time: Saturday, February 25, 2017 08:06 - CONCLUSION: 1. Hepatomegaly with diffusely heterogeneous echotexture. There is hepatofugal flow in the main portal vein with trace ascites consistent with portal hypertension. 2. Gallbladder is contracted with gallbladder wall thickening. Gallbladder wall thickening is commonly seen in patients with liver disease. Cargo Router reports a positive sonographic Lee's sign. Consider HIDA scan for evaluation of cystic duct patency if there is significant continued clinical concern regarding cholecystitis. Edouard Villatoro MD Chest X-Ray 02/25/17 0000 Signed Impressions: Service Date/Time: Saturday, February 25, 2017 10:30 - CONCLUSION: No acute cardiopulmonary abnormality is identified. Jf Guerrero MD Abdomen Ultrasound 02/25/17 0000 Signed Impressions: Service Date/Time: Saturday, February 25, 2017 12:03 - CONCLUSION: No ascites seen. Nils Iglesias MD Cardiovascular: Regular Lungs: Clear Abdomen: Other (distended ) Extremities: Other (BLE 2+ pitting edema ) Narrative Exam Continues to have jaundice sclera and skin A/P Assessment and Plan 56 year old male with RUQ abdominal pain; elevated liver enzymes; lower GI bleed -S/p EGD/Colonoscopy---will follow biopsies -Surgery cancelled for today due to patient's condition -Tumor markers continue to be elevated ---Consult to Oncology ---could be chest origin? -Liver enzymes continue to be elevated -GS will be in the peripheral and available PRN Attending Note - Dr. Horne Has a lung/hilar mass; no obvious abdominal source Will not benefit from abdominal procedure The exam, history, and the medical decision-making described in the above note were completed with the assistance of the mid-level provider. I reviewed and agree with the findings presented. I attest that I had a [id number] encounter with the patient on the same day, and personally performed and documented my assessment and findings in the medical record. Nina Kuo Mar 03, 2017 16:14 Will Horne MD Mar 05, 2017 02:36
[2017-03-03] MEDS: LISINOPRIL 20 MG TAB PO SCH (16:33)
--- NOTE | 2017-03-03 17:21 | ECHRPT ---
Indication: Heart failure, unspecified CONCLUSIONS The left ventricular systolic function is normal with an estimated ejection fraction in the range of 60-65%. Mild concentric left ventricular hypertrophy. Normal left ventricular size. Trace mitral valve regurgitation. There is mild tricuspid valve regurgitation. The estimated pulmonary arterial pressure is 30.1 mmHg. There is a small pericardial effusion present. BP: 159 / 86 HR: 90 Rhythm: Sinus MEASUREMENTS (Male / Female) Normal Values Technical Quality:Fair 2D ECHO LV Diastolic Diameter PLAX 5.7 cm 4.2 - 5.9 / 3.9 - 5.3 cm LV Systolic Diameter PLAX 4.2 cm IVS Diastolic Thickness 1.2 cm 0.6 - 1.0 / 0.6 - 0.9 cm LVPW Diastolic Thickness 1.1 cm 0.6 - 1.0 / 0.6 - 0.9 cm LV Relative Wall Thickness 0.4 LVOT Diameter 2.4 cm M-MODE Aortic Root Diameter MM 3.4 cm LA Systolic Diameter MM 4.1 cm LA Ao Ratio MM 1.2 AV Cusp Separation MM 2.5 cm DOPPLER AV Peak Velocity 151.0 cm/s AV Peak Gradient 9.1 mmHg LVOT Peak Velocity 100.0 cm/s LVOT Peak Gradient 4.0 mmHg AV Area Cont Eq pk 3.0 cm MR Peak Velocity 330.0 cm/s MR Peak Gradient 43.6 mmHg LV E' Lateral Velocity 9.1 cm/s LV E' Septal Velocity 9.9 cm/s TR Peak Velocity 224.0 cm/s TR Peak Gradient 20.1 mmHg Right Atrial Pressure 10.0 mmHg Pulmonary Artery Systolic Pressu 30.1 mmHg Right Ventricular Systolic Press 30.1 mmHg PV Peak Velocity 119.0 cm/s PV Peak Gradient 5.7 mmHg FINDINGS LEFT VENTRICLE The left ventricular systolic function is normal with an estimated ejection fraction in the range of 60-65%. Mild concentric left ventricular hypertrophy. Normal left ventricular size. RIGHT VENTRICLE Normal right ventricular size and systolic function. LEFT ATRIUM The left atrial size is normal. RIGHT ATRIUM The right atrial size is normal. ATRIAL SEPTUM Normal atrial septal thickness without atrial level shunting by limited color doppler interrogation. AORTA The aortic root and proximal ascending aorta are normal in size on limited imaging. MITRAL VALVE Trace mitral valve regurgitation. AORTIC VALVE Trileaflet aortic valve. No aortic valve stenosis or regurgitation. TRICUSPID VALVE There is mild tricuspid valve regurgitation. The estimated pulmonary arterial pressure is 30.1 mmHg. PULMONARY VALVE No pulmonary valve regurgitation or stenosis. VESSELS The inferior vena cava is normal in size. PERICARDIUM There is a small pericardial effusion present. Roel Luque MD, FACC (Electronically Signed) Final Date:03 March 2017 17:20
--- NOTE | 2017-03-03 18:06 | HHI.FPPN ---
Subjective Remarks Patient was seen and evaluated this morning. He is on BiPAP but speaking in complete sentences. He reports feeling better than yesterday. He states that his right upper and lower quadrant abdominal pain has improved. He has had two bouts of diarrhea this morning; diarrhea described as maroon in color. Patient denies chest pain, heart palpitations, shortness of breath, nausea/vomiting, diarrhea and constipation. All questions were answered. (Patrizia Mcneill MD R1) Objective Vitals Vital Signs Date Time Temp Pulse Resp B/P (MAP) Pulse Ox O2 Delivery O2 Flow Rate FiO2 03/03/17 17:00 97.7 103 24 140/80 94 03/03/17 16:25 96 40 03/03/17 16:00 96 Bi-Pap 40 03/03/17 16:00 97.9 106 24 146/87 (106) 95 03/03/17 16:00 106 03/03/17 14:17 97.5 105 28 140/84 94 03/03/17 14:00 100 03/03/17 13:12 97.9 95 18 144/78 96 03/03/17 12:24 95 50 03/03/17 12:00 90 03/03/17 12:00 98.0 17 17 151/78 (102) 97 03/03/17 10:00 106 03/03/17 08:39 96 55 03/03/17 08:00 96 03/03/17 08:00 97.5 96 23 146/83 (104) 98 03/03/17 08:00 96 Bi-Pap 55 03/03/17 06:00 94 03/03/17 04:16 97 60 03/03/17 04:00 90 03/03/17 04:00 97.7 84 16 159/86 (110) 95 03/03/17 02:00 88 03/03/17 00:00 97.6 87 19 125/66 (85) 94 03/03/17 00:00 93 03/02/17 22:30 91 Bi-Pap 50 03/02/17 21:40 91 Bi-Pap 40 03/02/17 21:00 91 Simple Mask 6.00 03/02/17 20:57 93 Simple Mask 6.00 03/02/17 20:00 97.4 94 24 140/86 (104) 90 03/02/17 19:00 91 Nasal Cannula 4.00 I/O 03/02/17 03/02/17 03/02/17 03/03/17 03/03/17 03/03/17 07:00 15:00 23:00 07:00 15:00 23:00 Intake Total 692 ml 100 ml 1154 ml 2312 ml 356 ml 267 ml Output Total 1130 ml 575 ml Balance 692 ml 100 ml 24 ml 1737 ml 356 ml 267 ml Intake Oral 400 ml 480 ml 240 ml IV Total 100 ml 1850 ml FFP 292 ml 674 ml 341 ml 257 ml Platelets 222 ml Blood Product IV Normal Saline Flush 0 ml 15 ml 10 ml Output Urine Total 1130 ml 575 ml # Voids 5 4 1 # Bowel Movements 4 3 2 (Patrizia Mcneill MD R1) Result Diagram: 03/03/17 1405 03/03/17 0400 Imaging Last Impressions Chest X-Ray 03/03/17 0000 Signed Impressions: Service Date/Time: February 08:36 - CONCLUSION: Worsening bilateral infiltrates. Silvio Coburn MD CT Angiography 03/01/17 0000 Signed Impressions: Service Date/Time: Wednesday, March 01, 2017 21:13 - CONCLUSION: 1. Negative for pulmonary embolism. 2. Hilar and mediastinal adenopathy measuring up to 3.2 cm and the left hilum. Finding is concerning for underlying malignancy. 3. Multifocal airspace disease in both lungs space predominantly in the upper lobes. Primary differential diagnosis is multifocal pneumonia. Small bilateral pleural effusions Prashant Castro MD Abdomen Ultrasound 03/01/17 0000 Signed Impressions: Service Date/Time: Wednesday, March 01, 2017 17:06 - CONCLUSION: Trace ascites noted. Seun Hawkins MD Cholangiopancreatography MRI 02/26/17 0000 Signed Impressions: Service Date/Time: Sunday, February 26, 2017 10:40 - CONCLUSION: 1. No ductal dilatation or evidence for choledocholithiasis or focal biliary ductal abnormality. 2. Cirrhotic liver with numerous focal lesions predominately in the left lobe of the liver with a dominant segment 4 lesion measuring up to 2.8 cm. Recommend formal liver mass MRI examination for better evaluation. 3. Trace ascites. Edouard Villatoro MD Abdomen MRI 02/26/17 0000 Signed Impressions: Service Date/Time: Sunday, February 26, 2017 13:52 - CONCLUSION: 1. There is hepatomegaly with liver measuring 26.4 cm in length. 2. There is a very coarse reticular nodular pattern throughout the entire liver on the postcontrast images characteristic of hepatocellular disease such as cirrhosis. The coarse pattern suggesting regenerating nodules related to cirrhosis. If clinically indicated, recommend liver biopsy for correlation. 3. The rest of the MRI of the upper abdomen is unremarkable. Keegan Youngblood MD Gall Bladder Ultrasound 02/25/17 0000 Signed Impressions: Service Date/Time: Saturday, February 25, 2017 08:06 - CONCLUSION: 1. Hepatomegaly with diffusely heterogeneous echotexture. There is hepatofugal flow in the main portal vein with trace ascites consistent with portal hypertension. 2. Gallbladder is contracted with gallbladder wall thickening. Gallbladder wall thickening is commonly seen in patients with liver disease. Auto Service Dispatcher reports a positive sonographic Lee's sign. Consider HIDA scan for evaluation of cystic duct patency if there is significant continued clinical concern regarding cholecystitis. Edouard Villatoro MD Abdomen/Pelvis CT 02/25/17 0000 Signed Impressions: Service Date/Time: Saturday, February 25, 2017 19:53 - CONCLUSION: 1. Hepatomegaly. 2. Minimal ascites. 3. Scattered uncomplicated colonic diverticulosis. 4. Stable 15 mm right renal cyst. Casey Lopez MD Objective Remarks GENERAL: Disheveled male lying in bed. He is in no acute/respiratory distress. On BiPAP. SKIN: Warm and dry. No rashes noted. HEENT: Atraumatic, normocephalic with extraocular motion intact. Moist mucous membranes. No rhinorrhea. No lymphadenopathy or JVD appreciated. CARDIOVASCULAR: Regular rate and rhythm without murmurs, gallops, or rubs. RESPIRATORY: Diffuse wheezes heard throughout all anterior lung russell. GASTROINTESTINAL: Abdomen tense, protuberant with positive bowel sounds. Tenderness upon palpation in all four quadrants. No masses appreciated. MUSCULOSKELETAL: Bilateral lower extremity edema; 2+ and pitting, extending up to knee. NEUROLOGICAL: Alert and oriented 3. No tremor at baseline. Normal speech and judgment. Procedures MRCP on 02/25. EGD and colonoscopy on 02/28. Medications and IVs Current Medications Medications (Trade) Dose Ordered Sig/Jailyn Route Start Time Stop Time Status Last Admin (NS Flush) 2 ml UNSCH PRN IV FLUSH 02/25/17 09:45 02/28/17 14:00 (NS Flush) 2 ml BID IV FLUSH 02/25/17 10:00 03/03/17 09:38 (Romazicon Inj) 0.2 mg Q1M PRN IV PUSH 02/25/17 09:45 (Ativan) 1 mg Q4H PRN PO 02/25/17 09:45 (Ativan Inj) 1 mg Q4H PRN IV PUSH 02/25/17 09:45 (Ativan) 2 mg Q2H PRN PO 02/25/17 09:45 (Ativan Inj) 2 mg Q2H PRN IV PUSH 02/25/17 09:45 (Ativan Inj) 2 mg Q1H PRN IV PUSH 02/25/17 09:45 (Ativan Inj) 2 mg Q15M PRN IV PUSH 02/25/17 09:45 (Symbicort 80-4.5 Mcg Inh) 2 puff Q12HR INH 02/25/17 21:00 03/03/17 09:39 (Neurontin) 300 mg TID PO 02/25/17 13:00 Future hold 03/03/17 13:24 (Sodium Chloride) 1 gm BID PO 02/25/17 21:00 Future Hold 03/02/17 10:15 (Spiriva Inh) 18 mcg DAILY INH 02/26/17 09:00 03/03/17 14:05 (Prinivil) 40 mg DAILY PO 02/26/17 09:00 Future hold 03/03/17 16:33 (Habitrol 14 Mg Patch.24 Hr) 1 patch DAILY T-DERMAL 02/25/17 12:00 03/03/17 09:41 Miscellaneous Information 1 HS T-DERMAL 02/25/17 21:00 03/02/17 21:00 (Zofran Inj) 4 mg Q6H PRN IVP 02/25/17 11:30 (Roxicodone) 10 mg Q4H PRN PO 02/25/17 11:30 02/28/17 08:33 (Morphine Inj) 1 mg Q3H PRN IV PUSH 02/25/17 11:30 (Morphine Inj) 2 mg Q3H PRN IV PUSH 02/25/17 11:30 (Morphine Inj) 4 mg Q3H PRN IV PUSH 02/25/17 11:30 (Roxicodone) 5 mg Q4H PRN PO 02/25/17 11:30 03/01/17 09:15 (Narcan Inj) 0.4 mg UNSCH PRN IV PUSH 02/25/17 11:30 (Pauline-Colace) 1 tab BID PO 02/25/17 12:00 Future Hold 02/25/17 12:21 (Milk Of Magnesia Liq) 30 ml Q12H PRN PO 02/25/17 11:30 (Senokot) 17.2 mg Q12H PRN PO 02/25/17 11:30 (Dulcolax Supp) 10 mg DAILY PRN RECTAL 02/25/17 11:30 (Duoneb Neb) 1 ampule Q6HR NEB PRN NEB 02/25/17 12:30 (Catapres) 0.1 mg Q6H PRN PO 02/25/17 12:30 02/27/17 22:53 (Vistaril) 50 mg HS PRN PO 02/25/17 12:30 (Lactulose Liq) 30 ml BID PO 02/25/17 13:30 03/01/17 22:19 Albumin Human 100 ml @ 60 mls/hr Q12H IV 02/25/17 14:00 03/03/17 14:05 (Nitrostat Sl) 0.4 mg Q5M PRN SL 02/25/17 13:30 Piperacillin Sod/ Tazobactam Sod 50 ml @ 100 mls/hr Q6H IV 02/25/17 15:00 03/03/17 15:49 Potassium Chloride 100 ml @ 50 mls/hr Q2H PRN IV 03/01/17 22:00 Potassium Chloride 100 ml @ 50 mls/hr Q2H PRN IV 03/01/17 22:00 03/03/17 06:25 (K-Lyte Cl Eff) 50 meq UNSCH PRN PO 03/01/17 22:00 03/02/17 03:38 Potassium Chloride 100 ml @ 25 mls/hr UNSCH PRN IV 03/01/17 22:00 Potassium Chloride 100 ml @ 50 mls/hr Q2H PRN IV 03/01/17 22:00 Magnesium Sulfate 4 gm/Sodium Chloride 100 ml @ 50 mls/hr UNSCH PRN IV 03/01/17 22:00 (Mag-Ox) 800 mg UNSCH PRN PO 03/01/17 22:00 Magnesium Sulfate 2 gm/Sodium Chloride 100 ml @ 50 mls/hr UNSCH PRN IV 03/01/17 22:00 (K-Phos) 2,000 mg Q4H PRN PO 03/01/17 22:00 Sodium Phosphate 30 mmol/Sodium Chloride 250 ml @ 42 mls/hr UNSCH PRN IV 03/01/17 22:00 (K-Phos) 2,000 mg UNSCH PRN PO/TUBE 03/01/17 22:00 Potassium Phosphate 30 mmol/ Sodium Chloride 260 ml @ 42 mls/hr UNSCH PRN IV 03/01/17 22:00 Pharmacy Profile Note 0 ml @ 0 mls/hr UNSCH OTHER 03/02/17 08:30 Vancomycin HCl 1750 mg/Sodium Chloride 517.5 ml @ 250 mls/hr Q12H IV 03/02/17 10:00 03/03/17 13:24 Miscellaneous Information SPECIFIC LAB TO BE DRAWN:VANCOMYCIN TROUGH DATE TO... ONCE ONCE .XX 03/04/17 09:45 03/04/17 09:46 (Aldactone) 50 mg BID@, PO 03/03/17 09:00 03/03/17 09:39 (Lasix Inj) 40 mg BID@,18 IV PUSH 03/03/17 09:00 03/03/17 09:38 (KCl) 20 meq Q12HR PO 03/03/17 09:00 03/03/17 09:41 (Duoneb Neb) 1 ampule Q4HR NEB NEB 03/03/17 12:00 03/03/17 16:28 (SoluMEDROL INJ) 60 mg Q12HR IV PUSH 03/03/17 09:45 03/03/17 13:23 (Symbicort 160-4.5 Mcg Inh) 1 puff Q12HR INH 03/03/17 09:45 (Protonix Inj) 40 mg Q12H IV PUSH 03/03/17 21:00 (Patrizia Mcneill MD R1) Urinary Catheter: Yes Gibson insert reason: ICU Pt Getting Diuretics (Patrizia Mcneill MD R1) Vascular Central Line Catheter: No (Patrizia Mcneill MD R1) A/P Assessment and Plan Mr. Jaimes is a 56-year-old male presenting to the ED with blood per rectum, epigastric, RUQ and RLQ pain as well as transaminitis. (Patrizia Mcneill MD R1) Attending Attestation Patient seen and examined. Case reviewed and discussed with the resident team. Agree with plan of care as discussed with me and documented in the resident note. (Olayinka Lange MD) Problem List: (1) Lower GI bleed ICD Codes: K92.2 - Gastrointestinal hemorrhage, unspecified Status: Acute Plan: Patient with three days of constipation, hard stools with bloody streaks , and other liquid based bloody stools. Negative family history. No prior episodes. Differential diagnosis: * Hemorrhoids versus diverticulitis versus colon cancer Studies/Labs/Orders: * FOBT positive per ED staff with external hemorrhoids on exam. * On admission, coagulation studies: PT 14.7, INR 1.5, APTT 32.0 * On admission: Hgb 14.3 and Hct 41.2 * CBC on 03/03: Hgb 8.6 and Hct 23.6 * Blood type: O+ * Consult GI, EGD/colonoscopy on 02/28: * Impression: Esophagitis noted rule out Syeda, pangastritis, colon polyps, diverticulosis. * Plan: Await biopsies, monitor labs, repeat CEA, EGD and colonoscopy in one year. Medications: * NS 1,000 ml at 150 ml/hr. * Protonix 40 mg daily IV. (2) Abdominal pain ICD Codes: R10.9 - Unspecified abdominal pain Status: Acute Plan: Patient with new onset epigastric, right upper and lower quadrant abdominal pain with positive Lee sign. Patient also with LFT elevation and history consistent with possible alcoholic liver disease. On admission, patient met severe sepsis criteria with tachycardia and leukocytosis. Suspected source is likely related to his biliary system concerning for cholangitis with a lactic acid of 2.0 and platelets of 80. Differential diagnosis: * Pancreatitis versus cholecystitis versus cholangitis versus appendicitis versus malignancy Imaging/Labs/Orders: * Gallbladder ultrasound: Hepatomegaly with diffusely heterogeneous echotexture. There is hepatofugal flow in the main portal vein with trace ascites consistent with portal hypertension. Gallbladder is contracted with gallbladder wall thickening. Gallbladder wall thickening is commonly seen in patients with liver disease. Auto Service Dispatcher reports positive sonographic Lee sign. Consider HIDA scan for evaluation of cystic duct patency if there is significant continued clinical concern regarding cholecystitis. * Lower abdominal ultrasound: No ascites seen. * Abdominal/Pelvis CT: Hepatomegaly. Minimal ascites. Scattered uncomplicated colonic diverticulosis. Stable 15 mm right renal cyst. * Abdomen MRI: There is hepatomegaly with liver measuring 26.4 cm in length. There is a very coarse reticular nodular pattern throughout the entire liver on the postcontrast images characteristic of hepatocellular disease such as cirrhosis. This coarse pattern suggesting regenerating nodules related to cirrhosis. If clinically indicated, recommend liver biopsy for correlation. The rest of the MRI of the upper abdomen is unremarkable. * MRCP: No ductal dilatation or evidence of choledocholithiasis or focal biliary ductal abnormality. Cirrhotic liver with numerous focal lesions predominantly in the left lobe of the liver with a dominant segment 4 lesions measuring up to 2.8 cm. Recommended formal liver mass MRI examination for better evaluation. Trace ascites. * Troponin: 0.07 -> 0.06 -> 0.06 -> 0.06 * BNP: 75 * Lipase: 1488 -> 1198 * Lactic acid: 2.0 -> 4.0 -> 2.9 (03/02) * Ammonia: 88 - >104 (03/01) * LDH: 953 * Total CrK: 359 * Hepatitis panel: Negative * AFP 2.8 * CEA 5781.4 * CA-19-9 587.5 * CA-125 42.9 * PSA 0.55 * Alpha 1 antitrypsin: Pending * Ceruloplasmin: Pending * AST: 217 -> 175 -> 165 -> 162 -> 171 -> 182 _. 217 (03/03) * ALT: 149 -> 118 -> 115 -> 93 -> 95 -> 97 -> 109 (03/03) * Alk Phos: 367 -> 292 -> 265 -> 225 -> 229 -> 189 (03/03) * Total Bilirubin: 6.6 -> 6.5 -> 6.5 - > 8.9 -> 9.5 -> 10.5 -> 10.7 (03/03) * GI consulted, MRCP on 02/26 and EGD/colonoscopy on 02/28. * Gen. surgery consulted, no surgical indication at this time. * Diet: NPO after midnight with PO meds. Medications: * Zosyn 3.375mg q6hr IV (02/25- ). * Vancomycin 1,750 mg q12hr IV (03/02 - ) * Oxycodone 5mg q4hr PO PRN Pain 1-5. * Oxycodone 10mg q4hr PO PRN Pain 6-10. * Morphine 4mg q3hr IV PRN Breakthrough Pain. (3) Transaminitis ICD Codes: R74.0 - Nonspecific elevation of levels of transaminase and lactic acid dehydrogenase [LDH] Status: Acute Plan: Patient with right upper quadrant pain with increasing liver enzymes. * See Plan for Abdominal pain (4) Thrombocytopenia ICD Codes: D69.6 - Thrombocytopenia, unspecified Status: Acute Plan: Platelet count on 03/03: 118. Differential diagnosis: * Liver disease Lab/Orders: * Monitor CBC. * Monitor bleeding. Orders: * Patient received 3 unitw of Leuk-redu pheresis platelets and 6 units of fresh frozen plasma. (5) Lower extremity edema ICD Codes: R60.0 - Localized edema Status: Resolved Plan: Patient with new-onset lower extremities edema without clinical signs of DVT. Patient endorses no history of CHF and reports a [facility] Differential diagnosis: * CHF versus liver failure versus malignancy Labs/Imaging: * BNP: 75 * Chest x-ray: No acute cardiopulmonary disease. Medications: * Spironolactone 50mg BID PO. * Lasix 40 mg BID IV. (6) Tobacco abuse ICD Codes: Z72.0 - Tobacco use Status: Chronic Plan: Patient with current 1.5 packs per day smoking history Medications: * Nicotine patch 14mg to be changed nightly. (7) Alcohol abuse ICD Codes: F10.10 - Alcohol abuse, uncomplicated Status: Chronic Plan: Patient with history of alcohol abuse, drinking up to 6 beers per day. Patient states he has not had an alcoholic beverage since being discharged after prior hospitalization, 01/22/17. No prior history of alcohol withdrawal or DTs. Labs/Orders: * Ethyl alcohol: Less than 3. * Tox screen negative. * [facility] protocol in place. (8) GERD (gastroesophageal reflux disease) ICD Codes: K21.9 - Gastro-esophageal reflux disease without esophagitis Status: Chronic Plan: Patient with history of GERD Medication: * Protonix 40 mg daily IV. (9) HTN (hypertension) ICD Codes: I10 - Essential (primary) hypertension Status: Chronic Plan: Patient with a essential hypertension. Medications: * Continue home lisinopril 40 mg PO daily. * Clonidine 0.1 mg q6hr PO PRN BP greater than 180/110. (10) Chronic lower back pain ICD Codes: M54.5 - Low back pain; G89.29 - Other chronic pain Status: Chronic Plan: Patient with chronic lower back pain. Medications: * Continue home meloxicam 7.5mg PO daily and gabapentin 300mg PO TID. * Hold methocarbamol. (11) COPD (chronic obstructive pulmonary disease) ICD Codes: J44.9 - Chronic obstructive pulmonary disease, unspecified Status: Chronic Plan: Patient with COPD without current exacerbation symptoms. Medications: * Continue home Spiriva and Symbicort inhalers. * DuoNeb q6hr PRN Shortness of breath. (12) Nutrition, metabolism, and development symptoms ICD Codes: R63.8 - Other symptoms and signs concerning food and fluid intake Status: Acute Plan: Fluids: * No fluids indicated due to possible fluid overload causing respiratory distress. Diet: * NPO after midnight. Electrolytes: * Monitor and replete as necessary. (13) Surgical contraindication to deep vein thrombosis (DVT) prophylaxis ICD Codes: Z53.09 - Procedure and treatment not carried out because of other contraindication Status: Acute Plan: Pharmacological DVT prophylaxis held due to possible surgical intervention plus he has active bleed. Orders: * SCDs - not in place. Patient ambulating well. (Patrizia Mcenill MD R1) Problem Qualifiers (1) GERD (gastroesophageal reflux disease): Qualified Codes: K21.9 - Gastro-esophageal reflux disease without esophagitis (2) HTN (hypertension): Qualified Codes: I10 - Essential (primary) hypertension (3) Chronic lower back pain: Qualified Codes: M54.5 - Low back pain; G89.29 - Other chronic pain (4) COPD (chronic obstructive pulmonary disease): Qualified Codes: J44.9 - Chronic obstructive pulmonary disease, unspecified Patrizia Mcneill MD R1 Mar 03, 2017 18:06 Olayinka Lange MD Mar 04, 2017 10:15
--- NOTE | 2017-03-03 19:28 | MB ---
cc: DIXIE MENDOZA MD DATE OF CONSULTATION 02/01/17 REASON FOR CONSULTATION Patient with enlarged liver and a markedly elevated CEA. PATIENT PROFILE The patient is a 56-year old white male. He has been three times and . He lives with a male roommate. He resides in [place], [place]. He has two children, a son living in [place] and daughter living in [place]. He has not worked for the past six months. Prior to this, he was employed as a [employer]. He has smoked two packs of cigarettes per day since youth. He has approximately four drinks a day and at times would drink more than this. In terms of activities, he enjoys motorcycles. HISTORY OF PRESENT ILLNESS The patient is a 56-year-old male. He is acutely ill. He is wearing a C-PAP mask. He was only able to take the mask off for a very brief period of time to talk and half of the conversation took place with a mask on, the other half with it off. He indicates that he has been ill for several months and during the past three weeks has become terribly ill, weak and short of breath. He has had increasing abdominal swelling. He had an episode of hyponatremia requiring hospitalization and, in looking back over previous records, he presented with a sodium of 117 on 01/21/2017. He was discharged and seen at the [facility] at some point. His immediate admission to the hospital took place on 02/25 when he presented with multiple complaints. This also included constipation, blood in his stool, increasing edema, abdominal distension, right-sided upper abdominal pain. He underwent a number of studies on 02/25. He had an LDH of 953, amylase 305. The following day the BUN was 17, creatinine 0.54, ALT 175, ALT 118, alk phos 292 and total bilirubin of 6.5. Today on 03/03, he has a bilirubin of 10.7. He had a serum ammonia of 104 on 03/01/2017. He has undergone multiple diagnostic procedures. On 02/25/2017, he had a CT abdomen and pelvis and was found to have hepatomegaly, minimal ascites and colonic diverticulosis. A cholangiopancreatography MRI on 02/26 showed a cirrhotic liver with numerous focal lesions predominating in left lobe of the liver measuring up to 2.8 cm. A formal MRI of the liver was performed on February 26, the liver was 26 cm. There was a very coarse reticular nodular pattern suggesting regenerating nodules related to cirrhosis. A CT angiogram on 03/01 showed no evidence of pulmonary embolism. There was hilar and mediastinal adenopathy measuring up to 3.2 cm. Of concern for malignancy. There was multifocal interstitial lung disease bilaterally, primarily involving the upper lobes. Laboratory studies included a CEA of 5801 on 02/28/2017 and on 02/26 it was 5781. CA 19-9 is 587. PSA is 0.55, alpha-fetoprotein is 2.8. The patient has had an upper and lower endoscopy by Dr. Oliveros on 02/28/2017 showing esophagitis, castellano gastritis, colonic polyps and diverticulosis. The biopsy of the stomach showed reactive gastropathy. The esophagus showed squamous mucosa with no significant histopathologic abnormalities. The transverse colon included a tubular adenoma and there was no malignancy identified. Other studies include a hemoglobin of 8, white count 8200, platelets 118,000. The patient received a platelet transfusion as well as fresh frozen plasma. Platelets have been as low as 40,000 on 03/03. He had a prolonged PT and PTT. On 03/02, the PT was 20, PTT 44. He has had respiratory deterioration. He is now requiring a C-PAP and cannot exist for very long without the oxygen and C-PAP. PAST SURGICAL HISTORY 1. Abdominal hernia repair 2. Right inguinal hernia repair. 3. Tonsillectomy. PAST MEDICAL HISTORY 1. Hypertension 2. COPD 3. Alcohol abuse 4. Longstanding tobacco, two packs a day. ALLERGIES No known allergies. MEDICATIONS Prior to admission 1. Gabapentin 2. Lisinopril 3. Meloxicam 4. Omeprazole 5. Spiriva 6. Methocarbamol. FAMILY HISTORY Mother and father living, two brothers living. No history of cancer. REVIEW OF SYSTEMS No change in vision or hearing. No chest pain. He has significant shortness of breath and global weakness. He has abdominal swelling, bloating, early satiety, decreased appetite, right upper quadrant pain. He has had blood in his stool. He has had difficulty urinating, stream has been poor. He has noted increasing edema in lower extremities. PHYSICAL EXAMINATION GENERAL: An acutely and chronically ill-appearing male. He is short of breath at rest and it is very difficult for him to finish two sentences. VITAL SIGNS: Blood pressure is 140/80, respiratory rate is 24, pulse 100, afebrile. O2 sat 94% on the rebreather. HEENT: Head is normocephalic. Sclerae are mildly icteric. No adenopathy. HEART: Regular rhythm. LUNGS: Diffuse wheezes bilaterally. ABDOMEN: Markedly distended. Liver 7 or 8 cm below right costal margin and tender. No obvious ascites. EXTREMITIES: 2 to 3+ edema. MUSCULOSKELETAL: Muscle wasting. NEUROLOGIC: Generalized but nonfocal weakness. SKIN: Intact. Cognition, affect normal and appropriate for circumstances. ASSESSMENT The patient is a 56-year-old male. He has a markedly elevated CEA of 5800 on 02/28. He has massive enlargement the liver. He has hilar and mediastinal adenopathy. The colonoscopy and upper endoscopy were negative for malignancy. I suspect that he has a lung cancer. It would not surprise me if he has a small cell cancer given his original presentation with hyponatremia. If he was stable, the next step would be to do a liver biopsy to establish a diagnosis and offer treatment. The problem is this man is acutely ill. He is short of breath at rest. He is on a C-PAP and I have spoken with the critical care physician, Dr. Valentino Rhoades, and we both feel that he is too unstable for liver biopsy. I believe that he is near and probably has days to weeks remaining. In order to offer treatment, I would need a biopsy of the liver and it is unlikely that he would be able to survive treatment even if this was a small cell cancer of the lung which is sensitive to chemotherapy. Unfortunately, it appears to be too little too late. RECOMMENDATIONS 1. Palliative care consult. 2. I told him he should get his family here to see him as he may not have much time. 3. If he stabilizes and liver biopsy is safe, then that would be the next step. MD DOUG Hoffman/ /6:47 PM /7:03 PM [facility]
[2017-03-03] MEDS: PANTOPRAZOLE SODIUM 40 MG VIAL IV PUSH SCH (20:54)
[2017-03-03] MEDS: REMOVE OLD PATCH T-DERMAL SCH (21:00)
[2017-03-04] VITALS (15 sets, daily range): BP systolic 135–163; BP diastolic 75–89; PULSE 104–124; RESP 23–28; TEMP 97.5–98; O2SAT 50–96
[2017-03-04] MEDS: POTASSIUM CHLOR 20 MEQ PREMIX 100 ML IV PRN ×3 (01:18→06:48)
[2017-03-04] MEDS: PIPERACIL-TAZO 3.375 GM PREMIX 50 ML IV SCH ×4 (03:01→22:42)
[2017-03-04] MEDS: ALBUMIN 25% INJ 100 ML IV SCH ×2 (03:01→14:55)
[2017-03-04] MEDS: RESP: ALBUTEROL 2.5 MG/IPRATROPIUM 0.5 MG NEB (SCH) NEB ×5 (04:28→20:00)
[2017-03-04 05:12] LABS: AUTOMATED NEUTROPHIL # 8.9 TH/MM3 (1.8-7.7); BASOPHIL % 0.4 % (0.0-2.0); EOSINOPHIL % 0.1 % (0.0-4.0); HEMATOCRIT 22.1 % (39.0-51.0); LYMPH % 11.4 % (9.0-44.0); LYMPHOCYTE # 1.2 TH/MM3 (1.0-4.8); MEAN CELL VOLUME 95.4 FL (80.0-100.0); MEAN CORPUSCULAR HGB CONC 35.6 % (32.0-36.0); MONO % 4.8 % (0.0-8.0); NEUT % 83.3 % (16.0-70.0); PLATELET COUNT 59 TH/MM3 (150-450); RED BLOOD COUNT 2.32 MIL/MM3 (4.50-5.90); RED CELL DISTRIBUTION WIDTH 18.5 % (11.6-17.2); WHITE BLOOD COUNT 10.7 TH/MM3 (4.0-11.0)
[2017-03-04 05:24] LABS: HEMO FLAGS AUTO DIFF
--- NOTE | 2017-03-04 05:26 | RADRPT ---
EXAM DATE/TIME: 03/04/2017 04:19 [place] COMPARISON: CHEST SINGLE AP, March 03, 2017, 8:36. INDICATIONS : Respiratory disease. MEDICAL HISTORY : Hypertension. Chronic obstructive pulmonary disease. SURGICAL HISTORY : None. ENCOUNTER: Subsequent ACUITY: 1 week PAIN SCORE: Non-responsive. LOCATION: Bilateral chest FINDINGS: Single AP view of the chest. Bilateral moderate severity pulmonary parenchymal opacity unchanged. Car diac silhouette is mildly enlarged but unchanged. No evidence of pleural effusion or pneumothorax. CONCLUSION: No significant neural change with persistent bilateral pulmonary consolidation. Nathanael Mcneil MD on March 04, 2017 at 5:24 Board Certified Radiologist. This report was verified electronically.
[2017-03-04 05:43] LABS: ALT (GPT) 116 U/L (12-78)
[2017-03-04 05:45] LABS: ANION GAP 12 MEQ/L (5-15); AST (GOT) 233 U/L (15-37); BICARBONATE 26.7 MEQ/L (21.0-32.0); BLOOD UREA NITROGEN 17 MG/DL (7-18); CHLORIDE 107 MEQ/L (98-107); GLOMERULAR FILTRATION RATE 98 ML/MIN (>89); MAGNESIUM 1.8 MG/DL (1.5-2.5); POTASSIUM 3.4 MEQ/L (3.5-5.1); SODIUM (NA) 146 MEQ/L (136-145)
[2017-03-04 05:46] LABS: ALKALINE PHOSPHATASE 176 U/L (45-117); LDH SERUM 965 U/L (87-241)
[2017-03-04 07:00] LABS: BANDS 6 % (0-6); CORRECTED NUCLEATED RBC 16 /100 WBC (0-0); METAMYELOCYTES 4 % (0-1); NEUTROPHIL # MANUAL DIFF 9.3 TH/MM3 (1.8-7.7); POLYS (SEG NEUTROPHILS) 77 % (16-70); WBC DIFF SAMPLE 100
[2017-03-04 07:01] LABS: PLATELET ESTIMATE SMEAR LOW (NORMAL); PLATELET MORPHOLOGY NORMAL (NORMAL)
[2017-03-04 07:02] LABS: SCAN/DIFF FINAL DIFF MANUAL
[2017-03-04] MEDS: LACTULOSE SYRUP 20 GM/30 ML CUP PO SCH ×2 (09:00→21:00)
[2017-03-04] MEDS: BUDESONIDE-FORMOTEROL 80/4.5 MCG INHALER INH SCH ×2 (09:00→21:00)
[2017-03-04] MEDS: BUDESONIDE-FORMOTEROL 160/4.5 MCG INHALER INH SCH ×2 (09:00→21:00)
[2017-03-04] MEDS: TIOTROPIUM BROMIDE 18 MCG INH INH SCH (09:00)
--- NOTE | 2017-03-04 09:24 | PD.ONC.PN ---
Subjective Subjective Remarks remains frail, bedridden, sob and requires CPAP Objective Data Date Time Temp Pulse Resp B/P (MAP) Pulse Ox O2 Delivery O2 Flow Rate FiO2 03/04/17 08:25 50 03/04/17 08:25 93 BiPAP 50 03/04/17 06:00 118 03/04/17 04:29 91 40 03/04/17 04:00 98.0 110 26 145/77 (99) 93 03/04/17 04:00 117 03/04/17 02:00 124 03/04/17 00:00 104 03/04/17 00:00 98.0 104 23 135/75 (95) 95 03/03/17 23:42 94 40 03/03/17 22:00 107 03/03/17 20:47 94 40 03/03/17 20:00 97.5 104 25 138/73 (94) 94 03/03/17 20:00 104 03/03/17 19:00 94 Bi-Pap 40 03/03/17 18:00 109 03/03/17 17:00 97.7 103 24 140/80 94 03/03/17 16:25 96 40 03/03/17 16:00 96 Bi-Pap 40 03/03/17 16:00 97.9 106 24 146/87 (106) 95 03/03/17 16:00 106 03/03/17 14:17 97.5 105 28 140/84 94 03/03/17 14:00 100 03/03/17 13:12 97.9 95 18 144/78 96 03/03/17 12:24 95 50 03/03/17 12:00 90 03/03/17 12:00 98.0 17 17 151/78 (102) 97 03/03/17 10:00 106 03/04/17 03/04/17 03/04/17 07:00 15:00 23:00 Intake Total 1340 ml Output Total 2425 ml Balance -1085 ml Result Diagram: 03/04/17 0500 03/04/17 0500 Laboratory Results Laboratory Tests Test 03/03/17 14:05 03/03/17 21:00 03/04/17 05:00 White Blood Count 8.2 TH/MM3 10.7 TH/MM3 Red Blood Count 2.36 MIL/MM3 2.32 MIL/MM3 Hemoglobin 8.0 GM/DL 7.9 GM/DL Hematocrit 22.6 % 22.1 % Mean Corpuscular Volume 96.0 FL 95.4 FL Mean Corpuscular Hemoglobin 33.8 PG 34.0 PG Mean Corpuscular Hemoglobin Concent 35.2 % 35.6 % Red Cell Distribution Width 20.2 % 18.5 % Platelet Count 118 TH/MM3 59 TH/MM3 Mean Platelet Volume 11.0 FL 8.6 FL Neutrophils (%) (Auto) 82.2 % 83.3 % Lymphocytes (%) (Auto) 11.2 % 11.4 % Monocytes (%) (Auto) 6.1 % 4.8 % Eosinophils (%) (Auto) 0.3 % 0.1 % Basophils (%) (Auto) 0.2 % 0.4 % Neutrophils # (Auto) 6.8 TH/MM3 8.9 TH/MM3 Lymphocytes # (Auto) 0.9 TH/MM3 1.2 TH/MM3 Monocytes # (Auto) 0.5 TH/MM3 0.5 TH/MM3 Eosinophils # (Auto) 0.0 TH/MM3 0.0 TH/MM3 Basophils # (Auto) 0.0 TH/MM3 0.0 TH/MM3 CBC Comment AUTO DIFF AUTO DIFF Differential Total Cells Counted 100 100 Neutrophils % (Manual) 75 % 77 % Band Neutrophils % 3 % 6 % Lymphocytes % 13 % 8 % Monocytes % 7 % 5 % Neutrophils # (Manual) 6.6 TH/MM3 9.3 TH/MM3 Metamyelocytes 1 % 4 % Promyelocytes 1 % Nucleated Red Blood Cells 13 /100 WBC 16 /100 WBC Differential Comment FINAL DIFF MANUAL FINAL DIFF MANUAL Platelet Estimate LOW LOW Platelet Morphology Comment NORMAL NORMAL Prothrombin Time 17.1 SEC Prothromb Time International Ratio 1.7 RATIO Potassium Level 2.7 MEQ/L 3.4 MEQ/L Blood Urea Nitrogen 17 MG/DL Creatinine 0.82 MG/DL Random Glucose 105 MG/DL Total Protein 5.7 GM/DL Albumin 3.0 GM/DL Calcium Level 8.9 MG/DL Magnesium Level 1.8 MG/DL Alkaline Phosphatase 176 U/L Aspartate Amino Transf (AST/SGOT) 233 U/L Alanine Aminotransferase (ALT/SGPT) 116 U/L Lactate Dehydrogenase 965 U/L Total Bilirubin 13.0 MG/DL Sodium Level 146 MEQ/L Chloride Level 107 MEQ/L Carbon Dioxide Level 26.7 MEQ/L Anion Gap 12 MEQ/L Estimat Glomerular Filtration Rate 98 ML/MIN Imaging Studies Last 24 hours Impressions Chest X-Ray 03/04/17 0600 Signed Impressions: Service Date/Time: Saturday, March 04, 2017 04:19 - CONCLUSION: No significant neural change with persistent bilateral pulmonary consolidation. Nathanael Mcneil MD Administered Medications Medications (Trade) Dose Ordered Sig/Jailyn Route PRN Reason Start Time Stop Time Status Last Admin Dose Admin Sodium Chloride (NS Flush) 2 ml UNSCH PRN IV FLUSH FLUSH AFTER USING IV ACCESS 02/25/17 09:45 02/28/17 14:00 Sodium Chloride (NS Flush) 2 ml BID IV FLUSH 02/25/17 10:00 03/03/17 09:38 Budesonide/ Formoterol Fumarate (Symbicort 80-4.5 Mcg Inh) 2 puff Q12HR INH 02/25/17 21:00 03/03/17 20:55 Gabapentin (Neurontin) 300 mg TID PO 02/25/17 13:00 Future hold 03/03/17 18:30 Sodium Chloride (Sodium Chloride) 1 gm BID PO 02/25/17 21:00 Future Hold 03/02/17 10:15 Tiotropium [place] (Spiriva Inh) 18 mcg DAILY INH 02/26/17 09:00 03/03/17 14:05 Lisinopril (Prinivil) 40 mg DAILY PO 02/26/17 09:00 Future hold 03/03/17 16:33 Nicotine (Habitrol 14 Mg Patch.24 Hr) 1 patch DAILY T-DERMAL 02/25/17 12:00 03/03/17 09:41 Miscellaneous Information 1 HS T-DERMAL 02/25/17 21:00 03/03/17 21:00 Oxycodone HCl (Roxicodone) 10 mg Q4H PRN PO PAIN SCALE 6 TO 10 02/25/17 11:30 02/28/17 08:33 Morphine Sulfate (Morphine Inj) 2 mg Q3H PRN IV PUSH Pain 6-10;if unable to take PO 02/25/17 11:30 03/04/17 04:00 Oxycodone HCl (Roxicodone) 5 mg Q4H PRN PO PAIN SCALE 3 TO 5 02/25/17 11:30 03/01/17 09:15 Senna/Docusate Sodium (Pauline-Colace) 1 tab BID PO 02/25/17 12:00 Future Hold 02/25/17 12:21 Clonidine (Catapres) 0.1 mg Q6H PRN PO SBP>180, DBP>110 02/25/17 12:30 02/27/17 22:53 Lactulose (Lactulose Liq) 30 ml BID PO 02/25/17 13:30 03/01/17 22:19 Albumin Human 100 ml @ 60 mls/hr Q12H IV 02/25/17 14:00 03/04/17 03:01 Piperacillin Sod/ Tazobactam Sod 50 ml @ 100 mls/hr Q6H IV 02/25/17 15:00 03/04/17 03:01 Potassium Chloride 100 ml @ 50 mls/hr Q2H PRN IV For Potassium 2.8 - 3.2 mEq/L 03/01/17 22:00 03/04/17 06:48 Potassium Bicarb/ Potassium Chloride (K-Lyte Cl Eff) 50 meq UNSCH PRN PO For Potassium 3.3 - 3.5 mEq/L 03/01/17 22:00 03/02/17 03:38 Vancomycin HCl 1750 mg/Sodium Chloride 517.5 ml @ 250 mls/hr Q12H IV 03/02/17 10:00 03/03/17 23:04 Spironolactone (Aldactone) 50 mg BID@,18 PO 03/03/17 09:00 03/03/17 18:30 Furosemide (Lasix Inj) 40 mg BID@ IV PUSH 03/03/17 09:00 03/03/17 18:30 Potassium Chloride (KCl) 20 meq Q12HR PO 03/03/17 09:00 03/03/17 20:54 Albuterol/ Ipratropium (Duoneb Neb) 1 ampule Q4HR NEB NEB 03/03/17 12:00 03/04/17 08:24 Methylprednisolone Sodium Succinate (SoluMEDROL INJ) 60 mg Q12HR IV PUSH 03/03/17 09:45 03/03/17 20:54 Pantoprazole Sodium (Protonix Inj) 40 mg Q12H IV PUSH 03/03/17 21:00 03/03/17 20:54 Objective Remarks GENERAL: ill, sob and bloated SKIN: Warm and dry. HEAD: Normocephalic. EYES: No scleral icterus. No injection or drainage. NECK: Supple, trachea midline. No JVD or lymphadenopathy. LYMPHATIC: No adenopathy. CARDIOVASCULAR: Regular rate and rhythm without murmurs. RESPIRATORY: wheezes GASTROINTESTINAL: Abdomen distended with enlarged liver which is tender EXTREMITIES: +2-3 edema MUSCULOSKELETAL: muscle wasting NEUROLOGICAL: global weakness PSYCHIATRIC: able to converse well Assessment/Plan Assessment 1: He is very ill with continued deterioration with a rising bilirubin and LDH. Given the elevated CEA as well as the radiographic findings I have no doubt that he has a carcinoma. He remains too ill to proceed with a liver bx and even if I made a diagnosis it it highly unlikely he would tolerate treatment. I spoke to him about CPR and the gravity of his illness and the fact that little time remains. He does understand. I have also spoken with Dr. Lange and Dr. Rhoades as well and every one is in agreement. Await consult from palliative care and regret I can "fix the problem". I will see PRN. thanks. Woo Vora MD Mar 04, 2017 09:24
[2017-03-04] MEDS ORDERED: PHARMACY ORDERED LAB ONE (09:45)
--- NOTE | 2017-03-04 10:02 | HHI.FPPN ---
Subjective Remarks Patient was seen and evaluated this morning. He complains of increased shortness of breath despite BiPAP. He reports minimal abdominal pain. His stool continues to be bloody liquid consistency. Patient denies chest pain, heart palpitations, nausea/vomiting and constipation. All questions were answered. Medical team spoke to Dr. Vora, oncology, who is convinced that patient has carcinoma. Due to current patient's condition, biopsy and/or initiation of treatment would simply kill patient quicker. Dr. Vora also spoke to patient about code status; patient remains full code at this time. Palliative care has been consulted. Per nurse, patient's children are aware of the situation. She will place another call to daughter today to provide updates. (Patrizia Mcniell MD R1) Objective Vitals Vital Signs Date Time Temp Pulse Resp B/P (MAP) Pulse Ox O2 Delivery O2 Flow Rate FiO2 03/04/17 08:25 50 03/04/17 08:25 93 BiPAP 50 03/04/17 06:00 118 03/04/17 04:29 91 40 03/04/17 04:00 98.0 110 26 145/77 (99) 93 03/04/17 04:00 117 03/04/17 02:00 124 03/04/17 00:00 104 03/04/17 00:00 98.0 104 23 135/75 (95) 95 03/03/17 23:42 94 40 03/03/17 22:00 107 03/03/17 20:47 94 40 03/03/17 20:00 97.5 104 25 138/73 (94) 94 03/03/17 20:00 104 03/03/17 19:00 94 Bi-Pap 40 03/03/17 18:00 109 03/03/17 17:00 97.7 103 24 140/80 94 03/03/17 16:25 96 40 03/03/17 16:00 96 Bi-Pap 40 03/03/17 16:00 97.9 106 24 146/87 (106) 95 03/03/17 16:00 106 03/03/17 14:17 97.5 105 28 140/84 94 03/03/17 14:00 100 03/03/17 13:12 97.9 95 18 144/78 96 03/03/17 12:24 95 50 03/03/17 12:00 90 03/03/17 12:00 98.0 151/78 (102) 97 03/03/17 10:00 106 I/O 03/03/17 03/03/17 03/03/17 03/04/17 03/04/17 03/04/17 07:00 15:00 23:00 07:00 15:00 23:00 Intake Total 2312 ml 356 ml 2797 ml 1340 ml Output Total 575 ml 3100 ml 2425 ml Balance 1737 ml 356 ml -303 ml -1085 ml Intake Oral 240 ml 360 ml 480 ml IV Total 1850 ml 1250 ml 860 ml FFP 341 ml 977 ml Platelets 222 ml 200 ml Blood Product IV Normal Saline Flush 0 ml 15 ml 10 ml Output Urine Total 575 ml 3100 ml 2050 ml Stool Total 375 ml # Voids 1 # Bowel Movements 2 0 (Patrizia Mcneill MD R1) Result Diagram: 03/04/17 0500 03/04/17 0500 Imaging Last Impressions Chest X-Ray 03/04/17 0600 Signed Impressions: Service Date/Time: Saturday, March 04, 2017 04:19 - CONCLUSION: No significant neural change with persistent bilateral pulmonary consolidation. Nathanael Mcneil MD CT Angiography 03/01/17 0000 Signed Impressions: Service Date/Time: Wednesday, March 01, 2017 21:13 - CONCLUSION: 1. Negative for pulmonary embolism. 2. Hilar and mediastinal adenopathy measuring up to 3.2 cm and the left hilum. Finding is concerning for underlying malignancy. 3. Multifocal airspace disease in both lungs space predominantly in the upper lobes. Primary differential diagnosis is multifocal pneumonia. Small bilateral pleural effusions Prashant Castro MD Abdomen Ultrasound 03/01/17 0000 Signed Impressions: Service Date/Time: Wednesday, March 01, 2017 17:06 - CONCLUSION: Trace ascites noted. Seun Hawkins MD Cholangiopancreatography MRI 02/26/17 0000 Signed Impressions: Service Date/Time: Sunday, February 26, 2017 10:40 - CONCLUSION: 1. No ductal dilatation or evidence for choledocholithiasis or focal biliary ductal abnormality. 2. Cirrhotic liver with numerous focal lesions predominately in the left lobe of the liver with a dominant segment 4 lesion measuring up to 2.8 cm. Recommend formal liver mass MRI examination for better evaluation. 3. Trace ascites. Edouard Villatoro MD Abdomen MRI 02/26/17 0000 Signed Impressions: Service Date/Time: Sunday, February 26, 2017 13:52 - CONCLUSION: 1. There is hepatomegaly with liver measuring 26.4 cm in length. 2. There is a very coarse reticular nodular pattern throughout the entire liver on the postcontrast images characteristic of hepatocellular disease such as cirrhosis. The coarse pattern suggesting regenerating nodules related to cirrhosis. If clinically indicated, recommend liver biopsy for correlation. 3. The rest of the MRI of the upper abdomen is unremarkable. Keegan Youngblood MD Gall Bladder Ultrasound 02/25/17 0000 Signed Impressions: Service Date/Time: Saturday, February 25, 2017 08:06 - CONCLUSION: 1. Hepatomegaly with diffusely heterogeneous echotexture. There is hepatofugal flow in the main portal vein with trace ascites consistent with portal hypertension. 2. Gallbladder is contracted with gallbladder wall thickening. Gallbladder wall thickening is commonly seen in patients with liver disease. Flag Decorator reports a positive sonographic Lee's sign. Consider HIDA scan for evaluation of cystic duct patency if there is significant continued clinical concern regarding cholecystitis. Edouard Villatoro MD Abdomen/Pelvis CT 02/25/17 0000 Signed Impressions: Service Date/Time: Saturday, February 25, 2017 19:53 - CONCLUSION: 1. Hepatomegaly. 2. Minimal ascites. 3. Scattered uncomplicated colonic diverticulosis. 4. Stable 15 mm right renal cyst. Casey Lopez MD Objective Remarks GENERAL: Obese male lying in bed. He is in obvious respiratory distress. On BiPAP. SKIN: Warm and dry. No lesions or trauma. HEENT: Atraumatic, normocephalic with extraocular motion intact. Severe scleral icterus. Moist mucous membranes. No rhinorrhea. No lymphadenopathy or JVD appreciated. ENT exam however limited due to BiPAP mask. CARDIOVASCULAR: Regular rate and rhythm without murmurs, gallops, or rubs. RESPIRATORY: Diffuse wheezes as well as coarse crackles heard throughout all anterior lung russell. GASTROINTESTINAL: Abdomen tense, protuberant with positive bowel sounds. Tenderness upon palpation in all four quadrants. No masses appreciated. MUSCULOSKELETAL: Bilateral lower extremity edema; 2+ and pitting, extending up to knee. NEUROLOGICAL: Alert and oriented 3. No tremor at baseline. Normal speech and judgment. Procedures MRCP on 02/25. EGD and colonoscopy on 02/28. Medications and IVs Current Medications Medications (Trade) Dose Ordered Sig/Jailyn Route Start Time Stop Time Status Last Admin (NS Flush) 2 ml UNSCH PRN IV FLUSH 02/25/17 09:45 02/28/17 14:00 (NS Flush) 2 ml BID IV FLUSH 02/25/17 10:00 03/03/17 09:38 (Romazicon Inj) 0.2 mg Q1M PRN IV PUSH 02/25/17 09:45 (Ativan) 1 mg Q4H PRN PO 02/25/17 09:45 (Ativan Inj) 1 mg Q4H PRN IV PUSH 02/25/17 09:45 (Ativan) 2 mg Q2H PRN PO 02/25/17 09:45 (Ativan Inj) 2 mg Q2H PRN IV PUSH 02/25/17 09:45 (Ativan Inj) 2 mg Q1H PRN IV PUSH 02/25/17 09:45 (Ativan Inj) 2 mg Q15M PRN IV PUSH 02/25/17 09:45 (Symbicort 80-4.5 Mcg Inh) 2 puff Q12HR INH 02/25/17 21:00 03/03/17 20:55 (Neurontin) 300 mg TID PO 02/25/17 13:00 Future hold 03/03/17 18:30 (Sodium Chloride) 1 gm BID PO 02/25/17 21:00 Future Hold 03/02/17 10:15 (Spiriva Inh) 18 mcg DAILY INH 02/26/17 09:00 03/03/17 14:05 (Prinivil) 40 mg DAILY PO 02/26/17 09:00 Future hold 03/03/17 16:33 (Habitrol 14 Mg Patch.24 Hr) 1 patch DAILY T-DERMAL 02/25/17 12:00 03/03/17 09:41 Miscellaneous Information 1 HS T-DERMAL 02/25/17 21:00 03/03/17 21:00 (Zofran Inj) 4 mg Q6H PRN IVP 02/25/17 11:30 (Roxicodone) 10 mg Q4H PRN PO 02/25/17 11:30 02/28/17 08:33 (Morphine Inj) 1 mg Q3H PRN IV PUSH 02/25/17 11:30 (Morphine Inj) 2 mg Q3H PRN IV PUSH 02/25/17 11:30 03/04/17 04:00 (Morphine Inj) 4 mg Q3H PRN IV PUSH 02/25/17 11:30 (Roxicodone) 5 mg Q4H PRN PO 02/25/17 11:30 03/01/17 09:15 (Narcan Inj) 0.4 mg UNSCH PRN IV PUSH 02/25/17 11:30 (Pauline-Colace) 1 tab BID PO 02/25/17 12:00 Future Hold 02/25/17 12:21 (Milk Of Magnesia Liq) 30 ml Q12H PRN PO 02/25/17 11:30 (Senokot) 17.2 mg Q12H PRN PO 02/25/17 11:30 (Dulcolax Supp) 10 mg DAILY PRN RECTAL 02/25/17 11:30 (Duoneb Neb) 1 ampule Q6HR NEB PRN NEB 02/25/17 12:30 (Catapres) 0.1 mg Q6H PRN PO 02/25/17 12:30 02/27/17 22:53 (Vistaril) 50 mg HS PRN PO 02/25/17 12:30 (Lactulose Liq) 30 ml BID PO 02/25/17 13:30 03/01/17 22:19 Albumin Human 100 ml @ 60 mls/hr Q12H IV 02/25/17 14:00 03/04/17 03:01 (Nitrostat Sl) 0.4 mg Q5M PRN SL 02/25/17 13:30 Piperacillin Sod/ Tazobactam Sod 50 ml @ 100 mls/hr Q6H IV 02/25/17 15:00 03/04/17 03:01 Potassium Chloride 100 ml @ 50 mls/hr Q2H PRN IV 03/01/17 22:00 Potassium Chloride 100 ml @ 50 mls/hr Q2H PRN IV 03/01/17 22:00 03/04/17 06:48 (K-Lyte Cl Eff) 50 meq UNSCH PRN PO 03/01/17 22:00 03/02/17 03:38 Potassium Chloride 100 ml @ 25 mls/hr UNSCH PRN IV 03/01/17 22:00 Potassium Chloride 100 ml @ 50 mls/hr Q2H PRN IV 03/01/17 22:00 Magnesium Sulfate 4 gm/Sodium Chloride 100 ml @ 50 mls/hr UNSCH PRN IV 03/01/17 22:00 (Mag-Ox) 800 mg UNSCH PRN PO 03/01/17 22:00 Magnesium Sulfate 2 gm/Sodium Chloride 100 ml @ 50 mls/hr UNSCH PRN IV 03/01/17 22:00 (K-Phos) 2,000 mg Q4H PRN PO 03/01/17 22:00 Sodium Phosphate 30 mmol/Sodium Chloride 250 ml @ 42 mls/hr UNSCH PRN IV 03/01/17 22:00 (K-Phos) 2,000 mg UNSCH PRN PO/TUBE 03/01/17 22:00 Potassium Phosphate 30 mmol/ Sodium Chloride 260 ml @ 42 mls/hr UNSCH PRN IV 03/01/17 22:00 Pharmacy Profile Note 0 ml @ 0 mls/hr UNSCH OTHER 03/02/17 08:30 Vancomycin HCl 1750 mg/Sodium Chloride 517.5 ml @ 250 mls/hr Q12H IV 03/02/17 10:00 03/03/17 23:04 (Aldactone) 50 mg BID@,18 PO 03/03/17 09:00 03/03/17 18:30 (Lasix Inj) 40 mg BID@,18 IV PUSH 03/03/17 09:00 03/03/17 18:30 (KCl) 20 meq Q12HR PO 03/03/17 09:00 03/03/17 20:54 (Duoneb Neb) 1 ampule Q4HR NEB NEB 03/03/17 12:00 03/04/17 08:24 (SoluMEDROL INJ) 60 mg Q12HR IV PUSH 03/03/17 09:45 03/03/17 20:54 (Symbicort 160-4.5 Mcg Inh) 1 puff Q12HR INH 03/03/17 09:45 (Protonix Inj) 40 mg Q12H IV PUSH 03/03/17 21:00 03/03/17 20:54 (Patrizia Mcneill MD R1) Urinary Catheter: No (Patrizia Mcneill MD R1) Vascular Central Line Catheter: Yes (Patrizia Mcneill MD R1) A/P Assessment and Plan Mr. Jaimes is a 56-year-old male presenting to the ED with blood per rectum, epigastric, RUQ and RLQ pain as well as transaminitis. (Patrizia Mcneill MD R1) Attending Attestation Patient seen and examined. Case reviewed and discussed with the resident team. Agree with plan of care as discussed with me and documented in the resident note. (Olayinka Lange MD) Problem List: (1) Respiratory distress ICD Codes: R06.03 - Acute respiratory distress Status: Acute Plan: Patient continues with shortness of breath despite BiPAP. Differential diagnosis: * Pneumonia versus pulmonary edema versus fluid overload Labs/Microbiology/Imaging: * WBC: 13.1 -> 11 -> 9.7 -> 10 -> 8.9 -> 9.3 -> 9.5 -> 9.8 -> 8.6 -> 8.2 -> 10.7 (03/04) * Lactic acid: 2.0 -> 4.0 -> 2.9 (03/02) * BNP: 75 * Blood culture 02/25: No growth. * Legionella urinary antigen pending. * Pneumococcal urinary antigen pending. * Sputum culture and Gram stain pending. * Chest x-ray 03/04: No significant neural change with persistent bilateral pulmonary consolidation. * Chest x-ray 03/03: Worsening bilateral infiltrates. * Chest x-ray 03/02: Interstitial and alveolar opacities, likely multilobular pneumonia. * CT Angiography 03/01: Negative for pulmonary embolism. Hilar and mediastinal adenopathy measuring up to 3.2 cm and the left hilum. Finding is concerning for underlying malignancy. Multifocal airspace disease in both lung space predominantly in the upper lobes. Primary differential diagnosis multifocal pneumonia. Small bilateral pleural effusions. * Chest x-ray 02/25: No acute cardiopulmonary disease. Medications: * DuoNeb 1 ampule q4hr NEB. * Symbicort 80-4.5mcg 2 puff q12hr INH. * Spiriva Inh 18mcg daily INH. * Solu-Medrol 60mg q12hr IV. * Levofloxacin 750mg q24hr IV. * Zosyn 3.375mg q6hr IV (02/25- ). * Vancomycin 1,750 mg q12hr IV (03/02 - ) * Albumin 100ml q12hr IV. * Spironolactone 50mg BID PO. * Lasix 40 mg BID IV. (2) Lower GI bleed ICD Codes: K92.2 - Gastrointestinal hemorrhage, unspecified Status: Acute Plan: Patient continues with bloody diarrhea. Hemoglobin trending down. History on admission: Patient with three days of constipation, hard stools with bloody streaks, and other liquid based bloody stools. Negative family history. No prior episodes. Differential diagnosis: * Hemorrhoids versus diverticulitis versus colon cancer Studies/Labs/Orders: * FOBT positive per ED staff with external hemorrhoids on exam. * On admission: Hgb 14.3 and Hct 41.2 * On admission, coagulation studies: PT 14.7, INR 1.5, APTT 32.0 * CBC on 03/04: Hgb 7.9 and Hct 22.1 * Coagulation studies on 03/02: PT 20.7, INR 2.0, APTT 44.9 * Coagulation studies on 03/03: PT 17.1, INR 1.7 * Blood type: O+ * Consult GI, EGD/colonoscopy on 02/28: * Impression: Esophagitis noted rule out Syeda, pangastritis, colon polyps, diverticulosis. * Plan: Await biopsies, monitor labs, repeat CEA, EGD and colonoscopy in one year. * Monitor H&H. Transfuse to keep hemoglobin above 7. Medications: * Protonix 40 mg q12hr IV. (3) Abdominal pain ICD Codes: R10.9 - Unspecified abdominal pain Status: Acute Plan: Abdominal pain controlled. History on admission: Patient with new onset epigastric, right upper and lower quadrant abdominal pain with positive Lee sign. Patient also with LFT elevation and history consistent with possible alcoholic liver disease. On admission, patient met severe sepsis criteria with tachycardia and leukocytosis. Suspected source is likely related to his biliary system concerning for cholangitis with a lactic acid of 2.0 and platelets of 80. Differential diagnosis: * Pancreatitis versus cholecystitis versus cholangitis versus appendicitis versus malignancy Imaging/Labs/Orders: * Gallbladder ultrasound: Hepatomegaly with diffusely heterogeneous echotexture. There is hepatofugal flow in the main portal vein with trace ascites consistent with portal hypertension. Gallbladder is contracted with gallbladder wall thickening. Gallbladder wall thickening is commonly seen in patients with liver disease. Flag Decorator reports positive sonographic Lee sign. Consider HIDA scan for evaluation of cystic duct patency if there is significant continued clinical concern regarding cholecystitis. * Lower abdominal ultrasound: No ascites seen. * Abdominal/Pelvis CT: Hepatomegaly. Minimal ascites. Scattered uncomplicated colonic diverticulosis. Stable 15 mm right renal cyst. * Abdomen MRI: There is hepatomegaly with liver measuring 26.4 cm in length. There is a very coarse reticular nodular pattern throughout the entire liver on the postcontrast images characteristic of hepatocellular disease such as cirrhosis. This coarse pattern suggesting regenerating nodules related to cirrhosis. If clinically indicated, recommend liver biopsy for correlation. The rest of the MRI of the upper abdomen is unremarkable. * MRCP: No ductal dilatation or evidence of choledocholithiasis or focal biliary ductal abnormality. Cirrhotic liver with numerous focal lesions predominantly in the left lobe of the liver with a dominant segment 4 lesions measuring up to 2.8 cm. Recommended formal liver mass MRI examination for better evaluation. Trace ascites. * Troponin: 0.07 -> 0.06 -> 0.06 -> 0.06 * BNP: 75 * Lipase: 1488 -> 1198 * Lactic acid: 2.0 -> 4.0 -> 2.9 (03/02) * Ammonia: 88 - >104 (03/01) * LDH: 953 -> 965 (03/04) * Total CrK: 359 * Hepatitis panel: Negative * AFP 2.8 * CEA 5781.4 * CA-19-9 587.5 * CA-125 42.9 * PSA 0.55 * Alpha 1 antitrypsin: 143 * Ceruloplasmin: 37 * AST: 217 -> 175 -> 165 -> 162 -> 171 -> 182 -> 217 -> 233 (03/04) * ALT: 149 -> 118 -> 115 -> 93 -> 95 -> 97 -> 109 -> 116 (03/04) * Alk Phos: 367 -> 292 -> 265 -> 225 -> 229 -> 189 -> 176 (03/04) * Total Bilirubin: 6.6 -> 6.5 -> 6.5 - > 8.9 -> 9.5 -> 10.5 -> 10.7 -> 13 (03/04 ) * GI consulted, MRCP on 02/26 and EGD/colonoscopy on 02/28. * Gen. surgery consulted, no surgical indication at this time. * NG tube placement 03/04. * Diet: NPO except PO meds. Medications: * Zosyn 3.375mg q6hr IV (02/25- ). * Vancomycin 1,750 mg q12hr IV (03/02 - ) * Oxycodone 5mg q4hr PO PRN Pain 3-5. * Oxycodone 10mg q4hr PO PRN Pain 6-10. * Morphine 1mg q3hr IV PRN Pain 1-5; if unable to take PO. * Morphine 2mg q3hr IV PRN Pain 6-10; if unable to take PO. * Morphine 4mg q3hr IV PRN Breakthrough Pain. (4) Transaminitis ICD Codes: R74.0 - Nonspecific elevation of levels of transaminase and lactic acid dehydrogenase [LDH] Status: Acute Plan: Patient with right upper quadrant pain with increasing liver enzymes. * See Plan for Abdominal pain (5) Thrombocytopenia ICD Codes: D69.6 - Thrombocytopenia, unspecified Status: Acute Plan: Platelet count on 03/03: 59. Differential diagnosis: * Liver disease Lab/Orders: * Monitor CBC. * Monitor bleeding. Orders: * Patient received 3 unitw of Leuk-redu pheresis platelets and 6 units of fresh frozen plasma. * Transfuse platelets to keep count above 50. (6) Lower extremity edema ICD Codes: R60.0 - Localized edema Status: Acute Plan: Edema unchanged. Urine output improved after Lasix. History on admission: Patient with new-onset lower extremities edema without clinical signs of DVT. Patient endorses no history of CHF and reports a "[facility]" [facility]. Differential diagnosis: * CHF versus liver failure versus malignancy Labs/Imaging: * BNP: 75 * Chest x-ray: No acute cardiopulmonary disease. Medications: * Albumin 100ml q12hr IV. * Spironolactone 50mg BID PO. * Lasix 40 mg BID IV. (7) Tobacco abuse ICD Codes: Z72.0 - Tobacco use Status: Chronic Plan: Patient with current 1.5 packs per day smoking history Medications: * Nicotine patch 14mg to be changed nightly. (8) Alcohol abuse ICD Codes: F10.10 - Alcohol abuse, uncomplicated Status: Chronic Plan: Patient with history of alcohol abuse, drinking up to 6 beers per day. Patient states he has not had an alcoholic beverage since being discharged after prior hospitalization, 01/22/17. No prior history of alcohol withdrawal or DTs. Labs/Orders: * Ethyl alcohol: Less than 3. * Tox screen negative. * CICO protocol in place. (9) GERD (gastroesophageal reflux disease) ICD Codes: K21.9 - Gastro-esophageal reflux disease without esophagitis Status: Chronic Plan: Patient with history of GERD Medication: * Protonix 40 mg daily IV. (10) HTN (hypertension) ICD Codes: I10 - Essential (primary) hypertension Status: Chronic Plan: Patient with essential hypertension. Medications: * Continue home lisinopril 40 mg PO daily. * Clonidine 0.1 mg q6hr PO PRN BP greater than 180/110. (11) Chronic lower back pain ICD Codes: M54.5 - Low back pain; G89.29 - Other chronic pain Status: Chronic Plan: Patient with chronic lower back pain. Medications: * Continue home gabapentin 300mg PO TID. * Hold methocarbamol. (12) COPD (chronic obstructive pulmonary disease) ICD Codes: J44.9 - Chronic obstructive pulmonary disease, unspecified Status: Chronic Plan: Patient with history COPD. * See Plan for Respiratory distress (13) Nutrition, metabolism, and development symptoms ICD Codes: R63.8 - Other symptoms and signs concerning food and fluid intake Status: Acute Plan: Fluids: * No fluids indicated due to possible fluid overload causing respiratory distress. Diet: * NPO except PO meds. Electrolytes: * Monitor and replete as necessary. (14) Surgical contraindication to deep vein thrombosis (DVT) prophylaxis ICD Codes: Z53.09 - Procedure and treatment not carried out because of other contraindication Status: Acute Plan: Pharmacological DVT prophylaxis held due to possible surgical intervention plus he has active bleed. Orders: * SCDs - not in place. (Patrizia Mcneill MD R1) Problem Qualifiers (1) GERD (gastroesophageal reflux disease): Qualified Codes: K21.9 - Gastro-esophageal reflux disease without esophagitis (2) HTN (hypertension): Qualified Codes: I10 - Essential (primary) hypertension (3) Chronic lower back pain: Qualified Codes: M54.5 - Low back pain; G89.29 - Other chronic pain (4) COPD (chronic obstructive pulmonary disease): Qualified Codes: J44.9 - Chronic obstructive pulmonary disease, unspecified Patrizia Mcneill MD R1 Mar 04, 2017 10:02 Olayinka Lange MD Mar 06, 2017 13:37
--- NOTE | 2017-03-04 10:15 | HHI.CCPN ---
Subjective Remarks/Hospital Course 56-year-old male with history of COPD, hypertension, alcohol and tobacco abuse presents with multiple complaints including bloody stools 48 hours prior to admission and epigastric pain. The patient underwent imaging which demonstrated a slightly thickened gallbladder wall and a "positive sonographic Lee sign". Since admission he has received multiple blood product transfusions and now he is been developing shortness of breath with mild to moderate respiratory failure. Patient is possibly going to operating room tomorrow morning for exploratory laparotomy and possible biopsy. SUBJ 03/03: Remains short of breath, on BiPAP, chest x-ray shows worsening pulmonary edema. I have started Lasix 40 mg IV every 12 hours. Discontinue IV fluids. If not improving patient may need endotracheal intubation. Continues to have lower GI bleed. 1 unit of platelets and 2 units of FFP ordered (plt count [id number], INR 2.3). Discussed with Dr. Oliveros. No cause identified for elevated CEA of 5800. MRI abdomen showed liver cirrhosis but no mass. Oncology consulted 03/04: Tachypneic on BiPAP, CXR unchanged showing pulmonary edema. Urine output 5 L with IV Lasix. Abdomen remains distended, KUB pending. The patient cooperates will place NG tube for abdominal decompression. Per oncology, CEA of 5800 invariably indicates underlying malignancy. CT chest . Hilar and mediastinal adenopathy measuring up to 3.2 cm and the left hilum concerning for underlying malignancy. Multifocal airspace disease in both lungs space predominantly in the upper lobes, probable multifocal pneumonia. Small bilateral pleural effusions Objective Vital Signs Date Time Temp Pulse Resp B/P (MAP) Pulse Ox O2 Delivery O2 Flow Rate FiO2 03/04/17 08:25 50 03/04/17 08:25 BiPAP 50 03/04/17 06:00 118 03/04/17 04:00 98.0 26 145/77 (99) 03/02/17 21:00 6.00 Intake and Output 03/04/17 03/04/17 03/05/17 08:00 16:00 00:00 Intake Total 1340 ml Output Total 2425 ml Balance -1085 ml Result Diagram: 03/04/17 0500 03/04/17 0500 Imaging Last 24 hours Impressions Chest X-Ray 03/02/17 0000 Signed Impressions: Service Date/Time: Thursday, March 02, 2017 08:23 - CONCLUSION: 1. Interstitial and alveolar opacities, likely multi-lobar pneumonia. Nils Iglesias MD Objective Remarks GENERAL: Disheveled male in moderate respiratory distress, on BIPAP SKIN: Warm and diaphoretic. No rash or trauma. HEENT: Atraumatic, normocephalic with severe scleral icterus. BiPAP mask limits ENT exam CARDIOVASCULAR: Tachycardic+ rate and rhythm without murmurs, gallops, or rubs. 2+ pulses in all 4 extremities. RESPIRATORY: On BIPAP, bilateral course crackles bilateral wheezes heard GASTROINTESTINAL: Abdomen protuberant with positive bowel sounds in all 4 quadrants. Tenderness to the right upper quadrant. No ascites on US MUSCULOSKELETAL: Bilateral lower extremity edema 2+ and pitting. NEUROLOGICAL: AAO 3. No tremor at baseline. Normal speech. No focal deficits Urinary Catheter: Yes Assessment to: Continue A/P Assessment and Plan Neuro: Hyperammonemia Alcohol dependence - Minimize sedation - Trend ammonia continue lactulose - Monitor for withdrawal - CIWA protocol Resp: Respiratory failure COPD exacerbation Pulmonary edema Probable pneumonia Probable underlying lung CA - Continue IV Solu Medrol, but increase to 60 mg every 8 hours, DuoNeb every 4 hours scheduled and when necessary - Symbicort and Spiriva - For Pneumonia Broad-spectrum antibiotics vancomycin and Zosyn - Cultures neg to date. Add Levaquin for atypical coverage - Infectious disease following - Continue BiPAP, may need endotracheal intubation - IV Lasix 40 every 12 with IV albumin - 2-D echo EF 60-65% - Patient is not stable for bronchoscopy or biopsy-underlying lung cancer most likely diagnosis CVS: Pulmonary edema possibly noncardiogenic - Continue IV albumin and IV Lasix - Urine output excellent after starting IV diuresis GI: RUQ abdominal pain Lower GI bleed Liver cirrhosis Elevated CEA 5800 - elevated liver enzymes, coagulopathy most likely secondary to liver cirrhosis - Unknown etiology off elevated CEA, oncology consulted, most likely lung cancer - EGD/ colonoscopy/polypectomy 02/28: Esophagitis, Pangastritis, Colon polyps, Diverticulosis. Biopsy negative for malignancy - s/p e 2 units of FFP, one pack units of platelets, give vitamin K 10 units times 1 repeat dose - INR improved. Give addition 1U platelet prior to NG insertion - Protonix 40 mg IV every 12 - General surgery following Heme: Thrombocytopenia/coagulopathy Anemia requiring transfusion - Underlying liver disease/cirrhosis - Alcoholism - Transfuse platelets to keep count above 50, transfuse FFP vitamin K to keep INR less than 1.5 - Blood loss - Transfuse to keep hemoglobin above 7 ID: Multifocal pneumonia Sepsis - Continue Zosyn and vancomycin - Levaquin added today for atypical coverage - Check sputum culture, check urine for Legionella and pneumococcal antigen DVT GI prophylaxis - Teds SCDs - Protonix IV twice a day - No pharmacological DVT prophylaxis due to GI bleed Critical Care: The total critical care time was 45 minutes. Time to perform other separately billable procedures was not included in the critical care time. Patient is critically ill with pulmonary edema, hypoxemic respiratory failure, continued GIB and coagulopathy. On BiPAP may need endotracheal intubation if not improving. KUB pending to evaluate for ileus Valentino Rhoades MD Mar 04, 2017 10:15
[2017-03-04 10:29] LABS: BLOOD GAS CARBOXYHEMOGLOBIN 1.2 % (0-4); BLOOD GAS HCO3 28 mmol/L (22-26); BLOOD GAS O2 HGB SATURATION 93 % (90-100); BLOOD GAS OXYGEN CONTENT 11.2 Vol % (12.0-20.0); BLOOD GAS PCO2 42 mmHg (38-42); BLOOD GAS PO2 70 mmHg (61-120); BLOOD GAS TOTAL HGB 8.6 G/DL (12.0-16.0); CRITICAL VALUE NO; DRAW SITE RT RADIAL; FIO2 50 %; NUMBER OF ARTERIAL PUNCTURES 1; OXYGEN DEVICE BIPAP; STAT YES; TEMP CORR TO 98.6; ULNAR PULSE PRESENT; VENT SETTINGS IPAP10/EPAP5
[2017-03-04] MEDS: NICOTINE 14 MG/24 HR PATCH T-DERMAL SCH (10:39)
[2017-03-04] MEDS: GABAPENTIN 300 MG CAP PO SCH ×3 (10:40→18:00)
[2017-03-04] MEDS: LISINOPRIL 20 MG TAB PO SCH (10:41)
[2017-03-04] MEDS: PANTOPRAZOLE SODIUM 40 MG VIAL IV PUSH SCH ×2 (10:41→22:43)
[2017-03-04] MEDS: FUROSEMIDE 40 MG/4 ML VIAL IV PUSH SCH ×2 (10:42→18:00)
[2017-03-04] MEDS: methylPREDNISolone SOD SUCC 125 MG/2 ML VIAL IV PUSH SCH ×2 (10:43→22:42)
[2017-03-04] MEDS: SODIUM CHLORIDE 0.9% FLUSH 10 ML FLUSH IV FLUSH SCH ×2 (10:43→22:44)
[2017-03-04] MEDS: SPIRONOLACTONE 50 MG TAB PO SCH ×2 (10:44→18:00)
[2017-03-04] MEDS: POTASSIUM CHLORIDE 20 MEQ CONTROLLED RELEASE TAB PO SCH ×2 (10:44→21:00)
--- NOTE | 2017-03-04 11:08 | RADRPT ---
EXAM DATE/TIME: 03/04/2017 10:27 [facility] COMPARISON: CT ABDOMEN & PELVIS W CONTRAST, February 25, 2017, 19:53. CHEST SINGLE AP, March 04, 2017, 4:19. INDICATIONS : Evaluate for ileus. MEDICAL HISTORY : Hypertension. Chronic obstructive pulmonary disease. SURGICAL HISTORY : None. ENCOUNTER: Subsequent ACUITY: 4 - 6 days PAIN SCORE: 7/10 LOCATION: Abdomen. FINDINGS: Supine view of the abdomen was performed. The abdominal bowel gas pattern is within normal limits. N o evidence of obstruction.. No definite calcifications are seen overlying the kidneys.. The osseous structures are unremarkable. CONCLUSION: Benign abdomen. Keegan Youngblood MD on March 04, 2017 at 11:05 Board Certified Radiologist. This report was verified electronically.
[2017-03-04] MEDS: LEVOFLOXACIN 750 MG PREMIX INJ 150 ML IV SCH (11:54)
--- NOTE | 2017-03-04 12:09 | HHI.GIFU ---
Subjective Remarks Pt sitting up in bed, on bipap. Copious dark blood and liquid stool in rectal bag. Had improved and then worsened today per RN. (Suzie Ramos) Objective Vitals I&O Vital Signs Date Time Temp Pulse Resp B/P (MAP) Pulse Ox O2 Delivery O2 Flow Rate FiO2 03/04/17 08:25 50 03/04/17 08:25 93 BiPAP 50 03/04/17 06:00 118 03/04/17 04:29 91 40 03/04/17 04:00 98.0 110 26 145/77 (99) 93 03/04/17 04:00 117 03/04/17 02:00 124 03/04/17 00:00 104 03/04/17 00:00 98.0 104 23 135/75 (95) 95 03/03/17 23:42 94 40 03/03/17 22:00 107 03/03/17 20:47 94 40 03/03/17 20:00 97.5 104 25 138/73 (94) 94 03/03/17 20:00 104 03/03/17 19:00 94 Bi-Pap 40 03/03/17 18:00 109 03/03/17 17:00 97.7 103 24 140/80 94 03/03/17 16:25 96 40 03/03/17 16:00 96 Bi-Pap 40 03/03/17 16:00 97.9 106 24 146/87 (106) 95 03/03/17 16:00 106 03/03/17 14:17 97.5 105 28 140/84 94 03/03/17 14:00 100 03/03/17 13:12 97.9 95 18 144/78 96 03/03/17 12:24 95 50 I/O 03/03/17 03/03/17 03/03/17 03/04/17 03/04/17 03/04/17 07:00 15:00 23:00 07:00 15:00 23:00 Intake Total 2312 ml 356 ml 2797 ml 1440 ml 150 ml Output Total 575 ml 3100 ml 2425 ml Balance 1737 ml 356 ml -303 ml -985 ml 150 ml Intake Oral 240 ml 360 ml 480 ml IV Total 1850 ml 1250 ml 960 ml 150 ml FFP 341 ml 977 ml Platelets 222 ml 200 ml Blood Product IV Normal Saline Flush 0 ml 15 ml 10 ml Output Urine Total 575 ml 3100 ml 2050 ml Stool Total 375 ml # Voids 1 # Bowel Movements 2 0 Laboratory Laboratory Tests Test 03/03/17 14:05 03/03/17 21:00 03/04/17 05:00 03/04/17 10:20 White Blood Count 8.2 10.7 Red Blood Count 2.36 2.32 Hemoglobin 8.0 7.9 Hematocrit 22.6 22.1 Mean Corpuscular Volume 96.0 95.4 Mean Corpuscular Hemoglobin 33.8 34.0 Mean Corpuscular Hemoglobin Concent 35.2 35.6 Red Cell Distribution Width 20.2 18.5 Platelet Count 118 59 Mean Platelet Volume 11.0 8.6 Neutrophils (%) (Auto) 82.2 83.3 Lymphocytes (%) (Auto) 11.2 11.4 Monocytes (%) (Auto) 6.1 4.8 Eosinophils (%) (Auto) 0.3 0.1 Basophils (%) (Auto) 0.2 0.4 Neutrophils # (Auto) 6.8 8.9 Lymphocytes # (Auto) 0.9 1.2 Monocytes # (Auto) 0.5 0.5 Eosinophils # (Auto) 0.0 0.0 Basophils # (Auto) 0.0 0.0 CBC Comment AUTO DIFF AUTO DIFF Differential Total Cells Counted 100 100 Neutrophils % (Manual) 75 77 Band Neutrophils % 3 6 Lymphocytes % 13 8 Monocytes % 7 5 Neutrophils # (Manual) 6.6 9.3 Metamyelocytes 1 4 Promyelocytes 1 Nucleated Red Blood Cells 13 16 Differential Comment FINAL DIFF MANUAL FINAL DIFF MANUAL Platelet Estimate LOW LOW Platelet Morphology Comment NORMAL NORMAL Prothrombin Time 17.1 Prothromb Time International Ratio 1.7 Potassium Level 2.7 3.4 Blood Urea Nitrogen 17 Creatinine 0.82 Random Glucose 105 Total Protein 5.7 Albumin 3.0 Calcium Level 8.9 Magnesium Level 1.8 Alkaline Phosphatase 176 Aspartate Amino Transf (AST/SGOT) 233 Alanine Aminotransferase (ALT/SGPT) 116 Lactate Dehydrogenase 965 Total Bilirubin 13.0 Sodium Level 146 Chloride Level 107 Carbon Dioxide Level 26.7 Anion Gap 12 Estimat Glomerular Filtration Rate 98 Blood Gas Puncture Site RT RADIAL Blood Gas Patient Temperature 98.6 Blood Gas HCO3 28 Blood Gas Base Excess 4.0 Blood Gas Oxygen Saturation 93 Arterial Blood pH 7.44 Arterial Blood Partial Pressure CO2 42 Arterial Blood Partial Pressure O2 70 Arterial Blood Oxygen Content 11.2 Arterial Blood Carboxyhemoglobin 1.2 Arterial Blood Methemoglobin 0.0 Blood Gas Hemoglobin 8.6 Oxygen Delivery Device BIPAP Blood Gas Ventilator Setting IPAP10/[id number] Blood Gas Inspired Oxygen 50 Date/Time Source Procedure Growth Status 02/25/17 22:55 Blood Peripheral Aerobic Blood Culture - Final NO GROWTH IN 5 DAYS Complete 02/25/17 22:55 Blood Peripheral Anaerobic Blood Culture - Final NO GROWTH IN 5 DAYS Complete 03/04/17 11:49 Urine Catheterized Urine Legionella Antigen Pending Received 03/04/17 11:49 Urine Catheterized Urine Streptococcus pneumoniae Antigen (M Pending Received Imaging Last Impressions Chest X-Ray 03/04/17 0600 Signed Impressions: Service Date/Time: Saturday, March 04, 2017 04:19 - CONCLUSION: No significant neural change with persistent bilateral pulmonary consolidation. Nathanael Mcneil MD Abdomen X-Ray 03/04/17 0000 Signed Impressions: Service Date/Time: Saturday, March 04, 2017 10:27 - CONCLUSION: Benign abdomen. Keegan Youngblood MD CT Angiography 03/01/17 0000 Signed Impressions: Service Date/Time: Wednesday, March 01, 2017 21:13 - CONCLUSION: 1. Negative for pulmonary embolism. 2. Hilar and mediastinal adenopathy measuring up to 3.2 cm and the left hilum. Finding is concerning for underlying malignancy. 3. Multifocal airspace disease in both lungs space predominantly in the upper lobes. Primary differential diagnosis is multifocal pneumonia. Small bilateral pleural effusions Prashant Castro MD Abdomen Ultrasound 03/01/17 0000 Signed Impressions: Service Date/Time: Wednesday, March 01, 2017 17:06 - CONCLUSION: Trace ascites noted. Seun Hawkins MD Cholangiopancreatography MRI 02/26/17 0000 Signed Impressions: Service Date/Time: Sunday, February 26, 2017 10:40 - CONCLUSION: 1. No ductal dilatation or evidence for choledocholithiasis or focal biliary ductal abnormality. 2. Cirrhotic liver with numerous focal lesions predominately in the left lobe of the liver with a dominant segment 4 lesion measuring up to 2.8 cm. Recommend formal liver mass MRI examination for better evaluation. 3. Trace ascites. Edouard Villatoro MD Abdomen MRI 02/26/17 0000 Signed Impressions: Service Date/Time: Sunday, February 26, 2017 13:52 - CONCLUSION: 1. There is hepatomegaly with liver measuring 26.4 cm in length. 2. There is a very coarse reticular nodular pattern throughout the entire liver on the postcontrast images characteristic of hepatocellular disease such as cirrhosis. The coarse pattern suggesting regenerating nodules related to cirrhosis. If clinically indicated, recommend liver biopsy for correlation. 3. The rest of the MRI of the upper abdomen is unremarkable. Keegan Youngblood MD Gall Bladder Ultrasound 02/25/17 0000 Signed Impressions: Service Date/Time: Saturday, February 25, 2017 08:06 - CONCLUSION: 1. Hepatomegaly with diffusely heterogeneous echotexture. There is hepatofugal flow in the main portal vein with trace ascites consistent with portal hypertension. 2. Gallbladder is contracted with gallbladder wall thickening. Gallbladder wall thickening is commonly seen in patients with liver disease. Director Of Plant Operations reports a positive sonographic Lee's sign. Consider HIDA scan for evaluation of cystic duct patency if there is significant continued clinical concern regarding cholecystitis. Edouard Villatoro MD Abdomen/Pelvis CT 02/25/17 0000 Signed Impressions: Service Date/Time: Saturday, February 25, 2017 19:53 - CONCLUSION: 1. Hepatomegaly. 2. Minimal ascites. 3. Scattered uncomplicated colonic diverticulosis. 4. Stable 15 mm right renal cyst. Casey Lopez MD Physical Exam HEENT: Normocephalic; atraumatic; +icterus on bipap CHEST: coarse, wheezes CARDIAC: RRR ABDOMEN: Distended, firm, diffuse TTP; no hepatosplenomegaly; bowel sounds are present in all four quadrants. dark maroon liquid stool rectal bag EXTREMITIES: No clubbing, cyanosis, + BLE edema. SKIN: Normal; no rash; + jaundice. SENIOR DIRECTOR INSIGHT: lethargic (Suzie Ramos) Assessment and Plan Plan ASSESSMENT: - Elevated LFTs- c/w ETOH hepatitis. patient with history of alcohol abuse (6 beers a day), denies any alcohol use since hospital discharge on 01/22/17. DF-14. Hepatitis panel negative. AFP 2.8, CEA 5781.4, CA-19-9 587.5, CA- 125 42.9. Imaging indicating enlarged cirrhotic liver. repeat CEA 5801. - RUQ abdominal pain, distention - GB US (02/25/17)- showed portal HTN, contracted GB with wall thickening. Per GS no surgery. KUB benign. - Lower GIB- s/pt EGD and colonoscopy found pangastritis, esophagitis, colon polyps, diverticulosis. path antrum reactive gastropathy, path colon tubular adenoma and hyperplastic polyp. having dark bloody liquid stool. hem onc following, suspect carcinoma, not stable for liver bx or treatment. HH decreasing. - thrombocytopenia- mult plt transfusions - coagulopathy - 2/2 cirrhosis. vitamin K PLAN: - consider palliative care consult - Continue PPI - continue Lactulose - Monitor H/H - Transfuse as needed - continue with supportive care This pt seen by myself and Dr Watson and this note is written on his behalf (Suzie Ramos) Physician Comments Patient seen and examined Agree with above Continue with current supportive care Monitor labs Hematology oncology notes appreciated We will need to continue with correction of coagulopathy I do agree that the patient's condition is guarded and that his outcome is probably poor (Nik Oliveros MD) Suzie Ramos Mar 04, 2017 12:09 Nik Oliveros MD Mar 04, 2017 19:37
--- NOTE | 2017-03-04 13:57 | PD.CONS ---
Consult Service Palliative Care Consult Requested By Dr. Vora . Primary Care Physician [facility] [place] . Reason for Consultation a. To assist with evaluation and management of symptoms including: Dyspnea , pain b. To assist medical decision maker(s) with: better understanding of current medical conditions; weighing benefits/burdens of medical treatment options; making medical treatment decisions. . HPI History of Present Illness This 56-year-old male, with a past history of COPD, chronic back pain, and hypertension, was admitted here on 01/20/17 because of weakness and hyponatremia. His chest x-ray at that time was essentially normal, his hyponatremia resolved with treatment, and he was discharged back home. He reports that he has been getting weaker since then, has lost muscle mass from his arms and legs, and has had an increasing abdominal girth and "tightness." He presented again to the emergency department on 02/26/17 because of worsening leg edema, constipation and some hematochezia, and worsening abdominal distention. In the emergency department, findings included: * Mild dyspnea, alert * Temp 97.7, pulse 96, respirations 20, blood pressure 159/96, oxygen saturation 99% on room air * White count 13.1, hemoglobin 14.3 * Sodium 139, creatinine 0.64, albumin 2.0 * INR 1.5 * AST 217, ALT 149, bilirubin 6.6 * Chest x-ray without acute findings * Gallbladder ultrasound with significant liver disease, contracted gallbladder , evidence of portal hypertension The patient was admitted and additional workup was completed. CT of the abdomen and pelvis confirmed a liver disease. CTA of the chest did not indicate PE, but revealed significant adenopathy consistent with malignancy. Cholangiopancreatography MRI was also completed showing liver disease. On 03/01/17, the patient's serum ammonia was 104. In addition, there were tumor marker abnormalities, with CEA 5801, CA 19-9 is 587, and alpha- fetoprotein was 2.8. The patient underwent upper endoscopy and colonoscopy, no malignancy was found. The patient continued to decline, became increasingly dyspneic, and has been on BiPAP the past 24 hours. His bilirubin has continued to worsen, now up to 13.0. The transaminases remain quite elevated. Dr. Vora saw the patient in oncology consultation last night, and noted that the patient was not a candidate for aggressive treatment for the malignancy, and has recommended consideration of a transition to comfort care. Palliative Care was consulted to assist with symptom management, and to enter into discussions with the patient and family regarding his current illnesses, the prognosis, and the benefits and burdens of the various treatment choices. . Function/Cognitive Trajectory The patient had been declining the past couple months, with weight loss and worsening weakness, and some more wheezing, cough, and dyspnea with exertion. His leg edema was worsening and made it more difficult for him to ambulate a few steps. He was still functioning somewhat independently. . Review of Systems Constitutional: COMPLAINS OF: Weight loss Endocrine: DENIES: Polyuria Eyes: DENIES: Eye inflammation Ears, nose, mouth, throat: DENIES: Epistaxis Respiratory: COMPLAINS OF: Cough, Wheezing, Shortness of breath Cardiovascular: DENIES: Chest pain Gastrointestinal: COMPLAINS OF: Abdominal pain (as the girth has increased), Bloody stools, Constipation, DENIES: Vomiting Genitourinary: DENIES: Hematuria Musculoskeletal: COMPLAINS OF: Back pain (chronic) Integumentary: DENIES: Rash Hematologic/Lymphatics: DENIES: Lymphadenopathy Immunologic/Allergic: DENIES: Urticaria Neurologic: DENIES: Headache, Localized weakness, Seizures Psychiatric: DENIES: Hallucinations, Agitation Past Family Social History Coded Allergies: No Known Allergies (Unverified Allergy, Unknown, 02/25/17) Past Medical History * HTN * COPD * Chronic back pain * ETOH abuse * Tobacco use . Past Surgical History * Tonsillectomy * Hernia repair x 2 . Reported Medications Reported Meds & Active Scripts Active Sodium Chloride 1 Gram Tab 1 Gm PO BID Reported Meloxicam 7.5 Mg Tab 7.5 Mg PO DAILY Lisinopril 40 Mg Tab 40 Mg PO DAILY Omeprazole 20 Mg Tab 20 Mg PO DAILY Gabapentin 300 Mg Cap 300 Mg PO TID Methocarbamol 500 Mg Tab 500 Mg PO TID Spiriva Handihaler (Tiotropium Inh) 18 Mcg Cap 18 Mcg INH DAILY 1 capsule = 18 mcg Symbicort Inh (Budesonide/Formoterol Fumarate) 80-4.5 Mcg/Act Aero 2 Puff INH Q12HR . Current Medications Medications (Trade) Dose Ordered Sig/Jailyn Route Start Time Stop Time Status Last Admin (NS Flush) 2 ml UNSCH PRN IV FLUSH 02/25/17 09:45 02/28/17 14:00 (NS Flush) 2 ml BID IV FLUSH 02/25/17 10:00 03/04/17 10:43 (Romazicon Inj) 0.2 mg Q1M PRN IV PUSH 02/25/17 09:45 (Ativan) 1 mg Q4H PRN PO 02/25/17 09:45 (Ativan Inj) 1 mg Q4H PRN IV PUSH 02/25/17 09:45 (Ativan) 2 mg Q2H PRN PO 02/25/17 09:45 (Ativan Inj) 2 mg Q2H PRN IV PUSH 02/25/17 09:45 (Ativan Inj) 2 mg Q1H PRN IV PUSH 02/25/17 09:45 (Ativan Inj) 2 mg Q15M PRN IV PUSH 02/25/17 09:45 (Symbicort 80-4.5 Mcg Inh) 2 puff Q12HR INH 02/25/17 21:00 03/03/17 20:55 (Neurontin) 300 mg TID PO 02/25/17 13:00 Future hold 03/04/17 10:40 (Sodium Chloride) 1 gm BID PO 02/25/17 21:00 Future Hold 03/02/17 10:15 (Spiriva Inh) 18 mcg DAILY INH 02/26/17 09:00 03/03/17 14:05 (Prinivil) 40 mg DAILY PO 02/26/17 09:00 Future hold 03/04/17 10:41 (Habitrol 14 Mg Patch.24 Hr) 1 patch DAILY T-DERMAL 02/25/17 12:00 03/04/17 10:39 Miscellaneous Information 1 HS T-DERMAL 02/25/17 21:00 03/03/17 21:00 (Zofran Inj) 4 mg Q6H PRN IVP 02/25/17 11:30 (Roxicodone) 10 mg Q4H PRN PO 02/25/17 11:30 02/28/17 08:33 (Morphine Inj) 1 mg Q3H PRN IV PUSH 02/25/17 11:30 (Morphine Inj) 2 mg Q3H PRN IV PUSH 02/25/17 11:30 03/04/17 04:00 (Morphine Inj) 4 mg Q3H PRN IV PUSH 02/25/17 11:30 (Roxicodone) 5 mg Q4H PRN PO 02/25/17 11:30 03/01/17 09:15 (Narcan Inj) 0.4 mg UNSCH PRN IV PUSH 02/25/17 11:30 (Pauline-Colace) 1 tab BID PO 02/25/17 12:00 Future Hold 02/25/17 12:21 (Milk Of Magnesia Liq) 30 ml Q12H PRN PO 02/25/17 11:30 (Senokot) 17.2 mg Q12H PRN PO 02/25/17 11:30 (Dulcolax Supp) 10 mg DAILY PRN RECTAL 02/25/17 11:30 (Duoneb Neb) 1 ampule Q6HR NEB PRN NEB 02/25/17 12:30 (Catapres) 0.1 mg Q6H PRN PO 02/25/17 12:30 02/27/17 22:53 (Vistaril) 50 mg HS PRN PO 02/25/17 12:30 (Lactulose Liq) 30 ml BID PO 02/25/17 13:30 03/01/17 22:19 Albumin Human 100 ml @ 60 mls/hr Q12H IV 02/25/17 14:00 03/04/17 03:01 (Nitrostat Sl) 0.4 mg Q5M PRN SL 02/25/17 13:30 Piperacillin Sod/ Tazobactam Sod 50 ml @ 100 mls/hr Q6H IV 02/25/17 15:00 03/04/17 10:43 Potassium Chloride 100 ml @ 50 mls/hr Q2H PRN IV 03/01/17 22:00 Potassium Chloride 100 ml @ 50 mls/hr Q2H PRN IV 03/01/17 22:00 03/04/17 06:48 (K-Lyte Cl Eff) 50 meq UNSCH PRN PO 03/01/17 22:00 03/02/17 03:38 Potassium Chloride 100 ml @ 25 mls/hr UNSCH PRN IV 03/01/17 22:00 Potassium Chloride 100 ml @ 50 mls/hr Q2H PRN IV 03/01/17 22:00 Magnesium Sulfate 4 gm/Sodium Chloride 100 ml @ 50 mls/hr UNSCH PRN IV 03/01/17 22:00 (Mag-Ox) 800 mg UNSCH PRN PO 03/01/17 22:00 Magnesium Sulfate 2 gm/Sodium Chloride 100 ml @ 50 mls/hr UNSCH PRN IV 03/01/17 22:00 (K-Phos) 2,000 mg Q4H PRN PO 03/01/17 22:00 Sodium Phosphate 30 mmol/Sodium Chloride 250 ml @ 42 mls/hr UNSCH PRN IV 03/01/17 22:00 (K-Phos) 2,000 mg UNSCH PRN PO/TUBE 03/01/17 22:00 Potassium Phosphate 30 mmol/ Sodium Chloride 260 ml @ 42 mls/hr UNSCH PRN IV 03/01/17 22:00 Pharmacy Profile Note 0 ml @ 0 mls/hr UNSCH OTHER 03/02/17 08:30 Vancomycin HCl 1750 mg/Sodium Chloride 517.5 ml @ 250 mls/hr Q12H IV 03/02/17 10:00 03/03/17 23:04 (Aldactone) 50 mg BID@ PO 03/03/17 09:00 03/04/17 10:44 (Lasix Inj) 40 mg BID@ IV PUSH 03/03/17 09:00 03/04/17 10:42 (KCl) 20 meq Q12HR PO 03/03/17 09:00 03/04/17 10:44 (Duoneb Neb) 1 ampule Q4HR NEB NEB 03/03/17 12:00 03/04/17 12:30 (SoluMEDROL INJ) 60 mg Q12HR IV PUSH 03/03/17 09:45 03/04/17 10:43 (Symbicort 160-4.5 Mcg Inh) 1 puff Q12HR INH 03/03/17 09:45 (Protonix Inj) 40 mg Q12H IV PUSH 03/03/17 21:00 03/04/17 10:41 Levofloxacin/ Dextrose 150 ml @ 100 mls/hr Q24H IV 03/04/17 12:00 03/04/17 11:54 Family History The patient's father is living and has had heart disease and thyroid disease. The patient's mother is also living, and has also had heart disease. Paternal grandfather- colon cancer. There is no family history of lung cancer. . Substance Use Tobacco: Long-term to pack per day smoker Alcohol: At least a sixpack of beer per day for many years Prescription med abuse: None Illicits: None . Psychosocial History The patient was born and raised in [place], [place]. He moved to [place] about 12 years ago. He has been living with a friend recently. He was and 3 times. He has 2 children, Adry in [place] and Rohit in [place]. The patient was a form carpenter for about 25 years, but he has been unable to work in recent months. . Spiritual/Cultural Factors The patient reports that he is spiritual, and unaffiliated Yaz[employer]. He is open to naval special warfare medic visits here at the hospital. . Living Will: Never completed Health Care Surrogate: Never completed Durable Power of Seater Grinder: Never completed Date completed: 03/04/17 . Health Care Surrogate(s): Patient's brother Sea Jaimes . Today's verbally stated goals: The patient understands that he is terminal and that he has but perhaps a week or 2 to live. He wants to focus on comfort during his remaining days, is requesting a transition to comfort care and hospice services, and is hoping that he can have a last cigarette when he gets to a hospice care center. He does not want resuscitation attempted. . Family/friends goals: I spoke with both the patients father and his brother Sea, and they support the transition to comfort care and hospice services. . Ethical and Legal Issues There are no ethical issues that would impact his care were decision-making at this time. The patient has capacity for decision-making at this time, but I anticipate that he will lose that capacity rather quickly now. He has designated his brother Sea Jaimes as healthcare surrogate. . Physical Exam Vital Signs Date Time Temp Pulse Resp B/P (MAP) Pulse Ox O2 Delivery O2 Flow Rate FiO2 03/04/17 12:31 94 03/04/17 08:25 50 03/04/17 08:25 93 BiPAP 50 03/04/17 06:00 118 03/04/17 04:29 91 40 03/04/17 04:00 98.0 110 26 145/77 (99) 93 03/04/17 04:00 117 03/04/17 02:00 124 03/04/17 00:00 104 03/04/17 00:00 98.0 104 23 135/75 (95) 95 03/03/17 23:42 94 40 03/03/17 22:00 107 03/03/17 20:47 94 40 03/03/17 20:00 97.5 104 25 138/73 (94) 94 03/03/17 20:00 104 03/03/17 19:00 94 Bi-Pap 40 03/03/17 18:00 109 03/03/17 17:00 97.7 103 24 140/80 94 03/03/17 16:25 96 40 03/03/17 16:00 96 Bi-Pap 40 03/03/17 16:00 97.9 106 24 146/87 (106) 95 03/03/17 16:00 106 03/03/17 14:17 97.5 105 28 140/84 94 03/03/17 14:00 100 03/04/17 03/05/17 19:00 07:00 Intake Total 200 ml Balance 200 ml IV Total 200 ml Exam CONSTITUTIONAL/GENERAL: This is a weak, dyspneic patient, with obvious jaundice. TUBES/LINES/DRAINS: BiPAP, IV access SKIN: No rashes, or lesions. Ecchymoses on upper extremities. No wounds seen anteriorly. Skin temperature appropriate. Not diaphoretic. HEAD: Atraumatic. Normocephalic. EYES: Pupils equal and round and reactive. Extraocular motions intact. Marked scleral icterus. No injection or drainage. Fundi not examined. ENT: Hearing grossly normal. Nose without bleeding or purulent drainage. Throat without visible erythema, exudates, masses, or lesions. NECK: Trachea midline. Supple, nontender. No palpable thyroid enlargement or nodularity. CARDIOVASCULAR: Regular rate and rhythm without murmurs, gallops, or rubs. No JVD. Peripheral pulses symmetric. RESPIRATORY/CHEST: Symmetric, mildly labored respirations. Some scattered rhonchi and bilateral mild wheezing. GASTROINTESTINAL: Abdomen soft, non-tender, with moderate to marked ascites, almost tense. EXTREMITIES: No joint tenderness or effusion noted. No calf tenderness. 3+ edema from the thighs to the feet, some weeping edema on the left lower leg. LYMPHATICS: No palpable cervical or supraclavicular adenopathy. NEUROLOGICAL: Awake and alert. Motor and sensory grossly unremarkable. Follows commands. Cognitively sharp. Moves all extremities. PSYCHIATRIC: No obvious anxiety/depression. no apparent hallucinations or other psychotic thought process. . Diagnostic Tests Laboratory Laboratory Tests Test 03/01/17 21:10 03/01/17 22:00 03/01/17 22:09 03/02/17 01:45 White Blood Count 9.3 TH/MM3 (4.0-11.0) 9.5 TH/MM3 (4.0-11.0) Red Blood Count 3.00 MIL/MM3 (4.50-5.90) 2.98 MIL/MM3 (4.50-5.90) Hemoglobin 9.9 GM/DL (13.0-17.0) 9.9 GM/DL (13.0-17.0) Hematocrit 28.4 % (39.0-51.0) 28.0 % (39.0-51.0) Mean Corpuscular Volume 94.6 FL (80.0-100.0) 94.0 FL (80.0-100.0) Mean Corpuscular Hemoglobin 33.0 PG (27.0-34.0) 33.3 PG (27.0-34.0) Mean Corpuscular Hemoglobin Concent 34.9 % (32.0-36.0) 35.5 % (32.0-36.0) Red Cell Distribution Width 18.1 % (11.6-17.2) 17.7 % (11.6-17.2) Platelet Count 53 TH/MM3 (150-450) 50 TH/MM3 (150-450) Mean Platelet Volume 9.2 FL (7.0-11.0) 8.9 FL (7.0-11.0) Neutrophils (%) (Auto) 81.2 % (16.0-70.0) Lymphocytes (%) (Auto) 11.3 % (9.0-44.0) Monocytes (%) (Auto) 7.2 % (0.0-8.0) Eosinophils (%) (Auto) 0.1 % (0.0-4.0) Basophils (%) (Auto) 0.2 % (0.0-2.0) Neutrophils # (Auto) 7.5 TH/MM3 (1.8-7.7) Lymphocytes # (Auto) 1.1 TH/MM3 (1.0-4.8) Monocytes # (Auto) 0.7 TH/MM3 (0-0.9) Eosinophils # (Auto) 0.0 TH/MM3 (0-0.4) Basophils # (Auto) 0.0 TH/MM3 (0-0.2) CBC Comment AUTO DIFF AUTO DIFF Differential Total Cells Counted 100 100 Neutrophils % (Manual) 68 % (16-70) 71 % (16-70) Band Neutrophils % 6 % (0-6) 13 % (0-6) Lymphocytes % 12 % (9-44) 5 % (9-44) Monocytes % 4 % (0-8) 3 % (0-8) Neutrophils # (Manual) 7.8 TH/MM3 (1.8-7.7) 8.7 TH/MM3 (1.8-7.7) Metamyelocytes 5 % (0-1) 3 % (0-1) Myelocytes 4 % (0-0) 4 % (0-0) Promyelocytes 1 % (0-0) 1 % (0-0) Nucleated Red Blood Cells 8 /100 WBC (0-0) 5 /100 WBC (0-0) Differential Comment FINAL DIFF MANUAL FINAL DIFF MANUAL Platelet Estimate LOW (NORMAL) LOW (NORMAL) Platelet Morphology Comment NORMAL (NORMAL) NORMAL (NORMAL) Acanthocytes OCC (NORMAL) Blood Urea Nitrogen 11 MG/DL (7-18) 8 MG/DL (7-18) Creatinine 0.68 MG/DL (0.60-1.30) 0.72 MG/DL (0.60-1.30) Random Glucose 129 MG/DL (74-106) 124 MG/DL (74-106) Total Protein 5.8 GM/DL (6.4-8.2) 5.6 GM/DL (6.4-8.2) Albumin 2.9 GM/DL (3.4-5.0) 2.9 GM/DL (3.4-5.0) Calcium Level 8.3 MG/DL (8.5-10.1) 8.5 MG/DL (8.5-10.1) Alkaline Phosphatase 225 U/L (45-117) 229 U/L (45-117) Aspartate Amino Transf (AST/SGOT) 162 U/L (15-37) 171 U/L (15-37) Alanine Aminotransferase (ALT/SGPT) 93 U/L (12-78) 95 U/L (12-78) Total Bilirubin 8.9 MG/DL (0.2-1.0) 9.5 MG/DL (0.2-1.0) Direct Bilirubin 6.4 MG/DL (0.0-0.2) Sodium Level 146 MEQ/L (136-145) 147 MEQ/L (136-145) Potassium Level 2.8 MEQ/L (3.5-5.1) 2.8 MEQ/L (3.5-5.1) 2.7 MEQ/L (3.5-5.1) Chloride Level 111 MEQ/L (98-107) 111 MEQ/L (98-107) Carbon Dioxide Level 25.9 MEQ/L (21.0-32.0) 27.2 MEQ/L (21.0-32.0) Anion Gap 9 MEQ/L (5-15) 9 MEQ/L (5-15) Estimat Glomerular Filtration Rate 121 ML/MIN (>89) 113 ML/MIN (>89) Ammonia 104 MCMOL/L (11-32) Lactic Acid Level 3.3 mmol/L (0.4-2.0) 4.0 mmol/L (0.4-2.0) Magnesium Level 1.9 MG/DL (1.5-2.5) Toxic Vacuolation PRESENT (NONE SEEN) Target Cells 1+ (NORMAL) Prothrombin Time 17.2 SEC (9.8-11.6) Prothromb Time International Ratio 1.7 RATIO Test 03/02/17 09:47 03/02/17 16:05 03/02/17 17:59 03/02/17 22:03 White Blood Count 9.8 TH/MM3 (4.0-11.0) Red Blood Count 2.85 MIL/MM3 (4.50-5.90) Hemoglobin 9.5 GM/DL (13.0-17.0) 9.3 GM/DL (13.0-17.0) Hematocrit 26.8 % (39.0-51.0) 26.3 % (39.0-51.0) Mean Corpuscular Volume 94.0 FL (80.0-100.0) Mean Corpuscular Hemoglobin 33.3 PG (27.0-34.0) Mean Corpuscular Hemoglobin Concent 35.5 % (32.0-36.0) Red Cell Distribution Width 18.2 % (11.6-17.2) Platelet Count 47 TH/MM3 (150-450) Mean Platelet Volume 8.8 FL (7.0-11.0) Blood Urea Nitrogen 10 MG/DL (7-18) Creatinine 0.64 MG/DL (0.60-1.30) Random Glucose 112 MG/DL (74-106) Total Protein 5.8 GM/DL (6.4-8.2) Albumin 3.0 GM/DL (3.4-5.0) Calcium Level 8.5 MG/DL (8.5-10.1) Alkaline Phosphatase 211 U/L (45-117) Aspartate Amino Transf (AST/SGOT) 182 U/L (15-37) Alanine Aminotransferase (ALT/SGPT) 97 U/L (12-78) Total Bilirubin 10.5 MG/DL (0.2-1.0) Sodium Level 147 MEQ/L (136-145) Potassium Level 3.5 MEQ/L (3.5-5.1) Chloride Level 111 MEQ/L (98-107) Carbon Dioxide Level 26.1 MEQ/L (21.0-32.0) Anion Gap 10 MEQ/L (5-15) Estimat Glomerular Filtration Rate 130 ML/MIN (>89) Lactic Acid Level 2.9 mmol/L (0.4-2.0) Prothrombin Time 20.7 SEC (9.8-11.6) Prothromb Time International Ratio 2.0 RATIO Activated Partial Thromboplast Time 44.9 SEC (24.3-30.1) Blood Gas Puncture Site LT RADIAL Blood Gas Patient Temperature 98.6 Blood Gas HCO3 27 mmol/L (22-26) Blood Gas Base Excess 3.6 mmol/L (-2-2) Blood Gas Oxygen Saturation 92 % (90-100) Arterial Blood pH 7.48 (7.380-7.420) Arterial Blood Partial Pressure CO2 37 mmHg (38-42) Arterial Blood Partial Pressure O2 66 mmHg (61-120) Arterial Blood Oxygen Content 11.6 Vol % (12.0-20.0) Arterial Blood Carboxyhemoglobin 1.5 % (0-4) Arterial Blood Methemoglobin 0.5 % (0-2) Blood Gas Hemoglobin 8.9 G/DL (12.0-16.0) Oxygen Delivery Device BIPAP Blood Gas Ventilator Setting SEE COMMENT Blood Gas Inspired Oxygen 40 % Test 03/02/17 22:15 03/03/17 04:00 03/03/17 14:05 03/03/17 21:00 Hemoglobin 9.0 GM/DL (13.0-17.0) 8.4 GM/DL (13.0-17.0) 8.0 GM/DL (13.0-17.0) Hematocrit 25.6 % (39.0-51.0) 23.6 % (39.0-51.0) 22.6 % (39.0-51.0) Potassium Level 3.0 MEQ/L (3.5-5.1) 3.1 MEQ/L (3.5-5.1) 2.7 MEQ/L (3.5-5.1) White Blood Count 8.6 TH/MM3 (4.0-11.0) 8.2 TH/MM3 (4.0-11.0) Red Blood Count 2.49 MIL/MM3 (4.50-5.90) 2.36 MIL/MM3 (4.50-5.90) Mean Corpuscular Volume 95.0 FL (80.0-100.0) 96.0 FL (80.0-100.0) Mean Corpuscular Hemoglobin 33.9 PG (27.0-34.0) 33.8 PG (27.0-34.0) Mean Corpuscular Hemoglobin Concent 35.7 % (32.0-36.0) 35.2 % (32.0-36.0) Red Cell Distribution Width 18.3 % (11.6-17.2) 20.2 % (11.6-17.2) Platelet Count 40 TH/MM3 (150-450) 118 TH/MM3 (150-450) Mean Platelet Volume 9.3 FL (7.0-11.0) 11.0 FL (7.0-11.0) Neutrophils (%) (Auto) 80.5 % (16.0-70.0) 82.2 % (16.0-70.0) Lymphocytes (%) (Auto) 12.4 % (9.0-44.0) 11.2 % (9.0-44.0) Monocytes (%) (Auto) 6.4 % (0.0-8.0) 6.1 % (0.0-8.0) Eosinophils (%) (Auto) 0.2 % (0.0-4.0) 0.3 % (0.0-4.0) Basophils (%) (Auto) 0.5 % (0.0-2.0) 0.2 % (0.0-2.0) Neutrophils # (Auto) 7.0 TH/MM3 (1.8-7.7) 6.8 TH/MM3 (1.8-7.7) Lymphocytes # (Auto) 1.1 TH/MM3 (1.0-4.8) 0.9 TH/MM3 (1.0-4.8) Monocytes # (Auto) 0.6 TH/MM3 (0-0.9) 0.5 TH/MM3 (0-0.9) Eosinophils # (Auto) 0.0 TH/MM3 (0-0.4) 0.0 TH/MM3 (0-0.4) Basophils # (Auto) 0.0 TH/MM3 (0-0.2) 0.0 TH/MM3 (0-0.2) CBC Comment AUTO DIFF AUTO DIFF Differential Total Cells Counted 100 100 Neutrophils % (Manual) 78 % (16-70) 75 % (16-70) Band Neutrophils % 7 % (0-6) 3 % (0-6) Lymphocytes % 12 % (9-44) 13 % (9-44) Monocytes % 2 % (0-8) 7 % (0-8) Neutrophils # (Manual) 7.4 TH/MM3 (1.8-7.7) 6.6 TH/MM3 (1.8-7.7) Metamyelocytes 1 % (0-1) 1 % (0-1) Nucleated Red Blood Cells 12 /100 WBC (0-0) 13 /100 WBC (0-0) Differential Comment FINAL DIFF MANUAL FINAL DIFF MANUAL Platelet Estimate LOW (NORMAL) LOW (NORMAL) Platelet Morphology Comment NORMAL (NORMAL) NORMAL (NORMAL) Target Cells 1+ (NORMAL) Prothrombin Time 23.4 SEC (9.8-11.6) 17.1 SEC (9.8-11.6) Prothromb Time International Ratio 2.3 RATIO 1.7 RATIO Blood Urea Nitrogen 12 MG/DL (7-18) Creatinine 0.73 MG/DL (0.60-1.30) Random Glucose 128 MG/DL (74-106) Total Protein 5.6 GM/DL (6.4-8.2) Albumin 3.1 GM/DL (3.4-5.0) Calcium Level 8.7 MG/DL (8.5-10.1) Alkaline Phosphatase 189 U/L (45-117) Aspartate Amino Transf (AST/SGOT) 217 U/L (15-37) Alanine Aminotransferase (ALT/SGPT) 109 U/L (12-78) Total Bilirubin 10.7 MG/DL (0.2-1.0) Sodium Level 148 MEQ/L (136-145) Chloride Level 111 MEQ/L (98-107) Carbon Dioxide Level 27.5 MEQ/L (21.0-32.0) Anion Gap 10 MEQ/L (5-15) Estimat Glomerular Filtration Rate 112 ML/MIN (>89) Promyelocytes 1 % (0-0) Test 03/04/17 05:00 03/04/17 10:20 03/04/17 12:04 White Blood Count 10.7 TH/MM3 (4.0-11.0) Red Blood Count 2.32 MIL/MM3 (4.50-5.90) Hemoglobin 7.9 GM/DL (13.0-17.0) Hematocrit 22.1 % (39.0-51.0) Mean Corpuscular Volume 95.4 FL (80.0-100.0) Mean Corpuscular Hemoglobin 34.0 PG (27.0-34.0) Mean Corpuscular Hemoglobin Concent 35.6 % (32.0-36.0) Red Cell Distribution Width 18.5 % (11.6-17.2) Platelet Count 59 TH/MM3 (150-450) Mean Platelet Volume 8.6 FL (7.0-11.0) Neutrophils (%) (Auto) 83.3 % (16.0-70.0) Lymphocytes (%) (Auto) 11.4 % (9.0-44.0) Monocytes (%) (Auto) 4.8 % (0.0-8.0) Eosinophils (%) (Auto) 0.1 % (0.0-4.0) Basophils (%) (Auto) 0.4 % (0.0-2.0) Neutrophils # (Auto) 8.9 TH/MM3 (1.8-7.7) Lymphocytes # (Auto) 1.2 TH/MM3 (1.0-4.8) Monocytes # (Auto) 0.5 TH/MM3 (0-0.9) Eosinophils # (Auto) 0.0 TH/MM3 (0-0.4) Basophils # (Auto) 0.0 TH/MM3 (0-0.2) CBC Comment AUTO DIFF Differential Total Cells Counted 100 Neutrophils % (Manual) 77 % (16-70) Band Neutrophils % 6 % (0-6) Lymphocytes % 8 % (9-44) Monocytes % 5 % (0-8) Neutrophils # (Manual) 9.3 TH/MM3 (1.8-7.7) Metamyelocytes 4 % (0-1) Nucleated Red Blood Cells 16 /100 WBC (0-0) Differential Comment FINAL DIFF MANUAL Platelet Estimate LOW (NORMAL) Platelet Morphology Comment NORMAL (NORMAL) Blood Urea Nitrogen 17 MG/DL (7-18) Creatinine 0.82 MG/DL (0.60-1.30) Random Glucose 105 MG/DL (74-106) Total Protein 5.7 GM/DL (6.4-8.2) Albumin 3.0 GM/DL (3.4-5.0) Calcium Level 8.9 MG/DL (8.5-10.1) Magnesium Level 1.8 MG/DL (1.5-2.5) Alkaline Phosphatase 176 U/L (45-117) Aspartate Amino Transf (AST/SGOT) 233 U/L (15-37) Alanine Aminotransferase (ALT/SGPT) 116 U/L (12-78) Lactate Dehydrogenase 965 U/L (87-241) Total Bilirubin 13.0 MG/DL (0.2-1.0) Sodium Level 146 MEQ/L (136-145) Potassium Level 3.4 MEQ/L (3.5-5.1) 3.4 MEQ/L (3.5-5.1) Chloride Level 107 MEQ/L (98-107) Carbon Dioxide Level 26.7 MEQ/L (21.0-32.0) Anion Gap 12 MEQ/L (5-15) Estimat Glomerular Filtration Rate 98 ML/MIN (>89) Blood Gas Puncture Site RT RADIAL Blood Gas Patient Temperature 98.6 Blood Gas HCO3 28 mmol/L (22-26) Blood Gas Base Excess 4.0 mmol/L (-2-2) Blood Gas Oxygen Saturation 93 % (90-100) Arterial Blood pH 7.44 (7.380-7.420) Arterial Blood Partial Pressure CO2 42 mmHg (38-42) Arterial Blood Partial Pressure O2 70 mmHg (61-120) Arterial Blood Oxygen Content 11.2 Vol % (12.0-20.0) Arterial Blood Carboxyhemoglobin 1.2 % (0-4) Arterial Blood Methemoglobin 0.0 % (0-2) Blood Gas Hemoglobin 8.6 G/DL (12.0-16.0) Oxygen Delivery Device BIPAP Blood Gas Ventilator Setting IPAP10/EPAP5 Blood Gas Inspired Oxygen 50 % Ammonia 93 MCMOL/L (11-32) Result Diagram: 03/04/17 0500 03/04/17 1204 Microbiology Microbiology Date/Time Source Procedure Growth Status 03/04/17 11:49 Urine Catheterized Urine Legionella Antigen - Final PRESUMPTIVE NEGATIVE FOR LEGIONELLA P... Complete 03/04/17 11:49 Urine Catheterized Urine Streptococcus pneumoniae Antigen (M - Final PRESUMPTIVE NEGATIVE FOR STREPTOCOCCU... Complete Imaging Last Impressions Chest X-Ray 03/04/17 0600 Signed Impressions: Service Date/Time: Saturday, March 04, 2017 04:19 - CONCLUSION: No significant neural change with persistent bilateral pulmonary consolidation. Nathanael Mcneil MD Abdomen X-Ray 03/04/17 0000 Signed Impressions: Service Date/Time: Saturday, March 04, 2017 10:27 - CONCLUSION: Benign abdomen. Keegan Youngblood MD CT Angiography 03/01/17 0000 Signed Impressions: Service Date/Time: Wednesday, March 01, 2017 21:13 - CONCLUSION: 1. Negative for pulmonary embolism. 2. Hilar and mediastinal adenopathy measuring up to 3.2 cm and the left hilum. Finding is concerning for underlying malignancy. 3. Multifocal airspace disease in both lungs space predominantly in the upper lobes. Primary differential diagnosis is multifocal pneumonia. Small bilateral pleural effusions Prashant Castro MD Abdomen Ultrasound 03/01/17 0000 Signed Impressions: Service Date/Time: Wednesday, March 01, 2017 17:06 - CONCLUSION: Trace ascites noted. Seun Hawkins MD Cholangiopancreatography MRI 02/26/17 0000 Signed Impressions: Service Date/Time: Sunday, February 26, 2017 10:40 - CONCLUSION: 1. No ductal dilatation or evidence for choledocholithiasis or focal biliary ductal abnormality. 2. Cirrhotic liver with numerous focal lesions predominately in the left lobe of the liver with a dominant segment 4 lesion measuring up to 2.8 cm. Recommend formal liver mass MRI examination for better evaluation. 3. Trace ascites. Edouard Villatoro MD Abdomen MRI 02/26/17 0000 Signed Impressions: Service Date/Time: Sunday, February 26, 2017 13:52 - CONCLUSION: 1. There is hepatomegaly with liver measuring 26.4 cm in length. 2. There is a very coarse reticular nodular pattern throughout the entire liver on the postcontrast images characteristic of hepatocellular disease such as cirrhosis. The coarse pattern suggesting regenerating nodules related to cirrhosis. If clinically indicated, recommend liver biopsy for correlation. 3. The rest of the MRI of the upper abdomen is unremarkable. Keegan Youngblood MD Gall Bladder Ultrasound 02/25/17 0000 Signed Impressions: Service Date/Time: Saturday, February 25, 2017 08:06 - CONCLUSION: 1. Hepatomegaly with diffusely heterogeneous echotexture. There is hepatofugal flow in the main portal vein with trace ascites consistent with portal hypertension. 2. Gallbladder is contracted with gallbladder wall thickening. Gallbladder wall thickening is commonly seen in patients with liver disease. [employer] reports a positive sonographic Lee's sign. Consider HIDA scan for evaluation of cystic duct patency if there is significant continued clinical concern regarding cholecystitis. Edouard Villatoro MD Abdomen/Pelvis CT 02/25/17 0000 Signed Impressions: Service Date/Time: Saturday, February 25, 2017 19:53 - CONCLUSION: 1. Hepatomegaly. 2. Minimal ascites. 3. Scattered uncomplicated colonic diverticulosis. 4. Stable 15 mm right renal cyst. Casey Lopez MD Patient/Family Conference Present at Family Conference: The patient and I are the only ones present in the room . Family Conference Time (mins): 44 Family Conference Location: Bedside Issues Discussed: * Palliative care role, purpose, approach * Hospice care role, purpose, approach * Additional medical, psychosocial, and spiritual history * Patients general health, functional status, and cognitive changes in the months leading up to the current hospitalization * Patient/family understanding of the current medical problems * Patient/family understanding of prognosis * Patients goals of care as best understood from advance directives and/or conversations and/or values * Current medical treatment options and benefits/burdens of those options * Likely scenarios comparing ongoing aggressive care with a transition to comfort measures only * Questions answered to the best of my ability * Palliative care contact information provided The patient understands that he is terminal and that he has but perhaps a week or 2 to live. He wants to focus on comfort during his remaining days, is requesting a transition to comfort care and hospice services, and is hoping that he can have a last cigarette when he gets to a hospice care center. He does not want resuscitation attempted. . Assessment and Plan Disease Oriented Problem List: (1) respiratory failure (2) COPD, moderate but worsening (3) widely metastatic malignancy, most likely small cell lung cancer (4) hepatic failure, worsening (5) malnutrition (6) hypertension (7) chronic back pain Symptom Scale: (1) pain 0-10 Scale: 3 (related to his tense ascites) (2) dyspnea 0-10 Scale: 3 (somewhat improved on the BiPAP) (3) anxiety 0-10 Scale: 0 Pertinent Non-Medical Issues Psychosocial: Originally from [place], 3, 2 adult children, former form carpenter. Spiritual: The patient reports that he is spiritual, and unaffiliated Yaz[employer]. He is open to naval special warfare medic visits here at the hospital. Legal: The patient has capacity for decision-making at this time, but I anticipate that he will lose that capacity rather quickly now. He has designated his brother Sea Jaimes as healthcare surrogate. Ethical issues impacting care: None . Important Contacts Brother: Sea Jaimes, healthcare surrogate in [place]: [phone] Father: Baldemar Jaimes in [place]: [phone] . Prognosis This patient is terminal and likely has just days or perhaps a couple weeks to live. He has obvious malignancy and worsening hepatic failure. He is appropriate for hospice services. . Code Status: No Code Plan * DO NOT RESUSCITATE, per request of the patient 03/04/17. * DECISION-MAKING: The patient has capacity for decision-making at this time, but I anticipate that he will lose that capacity rather quickly now. He has designated his brother Sea Jaimes as healthcare surrogate. * GOALS: The patient understands that he is terminal and that he has but perhaps a week or 2 to live. He wants to focus on comfort during his remaining days, is requesting a transition to comfort care and hospice services, and is hoping that he can have a last cigarette when he gets to a hospice care center. He does not want resuscitation attempted. * Hospice consult placed. * Roving Winder visit requested. * SYMPTOMS: I have requested Dr. Rhoades to reevaluate the patient for possible ascites to see if a paracentesis might be beneficial for the dyspnea. He will need to stay on bronchodilators and steroids, and would benefit from opiate and benzodiazepine use for the pain and dyspnea. * Palliative Care will continue to follow the patient during this hospitalization. . Time Spent Total Floor Time (mins): 76 Face to Face Time (mins): 55 >50% Counseling/Coord of Care: Yes (d/w Dr. Rhoades) Thank you for the opportunity to participate in the care of Mr. Mccarty Marli Burns MD Mar 04, 2017 13:57
[2017-03-04] MEDS: VANCOMYCIN INJ 2,000 MG in SODIUM CHLORID 0.9% 500 ML INJ 500 ML IV SCH (15:00)
[2017-03-04] MEDS ORDERED: MORPHINE SULFATE 2 MG/ML INJ IV PUSH PRN ×2 (16:15)
--- NOTE | 2017-03-04 16:15 | HHI.DCPOC ---
Discharge Care Plan Diagnosis: (1) hepatic failure, worsening (2) respiratory failure (3) Thrombocytopenia (4) Lower extremity edema (5) Chronic lower back pain (6) COPD (chronic obstructive pulmonary disease) (7) HTN (hypertension) (8) GERD (gastroesophageal reflux disease) (9) Transaminitis (10) Lower GI bleed (11) Tobacco abuse (12) Hypokalemia Goals to Promote Your Health * To prevent worsening of your condition and complications * To maintain your health at the optimal level Directions to Meet Your Goals Take your medications as prescribed Follow your dietary instruction Follow activity as directed Keep your appointments as scheduled Take your immunizations and boosters as scheduled If your symptoms worsen call your PCP, if no PCP go to Urgent Care Center or Emergency Room Smoking is Dangerous to Your Health. Avoid second hand smoke Call the 24-hour hour crisis hotline for domestic abuse at Patrizia Mcneill MD R1 Mar 04, 2017 16:15
--- NOTE | 2017-03-04 17:44 | HHI.DS ---
Discharge Summary Admission Date Feb 26, 2017 at 13:04 Discharge Date: Mar 04, 2017 Admitting Diagnosis Liver disease, rule out cholecystitis (1) Abdominal pain Diagnosis: Principal ICD Codes: R10.9 - Unspecified abdominal pain Status: Acute (2) Lower GI bleed Diagnosis: Principal ICD Codes: K92.2 - Gastrointestinal hemorrhage, unspecified Status: Acute (3) Transaminitis Diagnosis: Principal ICD Codes: R74.0 - Nonspecific elevation of levels of transaminase and lactic acid dehydrogenase [LDH] Status: Acute (4) Thrombocytopenia Diagnosis: Principal ICD Codes: D69.6 - Thrombocytopenia, unspecified Status: Acute (5) Respiratory distress Diagnosis: Principal ICD Codes: R06.03 - Acute respiratory distress Status: Acute (6) Hypokalemia Diagnosis: Secondary ICD Codes: E87.6 - Hypokalemia Status: Acute (7) Hypertension Diagnosis: Secondary ICD Codes: I10 - Hypertension Status: Chronic (8) GERD (gastroesophageal reflux disease) Diagnosis: Secondary ICD Codes: K21.9 - Gastro-esophageal reflux disease without esophagitis Status: Chronic (9) COPD (chronic obstructive pulmonary disease) Diagnosis: Secondary ICD Codes: J44.9 - Chronic obstructive pulmonary disease, unspecified Status: Chronic (10) Tobacco abuse Diagnosis: Secondary ICD Codes: Z72.0 - Tobacco abuse Status: Chronic (11) Alcohol abuse Diagnosis: Secondary ICD Codes: F10.10 - Alcohol abuse, uncomplicated Brief History Mr. Jaimes is a 56-year-old male presenting to the ED with blood per rectum, epigastric, RUQ and RLQ pain as well as transaminitis. CBC/BMP: 03/04/17 0500 03/04/17 1204 Significant Findings Laboratory Tests Test 03/01/17 21:10 03/01/17 22:00 03/01/17 22:09 03/02/17 01:45 Red Blood Count 3.00 MIL/MM3 (4.50-5.90) 2.98 MIL/MM3 (4.50-5.90) Hemoglobin 9.9 GM/DL (13.0-17.0) 9.9 GM/DL (13.0-17.0) Hematocrit 28.4 % (39.0-51.0) 28.0 % (39.0-51.0) Red Cell Distribution Width 18.1 % (11.6-17.2) 17.7 % (11.6-17.2) Platelet Count 53 TH/MM3 (150-450) 50 TH/MM3 (150-450) Neutrophils (%) (Auto) 81.2 % (16.0-70.0) Neutrophils # (Manual) 7.8 TH/MM3 (1.8-7.7) 8.7 TH/MM3 (1.8-7.7) Metamyelocytes 5 % (0-1) 3 % (0-1) Myelocytes 4 % (0-0) 4 % (0-0) Promyelocytes 1 % (0-0) 1 % (0-0) Nucleated Red Blood Cells 8 /100 WBC (0-0) 5 /100 WBC (0-0) Platelet Estimate LOW (NORMAL) LOW (NORMAL) Random Glucose 129 MG/DL (74-106) 124 MG/DL (74-106) Total Protein 5.8 GM/DL (6.4-8.2) 5.6 GM/DL (6.4-8.2) Albumin 2.9 GM/DL (3.4-5.0) 2.9 GM/DL (3.4-5.0) Calcium Level 8.3 MG/DL (8.5-10.1) Alkaline Phosphatase 225 U/L (45-117) 229 U/L (45-117) Aspartate Amino Transf (AST/SGOT) 162 U/L (15-37) 171 U/L (15-37) Alanine Aminotransferase (ALT/SGPT) 93 U/L (12-78) 95 U/L (12-78) Total Bilirubin 8.9 MG/DL (0.2-1.0) 9.5 MG/DL (0.2-1.0) Direct Bilirubin 6.4 MG/DL (0.0-0.2) Sodium Level 146 MEQ/L (136-145) 147 MEQ/L (136-145) Potassium Level 2.8 MEQ/L (3.5-5.1) 2.8 MEQ/L (3.5-5.1) 2.7 MEQ/L (3.5-5.1) Chloride Level 111 MEQ/L (98-107) 111 MEQ/L (98-107) Ammonia 104 MCMOL/L (11-32) Lactic Acid Level 3.3 mmol/L (0.4-2.0) 4.0 mmol/L (0.4-2.0) Neutrophils % (Manual) 71 % (16-70) Band Neutrophils % 13 % (0-6) Lymphocytes % 5 % (9-44) Toxic Vacuolation PRESENT (NONE SEEN) Target Cells 1+ (NORMAL) Prothrombin Time 17.2 SEC (9.8-11.6) Test 03/02/17 09:47 03/02/17 16:05 03/02/17 17:59 03/02/17 22:03 Red Blood Count 2.85 MIL/MM3 (4.50-5.90) Hemoglobin 9.5 GM/DL (13.0-17.0) 9.3 GM/DL (13.0-17.0) Hematocrit 26.8 % (39.0-51.0) 26.3 % (39.0-51.0) Red Cell Distribution Width 18.2 % (11.6-17.2) Platelet Count 47 TH/MM3 (150-450) Random Glucose 112 MG/DL (74-106) Total Protein 5.8 GM/DL (6.4-8.2) Albumin 3.0 GM/DL (3.4-5.0) Alkaline Phosphatase 211 U/L (45-117) Aspartate Amino Transf (AST/SGOT) 182 U/L (15-37) Alanine Aminotransferase (ALT/SGPT) 97 U/L (12-78) Total Bilirubin 10.5 MG/DL (0.2-1.0) Sodium Level 147 MEQ/L (136-145) Chloride Level 111 MEQ/L (98-107) Lactic Acid Level 2.9 mmol/L (0.4-2.0) Prothrombin Time 20.7 SEC (9.8-11.6) Activated Partial Thromboplast Time 44.9 SEC (24.3-30.1) Blood Gas HCO3 27 mmol/L (22-26) Blood Gas Base Excess 3.6 mmol/L (-2-2) Arterial Blood pH 7.48 (7.380-7.420) Arterial Blood Partial Pressure CO2 37 mmHg (38-42) Arterial Blood Oxygen Content 11.6 Vol % (12.0-20.0) Blood Gas Hemoglobin 8.9 G/DL (12.0-16.0) Test 03/02/17 22:15 03/03/17 04:00 03/03/17 14:05 03/03/17 21:00 Hemoglobin 9.0 GM/DL (13.0-17.0) 8.4 GM/DL (13.0-17.0) 8.0 GM/DL (13.0-17.0) Hematocrit 25.6 % (39.0-51.0) 23.6 % (39.0-51.0) 22.6 % (39.0-51.0) Potassium Level 3.0 MEQ/L (3.5-5.1) 3.1 MEQ/L (3.5-5.1) 2.7 MEQ/L (3.5-5.1) Red Blood Count 2.49 MIL/MM3 (4.50-5.90) 2.36 MIL/MM3 (4.50-5.90) Red Cell Distribution Width 18.3 % (11.6-17.2) 20.2 % (11.6-17.2) Platelet Count 40 TH/MM3 (150-450) 118 TH/MM3 (150-450) Neutrophils (%) (Auto) 80.5 % (16.0-70.0) 82.2 % (16.0-70.0) Neutrophils % (Manual) 78 % (16-70) 75 % (16-70) Band Neutrophils % 7 % (0-6) Nucleated Red Blood Cells 12 /100 WBC (0-0) 13 /100 WBC (0-0) Platelet Estimate LOW (NORMAL) LOW (NORMAL) Target Cells 1+ (NORMAL) Prothrombin Time 23.4 SEC (9.8-11.6) 17.1 SEC (9.8-11.6) Random Glucose 128 MG/DL (74-106) Total Protein 5.6 GM/DL (6.4-8.2) Albumin 3.1 GM/DL (3.4-5.0) Alkaline Phosphatase 189 U/L (45-117) Aspartate Amino Transf (AST/SGOT) 217 U/L (15-37) Alanine Aminotransferase (ALT/SGPT) 109 U/L (12-78) Total Bilirubin 10.7 MG/DL (0.2-1.0) Sodium Level 148 MEQ/L (136-145) Chloride Level 111 MEQ/L (98-107) Lymphocytes # (Auto) 0.9 TH/MM3 (1.0-4.8) Promyelocytes 1 % (0-0) Test 03/04/17 05:00 03/04/17 10:20 03/04/17 12:04 Red Blood Count 2.32 MIL/MM3 (4.50-5.90) Hemoglobin 7.9 GM/DL (13.0-17.0) Hematocrit 22.1 % (39.0-51.0) Red Cell Distribution Width 18.5 % (11.6-17.2) Platelet Count 59 TH/MM3 (150-450) Neutrophils (%) (Auto) 83.3 % (16.0-70.0) Neutrophils # (Auto) 8.9 TH/MM3 (1.8-7.7) Neutrophils % (Manual) 77 % (16-70) Lymphocytes % 8 % (9-44) Neutrophils # (Manual) 9.3 TH/MM3 (1.8-7.7) Metamyelocytes 4 % (0-1) Nucleated Red Blood Cells 16 /100 WBC (0-0) Platelet Estimate LOW (NORMAL) Total Protein 5.7 GM/DL (6.4-8.2) Albumin 3.0 GM/DL (3.4-5.0) Alkaline Phosphatase 176 U/L (45-117) Aspartate Amino Transf (AST/SGOT) 233 U/L (15-37) Alanine Aminotransferase (ALT/SGPT) 116 U/L (12-78) Lactate Dehydrogenase 965 U/L (87-241) Total Bilirubin 13.0 MG/DL (0.2-1.0) Sodium Level 146 MEQ/L (136-145) Potassium Level 3.4 MEQ/L (3.5-5.1) 3.4 MEQ/L (3.5-5.1) Blood Gas HCO3 28 mmol/L (22-26) Blood Gas Base Excess 4.0 mmol/L (-2-2) Arterial Blood pH 7.44 (7.380-7.420) Arterial Blood Oxygen Content 11.2 Vol % (12.0-20.0) Blood Gas Hemoglobin 8.6 G/DL (12.0-16.0) Ammonia 93 MCMOL/L (11-32) Vancomycin Level Trough 10.8 MCG/ML (5.0-10.0) Imaging Last Impressions Chest X-Ray 12/15/17 0600 Signed Impressions: Service Date/Time: Saturday, March 04, 2017 04:19 - CONCLUSION: No significant neural change with persistent bilateral pulmonary consolidation. Nathanael Mcneil MD Abdomen X-Ray 03/04/17 0000 Signed Impressions: Service Date/Time: Saturday, March 04, 2017 10:27 - CONCLUSION: Benign abdomen. Keegan Youngblood MD CT Angiography 03/01/17 0000 Signed Impressions: Service Date/Time: Wednesday, March 01, 2017 21:13 - CONCLUSION: 1. Negative for pulmonary embolism. 2. Hilar and mediastinal adenopathy measuring up to 3.2 cm and the left hilum. Finding is concerning for underlying malignancy. 3. Multifocal airspace disease in both lungs space predominantly in the upper lobes. Primary differential diagnosis is multifocal pneumonia. Small bilateral pleural effusions Prashant Castro MD Abdomen Ultrasound 03/01/17 0000 Signed Impressions: Service Date/Time: Wednesday, March 01, 2017 17:06 - CONCLUSION: Trace ascites noted. Seun Hawkins MD Cholangiopancreatography MRI 02/26/17 0000 Signed Impressions: Service Date/Time: Sunday, February 26, 2017 10:40 - CONCLUSION: 1. No ductal dilatation or evidence for choledocholithiasis or focal biliary ductal abnormality. 2. Cirrhotic liver with numerous focal lesions predominately in the left lobe of the liver with a dominant segment 4 lesion measuring up to 2.8 cm. Recommend formal liver mass MRI examination for better evaluation. 3. Trace ascites. Edouard Villatoro MD Abdomen MRI 02/26/17 0000 Signed Impressions: Service Date/Time: Sunday, February 26, 2017 13:52 - CONCLUSION: 1. There is hepatomegaly with liver measuring 26.4 cm in length. 2. There is a very coarse reticular nodular pattern throughout the entire liver on the postcontrast images characteristic of hepatocellular disease such as cirrhosis. The coarse pattern suggesting regenerating nodules related to cirrhosis. If clinically indicated, recommend liver biopsy for correlation. 3. The rest of the MRI of the upper abdomen is unremarkable. Keegan Youngblood MD Gall Bladder Ultrasound 02/25/17 0000 Signed Impressions: Service Date/Time: Saturday, February 25, 2017 08:06 - CONCLUSION: 1. Hepatomegaly with diffusely heterogeneous echotexture. There is hepatofugal flow in the main portal vein with trace ascites consistent with portal hypertension. 2. Gallbladder is contracted with gallbladder wall thickening. Gallbladder wall thickening is commonly seen in patients with liver disease. Child Care Specialist reports a positive sonographic Lee's sign. Consider HIDA scan for evaluation of cystic duct patency if there is significant continued clinical concern regarding cholecystitis. Edouard Villatoro MD Abdomen/Pelvis CT 02/25/17 0000 Signed Impressions: Service Date/Time: Saturday, February 25, 2017 19:53 - CONCLUSION: 1. Hepatomegaly. 2. Minimal ascites. 3. Scattered uncomplicated colonic diverticulosis. 4. Stable 15 mm right renal cyst. Casey Lopez MD PE at Discharge GENERAL: Obese male lying in bed. He is in obvious respiratory distress. On BiPAP. SKIN: Warm and dry. No lesions or trauma. HEENT: Atraumatic, normocephalic with extraocular motion intact. Severe scleral icterus. Moist mucous membranes. No rhinorrhea. No lymphadenopathy or JVD appreciated. ENT exam however limited due to BiPAP mask. CARDIOVASCULAR: Regular rate and rhythm without murmurs, gallops, or rubs. RESPIRATORY: Diffuse wheezes as well as coarse crackles heard throughout all anterior lung russell. GASTROINTESTINAL: Abdomen tense, protuberant with positive bowel sounds. Tenderness upon palpation in all four quadrants. No masses appreciated. MUSCULOSKELETAL: Bilateral lower extremity edema; 2+ and pitting, extending up to knee. NEUROLOGICAL: Alert and oriented 3. No tremor at baseline. Normal speech and judgment. Hospital Course Respiratory distress Patient continues with shortness of breath despite BiPAP. Differential diagnosis: * Pneumonia versus pulmonary edema versus fluid overload Labs/Microbiology/Imaging: * WBC: 13.1 -> 11 -> 9.7 -> 10 -> 8.9 -> 9.3 -> 9.5 -> 9.8 -> 8.6 -> 8.2 -> 10.7 (03/04) * Lactic acid: 2.0 -> 4.0 -> 2.9 (03/02) * BNP: 75 * Blood culture 02/25: No growth. * Legionella urinary antigen pending. * Pneumococcal urinary antigen pending. * Sputum culture and Gram stain pending. * Chest x-ray 03/04: No significant neural change with persistent bilateral pulmonary consolidation. * Chest x-ray 03/03: Worsening bilateral infiltrates. * Chest x-ray 03/02: Interstitial and alveolar opacities, likely multilobular pneumonia. * CT Angiography 03/01: Negative for pulmonary embolism. Hilar and mediastinal adenopathy measuring up to 3.2 cm and the left hilum. Finding is concerning for underlying malignancy. Multifocal airspace disease in both lung space predominantly in the upper lobes. Primary differential diagnosis multifocal pneumonia. Small bilateral pleural effusions. * Chest x-ray 02/25: No acute cardiopulmonary disease. Medications: * DuoNeb 1 ampule q4hr NEB. * Symbicort 80-4.5mcg 2 puff q12hr INH. * Spiriva Inh 18mcg daily INH. * Solu-Medrol 60mg q12hr IV. * Levofloxacin 750mg q24hr IV. * Zosyn 3.375mg q6hr IV (02/25- ). * Vancomycin 1,750 mg q12hr IV (03/02 - ) * Albumin 100ml q12hr IV. * Spironolactone 50mg BID PO. * Lasix 40 mg BID IV. Lower GI bleed Patient continues with bloody diarrhea. Hemoglobin trending down. History on admission: Patient with three days of constipation, hard stools with bloody streaks, and other liquid based bloody stools. Negative family history. No prior episodes. Differential diagnosis: * Hemorrhoids versus diverticulitis versus colon cancer Studies/Labs/Orders: * FOBT positive per ED staff with external hemorrhoids on exam. * On admission: Hgb 14.3 and Hct 41.2 * On admission, coagulation studies: PT 14.7, INR 1.5, APTT 32.0 * CBC on 03/04: Hgb 7.9 and Hct 22.1 * Coagulation studies on 03/02: PT 20.7, INR 2.0, APTT 44.9 * Coagulation studies on 03/03: PT 17.1, INR 1.7 * Blood type: O+ * Consult GI, EGD/colonoscopy on 02/28: * Impression: Esophagitis noted rule out Syeda, pangastritis, colon polyps, diverticulosis. * Plan: Await biopsies, monitor labs, repeat CEA, EGD and colonoscopy in one year. * Monitor H&H. Transfuse to keep hemoglobin above 7. Medications: * Protonix 40 mg q12hr IV. Abdominal pain Abdominal pain controlled. History on admission: Patient with new onset epigastric, right upper and lower quadrant abdominal pain with positive Lee sign. Patient also with LFT elevation and history consistent with possible alcoholic liver disease. On admission, patient met severe sepsis criteria with tachycardia and leukocytosis. Suspected source is likely related to his biliary system concerning for cholangitis with a lactic acid of 2.0 and platelets of 80. Differential diagnosis: * Pancreatitis versus cholecystitis versus cholangitis versus appendicitis versus malignancy Imaging/Labs/Orders: * Gallbladder ultrasound: Hepatomegaly with diffusely heterogeneous echotexture. There is hepatofugal flow in the main portal vein with trace ascites consistent with portal hypertension. Gallbladder is contracted with gallbladder wall thickening. Gallbladder wall thickening is commonly seen in patients with liver disease. Child Care Specialist reports positive sonographic Lee sign. Consider HIDA scan for evaluation of cystic duct patency if there is significant continued clinical concern regarding cholecystitis. * Lower abdominal ultrasound: No ascites seen. * Abdominal/Pelvis CT: Hepatomegaly. Minimal ascites. Scattered uncomplicated colonic diverticulosis. Stable 15 mm right renal cyst. * Abdomen MRI: There is hepatomegaly with liver measuring 26.4 cm in length. There is a very coarse reticular nodular pattern throughout the entire liver on the postcontrast images characteristic of hepatocellular disease such as cirrhosis. This coarse pattern suggesting regenerating nodules related to cirrhosis. If clinically indicated, recommend liver biopsy for correlation. The rest of the MRI of the upper abdomen is unremarkable. * MRCP: No ductal dilatation or evidence of choledocholithiasis or focal biliary ductal abnormality. Cirrhotic liver with numerous focal lesions predominantly in the left lobe of the liver with a dominant segment 4 lesions measuring up to 2.8 cm. Recommended formal liver mass MRI examination for better evaluation. Trace ascites. * Troponin: 0.07 -> 0.06 -> 0.06 -> 0.06 * BNP: 75 * Lipase: 1488 -> 1198 * Lactic acid: 2.0 -> 4.0 -> 2.9 (03/02) * Ammonia: 88 - >104 (03/01) * LDH: 953 -> 965 (03/04) * Total CrK: 359 * Hepatitis panel: Negative * AFP 2.8 * CEA 5781.4 * CA-19-9 587.5 * CA-125 42.9 * PSA 0.55 * Alpha 1 antitrypsin: 143 * Ceruloplasmin: 37 * AST: 217 -> 175 -> 165 -> 162 -> 171 -> 182 -> 217 -> 233 (03/04) * ALT: 149 -> 118 -> 115 -> 93 -> 95 -> 97 -> 109 -> 116 (03/04) * Alk Phos: 367 -> 292 -> 265 -> 225 -> 229 -> 189 -> 176 (03/04) * Total Bilirubin: 6.6 -> 6.5 -> 6.5 - > 8.9 -> 9.5 -> 10.5 -> 10.7 -> 13 (03/04 ) * GI consulted, MRCP on 02/26 and EGD/colonoscopy on 02/28. * Gen. surgery consulted, no surgical indication at this time. * NG tube placement 03/04. * Diet: NPO except PO meds. Medications: * Zosyn 3.375mg q6hr IV (02/25- ). * Vancomycin 1,750 mg q12hr IV (03/02 - ) * Oxycodone 5mg q4hr PO PRN Pain 3-5. * Oxycodone 10mg q4hr PO PRN Pain 6-10. * Morphine 1mg q3hr IV PRN Pain 1-5; if unable to take PO. * Morphine 2mg q3hr IV PRN Pain 6-10; if unable to take PO. * Morphine 4mg q3hr IV PRN Breakthrough Pain. Thrombocytopenia Platelet count on 03/03: 59. Differential diagnosis: * Liver disease Lab/Orders: * Monitor CBC. * Monitor bleeding. Orders: * Patient received 3 unitw of Leuk-redu pheresis platelets and 6 units of fresh frozen plasma. * Transfuse platelets to keep count above 50. Lower extremity edema Edema unchanged. Urine output improved after Lasix. History on admission: Patient with new-onset lower extremities edema without clinical signs of DVT. Patient endorses no history of CHF and reports a "[facility]" [facility] Differential diagnosis: * CHF versus liver failure versus malignancy Labs/Imaging: * BNP: 75 * Chest x-ray: No acute cardiopulmonary disease. Medications: * Albumin 100ml q12hr IV. * Spironolactone 50mg BID PO. * Lasix 40 mg BID IV. Pt Condition on Discharge: Deteriorating Discharge Disposition: Hospice/Med Facility Discharge Instructions DIET: Follow Instructions for: Nothing By Mouth Activities you can perform: Continue Bedrest Patrizia Mcneill MD R1 Mar 04, 2017 17:44
[2017-03-04] MEDS: REMOVE OLD PATCH T-DERMAL SCH (21:00)
[2017-03-04] MEDS: MORPHINE SULFATE 4 MG/ML INJ IV PUSH PRN (22:41)
[2017-03-04] MEDS: LORazepam 2 MG/ML VIAL IV PUSH PRN (22:41)
[2017-03-05] VITALS (11 sets, daily range): BP systolic 104–118; BP diastolic 60–72; PULSE 100–118; RESP 15–26; TEMP 97.1–98; O2SAT 94–100
[2017-03-05] MEDS: RESP: ALBUTEROL 2.5 MG/IPRATROPIUM 0.5 MG NEB (SCH) NEB ×4 (00:42→11:53)
[2017-03-05] MEDS: ALBUMIN 25% INJ 100 ML IV SCH (02:04)
[2017-03-05] MEDS: VANCOMYCIN INJ 2,000 MG in SODIUM CHLORID 0.9% 500 ML INJ 500 ML IV SCH (02:05)
[2017-03-05] MEDS: PIPERACIL-TAZO 3.375 GM PREMIX 50 ML IV SCH ×2 (02:08→09:00)
--- NOTE | 2017-03-05 05:27 | RADRPT ---
EXAM DATE/TIME: 03/05/2017 04:10 [place] COMPARISON: CHEST SINGLE AP, March 04, 2017, 4:19. INDICATIONS : Respiratory disease. MEDICAL HISTORY : Hypertension. Chronic obstructive pulmonary disease. SURGICAL HISTORY : None. ENCOUNTER: Subsequent ACUITY: 1 week PAIN SCORE: Non-responsive. LOCATION: Bilateral chest FINDINGS: Single AP view of the chest. Prominent bilateral pulmonary parenchymal opacity again identified. The opacity appears more confluent than on the comparison study of 03/04/2017, but this may be due to technical factors. Cardiomediastinal silhouette unchanged. No evidence of pleural effusion or pneumo thorax. CONCLUSION: Persistent prominent asymmetric bilateral pulmonary parenchymal opacity. Differential diagnosis is as ymmetric edema versus infection. Nathanael Mcneil MD on March 05, 2017 at 5:24 Board Certified Radiologist. This report was verified electronically.
[2017-03-05] MEDS: MORPHINE SULFATE 4 MG/ML INJ IV PUSH PRN (06:27)
[2017-03-05] MEDS: LORazepam 2 MG/ML VIAL IV PUSH PRN ×2 (06:28→08:14)
--- NOTE | 2017-03-05 08:24 | HHI.GIFU ---
Subjective Remarks Pt in bed on BiPAP. He does not open his eyes to verbal commands. Per the nurse he received Ativan at 6:30am. Objective Vitals I&O Vital Signs Date Time Temp Pulse Resp B/P (MAP) Pulse Ox O2 Delivery O2 Flow Rate FiO2 03/05/17 06:00 110 03/05/17 05:46 94 90 03/05/17 04:00 102 03/05/17 04:00 97.8 102 26 118/72 (87) 96 03/05/17 02:26 94 90 03/05/17 02:26 94 BiPAP 90 03/05/17 02:00 114 03/05/17 00:00 97.9 118 26 116/65 (82) 98 03/05/17 00:00 118 03/04/17 22:00 122 03/04/17 20:00 120 03/04/17 20:00 98.0 119 24 138/77 (97) 96 03/04/17 19:00 96 Bi-Pap 40 03/04/17 17:40 94 50 03/04/17 16:00 97.5 116 24 143/80 (101) 92 03/04/17 16:00 120 03/04/17 14:00 112 03/04/17 12:31 94 03/04/17 12:00 117 03/04/17 12:00 97.8 119 28 143/80 (101) 96 03/04/17 10:00 118 03/04/17 08:25 50 03/04/17 08:25 93 BiPAP 50 I/O 03/04/17 03/04/17 03/04/17 03/05/17 03/05/17 03/05/17 07:00 15:00 23:00 07:00 15:00 23:00 Intake Total 1440 ml 200 ml 577 ml 320 ml Output Total 2425 ml 1450 ml 1250 ml Balance -985 ml 200 ml -873 ml -930 ml Intake Oral 480 ml 240 ml 120 ml IV Total 960 ml 200 ml 200 ml FFP 337 ml Output Urine Total 2050 ml 1250 ml 850 ml Stool Total 375 ml 200 ml 400 ml Laboratory Laboratory Tests Test 03/04/17 10:20 03/04/17 12:04 Blood Gas Puncture Site RT RADIAL Blood Gas Patient Temperature 98.6 Blood Gas HCO3 28 Blood Gas Base Excess 4.0 Blood Gas Oxygen Saturation 93 Arterial Blood pH 7.44 Arterial Blood Partial Pressure CO2 42 Arterial Blood Partial Pressure O2 70 Arterial Blood Oxygen Content 11.2 Arterial Blood Carboxyhemoglobin 1.2 Arterial Blood Methemoglobin 0.0 Blood Gas Hemoglobin 8.6 Oxygen Delivery Device BIPAP Blood Gas Ventilator Setting IPAP10/EPAP5 Blood Gas Inspired Oxygen 50 Potassium Level 3.4 Ammonia 93 Vancomycin Level Trough 10.8 Date/Time Source Procedure Growth Status 02/25/17 22:55 Blood Peripheral Aerobic Blood Culture - Final NO GROWTH IN 5 DAYS Complete 02/25/17 22:55 Blood Peripheral Anaerobic Blood Culture - Final NO GROWTH IN 5 DAYS Complete 03/04/17 11:49 Urine Catheterized Urine Legionella Antigen - Final PRESUMPTIVE NEGATIVE FOR LEGIONELLA P... Complete 03/04/17 11:49 Urine Catheterized Urine Streptococcus pneumoniae Antigen (M - Final PRESUMPTIVE NEGATIVE FOR STREPTOCOCCU... Complete Imaging Last Impressions Chest X-Ray 03/05/17 0600 Signed Impressions: Service Date/Time: Sunday, March 05, 2017 04:10 - CONCLUSION: Persistent prominent asymmetric bilateral pulmonary parenchymal opacity. Differential diagnosis is asymmetric edema versus infection. Nathanael Mcneil MD Abdomen X-Ray 03/04/17 0000 Signed Impressions: Service Date/Time: Saturday, March 04, 2017 10:27 - CONCLUSION: Benign abdomen. Keegan Youngblood MD CT Angiography 03/01/17 0000 Signed Impressions: Service Date/Time: Wednesday, March 01, 2017 21:13 - CONCLUSION: 1. Negative for pulmonary embolism. 2. Hilar and mediastinal adenopathy measuring up to 3.2 cm and the left hilum. Finding is concerning for underlying malignancy. 3. Multifocal airspace disease in both lungs space predominantly in the upper lobes. Primary differential diagnosis is multifocal pneumonia. Small bilateral pleural effusions Prashant Castro MD Abdomen Ultrasound 03/01/17 0000 Signed Impressions: Service Date/Time: Wednesday, March 01, 2017 17:06 - CONCLUSION: Trace ascites noted. Seun Hawkins MD Cholangiopancreatography MRI 02/26/17 0000 Signed Impressions: Service Date/Time: Sunday, February 26, 2017 10:40 - CONCLUSION: 1. No ductal dilatation or evidence for choledocholithiasis or focal biliary ductal abnormality. 2. Cirrhotic liver with numerous focal lesions predominately in the left lobe of the liver with a dominant segment 4 lesion measuring up to 2.8 cm. Recommend formal liver mass MRI examination for better evaluation. 3. Trace ascites. Edouard Villatoro MD Abdomen MRI 02/26/17 0000 Signed Impressions: Service Date/Time: Sunday, February 26, 2017 13:52 - CONCLUSION: 1. There is hepatomegaly with liver measuring 26.4 cm in length. 2. There is a very coarse reticular nodular pattern throughout the entire liver on the postcontrast images characteristic of hepatocellular disease such as cirrhosis. The coarse pattern suggesting regenerating nodules related to cirrhosis. If clinically indicated, recommend liver biopsy for correlation. 3. The rest of the MRI of the upper abdomen is unremarkable. Keegan Youngblood MD Gall Bladder Ultrasound 02/25/17 0000 Signed Impressions: Service Date/Time: Saturday, February 25, 2017 08:06 - CONCLUSION: 1. Hepatomegaly with diffusely heterogeneous echotexture. There is hepatofugal flow in the main portal vein with trace ascites consistent with portal hypertension. 2. Gallbladder is contracted with gallbladder wall thickening. Gallbladder wall thickening is commonly seen in patients with liver disease. College Admissions Counselor reports a positive sonographic Lee's sign. Consider HIDA scan for evaluation of cystic duct patency if there is significant continued clinical concern regarding cholecystitis. Edouard Villatoro MD Abdomen/Pelvis CT 02/25/17 0000 Signed Impressions: Service Date/Time: Saturday, February 25, 2017 19:53 - CONCLUSION: 1. Hepatomegaly. 2. Minimal ascites. 3. Scattered uncomplicated colonic diverticulosis. 4. Stable 15 mm right renal cyst. Casey Lopez MD Physical Exam HEENT: Normocephalic; atraumatic; CHEST: coarse, wheezes, on BiPAP CARDIAC: RRR ABDOMEN: Distended, firm, bowel sounds active x 4. EXTREMITIES: BLE edema. SKIN: Normal; no rash; + jaundice. SANDAL PARTS ASSEMBLER: lethargic Assessment and Plan Plan ASSESSMENT: - Elevated LFTs- c/w ETOH hepatitis. patient with history of alcohol abuse (6 beers a day), denies any alcohol use since hospital discharge on 01/22/17. DF-14. Hepatitis panel negative. AFP 2.8, CEA 5781.4, CA-19-9 587.5, CA- 125 42.9. Imaging indicating enlarged cirrhotic liver. repeat CEA 5801. - RUQ abdominal pain, distention - GB US (02/25/17)- showed portal HTN, contracted GB with wall thickening. Per GS no surgery. KUB benign. - Lower GIB- s/pt EGD and colonoscopy found pangastritis, esophagitis, colon polyps, diverticulosis. path antrum reactive gastropathy, path colon tubular adenoma and hyperplastic polyp. having dark bloody liquid stool. hem onc following, suspect carcinoma, not stable for liver bx or treatment. HH decreasing. - thrombocytopenia- mult plt transfusions - coagulopathy - 2/2 cirrhosis. vitamin K 03/05 - Abdomen remains firm and distended today, pt does not open his eyes to verbal commands. Remains on Lasix and Spironolactone for ascites. Lactulose for encephalopathy. - Per RN pt is being transferred to hospice care today - Agree with this plan, pt has poor prognosis - Continue with current supportive care This pt seen by myself and Dr Watson and this note is written on his behalf Briseyda Davis Mar 05, 2017 08:24
[2017-03-05] MEDS: TIOTROPIUM BROMIDE 18 MCG INH INH SCH (08:25)
[2017-03-05] MEDS: BUDESONIDE-FORMOTEROL 160/4.5 MCG INHALER INH SCH (08:25)
[2017-03-05] MEDS: BUDESONIDE-FORMOTEROL 80/4.5 MCG INHALER INH SCH (08:26)
[2017-03-05] MEDS: PANTOPRAZOLE SODIUM 40 MG VIAL IV PUSH SCH (09:00)
[2017-03-05] MEDS: SPIRONOLACTONE 50 MG TAB PO SCH (09:00)
[2017-03-05] MEDS: LACTULOSE SYRUP 20 GM/30 ML CUP PO SCH (09:00)
[2017-03-05] MEDS: NICOTINE 14 MG/24 HR PATCH T-DERMAL SCH (09:00)
[2017-03-05] MEDS: SODIUM CHLORIDE 0.9% FLUSH 10 ML FLUSH IV FLUSH SCH (09:00)
[2017-03-05] MEDS: POTASSIUM CHLORIDE 20 MEQ CONTROLLED RELEASE TAB PO SCH (09:00)
[2017-03-05] MEDS: LISINOPRIL 20 MG TAB PO SCH (09:00)
[2017-03-05] MEDS: GABAPENTIN 300 MG CAP PO SCH ×2 (09:00→12:17)
--- NOTE | 2017-03-05 10:37 | HHI.FPPN ---
Subjective Remarks Patient seen and examined this morning by medical team. No acute events overnight per nursing staff. Patient unresponsive to stimulation with only flexion of extremities with pain. Unable to complete her review or review of systems. Patient currently on BiPAP with stable vital signs. Patient to be transferred to [facility] care center this afternoon per nursing report. (Marco Antonio Navarro MD R2) Objective Vitals Vital Signs Date Time Temp Pulse Resp B/P (MAP) Pulse Ox O2 Delivery O2 Flow Rate FiO2 03/05/17 09:00 98.0 107 16 115/64 (81) 97 03/05/17 08:44 96 90 03/05/17 08:00 107 03/05/17 07:00 94 Bi-Pap 6.00 90 03/05/17 06:32 16 03/05/17 06:00 110 03/05/17 05:46 94 90 03/05/17 04:00 102 03/05/17 04:00 97.8 102 26 118/72 (87) 96 03/05/17 02:26 94 90 03/05/17 02:26 94 BiPAP 90 03/05/17 02:00 114 03/05/17 00:00 97.9 118 26 116/65 (82) 98 03/05/17 00:00 118 03/04/17 22:00 122 03/04/17 20:00 120 03/04/17 20:00 98.0 119 24 138/77 (97) 96 03/04/17 19:00 96 Bi-Pap 40 03/04/17 17:40 94 50 03/04/17 16:00 97.5 116 24 143/80 (101) 92 03/04/17 16:00 120 03/04/17 14:00 112 03/04/17 12:31 94 03/04/17 12:00 117 03/04/17 12:00 97.8 119 28 143/80 (101) 96 I/O 03/04/17 03/04/17 03/04/17 03/05/17 03/05/17 03/05/17 07:00 15:00 23:00 07:00 15:00 23:00 Intake Total 1440 ml 200 ml 577 ml 320 ml Output Total 2425 ml 1450 ml 1250 ml Balance -985 ml 200 ml -873 ml -930 ml Intake Oral 480 ml 240 ml 120 ml IV Total 960 ml 200 ml 200 ml FFP 337 ml Output Urine Total 2050 ml 1250 ml 850 ml Stool Total 375 ml 200 ml 400 ml (Marco Antonio Navarro MD R2) Result Diagram: 03/04/17 0500 03/04/17 1204 Objective Remarks GENERAL: Obese male lying in bed. Currently unresponsive on BiPAP. SKIN: Warm and dry. No lesions or trauma. HEENT: Atraumatic, normocephalic with extraocular motion intact. Severe scleral icterus. No rhinorrhea. No lymphadenopathy or JVD appreciated. ENT exam however limited due to BiPAP mask. CARDIOVASCULAR: Regular rate and rhythm without murmurs, gallops, or rubs. RESPIRATORY: Diffuse wheezes as well as coarse crackles heard throughout all anterior lung russell. GASTROINTESTINAL: Abdomen tense, protuberant with positive bowel sounds. No masses appreciated. MUSCULOSKELETAL: Bilateral lower extremity edema; 2+ and pitting, extending up to knee. NEUROLOGICAL: Patient unresponsive with a GCS of 5. Procedures MRCP on 02/25. EGD and colonoscopy on 02/28. (Marco Antonio Navarro MD R2) A/P Assessment and Plan Mr. Jaimes is a 56-year-old male presenting to the ED with blood per rectum, epigastric, RUQ and RLQ pain as well as transaminitis. Discharge Planning Patient to be discharged to hospice care center later today. (Marco Antonio Navarro MD R2) Attending Attestation Patient seen and examined. Case reviewed and discussed with the resident team. Agree with plan of care as discussed with me and documented in the resident note. (Olayinka Lange MD) Problem List: (1) Respiratory distress ICD Codes: R06.03 - Acute respiratory distress Status: Acute Plan: Patient currently unresponsive on BiPAP. Differential diagnosis: * Pneumonia versus pulmonary edema versus fluid overload Labs/Microbiology/Imaging: * WBC: 13.1 -> 11 -> 9.7 -> 10 -> 8.9 -> 9.3 -> 9.5 -> 9.8 -> 8.6 -> 8.2 -> 10.7 (03/04) * Lactic acid: 2.0 -> 4.0 -> 2.9 (03/02) * BNP: 75 * Blood culture 02/25: No growth. * Legionella urinary antigen negative * Pneumococcal urinary antigen negative * Sputum culture and Gram stain negative * Chest x-ray 03/04: No significant neural change with persistent bilateral pulmonary consolidation. * Chest x-ray 03/03: Worsening bilateral infiltrates. * Chest x-ray 03/02: Interstitial and alveolar opacities, likely multilobular pneumonia. * CT Angiography 03/01: Negative for pulmonary embolism. Hilar and mediastinal adenopathy measuring up to 3.2 cm and the left hilum. Finding is concerning for underlying malignancy. Multifocal airspace disease in both lung space predominantly in the upper lobes. Primary differential diagnosis multifocal pneumonia. Small bilateral pleural effusions. * Chest x-ray 02/25: No acute cardiopulmonary disease. Medications: * DuoNeb 1 ampule q4hr NEB. * Symbicort 80-4.5mcg 2 puff q12hr INH. * Spiriva Inh 18mcg daily INH. * Solu-Medrol 60mg q12hr IV. * Levofloxacin 750mg q24hr IV. * Zosyn 3.375mg q6hr IV (02/25- ). * Vancomycin 1,750 mg q12hr IV (03/02 - ) * Albumin 100ml q12hr IV. * Spironolactone 50mg BID PO. * Lasix 40 mg BID IV. (2) Lower GI bleed ICD Codes: K92.2 - Gastrointestinal hemorrhage, unspecified Status: Acute Plan: Patient continues with bloody diarrhea. Hemoglobin trending down. History on admission: Patient with three days of constipation, hard stools with bloody streaks, and other liquid based bloody stools. Negative family history. No prior episodes. Differential diagnosis: * Hemorrhoids versus diverticulitis versus colon cancer Studies/Labs/Orders: * FOBT positive per ED staff with external hemorrhoids on exam. * On admission: Hgb 14.3 and Hct 41.2 * On admission, coagulation studies: PT 14.7, INR 1.5, APTT 32.0 * CBC on 03/04: Hgb 7.9 and Hct 22.1 * Coagulation studies on 03/02: PT 20.7, INR 2.0, APTT 44.9 * Coagulation studies on 03/03: PT 17.1, INR 1.7 * Blood type: O+ * Consult GI, EGD/colonoscopy on 02/28: * Impression: Esophagitis noted rule out Syeda, pangastritis, colon polyps, diverticulosis. * Plan: Await biopsies, monitor labs, repeat CEA, EGD and colonoscopy in one year. * Monitor H&H. Transfuse to keep hemoglobin above 7. Medications: * Protonix 40 mg q12hr IV. (3) Abdominal pain ICD Codes: R10.9 - Unspecified abdominal pain Status: Acute Plan: History on admission: Patient with new onset epigastric, right upper and lower quadrant abdominal pain with positive Lee sign. Patient also with LFT elevation and history consistent with possible alcoholic liver disease. On admission, patient met severe sepsis criteria with tachycardia and leukocytosis. Suspected source is likely related to his biliary system concerning for cholangitis with a lactic acid of 2.0 and platelets of 80. Differential diagnosis: * Pancreatitis versus cholecystitis versus cholangitis versus appendicitis versus malignancy Imaging/Labs/Orders: * Gallbladder ultrasound: Hepatomegaly with diffusely heterogeneous echotexture. There is hepatofugal flow in the main portal vein with trace ascites consistent with portal hypertension. Gallbladder is contracted with gallbladder wall thickening. Gallbladder wall thickening is commonly seen in patients with liver disease. Bottle Tester reports positive sonographic Lee sign. Consider HIDA scan for evaluation of cystic duct patency if there is significant continued clinical concern regarding cholecystitis. * Lower abdominal ultrasound: No ascites seen. * Abdominal/Pelvis CT: Hepatomegaly. Minimal ascites. Scattered uncomplicated colonic diverticulosis. Stable 15 mm right renal cyst. * Abdomen MRI: There is hepatomegaly with liver measuring 26.4 cm in length. There is a very coarse reticular nodular pattern throughout the entire liver on the postcontrast images characteristic of hepatocellular disease such as cirrhosis. This coarse pattern suggesting regenerating nodules related to cirrhosis. If clinically indicated, recommend liver biopsy for correlation. The rest of the MRI of the upper abdomen is unremarkable. * MRCP: No ductal dilatation or evidence of choledocholithiasis or focal biliary ductal abnormality. Cirrhotic liver with numerous focal lesions predominantly in the left lobe of the liver with a dominant segment 4 lesions measuring up to 2.8 cm. Recommended formal liver mass MRI examination for better evaluation. Trace ascites. * Troponin: 0.07 -> 0.06 -> 0.06 -> 0.06 * BNP: 75 * Lipase: 1488 -> 1198 * Lactic acid: 2.0 -> 4.0 -> 2.9 (03/02) * Ammonia: 88 - >104 (03/01) * LDH: 953 -> 965 (03/04) * Total CrK: 359 * Hepatitis panel: Negative * AFP 2.8 * CEA 5781.4 * CA-19-9 587.5 * CA-125 42.9 * PSA 0.55 * Alpha 1 antitrypsin: 143 * Ceruloplasmin: 37 * AST: 217 -> 175 -> 165 -> 162 -> 171 -> 182 -> 217 -> 233 (03/04) * ALT: 149 -> 118 -> 115 -> 93 -> 95 -> 97 -> 109 -> 116 (03/04) * Alk Phos: 367 -> 292 -> 265 -> 225 -> 229 -> 189 -> 176 (03/04) * Total Bilirubin: 6.6 -> 6.5 -> 6.5 - > 8.9 -> 9.5 -> 10.5 -> 10.7 -> 13 (03/04 ) * GI consulted, MRCP on 02/26 and EGD/colonoscopy on 02/28. * Gen. surgery consulted, no surgical indication at this time. * NG tube placement 03/04. * Diet: NPO except PO meds. Medications: * Zosyn 3.375mg q6hr IV (02/25- ). * Vancomycin 1,750 mg q12hr IV (03/02 - ) * Oxycodone 5mg q4hr PO PRN Pain 3-5. * Oxycodone 10mg q4hr PO PRN Pain 6-10. * Morphine 1mg q3hr IV PRN Pain 1-5; if unable to take PO. * Morphine 2mg q3hr IV PRN Pain 6-10; if unable to take PO. * Morphine 4mg q3hr IV PRN Breakthrough Pain. (4) Transaminitis ICD Codes: R74.0 - Nonspecific elevation of levels of transaminase and lactic acid dehydrogenase [LDH] Status: Acute Plan: Patient with right upper quadrant pain with increasing liver enzymes. * See Plan for Abdominal pain (5) Thrombocytopenia ICD Codes: D69.6 - Thrombocytopenia, unspecified Status: Acute Plan: Platelet count on 03/03: 59. Differential diagnosis: * Liver disease Lab/Orders: * Monitor CBC. * Monitor bleeding. Orders: * Patient received 3 unitw of Leuk-redu pheresis platelets and 6 units of fresh frozen plasma. * Transfuse platelets to keep count above 50. (6) Lower extremity edema ICD Codes: R60.0 - Localized edema Status: Acute Plan: Edema unchanged. Urine output improved after Lasix. History on admission: Patient with new-onset lower extremities edema without clinical signs of DVT. Patient endorses no history of CHF and reports a "[facility]" [facility]. Differential diagnosis: * CHF versus liver failure versus malignancy Labs/Imaging: * BNP: 75 * Chest x-ray: No acute cardiopulmonary disease. Medications: * Albumin 100ml q12hr IV. * Spironolactone 50mg BID PO. * Lasix 40 mg BID IV. (7) Tobacco abuse ICD Codes: Z72.0 - Tobacco use Status: Chronic Plan: Patient with current 1.5 packs per day smoking history Medications: * Nicotine patch 14mg to be changed nightly. (8) Alcohol abuse ICD Codes: F10.10 - Alcohol abuse, uncomplicated Status: Chronic Plan: Patient with history of alcohol abuse, drinking up to 6 beers per day. Patient states he has not had an alcoholic beverage since being discharged after prior hospitalization, 01/22/17. No prior history of alcohol withdrawal or DTs. Labs/Orders: * Ethyl alcohol: Less than 3. * Tox screen negative. * [facility] protocol in place. (9) GERD (gastroesophageal reflux disease) ICD Codes: K21.9 - Gastro-esophageal reflux disease without esophagitis Status: Chronic Plan: Patient with history of GERD Medication: * Protonix 40 mg daily IV. (10) HTN (hypertension) ICD Codes: I10 - Essential (primary) hypertension Status: Chronic Plan: Patient with essential hypertension. Medications: * Continue home lisinopril 40 mg PO daily. * Clonidine 0.1 mg q6hr PO PRN BP greater than 180/110. (11) Chronic lower back pain ICD Codes: M54.5 - Low back pain; G89.29 - Other chronic pain Status: Chronic Plan: Patient with chronic lower back pain. Medications: * Continue home gabapentin 300mg PO TID. * Hold methocarbamol. (12) COPD (chronic obstructive pulmonary disease) ICD Codes: J44.9 - Chronic obstructive pulmonary disease, unspecified Status: Chronic Plan: Patient with history COPD. * See Plan for Respiratory distress (13) Nutrition, metabolism, and development symptoms ICD Codes: R63.8 - Other symptoms and signs concerning food and fluid intake Status: Acute Plan: Fluids: * No fluids indicated due to possible fluid overload causing respiratory distress. Diet: * NPO except PO meds. Electrolytes: * Monitor and replete as necessary. (14) Surgical contraindication to deep vein thrombosis (DVT) prophylaxis ICD Codes: Z53.09 - Procedure and treatment not carried out because of other contraindication Status: Acute Plan: Pharmacological DVT prophylaxis held due to possible surgical intervention plus he has active bleed. Orders: * SCDs - not in place. (Marco Antonio Navarro MD R2) Problem Qualifiers (1) GERD (gastroesophageal reflux disease): Qualified Codes: K21.9 - Gastro-esophageal reflux disease without esophagitis (2) HTN (hypertension): Qualified Codes: I10 - Essential (primary) hypertension (3) Chronic lower back pain: Qualified Codes: M54.5 - Low back pain; G89.29 - Other chronic pain (4) COPD (chronic obstructive pulmonary disease): Qualified Codes: J44.9 - Chronic obstructive pulmonary disease, unspecified Marco Antonio Navarro MD R2 Mar 05, 2017 10:37 Olayinka Lange MD Mar 06, 2017 13:44
[2017-03-05] MEDS: LEVOFLOXACIN 750 MG PREMIX INJ 150 ML IV SCH (12:00)
[2017-03-05] MEDS: methylPREDNISolone SOD SUCC 125 MG/2 ML VIAL IV PUSH SCH (12:17)
[2017-03-05] MEDS: FUROSEMIDE 40 MG/4 ML VIAL IV PUSH SCH (12:17)
[2017-03-05 23:51] LABS: MITOCHONDRIAL ABS LESS THAN 20.0 U (<=20.0)
[2017-03-06] MEDS ORDERED: PHARMACY ORDERED LAB ONE (02:45)
== END 2017-03-05 12:58 | disposition hospice, inpatient (51) | DRG 377 ==
LOC: NEPE 07:21 → INTOOBSV 09:38 → NEDA 09:38 → N06A 11:12 → OBSVTOIN 02-26 13:04 → N03A 03-01 18:38
PROVIDERS: ADMIT Family Medicine; ATTEND Family Medicine
PROC: 0DBM8ZX Excision of Descending Colon, Via Natural or Artificial Opening Endoscopic, Diagnostic (ICD-10-PCS; 2017-02-28)
PROC: 0DBL8ZX Excision of Transverse Colon, Via Natural or Artificial Opening Endoscopic, Diagnostic (ICD-10-PCS; 2017-02-28)
PROC: 0DBN8ZX Excision of Sigmoid Colon, Via Natural or Artificial Opening Endoscopic, Diagnostic (ICD-10-PCS; 2017-02-28)
PROC: 0DB58ZX Excision of Esophagus, Via Natural or Artificial Opening Endoscopic, Diagnostic (ICD-10-PCS; principal; 2017-02-28 12:30)
PROC: 0DB68ZX Excision of Stomach, Via Natural or Artificial Opening Endoscopic, Diagnostic (ICD-10-PCS; 2017-02-28 12:30)
PROC: 30233K1 Transfusion of Nonautologous Frozen Plasma into Peripheral Vein, Percutaneous Approach (ICD-10-PCS; 2017-03-01)
PROC: 30233R1 Transfusion of Nonautologous Platelets into Peripheral Vein, Percutaneous Approach (ICD-10-PCS; 2017-03-01)
PROC: 5A09457 Assistance with Respiratory Ventilation, 24-96 Consecutive Hours, Continuous Positive Airway Pressure (ICD-10-PCS; 2017-03-03)
DX: K92.2 Gastrointestinal hemorrhage, unspecified (principal); J18.9 Pneumonia, unspecified organism; J96.91 Respiratory failure, unspecified with hypoxia; R65.20 Severe sepsis without septic shock; J81.1 Chronic pulmonary edema; A41.9 Sepsis, unspecified organism; E46 Unspecified protein-calorie malnutrition; D68.4 Acquired coagulation factor deficiency; K76.6 Portal hypertension; J44.1 Chronic obstructive pulmonary disease with (acute) exacerbation; J44.0 Chronic obstructive pulmonary disease with (acute) lower respiratory infection; D69.59 Other secondary thrombocytopenia; K70.31 Alcoholic cirrhosis of liver with ascites; E87.6 Hypokalemia; F10.20 Alcohol dependence, uncomplicated; F17.210 Nicotine dependence, cigarettes, uncomplicated; I10 Essential (primary) hypertension; K59.00 Constipation, unspecified; K29.70 Gastritis, unspecified, without bleeding; D12.4 Benign neoplasm of descending colon; D12.5 Benign neoplasm of sigmoid colon; D12.3 Benign neoplasm of transverse colon; R60.0 Localized edema; E88.09 Other disorders of plasma-protein metabolism, not elsewhere classified; G89.29 Other chronic pain; K21.0 Gastro-esophageal reflux disease with esophagitis; R91.8 Other nonspecific abnormal finding of lung field; Z51.5 Encounter for palliative care; D50.0 Iron deficiency anemia secondary to blood loss (chronic); K57.30 Diverticulosis of large intestine without perforation or abscess without bleeding; R59.0 Localized enlarged lymph nodes; K70.11 Alcoholic hepatitis with ascites; K31.9 Disease of stomach and duodenum, unspecified
CPT/HCPCS: 36430; 36600; 71010; 71275; 74000; 74177; 74181; 74183; 76377; 76705; 76937; 80048; 80053; 80061; 80074; 80202; 80307; 81001; 82103; 82105; 82140; 82150; 82248; 82378; 82390; 82550; 82552; 82728; 82805; 83520; 83540; 83550; 83605; 83615; 83690; 83735; 83880; 84132; 84153; 84484; 85007; 85014; 85018; 85025; 85027; 85610; 85730; 86038; 86255; 86301; 86304; 86850; 86900; 86901; 86927; 87040; 87449; 88305; 93005; 93306; 94002; 94003; 94150; 94640; 94664; A9579; C9113; J1940; J1956; J2060; J2270; J2543; J2930; J3370; J3430; J3480; J7030; J7040; P9017; P9035; P9047; Q9963; Q9967